=== PATIENT | male | born 1950 | race Caucasian/White ===

== ENCOUNTER 2021-01-19 23:00 | Inpatient (IN) | payer MEDICARE, SELFPAY ==
[2020-05-12 10:51] VITALS: BMI 31.5
--- NOTE | 2021-01-19 | RAD_ITS ---
STUDY: X-RAY CHEST REASON FOR EXAM: Male, 70 years old. intermittent chest pain starting this morning, started worsening around 10 pm. TECHNIQUE: Single AP portable view of the chest. COMPARISON: None. FINDINGS: The lungs are clear and underexpanded. There is no demonstrated pleural abnormality. Normal size heart. Normal mediastinum and iza. Normal visualized pulmonary arteries. Normal visualized aortic arch and descending thoracic aorta. There are diffuse degenerative changes of the visualized thoracic spine. There is degenerative osteoarthritis of the bilateral shoulders. There is no demonstrated abnormality of the visualized soft tissue structures of the upper abdomen. RAD/Chest 1 View (Portable) IMPRESSION: No acute cardiopulmonary disease. Electronically Signed: Sandee Aggarwal MD at 0:14 EDT , Service support ,
[2021-01-19 23:00] VITALS: BP 199/100; PULSE 66; RESP 18; TEMP 36.4; O2SAT 97; BMI 32.5
[2021-01-19 23:23] VITALS: BP 170/85; PULSE 65; RESP 18; O2SAT 98
--- NOTE | 2021-01-19 23:27 | EKG12_ITS ---
Test Reason : CP Blood Pressure : / mmHG Vent. Rate : 063 BPM Atrial Rate : 063 BPM P-R Int : 164 ms QRS Dur : 132 ms QT Int : 418 ms P-R-T Axes : 023 -66 023 degrees QTc Int : 427 ms Normal sinus rhythm Right bundle branch block Left anterior fascicular block Bifascicular block Abnormal ECG Confirmed by VALENTINO NEGRON, EVELYNE ([id number]), market editor NELSON SANDOVAL ([id number]) on 01/23/2021 12:46:21 PM Referred By: SHELLY Confirmed By:EVELYNE AVELAR MD
--- NOTE | 2021-01-19 23:28 | EX.ED.DYSGE1 ---
HPI History of Present Illness Chief Complaint: Chest Pain Informant: patient Onset/Context/Timing Onset: Today Context: Sudden Onset Current Severity: Moderate Narrative Narrative: This patient is a 70-year-old male who presents with chest pain. He does have a history of coronary artery disease. He had a stent in 2012. He reports that he has been doing well his last stress test was a couple of years ago. He last saw cardiology last April. He awoke with chest pain this morning. He describes it as a pressure discomfort. This lasted about 30 minutes and resolved. However his symptoms returned tonight a little over 1 hour ago. Again his symptoms began at rest. He rates his discomfort as 5 out of 10 and again describes it as pressure-like. He reports nausea and eructation. No fevers. No vomiting. No shortness of breath. No diaphoresis. No dizziness. He otherwise denies any recent medical illness such as fevers cough diarrhea abdominal pain rash headache. [facility] Medical History (Updated 01/20/21 @ 00:[address] Leonel Estrada MD) Atherosclerosis of [place] coronary artery of [place] heart without angina pectoris Diabetes Essential (primary) hypertension History of deep venous thrombosis Hypercoagulable state Hyperlipidemia Obesity Right bundle branch block (RBBB) Home Medications primidone 50 mg tablet 150 mg PO BID #90 tab 10/03/17 [Rx Last Taken Unknown] warfarin 4 mg tablet 4 mg PO QDAY #90 tab 10/03/17 [Rx Last Taken Unknown] nitroglycerin 0.4 mg sublingual tablet 0.4 mg SUBLINGUAL Q5-15M PRN #25 tab 04/22/18 [Rx Last Taken Unknown] lisinopril 20 mg tablet 20 mg PO QDAY #90 tab 05/12/20 [Rx Last Taken Unknown] metformin 500 mg tablet 500 mg PO DAILY tab 05/12/20 [History Last Taken Unknown] rosuvastatin 20 mg tablet 20 mg PO DAILY tab 05/12/20 [History Last Taken Unknown] metoprolol succinate 50 mg tablet,extended release 24 hr 50 mg PO QDAY #90 tab 07/04/20 [Rx Last Taken Unknown] Allergy/AdvReac Type Severity Reaction Status Date / Time atorvastatin [From Lipitor] AdvReac myalgia Verified 01/19/21 23:03 Family History Father Heart disease Sister Heart disease Sister Heart disease Diabetes Surgical History [place] filter in place (2005) H/O knee surgery History of carpal tunnel surgery History of coronary artery stent placement (07/08/13) History of lumbar surgery Social History (Updated 05/12/20 @ 11:[address] Isaias Ontiveros MD) Smoking Status: Never smoker alcohol intake: never caffeine: Yes Type: carbonated beverages and coffee ROS ROS ED Constitutional Constitutional ED: Denies fever(s) Eyes Eyes: Denies change in vision ENT ENT ED: Denies ear pain Cardiovascular Cardiovascular: Reports chest pain Respiratory/Chest Respiratory/Chest: Denies dyspnea Gastrointestinal Gastrointestinal: Reports nausea Musculoskeletal Musculoskeletal: Denies arthralgias or myalgias Integumentary Denies rash Neurologic Neurologic: Denies headache(s) EXAM Physical Exam Const Vital Signs: 01/19/21 23:00 01/19/21 23:23 01/19/21 23:40 Temperature 97.6 F L Temperature Source Temporal Pulse Rate 66 65 64 Respiratory Rate 18 18 Respiratory Effort Normal Respiratory Pattern Normal Blood Pressure 199/100 H 170/85 H 182/79 H Blood Pressure Mean 133 113 Pulse Ox 97 98 Oxygen Delivery Method Room Air Room Air Oxygen Flow Rate (L/min) 01/19/21 23:42 01/19/21 23:45 01/19/21 23:59 Temperature Temperature Source Pulse Rate 61 60 Respiratory Rate Respiratory Effort Respiratory Pattern Blood Pressure 138/85 H 138/73 H Blood Pressure Mean Pulse Ox 96 Oxygen Delivery Method Nasal Cannula Oxygen Flow Rate (L/min) 2 01/20/21 00:01 Temperature Temperature Source Pulse Rate 93 Respiratory Rate Respiratory Effort Respiratory Pattern Blood Pressure Blood Pressure Mean Pulse Ox 97 Oxygen Delivery Method Room Air Oxygen Flow Rate (L/min) Positive well nourished HEENT Reports moist mucous membranes Eyes EOMs intact bilaterally Neck supple Chest Wall inspection of chest normal Resp normal respiratory effort Auscultation: Negative for rales, rhonchi or wheezes Cardio regular rate, regular rhythm and no murmurs GI non-tender Palpation: soft Extremity General Extremety ED: Negative for edema or tenderness General Extremity: Negative for edema Neuro oriented x3 Sensorium / Orientation: alert Psych mental status grossly normal Skin no rashes or lesions noted MDM MDM MDM Narrative Medical decision making narrative: EKG shows normal sinus rhythm with a bifascicular block, right bundle and left anterior fascicular. Rate is 63. No acute ischemic changes. Serum laboratory studies are unremarkable, INR 2.1, troponin negative. Patient was given aspirin and sublingual nitroglycerin. He had 3 sublingual nitroglycerin with near resolution of his pain however his pain is returning. Therefore he was started on nitroglycerin infusion. He is already anticoagulated. Patient will be discussed with the hospitalist service and admitted for further evaluation. One-view portable chest x-ray was obtained. On my interpretation the shows no acute process. Lab Data Labs: Laboratory Results - last 24 hr 01/19/21 01/19/21 01/19/21 23:30 23:30 23:30 WBC 7.0 RBC 4.47 L Hgb 14.7 Hct 42.8 MCV 95.7 H MCH 32.9 H MCHC 34.3 RDW Std Deviation 44.9 H RDW Coeff of Trish 12.7 Plt Count 150 MPV 9.8 Immature Gran % (Auto) 0.400 Neut % (Auto) 54.3 Lymph % (Auto) 27.5 [place] % (Auto) 14.3 H Eos % (Auto) 2.6 Baso % (Auto) 0.9 Absolute Neuts (auto) 3.8 Absolute Lymphs (auto) 1.92 Nucleated RBC % 0 PT 23.0 H INR 2.1 Sodium 136 Potassium 4.2 Chloride 103 Carbon Dioxide 27.0 Anion Gap 6 BUN 19 H Creatinine 1.15 Estim Creat Clear Calc 59.77 Est GFR (MDRD) Af Amer 81 Est GFR (MDRD) Non-Af 67 BUN/Creatinine Ratio 16.5 Glucose 178 H Calcium 8.5 Troponin I < 0.015 Radiography Diagnostic Testing: Radiology Impression Chest X-Ray 01/19/21 00:00 IMPRESSION: No acute cardiopulmonary disease. Electronically Signed: Sandee Aggarwal MD at 0:14 EDT , Service support , Discharge Plan Dx/Rx/DC Orders Clinical Impression: Angina pectoris, unstable Disposition Disposition: Acute Care [facility]
[2021-01-19] MEDS: Aspirin 81 MG TAB.CHEW 324 MG PO (23:37)
[2021-01-19 23:40] VITALS: BP 182/79; PULSE 64
[2021-01-19 23:40] LABS: Absolute Lymphocyte Count 1.92 X10^3/uL (0.83-4.51); Absolute Neutrophil Count 3.8 X10^3/uL (2.0-7.7); Basophil# 0.06 X10^3/uL; Basophil% 0.9 % (0-1); Eosinophil# 0.18 X10^3/uL; Eosinophils% 2.6 % (0-5); Hematocrit 42.8 % (40-54); Hemoglobin 14.7 g/dL (13.0-16.5); Lymphocyte # 1.92 X10^3/ul (0.83-4.51); Lymphocyte % 27.5 % (19-41); Mean Corp Hgb Conc 34.3 g/dL (32-36); Mean Corpuscular Hgb 32.9 pg (27.0-32.0); Mean Corpuscular Volume 95.7 fL (80-94); Mean Platelet Vol. 9.8 fl (6.2-12.0); Monocyte% 14.3 % (0-10); NRBC Flagged by Analyzer 0 % (0-5); Neutrophil # 3.78 X10^3/uL (2.7-7.7); Neutrophil % 54.3 % (47-70); Platelet Count 150 K/mm3 (150-450); RBC Distribution Width CV 12.7 % (11.6-14.6); RBC Distribution Width SD 44.9 fl (35.1-43.9); Red Blood Count 4.47 M/mm3 (4.6-6.2)
[2021-01-19] MEDS: Nitroglycerin SL (ED/IMG/CATH) 0.4 MG TABLET SL ×3 (23:40→23:59)
[2021-01-19 23:42] VITALS: O2SAT 96
[2021-01-19 23:45] VITALS: BP 138/85; PULSE 61
[2021-01-19 23:57] LABS: Anion Gap 6 (5-15); BUN 19 mg/dL (7-18); BUN/Creat Ratio 16.5 RATIO (10-20); Calcium,Total 8.5 mg/dL (8.5-10.1); Chloride 103 mmol/L (98-107); Creatinine, Serum 1.15 mg/dL (0.70-1.30); EST Glomerular Filtration Rate 67 mL/min (>60); Est Glom Filt Rate - Afr Amer 81 mL/min (>60); Estimated Creatinine Clearance 59.77 ml/min; Glucose 178 mg/dL (74-106); International Normalized Ratio 2.1; Potassium 4.2 mmol/L (3.5-5.1); Sodium Level 136 mmol/L (136-145)
[2021-01-19 23:59] VITALS: BP 138/73; PULSE 60
[2021-01-20] VITALS (27 sets, daily range): BP systolic 126–160; BP diastolic 69–88; PULSE 47–93; RESP 11–20; TEMP 36.3–37.1; O2SAT 95–100; BMI 32.7
[2021-01-20] MEDS: Nitroglycerin Infusion 250 ML 3 MG CONT INF (00:33)
--- NOTE | 2021-01-20 00:34 | HP.PCM.HOS_ITS ---
HPI - General General Date of Admission: 01/20/21 HPI Narrative KAYLA MORENO, is a 70 M with a significant history of hypertension; CAD status post stent; hypercoagulable state with a [place] filter; and obesity who presents to the emergency department with chest pain. At about 6:30 AM on the day of presentation patient had a substernal chest pressure that woke him up from his sleep. The chest pain is nonradiating. The chest pain lasted for about 30 minutes. And then at about 10 PM on the day of presentation while patient was sitting in his recliner watching TV his chest pain was located and it was persistent. He rates his pain as 5 out of 10. At the emergency department after the third nitroglycerin pill his chest pain subsided. However after a while he chest pain began to increase. Patient was eventually started on nitroglycerin drip at the emergency department. Associated with symptoms is nausea. He denies any vomiting; diaphoresis or shortness of breath. He denies any aggravating factors to the chest pain. [facility] Medical History (Updated 01/20/21 @ 01:[address] Jhonatan Stewart MD) Atherosclerosis of [place] coronary artery of [place] heart without angina pectoris Diabetes Essential (primary) hypertension History of deep venous thrombosis Hypercoagulable state Hyperlipidemia Obesity Right bundle branch block (RBBB) Home Medications primidone 50 mg tablet 150 mg PO BID #90 tab 10/03/17 [Rx Last Taken Unknown] warfarin 4 mg tablet 4 mg PO QDAY #90 tab 10/03/17 [Rx Last Taken Unknown] nitroglycerin 0.4 mg sublingual tablet 0.4 mg SUBLINGUAL Q5-15M PRN #25 tab 04/22/18 [Rx Last Taken Unknown] lisinopril 20 mg tablet 20 mg PO QDAY #90 tab 05/12/20 [Rx Last Taken Unknown] metformin 500 mg tablet 500 mg PO DAILY tab 05/12/20 [History Last Taken Unknown] rosuvastatin 20 mg tablet 20 mg PO DAILY tab 05/12/20 [History Last Taken Unknown] metoprolol succinate 50 mg tablet,extended release 24 hr 50 mg PO QDAY #90 tab 07/04/20 [Rx Last Taken Unknown] Allergy/AdvReac Type Severity Reaction Status Date / Time atorvastatin [From Lipitor] AdvReac myalgia Verified 01/19/21 23:03 Family History Father Heart disease Sister Heart disease Sister Heart disease Diabetes Surgical History [place] filter in place (2005) H/O knee surgery History of carpal tunnel surgery History of coronary artery stent placement (07/08/13) History of lumbar surgery Social History Smoking Status: Never smoker alcohol intake: never caffeine: Yes Type: carbonated beverages and coffee ROS Constitutional Constitutional: Denies anorexia or change in weight Eyes Eyes: Denies blurry vision or change in eye color ENT HEENT: Denies abnormal hearing, dysphagia or ear pain Cardiovascular Cardiovascular: Reports chest pain and edema Respiratory/Chest Respiratory/Chest: Denies cough, dyspnea or excessive phlegm production Gastrointestinal Gastrointestinal: Reports nausea; Denies abdominal pain or coffee ground emesis Genitourinary Genitourinary: Denies burning urination or difficulty urinating Musculoskeletal Musculoskeletal: Denies arthralgias, back pain or joint pain Neurologic Neurologic: Denies abnormal gait, abnormal speech, confusion or disequilibrium Psychiatric Psychiatric: Denies anxiety or depression Vital Signs Vital Signs Vital Signs: 01/19/21 23:00 01/19/21 23:23 01/19/21 23:40 Temperature 97.6 F L Temperature Source Temporal Pulse Rate 66 65 64 Respiratory Rate 18 18 Respiratory Effort Normal Respiratory Pattern Normal Blood Pressure 199/100 H 170/85 H 182/79 H Blood Pressure Mean 133 113 Pulse Ox 97 98 Oxygen Delivery Method Room Air Room Air Oxygen Flow Rate (L/min) 01/19/21 23:42 01/19/21 23:45 01/19/21 23:59 Temperature Temperature Source Pulse Rate 61 60 Respiratory Rate Respiratory Effort Respiratory Pattern Blood Pressure 138/85 H 138/73 H Blood Pressure Mean Pulse Ox 96 Oxygen Delivery Method Nasal Cannula Oxygen Flow Rate (L/min) 2 01/20/21 00:01 Temperature Temperature Source Pulse Rate 93 Respiratory Rate Respiratory Effort Respiratory Pattern Blood Pressure Blood Pressure Mean Pulse Ox 97 Oxygen Delivery Method Room Air Oxygen Flow Rate (L/min) Physical Exam Narrative Alert and oriented x3 Nontraumatic; normocephalic Lung clear to auscultate Heart sounds S1-S2. No murmur, gallop or rubs. Abdomen bowel sounds present soft, nontender nondistended Extremity with bilateral feet edema; left worse than right. Lab / Micro Data Result Diagrams: 01/19/21 23:30 01/19/21 23:30 Labs: Laboratory Results - last 24 hr 01/19/21 01/19/21 01/19/21 23:30 23:30 23:30 WBC 7.0 RBC 4.47 L Hgb 14.7 Hct 42.8 MCV 95.7 H MCH 32.9 H MCHC 34.3 RDW Std Deviation 44.9 H RDW Coeff of Trish 12.7 Plt Count 150 MPV 9.8 Immature Gran % (Auto) 0.400 Neut % (Auto) 54.3 Lymph % (Auto) 27.5 [place] % (Auto) 14.3 H Eos % (Auto) 2.6 Baso % (Auto) 0.9 Absolute Neuts (auto) 3.8 Absolute Lymphs (auto) 1.92 Nucleated RBC % 0 PT 23.0 H INR 2.1 Sodium 136 Potassium 4.2 Chloride 103 Carbon Dioxide 27.0 Anion Gap 6 BUN 19 H Creatinine 1.15 Estim Creat Clear Calc 59.77 Est GFR (MDRD) Af Amer 81 Est GFR (MDRD) Non-Af 67 BUN/Creatinine Ratio 16.5 Glucose 178 H Calcium 8.5 Troponin I < 0.015 Radiology Impression Chest X-Ray 01/19/21 00:00 IMPRESSION: No acute cardiopulmonary disease. Electronically Signed: Sandee Aggarwal MD at 0:14 EDT , Service support , Assessment & Plan Assessment/Plan (1) Angina pectoris, unstable: PLAN: Place on a monitored bed at PCU Actual CXR image was independently visualized. No acute cardiopulmonary process was noted. Actual EKG tracing was independently visualized. EKG tracing showed left axis deviation with right bundle branch block. Of note patient has a history of right bundle branch block. Received full dose aspirin at the emergency department. ASA 81 mg p.o. daily ordered Received sublingual nitroglycerin x2 at emergency department and started on nitroglycerin drip. Nitroglycerin drip continued. Morphine as needed for pain ordered We will check lipid panel. Statin: High intensity statin continued Initial troponin was negative. Serial cardiac enzymes ordered Stat EKG as needed for chest pain Hold Coumadin. INR is therapeutic. Trend INR. Keep n.p.o. Cardiology consult . (2) Essential (primary) hypertension: PLAN: Blood pressure is stable. Lisinopril and metoprolol continued. Nitroglycerin drip as above. DVT prophylaxis ordered (3) Hypercoagulable state: PLAN: Coumadin held. Trend INR. (4) Diabetes: PLAN: Patient with hyperglycemia on presentation Metformin held Accu-Chek every 6 hours with correction scale insulin ordered. Visit Charges Inpatient E&M: 56583 Init Hosp L3
--- NOTE | 2021-01-20 01:28 | EKG12_ITS ---
Test Reason : PCI Blood Pressure : / mmHG Vent. Rate : 057 BPM Atrial Rate : 057 BPM P-R Int : 180 ms QRS Dur : 138 ms QT Int : 450 ms P-R-T Axes : 032 -71 015 degrees QTc Int : 438 ms Sinus bradycardia Right bundle branch block Left anterior fascicular block Bifascicular block Confirmed by VALENTINO NEGRON, EVELYNE ([id number]), design editor NELSON SANDOVAL ([id number]) on 01/24/2021 8:50:29 AM Referred By: PHAN Confirmed By:EVELYNE AVELAR MD
[2021-01-20] MEDS: Insulin Lispro 100 UNIT/ML INSULN.PEN SC ×4 (05:31→21:41)
[2021-01-20 05:35] LABS: Bedside Glucose 172 mg/dL (70-110)
[2021-01-20 05:36] LABS: Hematocrit 40.4 % (40-54); Hemoglobin 13.7 g/dL (13.0-16.5); Mean Corp Hgb Conc 33.9 g/dL (32-36); Mean Corpuscular Hgb 32.3 pg (27.0-32.0); Mean Corpuscular Volume 95.3 fL (80-94); Mean Platelet Vol. 9.7 fl (6.2-12.0); Platelet Count 145 K/mm3 (150-450); RBC Distribution Width SD 45.1 fl (35.1-43.9); Red Blood Count 4.24 M/mm3 (4.6-6.2); White Blood Count 6.3 K/mm3 (4.4-11.0)
[2021-01-20 05:43] LABS: International Normalized Ratio 2.2; Prothrombin Time (Protime)PT. 23.5 SECONDS (11.7-14.9)
[2021-01-20 06:00] LABS: Anion Gap 5 (5-15); BUN 17 mg/dL (7-18); Calcium,Total 8.1 mg/dL (8.5-10.1); Chloride 105 mmol/L (98-107); Cholesterol 203 mg/dL (200); EST Glomerular Filtration Rate 78 mL/min (>60); Est Glom Filt Rate - Afr Amer 95 mL/min (>60); Estimated Creatinine Clearance 68.74 ml/min; Glucose 157 mg/dL (74-106); High Density Lipoprotein 45 mg/dL; Potassium 4.6 mmol/L (3.5-5.1); Sodium Level 137 mmol/L (136-145); Triglycerides 129 mg/dL; Very Low Density Lipoprotein 26 mg/dL (5-40)
--- NOTE | 2021-01-20 07:27 | CON.PCM.CA_ITS ---
Assessment & Plan Assessment/Plan (1) Angina pectoris, unstable: PLAN: The patient presents with chest discomfort which is new in onset and appears to be suggestive of unstable angina. My recommendation at this time would be for him to continue with the current dose of intravenous nitroglycerin. I would recommend that he undergo a cardiac catheterization to assess the patency of his previously placed stents. The risk benefits and alternatives have been explained to him he understands and agrees to proceed. (2) History of coronary artery stent placement: PLAN: He does have a history of coronary artery disease with status post angioplasty and stenting to the LAD previously in 2013. This would be evaluated with a cardiac catheterization. Depending on the findings further recommendations will be made. (3) Essential (primary) hypertension: PLAN: His blood pressure is uncontrolled he presented. He is on a beta- yanira and ERIKA inhibitor. He may need to have a higher dose of the ERIKA inhibitor. This will be determined after his procedure. (4) Hyperlipidemia: QUALIFIERS: Hyperlipidemia type: pure hypercholesterolemia Qualified Code(s): E78.00 - Pure hypercholesterolemia, unspecified; E78.0 - Pure hypercholesterolemia PLAN: He does have a history of hyperlipidemia and is on high intensity statin. This will be continued at this time without us making any changes. Thank you for allowing me to participate in the care of your patient. Please don't hesitate to call if any issues arise. HPI Consult Data Date of Consult: 01/20/21 HPI Narrative HPI Narrative: Mr. Preston is a 70-year-old man who presents with chest discomfort described as a burning sensation and heaviness.he says that this started approximately a day ago. He is a gentleman with a history of hypertension, incomplete right bundle branch block, DVT and hypercoagulable state, coronary artery disease status post angioplasty and stenting of the left anterior descending artery in 2012 with a 3 x 38 mm Promus drug-eluting stent. He had apparently been doing well without any chest pain or shortness of breath or paroxysmal nocturnal dyspnea until yesterday. He denies any neck arm or jaw discomfort to suggest angina until then. He has not had any recent stress testing. He has been compliant with all his medications. He was seen in the emergency room and noted to have chest discomfort which appeared to resolve with sublingual nitroglycerin but then came back. He was therefore started on intravenous nitroglycerin. He has been admitted to the telemetry care unit and at this time continues to have mild chest discomfort on 5 mcg of nitroglycerin. [facility] Medical History Atherosclerosis of [place] coronary artery of [place] heart without angina pectoris Diabetes Essential (primary) hypertension History of deep venous thrombosis Hypercoagulable state Hyperlipidemia Non-smoker Obesity Right bundle branch block (RBBB) Home Medications primidone 50 mg tablet 150 mg PO BID #90 tab 10/03/17 [Rx Last Taken 01/19/21 22:00] nitroglycerin 0.4 mg sublingual tablet 0.4 mg SUBLINGUAL Q5-15M PRN #25 tab 04/22/18 [Rx Last Taken Unknown] lisinopril 20 mg tablet 20 mg PO QDAY #90 tab 05/12/20 [Rx Last Taken 01/19/21 22:00] metformin 500 mg tablet 500 mg PO DAILY tab 05/12/20 [History Last Taken 01/19/21 08:00] rosuvastatin 20 mg tablet 20 mg PO QHS tab 05/12/20 [History Last Taken 01/19/21 22:00] metoprolol succinate 50 mg tablet,extended release 24 hr 50 mg PO QDAY #90 tab 07/04/20 [Rx Last Taken 01/19/21 08:00] acetaminophen [Tylenol Arthritis] 650 mg PO QHS 01/20/21 [History Last Taken 01/19/21 22:00] hydrocodone-acetaminophen [[place]] 1 tab PO DAILY PRN 01/20/21 [History Last Taken Unknown] warfarin [Coumadin] 2 mg PO MOTH 01/20/21 [History Last Taken 01/19/21 21:30] warfarin [Coumadin] 4 mg PO [id number] 01/20/21 [History Last Taken 01/18/21 21:30] Allergy/AdvReac Type Severity Reaction Status Date / Time atorvastatin [From Lipitor] AdvReac myalgia Verified 01/19/21 23:03 Family History Father Heart disease Sister Heart disease Sister Heart disease Diabetes Surgical History [place] filter in place (2005) H/O knee surgery History of carpal tunnel surgery History of coronary artery stent placement (07/08/13) History of lumbar surgery Social History Smoking Status: Never smoker alcohol intake: never caffeine: Yes Type: carbonated beverages and coffee ROS Review of Systems ROS Unobtainable: Denies due to encephalopathy, due to endotracheal tube, due to mental condition, due to mental status or other Constitutional Constitutional: Reports systems reviewed and no addt'l complaints, except as documented Eyes Eyes: Reports systems reviewed and no addt'l complaints, except as documented ENT HEENT: Reports systems reviewed and no addt'l complaints, except as documented Cardiovascular Cardiovascular: Reports chest pain and chest pain at rest; Denies dyspnea on exertion or nausea Respiratory/Chest Respiratory/Chest: Denies systems reviewed and no addt'l complaints, except as documented Gastrointestinal Gastrointestinal: Denies systems reviewed and no addt'l complaints, except as documented Genitourinary Genitourinary: Denies systems reviewed and no addt'l complaints, except as documented Musculoskeletal Musculoskeletal: Reports as per HPI Integumentary Integumentary: Reports as per HPI Neurologic Neurologic: Denies dizziness Psychiatric Psychiatric: Reports as per HPI Endocrine Endocrinology: Denies as per HPI Hematologic/Lymphatic Hematologic/Lymphatic: Reports as per HPI Physical Exam Const oriented x3 and healthy appearing Orientation / Consciousness: awake HEENT normocephalic Eyes PERRL and conjunctivae normal Neck supple, no JVD and no carotid bruits Chest inspection of chest normal Resp normal respiratory effort and clear to auscultation bilaterally Cardio Palpation: normal PMI Rate: regular rate Rhythm: regular rhythm Heart Sounds: S1 normal and S2 normal Peripheral Pulses: pulses 2+ throughout GI normal to inspection, nondistended, normoactive bowel sounds Extremity normal to inspection and no clubbing, cyanosis or edema Psych mental status grossly normal
[2021-01-20] MEDS: Metoprolol(XL)Succ 50 MG Tablet PO (07:42)
[2021-01-20] MEDS: Aspirin E.C. 81 MG Tablet PO (07:42)
[2021-01-20] MEDS: Lisinopril 20 MG Tablet PO (07:42)
--- NOTE | 2021-01-20 08:00 | NURSING ---
gave report to tianna NAGEL in [employer]
--- NOTE | 2021-01-20 08:25 | CASEMGMT ---
ROBE MARROQUIN NOTE: Insurance review for hospitals In-network with?MMO MCR HMO Insurance if transfer is recommended is as follows: [facility], [place], [facility], [facility], [facility], and . Juan Antonio SILVERMAN RN CM
--- NOTE | 2021-01-20 08:41 | CL.D_ITS ---
Patient Name: KAYLA MORENO Study Date: 01/20/2021 Performing: Isaias Ontiveros MD Ht: 68.89 inches 175 cm : 1950 Wt: 222.67 lbs 101 kg Age: 70 Gender: male BSA: 2.16 PROCEDURE(S) PERFORMED [id number]-KGD/COR/LV CLINICAL PROFILE AND INDICATIONS Indications: ACS <= 24 hrs Heart Failure: None Stress/Imaging Stress/Image Study Performed: No CAD Presentations: Unstable angina. CONCLUSIONS Coronary artery disease with previously placed stent in the LAD which is patent and immediate post st ent with an 80% stenotic lesion and distal LAD with 80% stenosis. Moderate disease is noted in the r ight coronary artery and mild disease in the left circumflex artery. RECOMMENDATIONS Referred for immediate PCI DESCRIPTION OF PROCEDURE The patient arrived to the procedure lab. The risks and benefits of the procedure as well as a full d escription of our services here and current unavailability of surgical backup were fully explained to the patient and/or their significant other prior to the catheterization. The Timeout was completed, verifying the correct patient and procedure. The patient's procedural site was prepped and draped in the usual fashion. Local anesthetic was given subcutaneously to right radial region with Lidocaine 2% . Using a modified Seldinger technique, arterial access was obtained via the right radial artery, a 6 Fr sheath was inserted. Left Coronary Artery selective angiography was performed in multiple views u sing a 5 Fr. 4.0 [place] catheter. Right Coronary Artery selective angiography was then performed in mu ltiple views using a 5 Fr. 4.0 [place] catheter. Left Ventriculography was performed in HIGGINS projection using a 5 Fr. Pigtail catheter. LV to AO pullback pressures were then recorded. CORONARY ANGIOGRAPHY DOMINANCE: Right Dominant LEFT HEART ASSESSMENT Left Ventricular Ejection Fraction: by LV Gram 65 % Normal LV wall motion Normal Left Ventricular systolic function LEFT MAIN: Angiographically normal LEFT ANTERIOR DESCENDING ARTERY: MID LAD: Previously placed stent is patent, 80 % Stenosis DISTAL LAD: 80 % Stenosis SEPTAL: 80 % Stenosis CIRCUMFLEX ARTERY: Mild luminal irregularities RIGHT CORONARY ARTERY: Moderate luminal irregularities up to 50% COMPLICATIONS PROCEDURE MEDICATIONS Versed 1 mg IV Fentanyl 50 mcg IV Versed 1 mg IV Oxygen: 2 L/min via nasal cannula Brilinta 180 mg PO @ 01/20/2021 08:35:36 Heparin 2000 unit(s) IV 01/20/2021 08:24:22 Nitro glycerin 25mg / 250ml D5W @ 5 mcg/min IV started on PCU and continugin in the supervisor cytogenetic laboratory 01/20/2021 08:23:47 SUMMARY OF HEMODYNAMIC DATA Time AIR REST ECG 08:12:42 AO 149/72 (102) SA 08:24:45 LV 156/8, 17 08:32:09 LV 155/7, 13 08:32:16 LV 152/10, 18 08:32:47 LV 155/10, 16 08:32:53 LVp 162/12, 18 08:32:58 AOp 160/76 (110) 08:33:03 Signed By Isaias Ontiveros MD On 01/20/2021 8:41:07 AM Isaias Ontiveros MD
--- NOTE | 2021-01-20 09:45 | CL.I_ITS ---
Patient Name: KAYLA MORENO Study Date: 01/20/2021 Performing: Coreen Klein MD Ht: 69 inches 175 cm : 1950 Wt: 223 lbs 101 kg Age: 70 Gender: male BSA: 2.16 PROCEDURE(S) PERFORMED [id number] W OR WO PTCA, SINGLE CORONARY ARTERY CLINICAL PROFILE AND CO-MORBIDITIES Indications: ACS <= 24 hrs Heart Failure: None Stress/Imaging Stress/Image Study Performed: No CAD Presentations: Unstable angina. CONCLUSIONS Successful DARNELL to mLAD RECOMMENDATIONS DESCRIPTION OF PROCEDURE The patient arrived to the procedure lab. The risks and benefits of the procedure as well as a full d escription of our services here and current unavailability of surgical backup were fully explained to the patient and/or their significant other prior to the catheterization. The Timeout was completed, verifying the correct patient and procedure. The patient's procedural site was prepped and draped in the usual fashion. Local anesthetic was given subcutaneously to right radial region with Lidocaine 2% Using a modified Seldinger technique,arterial access was obtained via the right radial artery, a 6Fr sheath was inserted. Left Coronary Artery selective angiography was performed in multiple views usin g a 5 Fr. 4.0 [place] catheter. Right Coronary Artery selective angiography was then performed in multi ple views using a 5 Fr. 4.0 [place] catheter. Left Ventriculography was performed in HIGGINS projection usi ng a 5 Fr. Pigtail catheter. LV to AO pullback pressures were then recorded.The images were reviewed and options discussed. A decision was then made to proceed with an Intervention, IVUS o r other adjunct procedure. XB 3.0 Guide catheter was inserted and engaged into the LCA. BMW Rogers Guide wire was advance d to the LAD. Orsiro 2.5 x 9 Drug Eluting stent was inserted. Drug Eluting stent was advanced across the lesion in the LAD, mid. Angiogram performed pre stent deployment. Angiogram performed post stent deployment. Euphora 1.5 x 20 Balloon catheter was inserted. Balloon catheter was advanced across lesi on in the LAD, mid. Angiogram performed post balloon dilatation. The arterial sheath was pulled and a TR Band was applied for hemostasis INTERVENTION INFORMATION LESION SITE: LAD (Mid) Lesion Complexity: High/C, chronic total occlusion: No, lesion at bifurcation: Yes, thrombus present: No, lesion length: 7 mm, culprit lesion: Yes, Previously treated lesion: No Pre Stenosis: 80 % Pre intervention DALILA flow: 3 PROCEDURE: Drug Eluting Stent Post Stenosis: 0 % Post intervention DALILA flow: 3 Lesion Devices: Cardinal 6 Fr XB3.0 100cm Guide Catheter Benítez .014 BMW Rogers Straight 190cm Medtronic SC EUPHORA RX 1.5x20 BALLOON COMPLICATIONS No Complications PROCEDURE MEDICATIONS Versed 1 mg IV Fentanyl 50 mcg IV Versed 1 mg IV Oxygen: 2 L/min via nasal cannula Brilinta 180 mg PO @ 01/20/2021 08:35:36 Heparin 2000 unit(s) IV 01/20/2021 08:24:22 Heparin 7000 unit(s) IV 01/20/2021 08:54:11 Nitro glycerin 25mg / 250ml D5W @ 5 mcg/min IV started on PCU and continugin in the 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
--- NOTE | 2021-01-20 10:00 | EKG12_ITS ---
Test Reason : AM EKG Blood Pressure : / mmHG Vent. Rate : 057 BPM Atrial Rate : 057 BPM P-R Int : 182 ms QRS Dur : 132 ms QT Int : 456 ms P-R-T Axes : 009 -68 011 degrees QTc Int : 443 ms Sinus bradycardia Right bundle branch block Left anterior fascicular block Bifascicular block Abnormal ECG When compared with ECG of 20-JAN-2021 11:21, MANUAL COMPARISON REQUIRED, DATA IS UNCONFIRMED Confirmed by VALENTINO NEGRON, EVELYNE ([id number]), health editor NELSON SANDOVAL ([id number]) on 01/24/2021 8:53:40 AM Referred By: DR CHISHOLM Confirmed By:EVELYNE AVELAR MD
[2021-01-20] MEDS: Primidone 50 MG Tablet 150 MG PO ×2 (11:00→21:38)
[2021-01-20 12:51] LABS: Bedside Glucose 197 mg/dL (70-110)
--- NOTE | 2021-01-20 13:39 | CASEMGMT ---
RN CARA LUMBER BUYER CM to room to meet with patient for initial transition planning/care coordination assessment. ROBE MARROQUIN introduced self and role at [facility]. Pt voices understanding and consents to assessment at this time. Pt resting in bed in no distress at this time. Pt is A/O at this time and answers all questions appropriately. Care providers, pharmacy, and demographics verified/updated at this time. PCP: Dr Saleem Specialists: Dr Ontiveros-cardiology Preferred Pharmacy:[facility] Insurance: [facility] Prescription Benefit: Yes. Pt to d/c home on Brilinta. Given Brilinta savings card and instructed on use. Pt voices understanding. Living Will/HPOA: Pt does not currently have LW/HCPOA and declines info at this time. Pt made aware that he can contact as an out-pt and make appt in the future if he decides he would like to talk with someone about this or would like to utilize [facility] social work for advanced directive completion. Given Sanitary Aide Rac card with information and contact number. Pt expresses understanding. He states he has a nephew who is a trial lawyer that is going to help him and his with this paperwork LNOK: , Marcelina. Daughter, Lynne Living Arrangements: Lives w/his , Marcelina, in Ranch-style home w/2 steps to enter. 2 steps to enter. Denies difficulty w/stairs. Independent w/ADL's. Pt/ share home mgmt tasks. Transportation: Pt states drives self and states no transportation concerns at this time. also drives DME: Has a walker but does not use it. Pt states no need for further DME at this time. HHC/SNF: No history of either. Denies needs for HHC. States is considering doing Cardiac Rehab, but he is not sure yet d/t he was informed it would be $35/visit. He plans to contact his insurance co to inquire about this. Pt wishes to return home and states has no concerns with going home at time of discharge. CM to follow for any further discharge planning/needs. Pt voices no further concerns/needs at this time. Advised pt to ask for CM if any further questions/concerns/needs arise. Voices understanding. PLAN: Home Juan Antonio SILVERMAN RN, CM
--- NOTE | 2021-01-20 14:26 | CRPHASE1_ITS ---
Patient Communication Former Patient:: Phase II PHII Cardiac Rehab Discussed with Patient:: Yes Guide to Cardiac Rehab Given to Patient:: Yes Cardiac Rehab Facility Choice List Given to Patient:: Yes Choice Program [facility] CR PHII:: Communication Given to CR Radiology Transcriptionist:: Isaias Ontiveros Phase II Cardiac Rehab:: Yes Sessions:: 36 sessions - 3 days/wk, 12 weeks Cardiac Rehabilitation Info Cardiac Rehabilitation Program Information: Cardiac Rehabilitation is important for patients like you who are recovering from a heart problem. Cardiac rehabilitation programs are recognized as integral to the continued care of the patient with coronary heart disease. The cardiac rehabilitation program is designed to optimize a patient's physical, psychological, and social functioning. Health director medicare sales work in cardiac rehabilitation programs and assist you with getting the treatments you need to get stronger and healthier - like exercise, healthy eating habits, and medications. Cardiac rehabilitation has been show to help people with heart problems live longer and have better life enjoyment than people who do not go to cardiac rehabilitation. Please contact the Cardiac Rehabilitation Program at [facility] at in two weeks if you have not heard from them.
--- NOTE | 2021-01-20 14:27 | CRPH1.INST_ITS ---
General Education CAD and cardiac anatomy and function:: Patient communicates acknowledgment, Needs reinforcement Explanation of diagnoses and procedures:: Patient communicates acknowledgment, Needs reinforcement Sign/Symptoms of [place]:: Patient communicates acknowledgment, Needs reinforcement Antiplatelet therapy: Patient communicates acknowledgment, Needs reinforcement Proper use of NTG-SL: Patient communicates acknowledgment, Needs reinforcement Emergency procedures and activation of EMS: Patient communicates acknowledgment, Needs reinforcement Compliance of all prescribed medications: Patient communicates acknowledgment, Needs reinforcement Smoking Patient Nicotine/Smoking Risk Factors Are:: Never smoked Dyslipidemia Patient Dyslipidemia Risk Factors Are:: Total Cholesterol, Triglycerides, HDL, LDL Recommendations Include:: Lipid profile provided, Reviewed NCEP/ATP guidelines, Therapeutic Lifestyle Change dietary guidelines Dyslipidemia Response Code:: Patient communicates acknowledgment, Needs reinforcement Overweight/Obesity Patient Overweight/Obesity Risk Factors Are:: Obesity - > or = 30 Recommendations Include:: Weight loss of 5-10%, Reduced calorie diet, Exercise 5-7 times/week Overweight/Obesity:: Patient communicates acknowledgment, Needs reinforcement Hypertension Recommendations Include:: BP <130/80 if diabetic, DASH dietary guidelines, Decrease/maintain normal body weight, Moderation of ETOH Hypertension:: Patient communicates acknowledgment, Needs reinforcement Heart Disease Patient Heart Disease Risk Factors Are:: Family history of heart disease < 65 years old, Previous cardiac event Recommendations Include:: Educated family members of their risk Heart Disease Response Code:: Patient communicates acknowledgment, Needs reinforcement Diabetes Patient Diabetes Risk Factors Are:: Elevated blood sugars Recommendations Include:: Maintain fasting blood sugars 70-110 md/dL, Maintain HgbA1c of 6% or less, Monitor blood sugar as prescribed, Diabetic dietary guidelines, Decrease/maintain body weight Diabetes:: Patient communicates acknowledgment, Needs reinforcement Sedentary Patient Sedentary Risk Factors Are:: Lack of regular exercise Recommendations Include:: Aerobic exercise 5-7 times/week for 20-30 minutes continuously, Benefits of regular exercise, Discussed home walking program, Monitored Outpatient Cardiac Rehab Sedentary Response Code:: Patient communicates acknowledgment, Needs reinforc ement
--- NOTE | 2021-01-20 14:59 | PN.HOSP_ITS ---
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 EKG shows left axis deviation with right bundle branch block. Patient was managed on ACS protocol and agronomy research manager was consulted. Serial troponins were negative. Patient had cardiac cath in the morning which showed LAD 80% stenotic lesion in previous post stent in LAD. Distal LAD 80% stenosis. Moderate disease in the RCA and mild disease in left circumflex. EF 65%. Normal LV wall motion and systolic function. Patient had PCI to right radial artery approach. Currently patient is chest pain-free. Patient on baby aspirin, Brilinta, beta-yanira, high intensity statin and lisinopril. 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 2D echo is ordered.
--- NOTE | 2021-01-20 15:04 | ECHOCS_ITS ---
Reason For Study: ACS W/LAD STENOSIS Procedure This was a 2D Doppler, Color Flow transthoracic echocardiogram. The study was technically difficult. Due to body habitus. Contrast injection was performed. Exam performed portable in patient room. Left Ventricle Normal LV size. Mild concentric left ventricular hypertrophy. Left ventricular systolic function is normal. The estimated ejection fraction is 60 %. Stage 1 diastolic dysfunction. No regional wall motion abnormalities noted. Right Ventricle Normal RV size. Normal systolic function. Atria Normal left atrium. Mitral Valve Normal mitral valve. Tricuspid Valve Normal tricuspid valve. Aortic Valve The aortic valve is not well visualized. Pulmonic Valve The pulmonic valve is not well visualized. Great Vessels Normal aortic root. The pulmonary artery is normal size. Normal inferior vena cava. Pericardium/Pleural No pericardial effusion. Medication Diluted definity 3.0ml given slow IV push to enhance endocardial definition. MMode/2D Measurements & Calculations LVIDd: 5.2 cm IVSd: 1.2 cm Ao root diam: 3.3 cm LVIDs: 3.1 cm LVPWd: 1.2 cm FS: 40.5 % LAV(MOD-sp2): 37.1 ml LVAd ap4: 13.1 cm2 LA A4 area: 12.7 cm2 LVLd ap4: 4.7 cm EDV(MOD-sp4): 29.3 ml EDV(sp4-el): 30.8 ml LA dimension(2D): 3.9 cm RA A4 area: 10.1 cm2 Time Measurements MV dec time: 0.22 sec Doppler Measurements & Calculations MV E max italo: 91.7 cm/sec Lat Peak E' Italo: 9.5 cm/sec Med Peak E' Italo: 6.6 cm/sec MV A max italo: 95.4 cm/sec E/E' lat: 9.7 E/E' med: 13.8 MV E/A: 0.96 Ao V2 max: 157.7 cm/sec LV V1 max: 105.6 cm/sec PA V2 max: 127.4 cm/sec Ao max P.0 mmHg LV V1 max P.5 mmHg ECHO/Echo Complete W/ Contrast Interpretation Summary Normal LV size. Mild concentric left ventricular hypertrophy. Left ventricular systolic function is normal. The estimated ejection fraction is 60 %. Stage 1 diastolic dysfunction. Contrast injection was performed. Ordering Physician: Lee Urias Referring Physician: Tate Saleem Performed By: Christi Cleveland, JOSE JUAN, RVT
[2021-01-20] MEDS: Acetaminophen 325 MG Tablet 650 MG PO (17:07)
[2021-01-20 17:21] LABS: Bedside Glucose 191 mg/dL (70-110)
[2021-01-20] MEDS: Rosuvastatin 20 MG Tablet PO (21:38)
[2021-01-20] MEDS: TICAGRELOR 90 MG TABLET PO (21:38)
[2021-01-20 22:40] LABS: Bedside Glucose 168 mg/dL (70-110)
[2021-01-21 02:59] VITALS: PULSE 57
[2021-01-21 03:30] VITALS: BP 126/64; PULSE 60; RESP 16; TEMP 36.7; O2SAT 96
[2021-01-21 06:59] VITALS: PULSE 55
[2021-01-21 07:01] LABS: Bedside Glucose 131 mg/dL (70-110)
[2021-01-21 07:37] VITALS: O2SAT 94
[2021-01-21 08:11] LABS: Hemoglobin 14.4 g/dL (13.0-16.5); Mean Corp Hgb Conc 33.5 g/dL (32-36); Mean Corpuscular Hgb 31.9 pg (27.0-32.0); Mean Corpuscular Volume 95.1 fL (80-94); Mean Platelet Vol. 9.8 fl (6.2-12.0); Platelet Count 146 K/mm3 (150-450); RBC Distribution Width CV 13.2 % (11.6-14.6); RBC Distribution Width SD 46.2 fl (35.1-43.9); Red Blood Count 4.52 M/mm3 (4.6-6.2); White Blood Count 7.6 K/mm3 (4.4-11.0)
[2021-01-21 08:26] LABS: AST(SGOT) 23 U/L (15-37); Alanine Aminotransfer ALT/SGPT 30 U/L (16-61); Albumin, Serum 3.4 g/dL (3.2-5.0); Alkaline Phosphatase 52 U/L (45-117); Anion Gap 8 (5-15); BUN 16 mg/dL (7-18); Calcium,Total 8.5 mg/dL (8.5-10.1); Chloride 104 mmol/L (98-107); Creatinine, Serum 1.07 mg/dL (0.70-1.30); EST Glomerular Filtration Rate 73 mL/min (>60); Est Glom Filt Rate - Afr Amer 88 mL/min (>60); Estimated Creatinine Clearance 64.24 ml/min; Globulin 3.5 g/dL (2.2-4.2); Glucose 134 mg/dL (74-106); Potassium 4.4 mmol/L (3.5-5.1); Protein, Total 6.9 g/dL (6.4-8.2); Sodium Level 136 mmol/L (136-145)
[2021-01-21 08:50] LABS: International Normalized Ratio 1.9; Prothrombin Time (Protime)PT. 21.2 SECONDS (11.7-14.9)
[2021-01-21 09:30] VITALS: BP 125/71; PULSE 67; RESP 18; TEMP 36.9; O2SAT 97
[2021-01-21] MEDS: Lisinopril 20 MG Tablet PO (09:30)
[2021-01-21] MEDS: Aspirin E.C. 81 MG Tablet PO (09:30)
[2021-01-21] MEDS: TICAGRELOR 90 MG TABLET PO (09:30)
[2021-01-21] MEDS: Metoprolol(XL)Succ 50 MG Tablet PO (09:30)
[2021-01-21] MEDS: Primidone 50 MG Tablet 150 MG PO (09:30)
--- NOTE | 2021-01-21 09:55 | PCM.DC ---
Discharge Instructions Diet Discharge Diet: Low fat / Low cholesterol and 2000 mg Sodium Diet Activity Discharge Activity: Return to Normal Activity and May Not Drive (until sees PCP) Weight Bearing Status: Weight bearing as tolerated Dressing / Incision Call your doctor if your incision/area has: Continuous Slow Oozing and Sudden Increased Bleeding Call your doctor if you observe: Fever of 101 or Higher, Numbness or Tingling, Change in Color, Inability to urinate, Inability to have a bowel movement, Shortness of breath, Dizziness, Fainting spells, Swelling in the ankles, Chest pain, Prolonged hiccupping, Increased palpitations (irregular heartbeat), Calf discomfort and Uncontrolled pain Follow Up Care Test Results: Test results from this visit will be discussed in further detail at your follow-up appointment, if applicable. Discharge Plan Admission Admit Date/Time: 01/20/21 00:30 Primary Reason for Your Visit: UNSTABLE ANGINA Attending Provider: Lee Urias Primary Care Provider: Tate Saleem Consulting Providers: Isaias Ontiveros Instructions Patient Instructions: Angina Discharge Orders/Prescriptions Prescriptions: New Brilinta 90 mg Tablet 90 mg PO BID 30 Days Qty: 60 RF: 0 Continued nitroglycerin 0.4 mg tablet, sublingual 0.4 mg SUBLINGUAL Q5-15M PRN (Reason: chest pain) Qty: 25 RF: 3 rosuvastatin 20 mg tablet 20 mg PO QHS RF: 0 lisinopril 20 mg tablet 20 mg PO QDAY Qty: 90 RF: 3 warfarin 4 mg Tablet 4 mg PO SUTUWEFRSA RF: 0 warfarin 2 mg Tablet 2 mg PO MOTH RF: 0 acetaminophen 650 mg Tablet Extended Release 650 mg PO QHS RF: 0 hydrocodone-acetaminophen 10-325 mg Tablet 1 tab PO DAILY PRN (Reason: Pain) RF: 0 metformin 500 mg tablet 500 mg PO DAILY Qty: 0 RF: 0 metoprolol succinate [Toprol XL] 50 mg tablet extended release 24 hr 50 mg PO QDAY Qty: 90 RF: 3 primidone 50 mg tablet 150 mg PO BID Qty: 90 RF: 0 Referrals / Follow Up: Isaias Ontiveros MD [STAFF PHYSICIAN] - Within 2 Weeks Tate Saleem MD [Primary Care Provider] - Disposition Disposition (needs filled in before D/C Order can be placed): Home, self care
--- NOTE | 2021-01-21 10:00 | EKG12_ITS ---
Test Reason : CP ADMISSION Blood Pressure : / mmHG Vent. Rate : 056 BPM Atrial Rate : 056 BPM P-R Int : 176 ms QRS Dur : 134 ms QT Int : 450 ms P-R-T Axes : 011 -65 011 degrees QTc Int : 434 ms Sinus bradycardia Right bundle branch block Left anterior fascicular block Bifascicular block Abnormal ECG Confirmed by OTILIO NEGRON, RADHA ([id number]), field map editor NELSON SANDOVAL ([id number]) on 01/25/2021 9:13:27 AM Referred By: PHAN Confirmed By:RADHA YAÑEZ MD
--- NOTE | 2021-01-21 10:03 | DS.PCM_ITS ---
Providers Date of Admission: 01/20/21 Primary Care Physician: Dr. Tate Saleem MD Consultations 01/20/21 01:28 Consult: Cardiology Routine Consulting Provider: Isaias Ontiveros Reason for Consult: Unstable angina EMERGENT Consult: No MD Notified: Yes Date Notified:: 01/20/21 Time Notified: 06:45 Method of Notification: Text Reason For Visit: UNSTABLE ANGINA Diagnosis Discharge Diagnosis (1) Angina pectoris, unstable: Status: Acute Code(s): I20.0 - Unstable angina (2) History of coronary artery stent placement: Status: Chronic Code(s): Z95.5 - Presence of coronary angioplasty implant and graft (3) Essential (primary) hypertension: Status: Chronic Code(s): I10 - Essential (primary) hypertension (4) Hyperlipidemia: Status: Chronic Code(s): E78.5 - Hyperlipidemia, unspecified Qualifiers: Hyperlipidemia type: pure hypercholesterolemia Qualified Code(s): E78.00 - Pure hypercholesterolemia, unspecified; E78.0 - Pure hypercholesterolemia Medications at Discharge Home Medications primidone 50 mg tablet 150 mg PO BID #90 tab 10/03/17 nitroglycerin 0.4 mg sublingual tablet 0.4 mg SUBLINGUAL Q5-15M PRN #25 tab 04/22/18 lisinopril 20 mg tablet 20 mg PO QDAY #90 tab 05/12/20 rosuvastatin 20 mg tablet 20 mg PO QHS tab 05/12/20 acetaminophen 650 mg PO QHS 01/20/21 hydrocodone-acetaminophen 1 tab PO DAILY PRN 01/20/21 warfarin 2 mg PO MOTH 01/20/21 warfarin 4 mg PO SUTUWEFRSA 01/20/21 aspirin 81 mg PO DAILY@0800 #90 tab 01/21/21 metformin 500 mg PO DAILY #0 tab 01/21/21 metoprolol succinate [Toprol XL] 50 mg PO QDAY #90 tab 01/21/21 ticagrelor [Brilinta] 90 mg PO BID 30 Days #60 tab 01/21/21 Hospital Course Summary of Care Provided Hospital Course: This 70-year-old gentleman was admitted with retrosternal chest pain x2 episodes, anginal quality last 24 hours prior to admi ssion. To me this is score 4. EKG shows LAD with RBBB. Serial troponin enzymes negative diagnosis was made unstable angina/ACS. Patient was managed on ACS protocol and public health representative was consulted. Patient was taken to [facility] and found to have LAD 50% stenosis post previous stent, distal LAD 80% stenosis, moderate disease in the RCA and 100 and circumflex EF 65%. Normal LV systolic function. Patient already on beta-kisha, high intensity rosuvastatin and lisinopril. Aspirin and Brilinta started. Patient on Coumadin for recurrent DVT. Discussed with the public health representative and discharged on aspirin and Brilinta. Brilinta may be for short time for 4 months. As the patient on triple antic oagulant watch for bleeding. 2D echo shows EF 60% with mild concentric LVH. Stage I diastolic dysfunction suggestive of of chronic HFpEF. He is comorbidities include hypertension, diabetes mellitus, recurrent DVT: Home medications continued Discharge medication reconciliation done. Discharge follow-up instructions completed. Discharge process discussed with the patient and all questions were answered to patient's satisfaction. Total time spent, exact 35 minutes on discharge meds reconciliation, examination, coordination of care with nurses and ancillary staff, review of imaging and blood test and discussion with the patient on follow-up instructions Physical Exam Narrative Patient did not treat acute symptoms overnight. Comfortable. conveyor monitor shows sinus rhythm. Right radial artery cath access site no hematoma. General: Alert, Oriented x3, Cooperative HEENT: Atraumatic, PERRLA, EOMI, Normocephalic Oral: No Gingival or Mucosal Lesions/ Ulcerations Neck: Supple, No JVD, Negative Carotid Bruits Lungs: Air entry equal in bilateral lung bases. No crepitation/rhonchi Cardiovascular: Regular rate, Regular Rhythm, Normal S1, Normal S2, No murmurs Abdomen: Bowel Sounds Present, Soft, Non Tender, Non-Distended : No renal angle tenderness. No suprapubic tenderness. Extremities: No edema, Capillary Refill Less than 3 Seconds Skin: No rashes, No breakdown Musculoskeletal: No Tenderness to Palpation of Joints or Extremities Neurological: Cranial nerves II-XII grossly intact, Deep Tendon Reflexes 2+/4 and Symmetrical, Neuro grossly intact Psych/Mental Status: Normal Affect, Appropriate. ABG / Lab / Microbiology Data Result Diagrams: 01/21/21 07:56 01/21/21 07:56 Laboratory: Laboratory Results - last 24 hr 01/20/21 01/20/21 01/20/21 12:46 16:59 21:27 WBC RBC Hgb Hct MCV MCH MCHC RDW Std Deviation RDW Coeff of Trish Plt Count MPV PT INR Sodium Potassium Chloride Carbon Dioxide Anion Gap BUN Creatinine Estim Creat Clear Calc Est GFR (MDRD) Af Amer Est GFR (MDRD) Non-Af BUN/Creatinine Ratio Glucose Calcium Total Bilirubin AST ALT Alkaline Phosphatase Total Protein Albumin Globulin Albumin/Globulin Ratio POC Glucose 197 H 191 H 168 H 01/21/21 01/21/21 01/21/21 06:53 07:56 07:56 WBC 7.6 RBC 4.52 L Hgb 14.4 Hct 43.0 MCV 95.1 H MCH 31.9 MCHC 33.5 RDW Std Deviation 46.2 H RDW Coeff of Trish 13.2 Plt Count 146 L MPV 9.8 PT 21.2 H INR 1.9 Sodium Potassium Chloride Carbon Dioxide Anion Gap BUN Creatinine Estim Creat Clear Calc Est GFR (MDRD) Af Amer Est GFR (MDRD) Non-Af BUN/Creatinine Ratio Glucose Calcium Total Bilirubin AST ALT Alkaline Phosphatase Total Protein Albumin Globulin Albumin/Globulin Ratio POC Glucose 131 H 01/21/21 07:56 WBC RBC Hgb Hct MCV MCH MCHC RDW Std Deviation RDW Coeff of Trish Plt Count MPV PT INR Sodium 136 Potassium 4.4 Chloride 104 Carbon Dioxide 24.0 Anion Gap 8 BUN 16 Creatinine 1.07 Estim Creat Clear Calc 64.24 Est GFR (MDRD) Af Amer 88 Est GFR (MDRD) Non-Af 73 BUN/Creatinine Ratio 15.0 Glucose 134 H Calcium 8.5 Total Bilirubin 0.90 AST 23 ALT 30 Alkaline Phosphatase 52 Total Protein 6.9 Albumin 3.4 Globulin 3.5 Albumin/Globulin Ratio 1.0 POC Glucose Radiography Diagnostic Testing: Radiology Impression Echocardiogram 01/20/21 15:04 Interpretation Summary Normal LV size. Mild concentric left ventricular hypertrophy. Left ventricular systolic function is normal. The estimated ejection fraction is 60 %. Stage 1 diastolic dysfunction. Contrast injection was performed. Ordering Physician: Lee Urias Referring Physician: Tate Saleem Performed By: Christi Cleveland RDCS, RVT D/C Instructions Discharge Diet: Low fat / Low cholesterol and 2000 mg Sodium Diet Discharge Activity: Return to Normal Activity and May Not Drive (until sees PCP) Weight Bearing Status: Weight bearing as tolerated Call your doctor if your incision/area has: Continuous Slow Oozing and Sudden Increased Bleeding Call your doctor if you observe: Fever of 101 or Higher, Numbness or Tingling, Change in Color, Inability to urinate, Inability to have a bowel movement, Shortness of breath, Dizziness, Fainting spells, Swelling in the ankles, Chest pain, Prolonged hiccupping, Increased palpitations (irregular heartbeat), Calf discomfort and Uncontrolled pain Meaningful Use Info Meaningful Use Diagnoses (Choose all that apply): AMI AMI/Post PCI/Angioplasty Aspirin given w/in 24hrs of arrival?: Yes ASA at discharge?: Yes Antiplatelet Therapy at Discharge:: Yes Statins at discharge?: Yes Kai/ARB at discharge?: Yes Beta Kisha at discharge?: Yes Done w/ Acute GA measure.: Yes Documented LVEF (%): 55 Discharge Plan Admission Admit Date/Time: 01/20/21 00:30 Primary Reason for Your Visit: UNSTABLE ANGINA Attending Provider: Lee Urias Primary Care Provider: Tate Saleem Consulting Providers: Isaias Ontiveros Instructions Patient Instructions: Angina Discharge Orders/Prescriptions Prescriptions: New Brilinta 90 mg Tablet 90 mg PO BID 30 Days Qty: 60 RF: 0 aspirin 81 mg Tablet,Delayed Release (Dr/Ec) 81 mg PO DAILY@0800 Qty: 90 RF: 0 Continued nitroglycerin 0.4 mg tablet, sublingual 0.4 mg SUBLINGUAL Q5-15M PRN (Reason: chest pain) Qty: 25 RF: 3 rosuvastatin 20 mg tablet 20 mg PO QHS RF: 0 lisinopril 20 mg tablet 20 mg PO QDAY Qty: 90 RF: 3 warfarin 4 mg Tablet 4 mg PO SUTUWEFRSA RF: 0 warfarin 2 mg Tablet 2 mg PO MOTH RF: 0 acetaminophen 650 mg Tablet Extended Release 650 mg PO QHS RF: 0 hydrocodone-acetaminophen 10-325 mg Tablet 1 tab PO DAILY PRN (Reason: Pain) RF: 0 metformin 500 mg tablet 500 mg PO DAILY Qty: 0 RF: 0 metoprolol succinate [Toprol XL] 50 mg tablet extended release 24 hr 50 mg PO QDAY Qty: 90 RF: 3 primidone 50 mg tablet 150 mg PO BID Qty: 90 RF: 0 Referrals / Follow Up: Isaias Ontiveros MD [STAFF PHYSICIAN] - Within 2 Weeks Tate Saleem MD [Primary Care Provider] - Disposition Disposition (needs filled in before D/C Order can be placed): Home, self care Visit Charges Inpatient E&M: 61905 Disch Hosp
== END 2021-01-21 11:17 | disposition home or self-care (01) | DRG 247 ==
LOC: ED 01-20 00:32 → PCU 01-20 00:36
PROVIDERS: Specialist; Admitting Provider Hospitalist; Emergency Provider Emergency Medicine; PCP Internal Medicine; Visit Provider Internal Medicine
DX: I25.110 Atherosclerotic heart disease of native coronary artery with unstable angina pectoris (principal); D68.59 Other primary thrombophilia; E11.65 Type 2 diabetes mellitus with hyperglycemia; I10 Essential (primary) hypertension; E78.5 Hyperlipidemia, unspecified; E66.9 Obesity, unspecified; Z68.32 Body mass index [BMI] 32.0-32.9, adult; Z79.01 Long term (current) use of anticoagulants; Z79.02 Long term (current) use of antithrombotics/antiplatelets; Z79.82 Long term (current) use of aspirin; Z79.84 Long term (current) use of oral hypoglycemic drugs; Z79.899 Other long term (current) drug therapy; Z86.718 Personal history of other venous thrombosis and embolism; Z95.5 Presence of coronary angioplasty implant and graft
CPT/HCPCS: 36415; 71045; 80048; 80053; 80061; 82962; 84484; 85025; 85027; 85610; 92928; 93005; 93306; 93458; 99152; 99153; 99285; J7040; Q9957; Q9967; A4216; C1725; C1769; C1874; C1887; C1894; C8929; C9600

== ENCOUNTER 2022-04-28 00:03 | Emergency (ER) | payer MEDICARE, SELFPAY ==
[2022-04-28 00:04] VITALS: BP 216/88; PULSE 68; RESP 17; TEMP 36.6; O2SAT 97; BMI 31.5
--- NOTE | 2022-04-28 00:32 | CT_ITS ---
EXAM: CT ABDOMEN AND PELVIS WITH INTRAVENOUS CONTRAST CLINICAL INDICATION: epigastric pain, nausea, hx cholelithiasis TECHNIQUE: Helically acquired images were obtained of the abdomen and pelvis with intravenous contrast. CTDIvol = ( 18.36 ) mGy, DLP = ( 1320.32 ) mGycm This CT exam was performed using one or more of the following dose reduction techniques: automated exposure control, adjustment of the mA and/or kV according to patient size, and/or use of iterative reconstruction technique. This report was created using [employer] report generation technology. CONTRAST: IV 100mL Isovue-370 COMPARISON: None. FINDINGS: LOWER THORAX: Unremarkable. Lung bases are clear. No cardiomegaly. No significant pericardial effusion. ABDOMEN: LIVER: Unremarkable. Homogeneous. No focal mass. GALLBLADDER AND BILE DUCTS: Cholelithiasis. No acute cholecystitis. No intra- or extrahepatic biliary ductal dilation. PANCREAS: Stranding about the pancreas. Circumferential thickening of the wall of the distal esophagus raises concern for pancreatitis. No focal cystic or solid mass. SPLEEN: Unremarkable. Normal size without focal cystic or solid mass. ADRENALS: Unremarkable. No nodules. KIDNEYS AND URETERS: Unremarkable. Normal renal size and position. No hydronephrosis. STOMACH AND BOWEL: No inflammatory or obstructive changes of bowel. No focal inflammatory change. PELVIS: APPENDIX: No evidence of acute appendicitis. BLADDER: Unremarkable. REPRODUCTIVE: Unremarkable as visualized. No mass. ABDOMEN and PELVIS: INTRAPERITONEAL SPACE: Unremarkable. No ascites or other fluid collection. No free air. BONES/JOINTS: Degenerative changes of the pelvis and spine. No suspicious lytic or blastic abnormality. SOFT TISSUES: Unremarkable. No discrete abdominal or pelvic wall hernia. VASCULATURE: IVC filter in place. Calcific coronary arteriosclerosis. Abdominal aorta is non-dilated. LYMPH NODES: Unremarkable. No enlarged lymph nodes. CT/Abdomen/Pelvis W IV Cont ONLY IMPRESSION: 1. Cholelithiasis without acute cholecystitis. 2. No pancreatitis. 3. No other acute or inflammatory disease or bowel obstruction. Electronically Signed: Pollo Padilla MD at 3:00 EDT ,
--- NOTE | 2022-04-28 00:32 | EKG12_ITS ---
Test Reason : CP Blood Pressure : / mmHG Vent. Rate : 066 BPM Atrial Rate : 066 BPM P-R Int : 176 ms QRS Dur : 140 ms QT Int : 420 ms P-R-T Axes : 025 -73 035 degrees QTc Int : 440 ms Normal sinus rhythm Right bundle branch block Left anterior fascicular block Bifascicular block Abnormal ECG Confirmed by OTILIO NEGRON, RADHA ([id number]), newspaper or periodical editor NELSON SANDOVAL ([id number]) on 04/30/2022 10:21:56 AM Referred By: BETTIE Confirmed By:RADHA YAÑEZ MD
--- NOTE | 2022-04-28 00:35 | ED.VIS.CHEST ---
HPI History of Present Illness Chief Complaint: Chest Pain Informant: patient Onset/Context/Timing Onset: Hours (2-3) Activity at onset: gradual and onset Timing: Continuous (not colicky) Quality: Positive for Aching and Indigestion Location: Substernal (and epigastrium; can't tell if chest or abd pain) Current Severity: Severe Maximum Severity: Severe Worsened By: Nothing Relieved By: Nothing Associated Symptoms: Positive for Nausea; Negative for Vomiting, Diaphoresis, Dyspnea, Cough, Fever, Lightheadedness or Palpitations Narrative Narrative: Patient presents about 2 hours after eating half of a cupcake, with epigastric/lower chest discomfort, and nausea. No radiation. No back pain, shoulder pain, arm pain, jaw pain. No dyspnea. He has a history of 2 stents in his heart, and also has a history of gallstones. Last time he had pain with his gallbladder it was about 2 years ago. His doctor told him if he has relatively rare episodes of biliary colic, to continue watching and not necessarily risk surgery, since he has a history of blood clots and is on warfarin. He states this pain feels like the last time he had gallbladder pain 2 years ago. Denies any fevers, chills, jaundice, mental status changes. Prior Similar Symptoms: Yes (with gallbladder pain) [facility] Medical History Atherosclerosis of [place] coronary artery of [place] heart without angina pectoris Diabetes Essential (primary) hypertension History of deep venous thrombosis Hypercoagulable state Hyperlipidemia Non-smoker Obesity Right bundle branch block (RBBB) Home Medications primidone 50 mg tablet 150 mg PO BID #90 tabs 10/03/17 [Rx Last Taken 01/19/21 22:00] nitroglycerin 0.4 mg sublingual tablet 0.4 mg sublingual Q5-15M PRN chest pain #25 tabs 04/22/18 [Rx Last Taken Unknown] rosuvastatin 20 mg tablet 20 mg PO QHS cholesterol 05/12/20 [History Last Taken 01/19/21 22:00] hydrocodone 10 mg-acetaminophen 325 mg tablet 1 tab PO DAILY PRN Pain 01/20/21 [History Last Taken Unknown] warfarin 4 mg tablet 4 mg PO DAILY blood thinner 01/20/21 [History Last Taken 01/18/21 21:30] metoprolol succinate 50 mg tablet,extended release 24 hr (Toprol XL) 50 mg PO QDAY #90 tabs 06/29/21 [Rx Last Taken Unknown] lisinopril 40 mg tablet 40 mg PO QDAY #90 tabs 07/14/21 [Rx Last Taken Unknown] aspirin 81 mg tablet,delayed release (Adult Aspirin Regimen) 81 mg PO DAILY 01/10/22 [History Last Taken Unknown] pantoprazole 40 mg tablet,delayed release 40 mg PO DAILY #14 tabs 04/28/22 [Rx Last Taken Unknown] Allergy/AdvReac Type Severity Reaction Status Date / Time ticagrelor [From Brilinta] AdvReac Intermediate dyspnea Verified 04/28/22 00:06 atorvastatin [From Lipitor] AdvReac myalgia Verified 04/28/22 00:06 Family History Father Heart disease Sister Heart disease Sister Heart disease Diabetes Surgical History Sherrill filter in place (2005) H/O knee surgery History of carpal tunnel surgery History of coronary artery stent placement (01/20/21) History of lumbar surgery Social History Smoking Status: Never smoker alcohol intake: never caffeine: Yes Type: carbonated beverages and coffee ROS ROS ED Constitutional Constitutional ED: Denies chills or fever(s) Eyes Eyes: Denies change in vision or diplopia ENT ENT ED: Denies rhinorrhea or sore throat Cardiovascular Cardiovascular: Reports chest pain; Denies palpitations Respiratory/Chest Respiratory/Chest: Denies cough, dyspnea or dyspnea on exertion Gastrointestinal Gastrointestinal: Reports abdominal pain and nausea; Denies diarrhea or vomiting Genitourinary Genitourinary ED: Denies dysuria or hematuria Musculoskeletal Musculoskeletal: Denies back pain or neck pain Integumentary Denies abscess or rash Neurologic Neurologic: Denies headache(s), paresthesias or weakness Psychiatric Psychiatric: Denies anxiety or suicidal thoughts EXAM Physical Exam Const Vital Signs: 04/28/22 00:04 04/28/22 00:04 04/28/22 00:39 Temperature 97.9 F Temperature Source Temporal Pulse Rate 68 Respiratory Rate 17 Blood Pressure 216/88 H Blood Pressure Mean 130 Pulse Ox 97 Oxygen Delivery Method Room Air Room Air 04/28/22 01:56 04/28/22 02:26 Temperature Temperature Source Pulse Rate 63 Respiratory Rate 16 Blood Pressure 161/79 H 182/91 H Blood Pressure Mean 106 121 Pulse Ox Oxygen Delivery Method Positive well nourished, well developed and obese General Appearance ED: well developed and NAD Nutritional Appearance: obese HEENT Reports moist mucous membranes normocephalic and atraumatic Eyes PERRL and EOMs intact bilaterally Neck full ROM and supple Resp normal respiratory effort and clear to auscultation bilaterally Cardio regular rate, regular rhythm and no murmurs GI non-distended GI Narrative: Tender in epigastrium without guarding or rebound, otherwise nontender. Auscultation: normoactive bowel sounds Palpation: soft Back/Spine no CVA tenderness General Back: other FROM Extremity normal to inspection General Extremety ED: Negative for edema, pulses abnormal or tenderness General Extremity: Negative for edema or pulses abnormal Neuro oriented x3, CN's II-XII intact bilaterally and no sensory deficits noted Sensorium / Orientation: awake and alert Motor Exam: strength 5/5 throughout Psych mental status grossly normal Skin no rashes or lesions noted and no wounds Heart Score History: Moderately Suspicious ECG: Normal (At baseline for patient with bifascicular block) Age: >/= 65 years Risk Factors: >/= 3 Risk Factors or History of CAD Troponin: </= Normal Limit Score: 5 MDM MDM MDM Narrative Medical decision making narrative: Patient's blood pressure noted to be very high 216/88. Initially gave him pain and nausea medications while work-up was obtained, however his blood pressure was still elevated after this so hydralazine 10 mg was ordered after verifying he has no history of aortic stenosis. This ended up coming down to 156/75. Bedside ultrasound, he is still in pain and has no sonographic Winn sign, this was done by myself at the bedside because ultrasound is not available at the hour the patient presents, and he does not have a leukocytosis so far so at this point this is less consistent with acute cholecystitis. CT was obtained, it is in agreement with this, showing cholelithiasis without signs of cholecystitis and nothing else acute. Liver enzymes, lipase within normal limits. Initial troponin 16, 2-hour troponin 20 for a delta of 25%, which is considered within normal limits. He was initially given morphine and Zofran for his discomfort, it helped transiently and then he started having symptoms come back, he was given some more pain medication in addition to Mylanta, he felt like the Mylanta was helping. He was feeling better, a little bit of discomfort but he feels like his stomach is settling. His blood pressure is down, his work-up is negative except for gallstones which given my bedside ultrasound I think is incidental at this time. Differential includes upper GI etiologies in addition to cardiac, less likely gallbladder, and certainly his blood pressure could have been elevated causing this discomfort as well in someway. I do not think he needs to be admitted to the hospital. He is comfortable with going home. He states he saw his doctor 1 week ago, his blood pressure was 131 systolic and he did not change any of his blood pressure medications which she has been compliant with. I will just add pantoprazole to his regimen, 2-week course, and he is given a dose here he is comfortable with that plan. Furthermore I do not think he has pulmonary embolus, his INR is therapeutic and his symptoms really are less compatible with pulmonary embolus. Lab Data Attestation: I reviewed the patient's lab results. Labs: Laboratory Results - last 24 hr 04/28/22 04/28/22 04/28/22 00:30 00:30 00:30 WBC 6.2 RBC 4.45 L Hgb 14.4 Hct 42.3 MCV 95.1 H MCH 32.4 H MCHC 34.0 RDW Std Deviation 45.1 H RDW Coeff of Trish 12.9 Plt Count 134 L MPV 9.8 Immature Gran % (Auto) 0.200 Neut % (Auto) 53.4 Lymph % (Auto) 29.2 Crowley % (Auto) 12.5 H Eos % (Auto) 3.7 Baso % (Auto) 1.0 Absolute Neuts (auto) 3.3 Absolute Lymphs (auto) 1.80 Nucleated RBC % 0 PT 24.9 H INR 2.3 Sodium 138 Potassium 4.3 Chloride 107 Carbon Dioxide 25.0 Anion Gap 6 BUN 12 Creatinine 1.05 Estim Creat Clear Calc 65.66 Est GFR (MDRD) Af Amer 89 Est GFR (MDRD) Non-Af 74 BUN/Creatinine Ratio 11.4 Glucose 207 H Calcium 8.4 L Total Bilirubin 0.60 AST 23 ALT 32 Alkaline Phosphatase 101 Troponin I High Sens 16 Total Protein 6.7 Albumin 3.4 Globulin 3.3 Albumin/Globulin Ratio 1.0 Lipase 164 04/28/22 02:50 WBC RBC Hgb Hct MCV MCH MCHC RDW Std Deviation RDW Coeff of Trish Plt Count MPV Immature Gran % (Auto) Neut % (Auto) Lymph % (Auto) Crowley % (Auto) Eos % (Auto) Baso % (Auto) Absolute Neuts (auto) Absolute Lymphs (auto) Nucleated RBC % PT INR Sodium Potassium Chloride Carbon Dioxide Anion Gap BUN Creatinine Estim Creat Clear Calc Est GFR (MDRD) Af Amer Est GFR (MDRD) Non-Af BUN/Creatinine Ratio Glucose Calcium Total Bilirubin AST ALT Alkaline Phosphatase Troponin I High Sens 20 Total Protein Albumin Globulin Albumin/Globulin Ratio Lipase Radiography Chest X-Ray - ED: 2 View, Read by ED Physician, Normal and No Acute Disease Diagnostic Testing: Clinical Impression(s) from Imaging Studies Abdomen/Pelvis CT 04/28/22 00:32 IMPRESSION: 1. Cholelithiasis without acute cholecystitis. 2. No pancreatitis. 3. No other acute or inflammatory disease or bowel obstruction. Electronically Signed: Pollo Padilla MD at 3:00 EDT , Chest X-Ray 04/28/22 01:51 IMPRESSION: No acute findings in the chest. Electronically Signed: Pollo Padilla MD at 2:27 EDT , Rhythm Strip Rhythm Strip: Sinus Rhythm Rate: 67 Ectopy: None EKG Initial EKG: Attestation: I personally reviewed and interpreted this EKG as follows: Interpretation: Sinus Rhythm, No Acute Injury Pattern, RBBB and LAFB Prior EKG tracings: available for review Prior: Unchanged Procedures Other Procedures Procedure(s): Bedside gallbladder ultrasound: Negative sonographic Winn. Normal gallbladder wall. + Cholelithiasis. No pericholecystic fluid noted. Discharge Plan Triage Chief Complaint: Chest Pain ED Provider: Luis Plunkett Dx/Rx/DC Orders Clinical Impression: Acute epigastric pain, Chest pain, unspecified, Cholelithiasis, Accelerated hypertension, Warfarin-induced coagulopathy Instructions: Hypertension Dc, ED Epigastric Pain Uncertain Cause Prescriptions: New pantoprazole 40 mg tablet,delayed release (DR/EC) 40 mg PO DAILY Qty: 14 0RF No Action nitroglycerin 0.4 mg tablet, sublingual 0.4 mg SUBLINGUAL Q5-15M PRN (Reason: chest pain) Qty: 25 3RF Rx Instructions: until response; do not exceed 3 doses per event rosuvastatin 20 mg tablet 20 mg PO QHS lisinopril 40 mg tablet 40 mg PO QDAY Qty: 90 3RF aspirin [Adult Aspirin Regimen] 81 mg tablet,delayed release (DR/EC) 81 mg PO DAILY warfarin 4 mg Tablet 4 mg PO DAILY hydrocodone-acetaminophen 10-325 mg Tablet 1 tab PO DAILY PRN (Reason: Pain) primidone 50 mg tablet 150 mg PO BID Qty: 90 0RF Rx Instructions: tremors metoprolol succinate [Toprol XL] 50 mg tablet extended release 24 hr 50 mg PO QDAY Qty: 90 3RF Rx Instructions: Hold for heart less than 60 or systolic blood pressure less than 100 mmHg. Primary Care Provider: Tate Saleem Referrals: Tate Saleem MD [Primary Care Provider] - 3-5 Days if not improving Disposition Disposition: Home, Self Care
[2022-04-28] MEDS: Ondansetron 4 MG/2 ML Vial IV (00:39)
[2022-04-28] MEDS: Morphine 4 MG/ML Syringe IV (00:40)
[2022-04-28 00:43] LABS: Absolute Neutrophil Count 3.3 X10^3/uL (2.0-7.7); Basophil# 0.06 X10^3/uL; Eosinophil# 0.23 X10^3/uL; Eosinophils% 3.7 % (0-5); Hematocrit 42.3 % (40-54); Hemoglobin 14.4 g/dL (13.0-16.5); Lymphocyte % 29.2 % (19-41); Mean Corpuscular Hgb 32.4 pg (27.0-32.0); Mean Corpuscular Volume 95.1 fL (80-94); Mean Platelet Vol. 9.8 fl (6.2-12.0); Monocyte# 0.77 X10^3/uL; Monocyte% 12.5 % (0-10); NRBC Flagged by Analyzer 0 % (0-5); Neutrophil # 3.29 X10^3/uL (2.7-7.7); Neutrophil % 53.4 % (47-70); Platelet Count 134 K/mm3 (150-450); RBC Distribution Width CV 12.9 % (11.6-14.6); RBC Distribution Width SD 45.1 fl (35.1-43.9); Red Blood Count 4.45 M/mm3 (4.6-6.2); White Blood Count 6.2 K/mm3 (4.4-11.0)
[2022-04-28] MEDS: 0.9% Normal Saline 1,000 ML 150 ML IV (00:45)
[2022-04-28 01:06] LABS: International Normalized Ratio 2.3; Prothrombin Time (Protime)PT. 24.9 SECONDS (11.7-14.9)
[2022-04-28 01:14] LABS: AST(SGOT) 23 U/L (15-37); Alanine Aminotransfer ALT/SGPT 32 U/L (16-61); Albumin, Serum 3.4 g/dL (3.2-5.0); Alkaline Phosphatase 101 U/L (45-117); Anion Gap 6 (5-15); BUN 12 mg/dL (7-18); BUN/Creat Ratio 11.4 RATIO (10-20); Calcium,Total 8.4 mg/dL (8.5-10.1); Chloride 107 mmol/L (98-107); Creatinine, Serum 1.05 mg/dL (0.70-1.30); EST Glomerular Filtration Rate 74 mL/min (>60); Est Glom Filt Rate - Afr Amer 89 mL/min (>60); Estimated Creatinine Clearance 65.66 ml/min; Globulin 3.3 g/dL (2.2-4.2); Glucose 207 mg/dL (74-106); Lipase 164 U/L (73-393); Potassium 4.3 mmol/L (3.5-5.1); Protein, Total 6.7 g/dL (6.4-8.2); Sodium Level 138 mmol/L (136-145); Troponin-I HS (w/2H Reflex) 16 pg/mL (3.0-78.0)
--- NOTE | 2022-04-28 01:51 | RAD_ITS ---
EXAM: XR CHEST, 2 VIEWS CLINICAL INDICATION: chest pain TECHNIQUE: Frontal and lateral views of the chest. This report was created using [employer] report generation technology. COMPARISON: 01/19/2021 FINDINGS: LUNGS AND PLEURAL SPACES: Unremarkable. No consolidation or edema. No pneumothorax. No effusion. HEART: Unremarkable. Cardiac silhouette not enlarged. MEDIASTINUM: Central airways and mediastinal contour are unremarkable. BONES/JOINTS: Degenerative changes of the spine. SOFT TISSUES: Unremarkable. RAD/Chest PA and Lateral IMPRESSION: No acute findings in the chest. Electronically Signed: Pollo Padilla MD at 2:27 EDT ,
[2022-04-28 01:56] VITALS: BP 161/79
[2022-04-28] MEDS: hydrALAZINE 20 MG/ML Vial 10 MG IV (02:23)
[2022-04-28 02:26] VITALS: BP 182/91; PULSE 63; RESP 16
[2022-04-28 02:39] LABS: Reflex Troponin-HS? (from REC) Y
[2022-04-28] MEDS: Metoclopramide 10 MG/2 ML Vial 5 MG IV (02:40)
[2022-04-28] MEDS: Mag Hydrox/Al Hydrox/Simeth 30 ML UDC PO (02:41)
[2022-04-28] MEDS: Morphine 2 MG/ML Syringe IV (02:41)
[2022-04-28 03:13] LABS: Troponin-I HS 20 pg/mL (3.0-78.0)
[2022-04-28] MEDS: Pantoprazole Sodium 40 MG Tablet PO (03:21)
[2022-04-28 03:30] VITALS: BP 156/75; PULSE 64; RESP 16; O2SAT 95
== END 2022-04-28 03:30 | disposition home or self-care (01) ==
PROVIDERS: Emergency Provider Emergency Medicine; PCP Internal Medicine; Visit Provider Emergency Medicine
DX: R10.13 Epigastric pain (principal); E11.9 Type 2 diabetes mellitus without complications; R07.9 Chest pain, unspecified; I10 Essential (primary) hypertension; R79.1 Abnormal coagulation profile; K80.20 Calculus of gallbladder without cholecystitis without obstruction; E78.5 Hyperlipidemia, unspecified; I25.10 Atherosclerotic heart disease of native coronary artery without angina pectoris; Z79.01 Long term (current) use of anticoagulants; Z79.82 Long term (current) use of aspirin; Z79.899 Other long term (current) drug therapy; Z86.718 Personal history of other venous thrombosis and embolism; Z95.5 Presence of coronary angioplasty implant and graft
CPT/HCPCS: 36415; 71046; 74177; 80053; 83690; 84484; 85025; 85610; 93005; 96361; 96374; 96375; 96376; 99284; J7030; Q9967; A4216; J2405

== ENCOUNTER 2023-02-04 10:29 | Emergency (ER) | payer MEDICARE, SELFPAY ==
[2023-02-04 10:36] VITALS: BP 195/91; PULSE 57; RESP 18; TEMP 37.1; O2SAT 98; BMI 30.4
--- NOTE | 2023-02-04 11:03 | EKG12_ITS ---
Test Reason : CP Blood Pressure : / mmHG Vent. Rate : 057 BPM Atrial Rate : 057 BPM P-R Int : 180 ms QRS Dur : 132 ms QT Int : 436 ms P-R-T Axes : 011 -72 025 degrees QTc Int : 424 ms Sinus bradycardia Right bundle branch block Left anterior fascicular block Bifascicular block Abnormal ECG Confirmed by VALENTINO NEGRON, EVELYNE ([id number]), online content editor NELSON SANDOVAL ([id number]) on 02/06/2023 2:10:47 PM Referred By: KRYSTAL Confirmed By:EVELYNE AVELAR MD
--- NOTE | 2023-02-04 11:33 | ED.RN ---
PT IS RUDE CUSSING AT STAFF. PT DEMANDING U/S FOR IV, WHY CANT YOU USE THE DAMN U/S! THIS RN PLACED IV WITHOUT U/S.
[2023-02-04 11:37] VITALS: BP 197/83; PULSE 54; RESP 14; O2SAT 96
[2023-02-04 11:38] VITALS: O2SAT 96
[2023-02-04 11:40] LABS: Absolute Lymphocyte Count 1.33 X10^3/uL (0.83-4.51); Absolute Neutrophil Count 3.1 X10^3/uL (2.0-7.7); Basophil# 0.03 X10^3/uL; Basophil% 0.6 % (0-1); Eosinophil# 0.14 X10^3/uL; Eosinophils% 2.7 % (0-5); Hematocrit 41.9 % (40-54); Hemoglobin 14.6 g/dL (13.0-16.5); Lymphocyte # 1.33 X10^3/ul (0.83-4.51); Lymphocyte % 25.5 % (19-41); Mean Corp Hgb Conc 34.8 g/dL (32-36); Mean Corpuscular Hgb 32.4 pg (27.0-32.0); Mean Corpuscular Volume 93.1 fL (80-94); Mean Platelet Vol. 9.4 fl (6.2-12.0); Monocyte% 11.5 % (0-10); NRBC Flagged by Analyzer 0 % (0-5); Neutrophil # 3.11 X10^3/uL (2.7-7.7); Neutrophil % 59.5 % (47-70); Platelet Count 142 K/mm3 (150-450); RBC Distribution Width SD 44.8 fl (35.1-43.9); White Blood Count 5.2 K/mm3 (4.4-11.0)
--- NOTE | 2023-02-04 11:41 | RAD_ITS ---
HISTORY: chest pain. TECHNIQUE: XR Chest 1 View. COMPARISON: 04/28/2022. FINDINGS: CARDIOMEDIASTINAL BORDERS: Cardiac silhouette within normal limits in size. Mediastinal contour unremarkable. LUNGS: Radiographically clear. PLEURA: No pleural effusion or pneumothorax seen. OSSEOUS STRUCTURES: Mild degenerative change. RAD/Chest 1 View (Portable) IMPRESSION: No acute cardiopulmonary process identified. Electronically Signed: Diana Ambriz MD at 11:56 EDT ,
[2023-02-04 11:56] LABS: Anion Gap 8 (5-15); BUN 13 mg/dL (7-18); BUN/Creat Ratio 12.7 RATIO (10-20); Calcium,Total 9.1 mg/dL (8.5-10.1); Chloride 105 mmol/L (98-107); Creatinine, Serum 1.02 mg/dL (0.70-1.30); EST Glomerular Filtration Rate 76 mL/min (>60); Est Glom Filt Rate - Afr Amer 92 mL/min (>60); Estimated Creatinine Clearance 67.59 ml/min; Glucose 152 mg/dL (74-106); Potassium 4.6 mmol/L (3.5-5.1); Sodium Level 139 mmol/L (136-145); Troponin-I HS (w/2H Reflex) 16 pg/mL (3.0-78.0)
[2023-02-04 12:02] VITALS: BP 182/79; PULSE 57; RESP 13; O2SAT 97
[2023-02-04 12:40] LABS: International Normalized Ratio 2.5; Prothrombin Time (Protime)PT. 26.9 SECONDS (11.7-14.9)
[2023-02-04 13:22] VITALS: BP 163/77; PULSE 60; RESP 16
--- NOTE | 2023-02-04 13:52 | ED.VIS.CHEST ---
HPI History of Present Illness Chief Complaint: Chest Pain Informant: patient Onset/Context/Timing Onset: Days (3 days) Timing: Intermittent Quality: Positive for Burning and Pressure Location: Substernal Current Severity: Mild Maximum Severity: Mild Narrative Narrative: Patient presents secondary to intermittent chest pain. He states has been having intermittent pain for the past 3 days. He describes a burning sensation across his upper sternum sometimes radiates to the left or to the right. He initially thought it was present after eating but this morning noted pain when he had not yet eaten. He has not had significant shortness of breath. He does have cardiac history with cardiac stents. He is on Coumadin secondary to a history of blood clots and has an IVC filter. [facility] Medical History Atherosclerosis of [place] coronary artery of [place] heart without angina pectoris Diabetes Essential (primary) hypertension History of deep venous thrombosis Hypercoagulable state Hyperlipidemia Non-smoker Obesity Right bundle branch block (RBBB) Home Medications primidone 50 mg tablet 150 mg PO BID #90 tabs 10/03/17 [Rx Last Taken 01/19/21 22:00] nitroglycerin 0.4 mg sublingual tablet 0.4 mg sublingual Q5-15M PRN chest pain #25 tabs 04/22/18 [Rx Last Taken Unknown] rosuvastatin 20 mg tablet 20 mg PO QHS cholesterol 05/12/20 [History Last Taken 01/19/21 22:00] hydrocodone 10 mg-acetaminophen 325 mg tablet 1 tab PO DAILY PRN Pain 01/20/21 [History Last Taken Unknown] warfarin 4 mg tablet 4 mg PO DAILY blood thinner 01/20/21 [History Last Taken 01/18/21 21:30] aspirin 81 mg tablet,delayed release (Adult Aspirin Regimen) 81 mg PO DAILY 01/10/22 [History Last Taken Unknown] pantoprazole 40 mg tablet,delayed release 40 mg PO DAILY #14 tabs 04/28/22 [Rx Last Taken Unknown] lisinopril 40 mg tablet 40 mg PO QDAY #90 tabs 06/25/22 [Rx Last Taken Unknown] metoprolol succinate 50 mg tablet,extended release 24 hr (Toprol XL) 50 mg PO QDAY #90 tabs 06/25/22 [Rx Last Taken Unknown] pantoprazole 40 mg tablet,delayed release 40 mg PO DAILY #30 tabs 02/04/23 [Rx Last Taken Unknown] Allergy/AdvReac Type Severity Reaction Status Date / Time ticagrelor [From Brilinta] AdvReac Intermediate dyspnea Verified 11/09/22 15:03 atorvastatin [From Lipitor] AdvReac myalgia Verified 11/09/22 15:03 Family History Father Heart disease Sister Heart disease Sister Heart disease Diabetes Surgical History [place] filter in place (2005) H/O knee surgery History of carpal tunnel surgery History of coronary artery stent placement (01/20/21) History of lumbar surgery Social History Smoking Status: Never smoker alcohol intake: never caffeine: Yes Type: carbonated beverages and coffee ROS ROS ED Constitutional Constitutional ED: Denies chills or fever(s) Eyes Eyes: Denies change in vision or discharge from eye(s) ENT ENT ED: Denies discharge from eye(s), rhinorrhea or sore throat Cardiovascular Cardiovascular: Reports chest pain; Denies palpitations Respiratory/Chest Respiratory/Chest: Denies cough or dyspnea Gastrointestinal Gastrointestinal: Denies abdominal pain, nausea or vomiting Genitourinary Genitourinary ED: Denies dysuria Musculoskeletal Musculoskeletal: Denies back pain or extremity pain Integumentary Denies Abrasions or rash Neurologic Neurologic: Denies headache(s) or weakness Psychiatric Psychiatric: Denies anxiety or depression Allergic/Immunologic Allergic/Immunologic ED: Denies lip swelling or urticaria EXAM Physical Exam Const Vital Signs: 02/04/23 10:36 02/04/23 11:37 02/04/23 11:38 Temperature 98.7 F Temperature Source Temporal Pulse Rate 57 L 54 L Respiratory Rate 18 14 Blood Pressure 195/91 H 197/83 H Blood Pressure Mean 125 121 Pulse Ox 98 96 96 Oxygen Delivery Method Room Air Room Air Room Air 02/04/23 12:02 02/04/23 13:22 02/04/23 14:16 Temperature Temperature Source Pulse Rate 57 L 60 Respiratory Rate 13 16 16 Blood Pressure 182/79 H 163/77 H Blood Pressure Mean 113 105 Pulse Ox 97 Oxygen Delivery Method Room Air Positive well nourished and well developed General Appearance ED: well developed HEENT Reports moist mucous membranes Eyes PERRL and EOMs intact bilaterally Neck no lymphadenopathy Chest Wall inspection of chest normal and palpation of chest normal Resp normal respiratory effort and clear to auscultation bilaterally Cardio regular rate and regular rhythm GI GI Narrative: Abdomen soft and nontender. Extremity normal to inspection Neuro oriented x3 and no sensory deficits noted Motor Exam: strength 5/5 throughout Skin no rashes or lesions noted Heart Score History: Slightly/Non-Suspicious ECG: Normal Age: >/= 65 years Risk Factors: >/= 3 Risk Factors or History of CAD Troponin: </= Normal Limit Score: 4 MDM MDM MDM Narrative Medical decision making narrative: Patient placed on rubber block layer. Labwork obtained to evaluate for leukocytosis, anemia, and electrolyte derangement. Chest x-ray obtained to evaluate for acute lung pathology, cardiac size, or mediastinal abnormality. EKG obtained to evaluate for cardiac arrhythmia/ischemia. History & Record Review Discussion w/independent historian: Patient Additional record(s) reviewed:: Prior outpatient record Lab Data Attestation: I reviewed the patient's lab results. Labs: Laboratory Results - last 24 hr 02/04/23 02/04/23 02/04/23 11:30 11:30 11:30 WBC 5.2 RBC 4.50 L Hgb 14.6 Hct 41.9 MCV 93.1 MCH 32.4 H MCHC 34.8 RDW Std Deviation 44.8 H RDW Coeff of Trish 13.0 Plt Count 142 L MPV 9.4 Immature Gran % (Auto) 0.200 Neut % (Auto) 59.5 Lymph % (Auto) 25.5 Bertie % (Auto) 11.5 H Eos % (Auto) 2.7 Baso % (Auto) 0.6 Absolute Neuts (auto) 3.1 Absolute Lymphs (auto) 1.33 Nucleated RBC % 0 PT 26.9 H INR 2.5 Sodium 139 Potassium 4.6 Chloride 105 Carbon Dioxide 26.0 Anion Gap 8 BUN 13 Creatinine 1.02 Estim Creat Clear Calc 67.59 Est GFR (MDRD) Af Amer 92 Est GFR (MDRD) Non-Af 76 BUN/Creatinine Ratio 12.7 Glucose 152 H Calcium 9.1 Troponin I High Sens 16 Radiography Chest X-Ray - ED: 1 View, Read by ED Physician and Chronic Changes Diagnostic Testing: Clinical Impression(s) from Imaging Studies Chest X-Ray 02/04/23 11:41 IMPRESSION: No acute cardiopulmonary process identified. Electronically Signed: Diana Ambriz MD at 11:56 EDT Reading Location ID and State: [facility] / [place] Tel , Service support , EKG Initial EKG: Attestation: I personally reviewed and interpreted this EKG as follows: Interpretation: Sinus Bradycardia (Sinus bradycardia 57 bpm. Bifascicular block noted. No acute ischemia.) Treatment and Re-Evaluation :: CBC unremarkable. Chemistry studies normal. Troponin is normal at 16. INR is therapeutic at 2.5. Chest x-ray per my interpretation was chronic changes with no acute findings. EKG is sinus bradycardia with a bifascicular block. I did review the patient's most recent cardiology note from October. At that time they did document that the patient's last cath and stent was 2020. They did note moderate right-sided disease at that time. I did recommend the patient follow-up, however I am more suspicious that this is reflux in nature given the location and burning nature as well as occurring around meals. He is not currently on an antacid and I will start him on pantoprazole. Patient is given return instructions. Discharge Plan Triage Chief Complaint: Chest Pain ED Provider: Fariba Gonsales Dx/Rx/DC Orders Clinical Impression: Chest pain, Gastroesophageal reflux disease Instructions: ED Chest Pain, Uncertain Cause, ED GERD (Adult) Prescriptions: New pantoprazole 40 mg tablet,delayed release (DR/EC) 40 mg PO DAILY Qty: 30 0RF No Action nitroglycerin 0.4 mg tablet, sublingual 0.4 mg SUBLINGUAL Q5-15M PRN (Reason: chest pain) Qty: 25 3RF Rx Instructions: until response; do not exceed 3 doses per event rosuvastatin 20 mg tablet 20 mg PO QHS aspirin [Adult Aspirin Regimen] 81 mg tablet,delayed release (DR/EC) 81 mg PO DAILY warfarin 4 mg Tablet 4 mg PO DAILY hydrocodone-acetaminophen 10-325 mg Tablet 1 tab PO DAILY PRN (Reason: Pain) pantoprazole 40 mg tablet,delayed release (DR/EC) 40 mg PO DAILY Qty: 14 0RF primidone 50 mg tablet 150 mg PO BID Qty: 90 0RF Rx Instructions: tremors metoprolol succinate [Toprol XL] 50 mg tablet extended release 24 hr 50 mg PO QDAY Qty: 90 3RF Rx Instructions: Hold for heart less than 60 or systolic blood pressure less than 100 mmHg. lisinopril 40 mg tablet 40 mg PO QDAY Qty: 90 3RF Primary Care Provider: Tate Saleem Referrals: Isaias Ontiveros MD [Med Staff - Active Staff] - 1-2 Weeks Tate Saleem MD [Primary Care Provider] - Disposition Disposition: Home, Self Care Discharge Date/Time: 02/04/23 14:30
[2023-02-04 14:16] VITALS: RESP 16
== END 2023-02-04 14:30 | disposition home or self-care (01) ==
PROVIDERS: Emergency Provider Emergency Medicine; PCP Internal Medicine; Visit Provider Emergency Medicine
DX: K21.9 Gastro-esophageal reflux disease without esophagitis (principal); E11.9 Type 2 diabetes mellitus without complications; Z95.5 Presence of coronary angioplasty implant and graft; I25.10 Atherosclerotic heart disease of native coronary artery without angina pectoris; E78.5 Hyperlipidemia, unspecified; I10 Essential (primary) hypertension; Z79.899 Other long term (current) drug therapy
CPT/HCPCS: 71045; 80048; 84484; 85025; 85610; 93005; 99284; A4216

== ENCOUNTER 2025-02-23 09:13 | Observation (INO) | payer MEDICARE, SELFPAY ==
[2025-02-23 09:15] VITALS: BP 179/83; PULSE 55; RESP 13; TEMP 36.8; O2SAT 99; BMI 28.5
--- NOTE | 2025-02-23 09:22 | EKG12_ITS ---
Test Reason : Blood Pressure : */* mmHG Vent. Rate : 55 BPM Atrial Rate : 55 BPM P-R Int : 158 ms QRS Dur : 136 ms QT Int : 476 ms P-R-T Axes : 59 -71 43 degrees QTcB Int : 455 ms Sinus bradycardia Right bundle branch block Left anterior fascicular block Bifascicular block Minimal voltage criteria for LVH, may be normal variant ( R in aVL ) Abnormal ECG Confirmed by Davey Nelson ([id number]), social media editor NELSON SANDOVAL ([id number]) on 02/25/2025 6:13:26 AM Referred By: Confirmed By: Davey Nelson
--- NOTE | 2025-02-23 09:23 | RAD_ITS ---
PROCEDURE: CHEST PA AND LATERAL 02/23/2025 REASON FOR EXAM: DYSPNEA TECHNIQUE: Frontal and lateral views of the chest. COMPARISON: February 04, 2023. FINDINGS: Hardware: EKG electrodes are seen. Heart: The heart size is normal. Mediastinum: The mediastinal contour is unremarkable. Lungs: The lungs are clear. Bones: Degenerative changes are identified within the thoracic spine. RAD/Chest PA and Lateral IMPRESSION: NO ACUTE FINDINGS. Reading Location: [facility]
--- NOTE | 2025-02-23 09:30 | ED.VIS.DYS ---
HPI History of Present Illness Chief Complaint: Shortness of Breath Informant: patient and spouse/S.O. Onset/Context/Timing Onset: Weeks Context: gradual Timing: Intermittent Quality: Positive for Dyspnea on exertion Current Severity: Gone Maximum Severity: Mild Worsened by: Exertion Relieved by: Rest Associated Symptoms cough Chest Pain: Positive for Intermittent Narrative Narrative: 74-year-old male history of diabetes, prior DVT with hypercoagulability on Coumadin, hypertension CAD with stents and 3 prior back surgeries. He also has a [place] filter. Patient states the last week he has had exertional dyspnea and exertional upper sternal chest discomfort. Better at rest. Denies any hemoptysis. Chronic leg swelling from her prior DVT. Had a URI several weeks ago. He said that is resolved. PE Risk Factors: Positive for Prior DVT or PE; Negative for Cancer, OCP + Smoking + > 35, Recent immobilization, Recent surgery or Recent travel Prior similar symptoms: Yes Recent Illness/Hospitalization: No PFSH PFSH Medical History Essential tremor COVID-19 (~06/2023) Non-smoker Diabetes Obesity History of deep venous thrombosis Right bundle branch block (RBBB) Essential (primary) hypertension Hyperlipidemia Hypercoagulable state Atherosclerosis of [place] coronary artery of [place] heart without angina pectoris Home Medications ?Medication ?Instructions ?Recorded ?Last Taken ?Type primidone 50 mg tablet 150 mg (3 x 50 mg) PO BID #90 tabs 10/03/17 02/22/25 Rx nitroglycerin 0.4 mg sublingual 0.4 mg sublingual Q5-15M PRN chest 04/22/18 Unknown Rx tablet pain #25 tabs acetaminophen 650 mg 650 mg PO QHS 09/25/23 02/22/25 History tablet,extended release (Tylenol Arthritis Pain) diclofenac sodium 1 % topical gel 2 g topical 4X/DAY PRN pain 09/25/23 Unknown History (Aleve (diclofenac)) warfarin 4 mg tablet 4 mg PO DAILY blood thinner 09/25/23 02/22/25 History propranolol 40 mg tablet 40 mg PO BID #180 tabs 12/18/23 02/22/25 Rx hydrocodone 10 mg-acetaminophen 1 tab PO BID PRN Pain 11/17/24 Unknown History 325 mg tablet hydrochlorothiazide 12.5 mg tablet 12.5 mg PO DAILY 02/23/25 02/22/25 History lisinopril 20 mg tablet 20 mg PO DAILY 02/23/25 02/22/25 History Allergy/AdvReac Type Severity Reaction Status Date / Time ticagrelor (From Brilinta) AdvReac Intermediate dyspnea Verified 11/17/24 13:12 atorvastatin (From Lipitor) AdvReac myalgia Verified 11/17/24 13:12 Family History Father Heart disease Sister Heart disease Sister Heart disease Diabetes Surgical History History of coronary artery stent placement (01/20/21) H/O knee surgery [place] filter in place (2005) History of carpal tunnel surgery History of lumbar surgery Social History Smoking Status: Never smoker alcohol intake: never substance use type: does not use caffeine: Yes Type: carbonated beverages and coffee ROS ROS ED ROS Narrative Exertional chest pain. Exertional dyspnea. URI 2 weeks ago. Constitutional Constitutional ED: Denies chills or fever(s) Eyes Eyes: Denies blurry vision ENT ENT ED: Denies ear pain Cardiovascular Cardiovascular: Reports chest pain Respiratory/Chest Respiratory/Chest: Reports dyspnea and dyspnea on exertion; Denies cough or sputum Gastrointestinal Gastrointestinal: Denies abdominal pain, constipation, diarrhea, melena, nausea or vomiting Genitourinary Genitourinary ED: Denies dysuria or hematuria Musculoskeletal Musculoskeletal: Denies arthralgias Integumentary Denies abscess Neurologic Neurologic: Denies headache(s) Psychiatric Psychiatric: Denies anxiety or depression Endocrine Endocrinology: Denies cold intolerance Hematologic/Lymphatic Hematologic/Lymphatic: Denies easy bleeding, easy bruising or lymphadenopathy Allergic/Immunologic Allergic/Immunologic ED: Denies mouth swelling, tongue swelling or urticaria EXAM Physical Exam Narrative Exam Narrative: 74-year-old male sitting upright in bed. Vital signs are stable. Pulse ox 9 9% on room air no hypoxia. He is in no distress. sitting at bedside with him. H EENT exam pupils round react light. Moist mucous membranes. No facial droop. Normal speech. Neck nontender no JVD. Back nontender. Lungs clear to auscultation bilaterally. Heart bradycardic rate about 55. No murmur. Chest wall ribs nontender. Abdomen soft nontender. Moving all 4 extremities. He does have edema in his left lower leg he states that is chronic from a prior DVT that is not new or changed. 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 Equal symmetrical radial pulses. Dorsi plantarflexion intact. Neurologically is awake and alert. Answering questions following commands. No focal motor deficits. Const Vital Signs: 02/23/25 09:15 02/23/25 10:39 Temperature 98.3 F Temperature Source Oral Pulse Rate 55 L Respiratory Rate 13 Respiratory Effort Normal Respiratory Depth Normal Respiratory Pattern Normal Blood Pressure 179/83 H Blood Pressure Mean 115 Pulse Ox 99 Oxygen Delivery Method Room Air Room Air Positive well nourished and well developed; Negative for cachectic, contractures or unkempt General Appearance ED: well developed and NAD; Negative for unkempt, cachectic, contractures or pallor Nutritional Appearance: Negative for cachectic HEENT Reports moist mucous membranes atraumatic; Negative for trauma or tenderness Eyes PERRL and EOMs intact bilaterally General Eye ED: Negative for pale conjunctiva or scleral icterus Neck no lymphadenopathy, supple, no meningeal signs and no JVD Resp normal respiratory effort and clear to auscultation bilaterally Effort and Inspection: Negative for pain with movement Auscultation: Negative for rales, rhonchi or wheezes Cardio regular rhythm, S1 normal heart sound, S2 normal heart sound and no murmurs; Negative for regular rate Rate: Negative for bradycardia or tachycardic Rhythm: Negative for abnormal rhythm GI non-tender, non-distended and no masses Auscultation: normoactive bowel sounds Palpation: soft; Negative for tender or guarding Back/Spine no CVA tenderness and normal to inspection Extremity Negative for normal to inspection Extremity Narrative: Chronic left leg edema. Chronic calf tenderness. Prior DVT in that leg. General Extremety ED: Yes edema and tenderness General Extremity: edema Neuro oriented x3 and CN's II-XII intact bilaterally Sensorium / Orientation: alert, oriented to person, oriented to place and oriented to time; Negative for orientation impaired, confused, lethargic or stuporous Speech: speech normal Motor Exam: strength 5/5 throughout Psych mental status grossly normal Appearance: Negative for unkempt Attitude: No agitated Mood & Affect: Negative for depressed, anxious or tearful Thought Process: normal thought process Skin no wounds and skin turgor normal General Skin Exam: Negative for jaundice or pallor Lesions: no lesions Rashes: no rashes MDM MDM MDM Narrative Medical decision making narrative: 74-year-old male exertional chest pain exertional dyspnea. History of 2 prior cardiac stents. He is on Coumadin due to hypercoagulability and prior DVT. His exam is benign. His lungs are clear. Undergo cardiac workup with a PT/INR. This could be secondary to cardiac disease. Could be anemia versus other etiologies. Repeat exam patient doing well. Ordered admitting for his exertional chest pain and dyspnea with his known cardiac history. He is anticoagulant Coumadin. I do not think he needs a D-dimer or CTA. Patient talked with the plan. Have already spoke with the hospitalist. History & Record Review Discussion w/independent historian: Patient Additional record(s) reviewed:: Prior inpatient record, Prior outpatient record, Prior ED visit and Prior labs Lab Data Attestation: I reviewed the patient's lab results. Lab results narrative: CBC shows a white count of 10. H&H 15 and 44. Platelets 161. Chemistry shows sodium 136. Gap 14. BUN/creatinine is 17 and 1. Glucose 144. Initial troponin 29. PT/INR 33 and 3.2. He is on Coumadin. Labs: Laboratory Results - last 24 hr 02/23/25 02/23/25 10:11 10:49 WBC 10.0 RBC 4.71 Hgb 15.1 Hct 44.1 MCV 93.6 MCH 32.1 H MCHC 34.2 RDW Std Deviation 43.3 RDW Coeff of Trish 12.6 Plt Count 161 MPV 9.7 Immature Gran % (Auto) 0.500 Neut % (Auto) 73.1 H Lymph % (Auto) 13.3 L [place] % (Auto) 11.8 H Eos % (Auto) 0.8 Baso % (Auto) 0.5 Absolute Neuts (auto) 7.3 Absolute Lymphs (auto) 1.33 Nucleated RBC % 0 PT Cancelled 33.2 H INR Cancelled 3.2 Sodium 136 Potassium 4.8 Chloride 103 Carbon Dioxide 19.3 L Anion Gap 14 BUN 17 Creatinine 1.05 Estim Creat Clear Calc 69.77 Est GFR (MDRD) Non-Af 74 BUN/Creatinine Ratio 15.8 Glucose 144 H Calcium 8.9 Troponin T High Sens 29 H Radiography Chest X-Ray - ED: 2 View, Read by ED Physician, Heart, Lungs, Mediastinum, Bony Structures, No Acute Disease and Chronic Changes Diagnostic Testing: Clinical Impression(s) from Imaging Studies Chest X-Ray 02/23/25 09:23 IMPRESSION: NO ACUTE FINDINGS. Reading Location: [facility] Chest x-ray, 2 views, AP and lateral, interpreted by myself shows normal cardiac silhouette. Normal lung [place]. No pneumonia. No effusions. Old lower thoracic compression fracture. No acute processes. Rhythm Strip Rhythm Strip: Sinus bradycardia Rate: 55 Ectopy: None EKG Initial EKG: Interpretation: No Acute Injury Pattern and Sinus Bradycardia Comments: Sinus pericardia. Rate of 55. Bifascicular block. Left anterior fascicular block. Right bundle branch block. No acute signs of ID or ischemia. Discharge Plan Dx/Rx/DC Orders Clinical Impression: Exertional dyspnea, Hx of heart artery stent, Exertional chest pain, Chronic anticoagulation, History of deep vein thrombosis Disposition Disposition: Acute Care Hospital [facility]
[2025-02-23 10:26] LABS: Absolute Lymphocyte Count 1.33 X10^3/uL (0.83-4.51); Absolute Neutrophil Count 7.3 X10^3/uL (2.0-7.7); Basophil# 0.05 X10^3/uL; Basophil% 0.5 % (0-1); Eosinophil# 0.08 X10^3/uL; Eosinophils% 0.8 % (0-5); Hematocrit 44.1 % (40-54); Hemoglobin 15.1 g/dL (13.0-16.5); Lymphocyte # 1.33 X10^3/ul (0.83-4.51); Lymphocyte % 13.3 % (19-41); Mean Corp Hgb Conc 34.2 g/dL (32-36); Mean Corpuscular Hgb 32.1 pg (27.0-32.0); Mean Corpuscular Volume 93.6 fL (80-94); Mean Platelet Vol. 9.7 fl (6.2-12.0); Monocyte# 1.18 X10^3/uL; Monocyte% 11.8 % (0-10); NRBC Flagged by Analyzer 0 % (0-5); Neutrophil # 7.31 X10^3/uL (2.7-7.7); Neutrophil % 73.1 % (47-70); Platelet Count 161 K/mm3 (150-450); RBC Distribution Width CV 12.6 % (11.6-14.6); RBC Distribution Width SD 43.3 fl (35.1-43.9); Red Blood Count 4.71 M/mm3 (4.6-6.2)
[2025-02-23 10:39] VITALS: O2SAT 98
[2025-02-23 10:46] LABS: Troponin T High Sensitivity 29 ng/L (<=22)
[2025-02-23 10:54] LABS: Anion Gap 14 (5-15); BUN 17 mg/dL (4-19); BUN/Creat Ratio 15.8 RATIO (10-20); Calcium,Total 8.9 mg/dL (7.6-11.0); Carbon Dioxide 19.3 mmol/L (21.0-32.0); Chloride 103 mmol/L (98-108); Creatinine, Serum 1.05 mg/dL (0.70-1.20); EST Glomerular Filtration Rate 74 (>60); Estimated Creatinine Clearance 69.77 ml/min (50-250); Glucose 144 mg/dL (70-99); Potassium 4.8 mmol/L (3.3-5.1); Sodium Level 136 mmol/L (133-145)
[2025-02-23 11:09] LABS: International Normalized Ratio 3.2; Prothrombin Time (Protime)PT. 33.2 SECONDS (11.7-14.9)
--- NOTE | 2025-02-23 11:14 | PCM.HP.STD ---
HPI - General General Date of Admission: 02/23/25 Date of Service: 02/23/25 Chief Complaint: shortness of breath HPI Narrative KAYLA MORENO, is a 74 M with a PMH as outlined who presents via the ED on 02/23/2025 with a complaint of chest pain. Pain occured with exertion, with associated shortness of breath.He has a history of DVT and hypercoagulability, and is s/p derek Filter. He is on coumadin. His symptoms started one week ago, and said any exertion resulted in servere chest pain. He denied any lightheadedness, dizziness, palpitations, nausea, vomiting or any other symptoms. Review of systems is otherwise negative. Vitals in the ED were temperature of 98.3 Fahrenheit, pulse rate of 55, blood pressure 179/83 and respirate rate of 13. Saturating at 99% on room air. CBC showed hemoglobin of 15.1 with WBC of 10 and platelets of 161. INR was 3.2. Chemistry showed sodium of 136 with potassium of 4.8 and bicarb of 19.3. Anion gap is 14. Creatinine is 1.05. Initial troponin is 29. EKG showed no acute ST changes. Chest x-ray showed no acute cardiopulmonary pathology. He has been admitted to be managed for chest pain rule out ACS. [facility] Medical History Essential tremor COVID-19 (~06/2023) Non-smoker Diabetes Obesity History of deep venous thrombosis Right bundle branch block (RBBB) Essential (primary) hypertension Hyperlipidemia Hypercoagulable state Atherosclerosis of [place] coronary artery of [place] heart without angina pectoris Home Medications ?Medication ?Instructions ?Recorded ?Last Taken ?Type primidone 50 mg tablet 150 mg (3 x 50 mg) PO BID #90 tabs 10/03/17 02/22/25 Rx nitroglycerin 0.4 mg sublingual 0.4 mg sublingual Q5-15M PRN chest 04/22/18 Unknown Rx tablet pain #25 tabs acetaminophen 650 mg 650 mg PO QHS 09/25/23 02/22/25 History tablet,extended release (Tylenol Arthritis Pain) diclofenac sodium 1 % topical gel 2 g topical 4X/DAY PRN pain 09/25/23 Unknown History (Aleve (diclofenac)) warfarin 4 mg tablet 4 mg PO DAILY blood thinner 09/25/23 02/22/25 History propranolol 40 mg tablet 40 mg PO BID #180 tabs 12/18/23 02/22/25 Rx hydrocodone 10 mg-acetaminophen 1 tab PO BID PRN Pain 11/17/24 Unknown History 325 mg tablet hydrochlorothiazide 12.5 mg tablet 12.5 mg PO DAILY 02/23/25 02/22/25 History lisinopril 20 mg tablet 20 mg PO DAILY 02/23/25 02/22/25 History Allergy/AdvReac Type Severity Reaction Status Date / Time ticagrelor (From Brilinta) AdvReac Intermediate dyspnea Verified 11/17/24 13:12 atorvastatin (From Lipitor) AdvReac myalgia Verified 11/17/24 13:12 Family History Father Heart disease Sister Heart disease Sister Heart disease Diabetes Surgical History History of coronary artery stent placement (01/20/21) H/O knee surgery Derek filter in place (2005) History of carpal tunnel surgery History of lumbar surgery Social History Smoking Status: Never smoker alcohol intake: never substance use type: does not use caffeine: Yes Type: carbonated beverages and coffee ROS Constitutional Constitutional: Denies anorexia, chills, fatigue, fever(s), malaise or weakness Eyes Eyes: Denies change in vision ENT HEENT: Denies dysphagia, headache(s) or sore throat Cardiovascular Cardiovascular: Reports chest pain and dyspnea on exertion; Denies edema, lightheadedness, orthopnea, palpitations, paroxysmal nocturnal dyspnea, rapid heart rate or syncope Respiratory/Chest Respiratory/Chest: Reports dyspnea, shortness of breath at rest and shortness of breath with exertion; Denies cough, productive cough or wheezing Gastrointestinal Gastrointestinal: Denies abdominal pain, constipation, diarrhea, nausea or vomiting Genitourinary Genitourinary: Denies dysuria Neurologic Neurologic: Denies confusion, dizziness, focal weakness, headache(s), numbness, seizures or syncope Psychiatric Psychiatric: Denies anxiety or depression Endocrine Endocrinology: Denies change in body appearance Vital Signs Vital Signs Vital Signs: 02/23/25 09:15 02/23/25 10:39 Temperature 98.3 F Temperature Source Oral Pulse Rate 55 L Respiratory Rate 13 Respiratory Effort Normal Respiratory Depth Normal Respiratory Pattern Normal Blood Pressure 179/83 H Blood Pressure Mean 115 Pulse Ox 99 Oxygen Delivery Method Room Air Room Air Weight Weight: 199 lb 1.239 oz Body Mass Index (BMI) 28.5 Physical Exam Const alert, oriented x3 and no apparent distress General Appearance: cooperative HEENT normocephalic, head/scalp atraumatic, hearing grossly normal bilaterally and moist oral mucous membranes Mouth: oral and palatal mucosa normal Eyes EOMs intact bilaterally and conjunctivae normal Neck no lymphadenopathy Resp normal respiratory effort, no retractions, no use of accessory muscles and clear to auscultation bilaterally Cardio regular rate, regular rhythm, S1 normal heart sound, S2 normal heart sound and no murmurs GI normal to inspection, nondistended, normoactive bowel sounds, soft to palpation and non-tender Extremity normal to inspection, full ROM and no clubbing, cyanosis or edema Neuro oriented x3, CN's II-XII intact bilaterally and moves all extremities Motor Exam: strength 5/5 throughout Psych affect normal Results Lab / Micro Data 02/23/25 10:11 02/23/25 10:11 Labs: Laboratory Results - last 24 hr 02/23/25 10:11: WBC 10.0, RBC 4.71, Hgb 15.1, Hct 44.1, MCV 93.6, MCH 32.1 H, MCHC 34.2, RDW Std Deviation 43.3, RDW Coeff of Trish 12.6, Plt Count 161, MPV 9.7, Immature Gran % (Auto) 0.500, Neut % (Auto) 73.1 H, Lymph % (Auto) 13.3 L, [place] % (Auto) 11.8 H, Eos % (Auto) 0.8, Baso % (Auto) 0.5, Absolute Neuts (auto) 7.3, Absolute Lymphs (auto) 1.33, Nucleated RBC % 0, PT Cancelled, INR Cancelled, Sodium 136, Potassium 4.8, Chloride 103, Carbon Dioxide 19.3 L, Anion Gap 14, BUN 17, Creatinine 1.05, Estim Creat Clear Calc 69.77, Est GFR (MDRD) Non-Af 74, BUN/Creatinine Ratio 15.8, Glucose 144 H, Calcium 8.9, Troponin T High Sens 29 H 02/23/25 10:49: PT 33.2 H, INR 3.2 Rhythm Strip Rhythm Strip: Sinus bradycardia Rate: 55 Ectopy: None Imaging Radiology Impression Chest X-Ray 02/23/25 09:23 IMPRESSION: NO ACUTE FINDINGS. Reading Location: [facility] Assessment & Plan Assessment/Plan (1) Exertional chest pain: PLAN: Plan #Chest pain to rule out ACS Admit to PCU under observation initial troponin is 29. Will cycle troponins EKG showed no acute ST changes PO aspirin 81mg daily. SL nitroglycerin prn IF troponins trend upwards, consult cardiology. IF they dont trend upwards, get stress test tomorrow. #History of CAD s/p stents: Stable. #History of DVT with hypercoagulability: on coumadin. INR is 2.3. #Hyperlipidemia: on statin #Hypertension: On hydrochlorothiazide and lisinopril as well as propranolol DVT prophylaxis: Already on Coumadin. INR is therapeutic at 3.2 CODE STATUS: DNR CCA with intubation Patient counseled extensively about different types of CODE STATUS including full code, DNR CCA and DNR CCA. Patient elects to have intubation if needed but does not want CPR under any circumstances. He therefore wishes to be DNR CCA with intubation. Total [id number] time 16 minutes. Charges/Coding Visit Charges Inpatient E&M: 40948 Init Hosp L2 Procedures Hospitalists Procedures: 81261 Advncd Care Plan 30 Min
[2025-02-23] MEDS: Ondansetron 4 MG/2 ML Vial IV (11:19)
[2025-02-23] MEDS: Morphine 4 MG/ML Syringe IV (11:19)
[2025-02-23 11:25] VITALS: BP 174/81; PULSE 53; RESP 15; TEMP 36.8; O2SAT 94
[2025-02-23 13:58] VITALS: BMI 28.2
[2025-02-23 14:15] VITALS: BP 151/74; PULSE 51; RESP 18; TEMP 36.6; O2SAT 96
[2025-02-23 16:20] LABS: Troponin T High Sensitivity 30 ng/L (<=22)
[2025-02-23 17:50] LABS: Troponin T High Sens 2 HR 27 ng/L (<=22)
[2025-02-23 19:57] LABS: Troponin T High Sens 4 HR 28 ng/L (<=22)
[2025-02-23 21:54] VITALS: BP 152/74; PULSE 59; RESP 16; TEMP 36.4; O2SAT 96
[2025-02-23] MEDS: Primidone 50 MG Tablet 150 MG PO (22:22)
[2025-02-23] MEDS: Acetaminophen 325 MG Tablet 650 MG PO (22:22)
[2025-02-23] MEDS: HYDROcodone Bitartrate/Apap 5/325 Tablet PO (22:22)
[2025-02-23] MEDS: Propranolol 40 MG Tablet PO (22:25)
--- OUTSIDE RECORDS SUMMARY | 2025-02-23 23:20 | XMS RPT_ITS | CCD ---
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, Kraig Unavailable NATY, TATE A Referring Unavailable NATY, TATE A Primary Care Unavailable [place], Tate Primary Care Unavailable Rama, Isaias Referring Unavailable Rama, Paulding Attending Unavailable [place], Tate Referring Unavailable [place], Tate Primary Care Unavailable Theo Fink NP Attending Unavailable Naty, Tate Primary Care Unavailable Rama, Isaias Attending Unavailable Naty, Tate Referring Unavailable NATY, TATE A Referring Unavailable NATY, TATE A Primary Care Unavailable NATY, TATE A Referring Unavailable NATY, TATE A Primary Care Unavailable RYTELVIKASFARIBA R Referring Unavailable NATY, TATE A Primary Care Unavailable RYTEL, FARIBA R Referring Unavailable NATY, TATE A Primary Care Unavailable RYTEL FARIBA R Referring Unavailable NATY, TATE A Primary Care Unavailable NATY, TATE A Referring Unavailable NATY, TATE A Primary Care Unavailable NATY, TATE A Referring Unavailable NATY, TATE A Primary Care Unavailable NATY, TATE A Referring Unavailable NATY, TATE A Primary Care Unavailable NATY, TATE A Referring Unavailable NATY, TATE A Primary Care Unavailable NATY, TATE A Referring Unavailable NATY, TATE A Primary Care Unavailable NATY, TATE A Referring Unavailable NATY, TATE A Primary Care Unavailable NATY, TATE A Referring Unavailable NATY, TATE A Primary Care Unavailable NATY, TATE A Referring Unavailable NATY, TATE A Primary Care Unavailable NATY, TATE A Referring Unavailable NATY, TATE A Primary Care Unavailable VETOVITZ, LUZ Attending Unavailable NATY, TATE A Primary Care Unavailable NATY, TATE A Attending Unavailable NATY, TATE A Primary Care Unavailable NATY, TATE A Attending Unavailable NATY, TATE A Primary Care Unavailable VETOVITZ, LUZ Attending Unavailable NATY, TATE A Primary Care Unavailable VETOVITZ, LUZ Attending Unavailable NATY, TATE A Primary Care Unavailable VETOVITZ, LUZ Attending Unavailable NATY, TATE A Primary Care Unavailable NATY, TATE A Attending Unavailable NATY, TATE A Primary Care Unavailable STATHOPMARCO VIRAMONTESTLIN Attending Unavailabl e NATY, TATE A Primary Care Unavailable [place] , Dr. Ybarra Primary Care Provider Dr. Tate Alfonso MD Referring Provider [facility] UTILIZATION REVIEW RNTheo Castro Attending Provider Dr. Garry Paz MD Emergency Provider Kayy NEGRON, Dr. Elizabeth Nowak Admit Provider Kayy NEGRON, Dr. Elizabeth Nowak Attending Provider Allergies Allergy Classification Reported Allergen(s) Allergy Type Date of Onset Reaction(s) Facility HMG-CoA Reductase Inhibitors (statins) (1 source) atorvastatin Drug Allergy 05-30-2016 Myalgia [facility] (4 sources) atorvastatin drug allergy 04-11-2016 Myalgias [facility] Work Phone: (20 sources) atorvastatin; Translations: [ATORVASTATIN] Drug Allergy 05-30-2016 Myalgia [facility] Work Phone: (1 source) atorvastatin Drug Allergy 11-17-2024 [facility] (1 source) Ticagrelor Drug Allergy 11-17-2024 [facility] (1 source) Ticagrelor Drug Allergy 11-17-2024 dyspnea [facility] Medications Current Medications Medication Drug Class(es) Dates Sig (Normalized) Sig (Original) 8 hr acetaminophen 650 mg extended release oral tablet (20 sources) Start: 09-25-2023 take 1 tablet by mouth at bedtime Acetaminophen (Tylenol Arthritis Pain) 650 mg tablet extended release Active 650 mg PO AT BEDTIME September 25, 2023 1:00am take 650 mg by mouth once daily at bedtime acetaminophen (TYLENOL ARTHRITIS PAIN OR AL) Take 650 mg by mouth daily at bedtime. Active Comment on above: Take 650 mg by mouth daily at bedtime. amoxicillin 875 mg / clavulanate 125 mg oral tablet (2 sources) Penicillin-class Antibacterial Start: 10-24-19 End: 11-03-19 take 1 tablet by mouth every twelve hours amoxicillin-clavul anic acid (AUGMENTIN) 875-125 mg per tablet Take 1 tablet by mouth every 12 hours for 10 days. 20 tablet 0 10/24/2022 11/03/2022 Active Comment on above: Take 1 tablet by [facility] every 12 hours for 10 days. diclofenac sodium 0.01 mg/mg topical gel (20 sources) Nonsteroidal Anti-inflammatory Drug Start: 01-01-20 apply 4 g topically four times daily diclofenac (VOLTAREN) 1 % topical gel Apply 4 g to affected area four times daily. 400 g 2 01/01/2024 Active Start: 09-25-2023 apply 2 g topically four times daily as needed for pain Diclofenac Sodium (Aleve (Diclofenac)) 1 % gel Active 2 g TOPICAL 4 TIMES DAILY as needed for pain September 25, 2023 1:00am apply to single elbow, wrist or hand; for hand includes palm/fingers/back of hand Start: 07-30-2019 End: 01-01-2024 apply 400 g topically four times daily diclofenac sodium (VOLTAREN) 1 % topical gel Apply to affected area four times daily. 400 g 2 07/30/2019 01/01/2024 Discontinued Comment on above: Apply to affected ar ea four times daily. hydroCHLOROthiazide 12.5 mg oral tablet (1 source) Thiazide Diuretic Start: 2024 take 1 tablet by mouth once daily Hydrochlorothiazide 12.5 mg tablet Active 12.5 mg PO DAILY February 23, 2025 12:00am lisinopril 20 mg oral tablet (20 sources) Angiotensin Converting Enzyme Inhibitor Start: 2024 take 1 tablet by mouth once daily Lisinopril 20 mg tablet Active 20 mg PO DAILY February 23, 2025 12:00am Start: 09-21-2024 End: 02-23-2025 take 1 tablet by mouth once daily Lisinopril 40 mg tablet Discontinued 40 mg PO daily September 21, 2024 1:00am February 23, 2025 9:49am Start: 07-14-2024 End: 09-21-2024 take 1 tablet by mouth once daily Lisinopril 20 mg tablet Discontinued 20 mg PO DAILY July 14, 2024 8:29am September 21, 2024 5:02pm 20 mg orally daily; Start: 04-21-2024 End: 07-14-2024 Lisinopril 40 mg tablet Disc ontinued 20 mg .ROUTE DAILY April 21, 2024 1:17pm July 14, 2024 8:29am 20 mg daily; Start: 06-19-2023 End: 04-21-2024 Lisinopril 40 mg tablet Disc ontinued 0 .ROUTE .COMPLEX June 19, 2023 8:10am April 21, 2024 1:18pm TAKE 1 TABLET DAILY Start: 07-14-2021 End: 06-19-2023 take 1 tablet by mouth once daily Lisinopril 40 mg tablet Discontinued 40 mg PO daily June 25, 2022 3:40pm June 19, 2023 8:10am Start: 05-12-2020 End: 07-14-2021 take 1 tablet by mouth once daily Lisinopril 20 mg tablet Discontinued 20 mg PO daily 2021 1:06pm July 14, 2021 11:29am Start: 10-03-2017 End: 05-12-2020 take 1 tablet by mouth once daily Lisinopril 10 mg tablet Discontinued 10 mg PO daily October 03, 2017 1:00am May 12, 2020 11:14am Start: 04-11-2016 take 1 tablet by [facility] once daily LISINOPRIL 10 MG TABS One tablet by mouth daily LISINOPRIL [id number] Paola Branham RN Comment on above: Take 1 tablet by [facility] once daily. predniSONE 10 mg oral tablet (20 sources) Start: 10-26-2024 predniSONE (DELTASONE) 10 mg tablet Indications: Chronic pain of both shoulders Take PO 4 tablets x 5 days, then 3 tablets x 3 days, then 2 tablets x 3 days, 1 tablets x 3 days 38 tablet 10/26/2024 Active Start: 01-01-2024 End: 03-25-2024 predniSONE (DELTASONE) 10 mg tablet Take PO 4 tablets x 5 days, then 3 tablets x 3 days, then 2 tablets x 3 days, 1 tablets x 3 days 38 tablet 0 01/01/2024 03/25/2024 Discontinued Start: 10-24-2022 End: 01-01-2024 take 1 tablet by mouth once daily predniSONE (DELTASONE) 20 mg tablet Take 1 tablet by mouth once daily. 5 tablet 0 10/24/2022 01/01/2024 Discontinued Start: 09-25-2021 End: 12-27-2021 predniSONE (DELTASONE) 10 mg tablet Indications: Hand arthritis Take PO 4 tablets x 5 days, then 3 tablets x 3 days, then 2 tablets x 3 days, 1 tablets x 3 days 38 tablet 0 09/25/2021 12/27/2021 Discontinued Comment on above: Take PO 4 tablets x 5 days, then 3 tablets x 3 days, then 2 tablets x 3 days, 1 tablets x 3 days Take 1 tablet by [facility] once daily. primidone 50 mg oral tablet (20 sources) Anti-epileptic Agent Start: 01-11-2025 primidone (MYSOLINE) 50 mg tablet TAKE 3 TABLETS TWICE A DAY 540 tablet 3 01/11/2025 Active Start: 11-15-2021 End: 01-16-2024 primidone (MYSOLINE) 50 mg t ablet TAKE 3 TABLETS TWICE A DAY 540 tablet 3 01/16/2024 Active Start: 10-03-2017 take 1 tablet by [facility] twice daily Primidone 50 mg tablet Active 150 mg PO TWICE A DAY October 03, 2017 1:00am tremors Start: 04-11-2016 take 3 tablets by mo [facility] twice daily PRIMIDONE 50 MG TABS Three tablets by mouth twice a day, benign essential tremor. PRIMIDONE [id number] Isaias Ontiveros MD Comment on above: Take 3 tablets by mo [facility] twice daily. TAKE 3 TABLETS TWICE A DAY propranolol hydrochloride 40 mg oral tablet (20 sources) beta-Adrenergic Kisha Start: 10-25-2023 End: 05-28-2024 take 1 tablet by mouth every twelve hours propranolol (INDERAL) 40 mg tablet Take 1 tablet by mouth every 12 hours. 180 tablet 3 05/28/2024 Active Start: 09-25-2023 End: 12-18-2023 take 1 tablet by mouth twice daily Propranolol 40 mg tablet Active 40 mg PO TWICE A DAY 180 December 18, 2023 3:11pm Comment on above: Take 1 tablet by [facility] every 12 hours. warfarin sodium 4 mg oral tablet (20 sources) Vitamin K Antagonist Start: 01-20-2021 End: 04-10-2024 take 1 tablet by mouth once daily Warfarin 4 mg tablet Active 4 mg PO DAILY September 25, 2023 2:16pm Start: 04-11-2016 COUMADIN 3 MG TABS Take as directed WARFARIN SODIUM [id number] Paola Branham RN Start: 04-11-2016 take 1 tablet by [facility] once daily, then take 0.5 tablet by mouth COUMADIN 4 MG TABS One tablet by mouth daily except every 3rd day takes 1/2 tablet (2 mg) WARFARIN SODIUM [id number] Isaias Ontiveros MD Comment on above: Take 1 tablet by [facility] once daily. TAKE 1 TABLET DAILY Completed/Discontinued Medications Medication Drug Class(es) Dates Sig (Normalized) Sig (Original) acetaminophen 325 mg / HYDROcodone bitartrate 10 mg oral tablet (20 sources) Opioid Agonist Start: 10-26-2024 End: 02-24-2025 take 1 tablet by mouth twice daily as needed for pain HYDROcodone-Acetami nophen (NORCO) 10-325 mg per tablet Indications: Spinal stenosis of lumbar region without neurogenic claudication , Arthritis of left knee , Arthritis of right knee , Degenerative disc disease, lumbar Take 1 tablet by mouth two times a day as needed for pain for up to 30 days. Patient should start on December 29, 2024. 60 tablet 12/29/2024 01/25/2025 Discontinued Start: 07-31-2024 End: 10-31-2024 take 1 tablet by mouth once daily as needed for pain HYDROcodone-Acetaminophen (NORCO) 10-325 mg per tablet Indications: Spinal stenosis of lumbar region without neurogenic claudication , Arthritis of left knee , Arthritis of right knee , Degenerative disc disease, lumbar Take 1 tablet by mouth once daily as needed for pain for up to 30 days. 30 tablet 10/01/2024 10/26/2024 Discontinued Start: 10-02-2023 End: 07-29-2024 take 1 tablet by mouth once daily as needed for pain HYDROcodone-Acetaminophen (NORCO) 10-325 mg per tablet Indications: Spinal stenosis of lumbar region without neurogenic claudication , Arthritis of left knee , Arthritis of right knee , Degenerative disc disease, lumbar Take 1 tablet by mouth once daily as needed for pain for up to 30 days. 30 tablet 06/29/2024 07/28/2024 Discontinued Start: 07-24-2022 End: 09-27-2023 take 1 tablet by mouth once daily as needed for pain HYDROcodone-Acetaminophen (NORCO) 10-325 mg per tablet Indications: Arthritis of left knee , Arthritis of right knee , Spinal stenosis of lumbar region without neurogenic claudication , Degenerative disc disease, lumbar Take 1 tablet by mouth once daily as needed for pain for up to 30 days. 30 tablet 0 07/29/2023 08/26/2023 Discontinued Start: 02-19-2022 End: 07-21-2022 take 1 tablet by mouth once daily as needed for pain HYDROcodone-Acetaminophen (NORCO) 10-325 mg per tablet Indications: Arthritis of left knee , Arthritis of right knee , Spinal stenosis of lumbar region without neurogenic claudication , Degenerative disc disease, lumbar Take 1 tablet by mouth once daily as needed for pain for up to 30 days. 30 tablet 0 06/21/2022 07/21/2022 Active Start: 01-20-2021 End: 11-17-2024 take 1 tablet by mouth once daily as needed for pain HYDROcodone-Acetaminophen (NORCO) 10-325 mg per tablet Indications: Arthritis of left knee , Arthritis of right knee , Spinal stenosis of lumbar region without neurogenic claudication , Degenerative disc disease, lumbar Take 1 tablet by mouth once daily as needed for pain for up to 30 days. 30 tablet 0 01/17/2022 02/16/2022 Active Start: 04-11-2016 End: 04-18-2016 HYDROCODONE-ACETAMINOPHEN 5- 325 MG TABS as needed HYDROCODONE-ACETAMINOPHEN [id number] Isaias Ontiveros MD Comment on above: Take 1 tablet by [facility] th once daily as needed for pain for up to 30 days. Take 1 tablet by [facility] th once daily as needed for pain for up to 30 days. Do not start before August 23, 2022. Take 1 tablet by [facility] th once daily as needed for pain for up to 30 days. Do not start before April 25, 2023. Take 1 tablet by [facility] th once daily as needed for pain for up to 30 days. Do not start before June 26, 2023. Take 1 tablet by [facility] th once daily as needed for pain for up to 30 days. Do not start before August 28, 2023. aspirin 81 mg delayed release oral tablet (20 sources) Platelet Aggregation Inhibitor, Nonsteroidal Anti-inflammatory Drug Start: 01-21-2021 End: 02-23-2025 take 1 tablet by mouth once daily Aspirin (Adult Aspirin Regimen) 81 mg tablet,delayed release (DR/EC) Discontinued 81 mg PO DAILY January 10, 2022 12:00am February 23, 2025 9:44am Start: 04-11-2016 take 1 tablet by [facility] th once daily ASPIRIN 81 MG TABS One tablet by mouth daily ASPIRIN Paola Branham RN Start: 04-11-2016 take 1 tablet by [facility] th once daily ASPIRIN 81 MG TABS One tablet by mouth daily ASPIRIN Paola Branham RN Start: 04-11-2016 take 1 tablet by [facility] th once daily ASPIRIN EC 81 MG TBEC One tablet by mouth daily ASPIRIN [id number] Cassi Flores RN take 1 tablet by [facility] th once daily aspirin 81 mg chewable tablet Take 81 mg by mouth once daily. Active Comment on above: Take 81 mg by mouth once daily. betamethasone 3 mg/ml / betamethasone acetate 3 mg/ml injectable suspension (20 sources) Corticosteroid Start: 11-05-2024 End: 11-05-2024 betamethasone acetate-betamethasone sodium phosphate 6 mg injection (CELESTONE) Start: 11-05-2024 End: 11-05-2024 6 mg, Injection - FOR ORTHO USE ONLY, ONCE, 1 dose, Starting on Dyana 11/05/24 at 1514, Until Dyana 11/05/24 at 1514 Start: 08-04-2024 End: 08-04-2024 betamethasone acetate-betame thasone sodium phosphate 6 mg injection (CELESTONE) Start: 08-04-2024 End: 08-04-2024 6 mg, Injection - FOR ORTHO USE ONLY, ONCE, 1 dose, Starting on Sat08/04/24 at 1138, Until Sat08/04/24 at 1138 Start: 04-30-2024 End: 04-30-2024 betamethasone acetate-betame thasone sodium phosphate 6 mg injection (CELESTONE) Start: 01-30-2024 End: 01-30-2024 betamethasone acetate-betame thasone sodium phosphate 6 mg injection (CELESTONE) Start: 10-31-2023 End: 10-31-2023 betamethasone acetate-betame thasone sodium phosphate 6 mg injection (CELESTONE) Start: 04-11-2023 End: 04-11-2023 betamethasone acetate-betame thasone sodium phosphate 6 mg injection (CELESTONE) Start: 01-08-2023 End: 01-08-2023 betamethasone acetate-betame thasone sodium phosphate 6 mg injection (CELESTONE) Start: 01-08-2023 End: 01-08-2023 betamethasone acetate-betame thasone sodium phosphate 6 mg injection (CELESTONE) Start: 10-09-2022 End: 10-09-2022 betamethasone acetate-betame thasone sodium phosphate 6 mg injection (CELESTONE) Start: 10-09-2022 End: 10-09-2022 betamethasone acetate-betame thasone sodium phosphate 6 mg injection (CELESTONE) Start: 03-27-2022 End: 03-27-2022 betamethasone acetate-betame thasone sodium phosphate 6 mg injection (CELESTONE) Start: 03-27-2022 End: 03-27-2022 betamethasone acetate-betame thasone sodium phosphate 6 mg injection (CELESTONE) Start: 02-16-2020 betamethasone acetate-betamethasone sodium phosphate 6 mg injection (CELESTONE) clopidogrel 75 mg oral tablet (18 sources) [id number] Platelet Inhibitor Start: 02-03-2021 End: 04-23-2022 take 1 tablet by mouth once daily Clopidogrel 75 mg tablet Discontinued 75 mg PO DAILY 90 January 08, 2022 8:39am January 10, 2022 11:45am Comment on above: Take 75 mg by mouth once daily. ezetimibe 10 mg oral tablet (11 sources) Dietary Cholesterol Absorption Inhibitor Start: 10-26-2024 End: 02-23-2025 take 1 tablet by mouth once daily Ezetimibe 10 mg tablet Discontinued 10 mg PO DAILY November 17, 2024 1:00am February 23, 2025 9:46am famotidine 20 mg oral tablet (20 sources) Histamine-2 Receptor Antagonist Start: 06-26-2021 End: 02-23-2025 take 1 tablet by mouth twice daily Famotidine 20 mg tablet Discontinued 20 mg PO TWICE A DAY September 25, 2023 1:00am February 23, 2025 9:45am Start: 03-03-2021 End: 01-10-2022 take 1 tablet by mouth once daily Famotidine 20 mg tablet Discontinued 20 mg PO DAILY March 03, 2021 12:00am January 10, 2022 11:42am Comment on above: Take 1 tablet by [facility] th twice daily. fenofibrate 54 mg oral tablet (8 sources) Peroxisome Proliferator Receptor alpha Agonist Start: 04-11-20 16 End: 10-15-19 17 take 1 tablet by mouth once daily FENOFIBRATE 54 MG TABS One tablet by mouth daily FENOFIBRATE [id number] Paola Branham RN gabapentin 100 mg oral capsule (20 sources) Anti-epileptic Agent Start: 04-23-20 End: 02-09-20 23 take 2 capsules by mouth three times daily gabapentin (NEURONTIN) 100 mg capsule take 2 capsules by mouth three times a day for 30 DAYS 180 capsule 2 05/23/2022 02/08/2023 Discontinued Start: 12-27-2021 End: 04-23-2022 take 1 capsule by mouth three times daily gabapentin (NEURONTIN) 100 mg capsule Take 1 capsule by mouth three times daily for 30 days. 90 capsule 0 12/27/2021 04/23/2022 Discontinued Comment on above: Take 1 capsule by mo [facility] three times daily for 30 days. Take 2 capsules by m out three times daily for 30 days. take 2 capsules by m out three times a day for 30 DAYS 10 ml lidocaine hydrochloride 10 mg/ml injection (20 sources) Antiarrhythmic, Amide Local Anesthetic Start: 11-05-2024 End: 11-05-2024 lidocaine (PF) 10 mg/mL (1 %) 5 mL injection (XYLOCAINE) Start: 11-05-2024 End: 11-05-2024 5 mL, Injection - FOR ORTHO USE ONLY, ONCE, 1 dose, Starting on Dyana 11/05/24 at 1514, Until Dyana 11/05/24 at 1514 Start: 08-04-2024 End: 08-04-2024 lidocaine (PF) 10 mg/mL (1 % ) 5 mL injection (XYLOCAINE) Start: 08-04-2024 End: 08-04-2024 5 mL, Injection - FOR ORTHO USE ONLY, ONCE, 1 dose, Starting on Sat08/04/24 at 1138, Until Sat08/04/24 at 1138 Start: 04-30-2024 End: 04-30-2024 lidocaine (PF) 10 mg/mL (1 % ) 5 mL injection (XYLOCAINE) Start: 01-30-2024 End: 01-30-2024 lidocaine (PF) 10 mg/mL (1 % ) 5 mL injection (XYLOCAINE) Start: 10-31-2023 End: 10-31-2023 lidocaine (PF) 10 mg/mL (1 % ) 5 mL injection (XYLOCAINE) Start: 04-11-2023 End: 04-11-2023 lidocaine (PF) 10 mg/mL (1 % ) 5 mL injection (XYLOCAINE) Start: 01-08-2023 End: 01-08-2023 lidocaine (PF) 10 mg/mL (1 % ) 5 mL injection (XYLOCAINE) Start: 01-08-2023 End: 01-08-2023 lidocaine (PF) 10 mg/mL (1 % ) 5 mL injection (XYLOCAINE) Start: 10-09-2022 End: 10-09-2022 lidocaine (PF) 10 mg/mL (1 % ) 5 mL injection (XYLOCAINE) Start: 10-09-2022 End: 10-09-2022 lidocaine (PF) 10 mg/mL (1 % ) 5 mL injection (XYLOCAINE) Start: 03-27-2022 End: 03-27-2022 lidocaine (PF) 10 mg/mL (1 % ) 5 mL injection (XYLOCAINE) Start: 03-27-2022 End: 03-27-2022 lidocaine (PF) 10 mg/mL (1 % ) 5 mL injection (XYLOCAINE) Start: 02-16-2020 lidocaine (PF) 10 mg/mL (1 %) 5 mL injection (XYLOCAINE) meclizine hydrochloride 25 mg oral tablet (20 sources) Antiemetic Start: 09-19-2023 End: 02-23-2025 take 1 tablet by mouth every six hours as needed Meclizine 25 mg tablet Discontinued 25 mg PO EVERY 6 HOURS as needed September 25, 2023 1:00am February 23, 2025 9:47am Start: 11-12-2019 take 1 tablet by [facility] th every six hours as needed for dizziness and dizziness meclizine (ANTIVERT) 25 mg tab Indications: Dizziness Take 1 tablet by mouth every 6 hours as needed (for dizziness.). 30 tablet 2 11/12/2019 Active Comment on above: Take 1 tablet by [facility] every 6 hours as needed (for dizziness.). 24 hr metFORMIN hydrochloride 500 mg extended release oral tablet (16 sources) Biguanide Start: 06-26-20 End: 04-23-20 take 1 tablet by mouth once daily metFORMIN ER (GLUCOPHAGE XR) 500 mg 24 hr tablet Take 1 tablet by mouth once daily. 90 tablet 3 06/26/2021 04/23/2022 Discontinued Start: 05-12-2020 End: 07-14-2021 take 1 tablet by mouth once daily Metformin 500 mg tablet Discontinued 500 mg PO DAILY 0 January 21, 2021 10:01am July 14, 2021 11:17am Started from tomorrow 01/22/21 Comment on above: Take 1 tablet by [facility] th once daily. 24 hr metoprolol succinate 50 mg extended release oral tablet (20 sources) beta-Adrenergic Kisha Start: 04-18-2016 End: 01-01-2024 Metoprolol Succinate 50 mg tablet extended release 24 hr Discontinued 0 .ROUTE .COMPLEX 90 June 19, 2023 8:10am September 25, 2023 2:32pm TAKE 1 TABLET DAILY (HOLD FOR HEART LESS THAN 60 OR SYSTOLIC BLOOD PRESSURE LESS THAN 100 MMHG) Start: 04-18-2016 take 1 tablet by [facility] th once daily TOPROL XL 50 MG [id number] One tablet by mouth daily METOPROLOL SUCCINATE [id number] Isaias Ontiveros MD Comment on above: Take 1 tablet by [facility] th once daily. nebivolol 5 mg oral tablet (8 sources) Start: 04-11-20 End: 04-18-20 16 take 1 tablet by mouth once daily BYSTOLIC 5 MG TABS One tablet by mouth daily NEBIVOLOL HCL [id number] Paola Branham RN nitroglycerin 0.4 mg sublingual tablet (20 sources) Nitrate Vasodilator Start: 04-11-20 End: 05-28-20 24 Nitroglycerin 0.4 mg tablet, sublingual Discontinued 0.4 mg SL every 5 to 15 minutes as needed for chest pain October 03, 2017 1:00am April 22, 2018 9:40am until response; do not exceed 3 doses per event pantoprazole 40 mg delayed release oral tablet (20 sources) Proton Pump Inhibitor Start: 04-28-20 End: 02-24-20 take 1 tablet by mouth once daily Pantoprazole 40 mg tablet,delayed release (DR/EC) Discontinued 40 mg PO DAILY February 04, 2023 12:00am February 23, 2025 9:47am Comment on above: Take by mouth. pravastatin sodium 40 mg oral tablet (5 sources) HMG-CoA Reductase Inhibitor Start: 10-03-19 18 End: 05-12-20 take 1 tablet by mouth at bedtime Pravastatin (Pravachol) 40 mg tablet Discontinued 40 mg PO AT BEDTIME October 03, 2017 1:00am May 12, 2020 10:54am Start: 04-11-2016 take 1 tablet by [facility] th at bedtime PRAVACHOL 40 MG TABS One tablet by mouth at bedtime. PRAVASTATIN SODIUM [id number] Paola Branham RN rosuvastatin calcium 20 mg oral tablet (20 sources) HMG-CoA Reductase Inhibitor Start: 09-24-2022 End: 10-26-2024 rosuvastatin (CRESTOR) 20 mg tablet TAKE 1 TABLET DAILY AT BEDTIME 90 tablet 4 09/24/2022 10/26/2024 Discontinued Start: 08-06-2022 End: 02-08-2023 take 1 tablet by mouth every other day rosuvastatin (CRESTOR) 10 mg tablet Take 1 tablet by mouth every other day. 30 tablet 4 08/06/2022 02/08/2023 Discontinued Start: 05-12-2020 End: 11-17-2024 take 1 tablet by mouth once daily at bedtime rosuvastatin (CRESTOR) 20 mg tablet Take 1 tablet by mouth daily at bedtime. 90 tablet 3 06/26/2021 08/06/2022 Discontinued Comment on above: Take 1 tablet by [facility] th daily at bedtime. Take 1 tablet by [facility] th every other day. TAKE 1 TABLET DAILY AT BEDTIME ticagrelor 90 mg oral tablet (1 source) Start: End: 1 take 1 tablet by mouth twice daily Ticagrelor (Brilinta) 90 mg Tablet Discontinued 90 mg PO TWICE A DAY 60 30 January 21, 2021 12:00am March 03, 2021 11:01am tiZANidine 2 mg oral tablet (11 sources) Central alpha-2 Adrenergic Agonist Start: 5 End: 5 take 1 tablet by mouth every eight hours as needed Tizanidine 2 mg tablet Discontinued 2 mg PO EVERY 8 HOURS as needed November 17, 2024 1:00am February 23, 2025 9:47am Problems Active Problems Problem Classification Problem Date Documented Date Episodic/Chronic Abdominal pain (1 source) Epigastric pain; Translations: [Epigastric pain] 05-06-2022 Episodic Biliary tract disease (1 source) Biliary calculus; Translations: [Calculus of gallbladder without cholecystitis without obstruction] 05-06-2022 Episodic Coagulation and hemorrhagic disorders (6 sources) Hypercoagulability state; Translations: [Other primary thrombophilia] Onset: 6 04-11-2016 Chronic Comment on above: S/P Derek zamorate r; Coagulation and hemorrhagic disorders (20 sources) Thrombocytopenic disorder; Translations: [Thrombocytopenia, unspecified] Onset: 4 Chronic Conduction disorders (9 sources) Bifascicular block; Translations: [Other right bundle-branch block] Onset: 6 04-18-2016 Chronic Coronary atherosclerosis and other heart disease (20 sources) Atherosclerotic heart disease of [place] coronary artery without angina pectoris; Translations: [Coronary arteriosclerosis] Onset: 6 04-11-2016 Chronic Diabetes mellitus with complications (20 sources) Type 2 diabetes mellitus; Translations: [Type 2 diabetes mellitus with other circulatory complications] Onset: 6 07-24-2018 Chronic Diabetes mellitus without complication (1 source) Diabetes mellitus; Translations: [Type 2 diabetes mellitus without complications] 06-14-2021 Chronic Disorders of lipid metabolism (20 sources) Hyperlipidemia; Translations: [Pure hypercholesterolemia] Onset: 6 04-11-2016 Chronic Esophageal disorders (1 source) Gastroesophageal reflux disease; Translations: [Gastro-esophageal reflux disease without esophagitis] 02-12-2023 Chronic Essential hypertension (20 sources) Hypertensive disorder; Translations: [Essential hypertension] Onset: 6 04-11-2016 Chronic Immunizations and screening for infectious disease (1 source) Encounter for immunization; Translations: [Encounter for immunization] Onset: 5 Episodic Nonspecific chest pain (5 sources) Chest pain; Translations: [Other chest pain] Episodic Occlusion or stenosis of precerebral arteries (20 sources) Stenosis of right vertebral artery; Translations: [Occlusion and stenosis of right vertebral artery] Onset: 8 07-24-2018 Chronic Osteoarthritis (20 sources) Arthritis of left knee; Translations: [Unilateral primary osteoarthritis, left knee] Onset: 6 05-30-2016 Chronic Other aftercare (1 source) Taking high risk medication; Translations: [Other fci (current) drug therapy] 10-26-2024 Episodic Other aftercare (2 sources) Long-term current use of anticoagulant; Translations: [FCI (current) use of anticoagulants] 02-23-2025 Episodic Other lower respiratory disease (2 sources) Dyspnea on exertion; Translations: [Other forms of dyspnea] 02-23-2025 Episodic Other nervous system disorders (2 sources) Other chronic pain; Translations: [Chronic pain of both shoulders] Onset: 5 Chronic Other non-traumatic joint disorders (2 sources) Bilateral chronic pain of upper limbs; Translations: [Pain in right shoulder] 10-27-2024 Episodic Other non-traumatic joint disorders (2 sources) Pain in right shoulder; Translations: [Chronic pain of both shoulders] Onset: 5 Episodic Other non-traumatic joint disorders (2 sources) Pain in left shoulder; Translations: [Chronic pain of both shoulders] Onset: 5 Episodic Other nutritional; endocrine; and metabolic disorders (6 sources) Body mass index (BMI) 33.0-33.9, adult; Translations: [Body mass index (BMI) 32.0-32.9, adult] Onset: 6 10-15-2016 Chronic Other nutritional; endocrine; and metabolic disorders (2 sources) Body mass index (BMI) 32.0-32.9, adult; Translations: [Body mass index (BMI) 32.0-32.9, adult] Onset: 6 04-18-2016 Chronic Other upper respiratory infections (1 source) Acute sinusitis; Translations: [Acute sinusitis, unspecified] Episodic Phlebitis; thrombophlebitis and thromboembolism (20 sources) Acute embolism and thrombosis of unspecified deep veins of unspecified lower extremity; Translations: [H/O: Deep vein thrombosis] Onset: 6 04-11-2016 Episodic Residual codes; unclassified (2 sources) Pain; Translations: [Pain, unspecified] Episodic Spondylosis; intervertebral disc disorders; other back problems (20 sources) Degeneration of lumbar intervertebral disc; Translations: [Other intervertebral disc degeneration, lumbar region] Onset: 6 05-30-2016 Chronic Thyroid disorders (20 sources) Subclinical hypothyroidism; Translations: [Other specified hypothyroidism] Onset: 8 08-01-2018 Chronic Unclassified (2 sources) Placement of stent in coronary artery ; Translations: [Presence of cardiac and vascular implant and graft, unspecified] Onset: 6 04-11-2016 Unclassified (2 sources) Long-term drug therapy; Translations: [Other fci (current) drug therapy] Onset: 7 10-11-2016 Unclassified (2 sources) Bilateral chronic pain of upper limbs 11-03-2024 Past or Other Problems Problem Classification Problem Date Documented Da te Episodic/Chronic Conditions associated with dizziness or vertigo (20 sources) Vertigo; Translations: [Dizziness and giddiness] Onset: 07-23-2018 Resolved: 10-29-2018 11-30-2019 Episodic Coronary atherosclerosis and other heart disease (1 source) Presence of coronary angioplasty implant and graft; Translations: [Presence of coronary angioplasty implant and graft] Onset: 05-13-2024 Episodic Other aftercare (4 sources) Other fci (current) drug therapy; Translations: [FCI (current) use of anticoagulants] Onset: 04-11-2016 10-11-2016 Episodic Other aftercare (3 sources) 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; Translations: [FCI (current) use of anticoagulants] Onset: 04-11-2016 04-11-2016 Episodic Other aftercare (20 sources) Anticoagulant effect; Translations: [Encounter for therapeutic drug level monitoring] Onset: 07-23-2018 07-24-2018 Episodic Other aftercare (1 source) Encounter for therapeutic drug level monitoring; Translations: [Anticoagulation goal of INR 2 to 3] Onset: 07-24-2018 Episodic Other nervous system disorders (20 sources) Finding of hand region; Translations: [Tremor, unspecified] Onset: 05-30-2016 05-30-2016 Episodic Other nervous system disorders (20 sources) Impairment of balance; Translations: [Other abnormalities of gait and mobility] Onset: 12-02-2019 12-02-2019 Episodic Other nervous system disorders (1 source) Tremor, unspecified; Translations: [Tremor of both hands] Onset: 05-30-2016 Episodic Spondylosis; intervertebral disc disorders; other back problems (20 sources) Spinal stenosis of lumbar region; Translations: [Spinal stenosis, lumbar region without neurogenic claudication] Onset: 05-30-2016 05-30-2016 Episodic Results Test Name Value Interpretation Reference Range Facility Absolute lymphocyte countOrd ered By: Garry Paz on 02-23-2025 Lymphocytes Auto (Unsp spec) [#/Vol] 1.33 10*3/uL 0.83-4.51 [facility] Absolute neutrophil countOrd ered By: Garry Paz on 02-23-2025 Neutrophils (Bld) [#/Vol] 7.3 10*3/uL 2.0-7.7 [facility] Anion gap in Serum or Plasma Ordered By: Garry Paz on 02-23-2025 Anion gap [Moles/Vol] 14 mmol/L 5-15 [facility] Automated lymphocyte count a s percentage of total leukocytesOrdered By: Garry Paz on 02-23-2025 Lymphocytes/100 WBC Auto (Unsp spec) 13.3 % Low 19-41 [facility] BUN/creatinine ratioOrdered By: Garry Paz on 02-23-2025 Urea nitrogen/Creatinine [Mass ratio] 15.8 mg/mg 10-20 [facility] Basophil percentageOrdered B y: Garry Paz on 02-23-2025 Basophils/100 WBC (Bld) 0.5 % 0-1 [facility] Carbon dioxide, total [Moles /volume] in Central venous bloodOrdered By: Garry Paz on 02-23-2025 CO2 [Moles/Vol] 19.3 mmol/L Low 21.0-32.0 [facility] Chloride assayOrdered By: Bhupendra Paz on 02-23-2025 Chloride [Moles/Vol] 103 mmol/L 98-108 [facility] Eosinophil percentageOrdered By: Garry Paz on 02-23-2025 Eosinophils/100 WBC (Bld) 0.8 % 0-5 [facility] Erythrocyte distribution wid th ratioOrdered By: Garry Paz on 02-23-2025 Erythrocyte distribution width (RBC) [Ratio] 12.6 % 11.6-14.6 [facility] Erythrocyte distribution wid th standard deviationOrdered By: Garry Paz on 02-23-2025 Erythrocyte distribution width (RBC) [Ratio] 43.3 fl 35.1-43.9 [facility] Glomerular filtration rate ( GFR) estimation/1.73 sq m using serum, plasma, or whole bOrdered By: Garry Paz on 02-23-2025 GFR/1.73 sq M.predicted among non-blacks MDRD (S/P/Bld) [Vol rate/Area] 74 mL/min/{1.73_m2} >60 [facility] Comment on above: mL/min/1.73m2 CKD-EP I Creatinine Equation (2020) Hematocrit Auto (Bld) [Volum e fraction]Ordered By: Garry Paz on 02-23-2025 Hematocrit (Bld) [Volume fraction] 44.1 % 40-54 [facility] Hemoglobin measurementOrdere d By: Garry Paz on 02-23-2025 Hemoglobin (Bld) [Mass/Vol] 15.1 g/dL 13.0-16.5 [facility] Immature granulocytes/100 WB C Auto (Bld)Ordered By: Garry Paz on 02-23-2025 Immature granulocytes/100 WBC (Bld) 0.500 % 0.0-0.9 [facility] Comment on above: IG% - Immature Granu locytes (promyelocytes, myelocytes and metamyelocytes) > 1% indicates that a LEFT SHIFT is Present. International normalized rat io (INR) calculationOrdered By: Garry Paz on 02-23-2025 INR Coag (Bld) [Relative time] 3.2 {INR} [facility] MCV (mean corpuscular volume ) determinationOrdered By: Garry Paz on 02-23-2025 MCV (RBC) [Entitic vol] 93.6 fL 80-94 [facility] Mean corpuscular hemoglobin (MCH) determinationOrdered By: Garry Paz on 02-23-2025 MCH (RBC) [Entitic mass] 32.1 pg High 27.0-32.0 [facility] Mean corpuscular hemoglobin concentration (MCHC) determinationOrdered By: Garry Paz on 02-23-2025 MCHC (RBC) [Mass/Vol] 34.2 g/dL 32-36 [facility] Mean platelet volume determi nationOrdered By: Garry Paz on 02-23-2025 Platelet mean volume (Bld) [Entitic vol] 9.7 fL 6.2-12.0 [facility] Monocyte percentageOrdered B y: Garry Paz on 02-23-2025 Monocytes/100 WBC (Bld) 11.8 % High 0-10 [facility] Neutrophil percentageOrdered By: Garry Paz on 02-23-2025 Neutrophils/100 WBC (Bld) 73.1 % High 47-70 [facility] Nucleated red blood cell per centageOrdered By: Garry Paz on 02-23-2025 Nucleated RBC/100 WBC (Bld) [Ratio] 0 % 0-5 [facility] Platelet countOrdered By: Bhupendra Paz on 02-23-2025 Platelets (Bld) [#/Vol] 161 10*3/uL 150-450 [facility] Potassium measurement (mass/ volume)Ordered By: Garry Paz on 02-23-2025 Potassium (Unsp spec) [Mass/Vol] 4.8 mmol/L 3.3-5.1 [facility] Prothrombin timeOrdered By: Garry Paz on 02-23-2025 PT Coag (PPP) [Time] 33.2 s High 11.7-14.9 [facility] RBC Auto (Bld) [#/Vol]Ordere d By: Garry Paz on 02-23-2025 RBC (Bld) [#/Vol] 4.71 10*6/uL 4.6-6.2 [facility] Serum creatinine measurement (mass/volume)Ordered By: Garry Paz on 02-23-2025 Creatinine [Mass/Vol] 1.05 mg/dL 0.70-1.20 [facility] Serum glucose measurement (m ass/volume)Ordered By: Garry Paz on 02-23-2025 Glucose [Mass/Vol] 144 mg/dL High 70-99 [facility] Serum or plasma calcium shahid urement (mass/volume)Ordered By: Garry Paz on 02-23-2025 Calcium [Mass/Vol] 8.9 mg/dL 7.6-11.0 [facility] Serum or plasma urea nitroge n measurement (mass/volume)Ordered By: Garry Paz on 02-23-2025 Urea nitrogen [Mass/Vol] 17 mg/dL 4-19 [facility] Sodium levelOrdered By: Garry Paz on 02-23-2025 Sodium [Moles/Vol] 136 mmol/L 133-145 [facility] Troponin T.cardiac [Mass/vol ume] in Serum or Plasma by High sensitivity methodOrdered By: Garry Paz on 02-23-2025 Troponin T.cardiac High sensitivity method [Mass/Vol] 29 ng/L High <22 [facility] White blood cell (WBC) count Ordered By: Garry Paz on 02-23-2025 WBC (Bld) [#/Vol] 10.0 10*3/uL 4.4-11.0 [facility] CNOVon 02-16-2025 CNOV Office Visit (ORMDNA ) TIFFANIEKAYLA Radha ([id number]) 1950 M Date Time Provider Department 02/16/25 10:30 AM LUZ BECKER During your visit today, we recorded the following information about you: Luz Becker PA-C 02/16/2025 11:05 AM Signed Large Joint Arthro/Inj: bilateral knee joints 02/16/2025 11:05 AM The procedure site was prepped in the usual sterile fashion. Site: bilateral knee joints Medications (Right): 6 mg betamethasone acetate-betamethasone sodium phosphate 6 mg/mL Medications (Left): 6 mg betamethasone acetate-betamethasone sodium phosphate 6 mg/mL Anesthetics (Right): 5 mL lidocaine (PF) 10 mg/mL (1 %) Anesthetics (Left): 5 mL lidocaine (PF) 10 mg/mL (1 %) Outcome: Tolerated well, no immediate complications Post-injection instructions were reviewed with the patient and the patient voiced understanding of these instructions. Informed Consent Consent Obtained: Verbal [place] Protocol A moment to CARE was completed. SIGN IN Sign in communication not applicable due to emergent procedure. Personnel directly involved with the procedure wore the appropriate PPE. Special Equipment: N/A Patient/Surrogate Stated/Verified: Patient name, Date of , Relevant allergies and Intended procedure TIME OUT Relevant labs, photos, and/or imaging studies have been reviewed. Consent documented and matches the intended procedure. Correct side/site marked and visible. Medications required for procedure verified. No fire risk assessment and interventions applicable. No implant(s) inserted. SIGN OUT No specimen collected. No post-procedure POC communication to the patient's multidisciplinary team (including the bedside nurse for hospitalized patients) applicable. Allergies As of Date: 02/16/2025 Noted Allergy Reaction ATORVASTATIN 05/30/2016 17 - Myalgia Date Reviewed: 02/16/2025 Reviewed by: Natalia Ponce MA - Fully Assessed Reason for Visit: Established Patient [175] Knee Pain [132] Injections [199] Established Patient [175] Knee Pain [132] Injections [199] Primary Visit Diagnosis:Primary osteoarthritis of both knees [M17.0] Order(s):Large Joint Arthro/Inj: bilateral knee joints [WTZ079] Order #: [id number] [] betamethasone acetate-betamethasone sodium phosphate 6 mg injection (CELESTONE)Disp: Rfl: [] betamethasone acetate-betamethasone sodium phosphate 6 mg injection (CELESTONE)Disp: Rfl: [] lidocaine (PF) 10 mg/mL (1 %) 5 mL injection (XYLOCAINE)Disp: Rfl: [] lidocaine (PF) 10 mg/mL (1 %) 5 mL injection (XYLOCAINE)Disp: Rfl: Prescriptions as of 02/16/2025 - hydroCHLOROthiazide 12.5 mg tablet Take 1 tablet by mouth once daily. - predniSONE (DELTASONE) 10 mg tablet Take PO 4 tablets x 5 days, then 3 tablets x 3 days, then 2 tablets x 3 days, 1 tablets x 3 days - HYDROcodone-Acetaminoph en (NORCO) 10-325 mg per tablet Take 1 tablet by mouth two times a day as needed for pain for up to 30 days. - primidone (MYSOLINE) 50 mg tablet TAKE 3 TABLETS TWICE A DAY - ezetimibe (ZETIA) 10 mg tablet Take 1 tablet by mouth once daily. - tiZANidine (ZANAFLEX) 2 mg tablet Take 1 tablet by mouth every 8 hours as needed. - propranolol (INDERAL) 40 mg tablet Take 1 tablet by mouth every 12 hours. - nitroglycerin sublingual (NITROQUICK) 0.4 mg SL tablet Dissolve 1 tablet under the tongue every 5 minutes as needed for chest pain. - warfarin (COUMADIN) 4 mg tablet Take 1 tablet by mouth once daily. - diclofenac (VOLTAREN) 1 % topical gel Apply 4 g to affected area four times daily. - meclizine (ANTIVERT) 25 mg tab Take 1 tablet by mouth every 6 hours as needed (for dizziness.). - pantoprazole DR (PROTONIX) 40 mg tablet Take by mouth. - famotidine (PEPCID) 20 mg tablet Take 1 tablet by mouth twice daily. - aspirin 81 mg chewable tablet Take 81 mg by mouth once daily. - lisinopril (ZESTRIL, PRINIVIL) 20 mg tablet Take 1 tablet by mouth once daily. - blood sugar diagnostic (BLOOD GLUCOSE TEST) test strip 1 Strip twice daily. E11.9 - Lancets lancets 1 Each twice daily. E11.9 - acetaminophen (TYLENOL ARTHRITIS PAIN ORAL) Take 650 mg by mouth daily at bedtime. Problem List As Of Date 02/16/2025 Noted Resolved History of DVT of lower extremity [Z86.718] 05/30/2016 Essential hypertension [I10] 05/30/2016 Tremor of both hands [R25.1] 05/30/2016 Pure hypercholesterolemia [E78.00] 05/30/2016 Arthritis of left knee [M17.12] 05/30/2016 Arthritis of right knee [M17.11] 05/30/2016 Lumbar stenosis [M48.061] 05/30/2016 Degenerative disc disease, lumbar [M51.369] 05/30/2016 CAD (coronary artery disease) [I25.10] 05/30/2016 Type 2 diabetes mellitus with circulatory disor*07/17/2016 Anticoagulation goal of INR 2 to 3 [Z51.81, Z79*07/23/2018 Vertigo [R42] 07/23/2018 10/29/2018 Vertebral artery stenosis, right (more content not included)... Normal [facility] CNOVon 02-01-2025 CNOV Office Visit (IMMDNA ) KAYLA MORENO ([id number]) 1950 M Date Time Provider Department 02/01/25 6:00 PM TATE ALFONSO IMMDNA During your visit today, we recorded the following information about you: Temperature Pulse Respiration Blood pressure 99.1 degrees 58/minute 16/minute 132/70 Weight Height 97.2 kg 1.778 m Belia Heller MA 02/01/2025 6:07 PM Signed [facility] OFFICE BUILDING LAB TEST INFORMATION [facility] BUILDING LAB HOURS: Lab is open: 7:30am to 5:00pm M - , 7:30am to 4:00pm on Sat and 8am -12pm on Sat. The lab is located in [facility] on the first floor. There is a registration window at the lab, available 7 am to 3 pm Saturday - Saturday. If registration is unavailable at the lab, you may register at the patient registration office near the front lobby of the hospital. SCHEDULING A LAB APPOINTMENT: Laboratory appointments are recommended.Walk ins are still accepted. Call [phone] or schedule via Simple-Fill scheduling ticket. ROUTINE LAB ORDERS 60 days after they are entered. If your lab orders , you may be required to wait in the lab while they are reinstated FUTURE ORDERS are lab tests to be completed on the ?EXPECTED? date. These orders 60 days after the expected date. STANDING ORDERS are recurring orders with an expiration date. The interval will indicate how often the test should be completed. CT / MRI / IVP If you have lab tests ordered for one of these radiology exams, please complete the blood work at least one day prior to the scheduled exam. PRESCRIPTION REFILL REQUESTS Request prescription refills through your Simple-Fill account or contact your Pharmacy. My Chart Schedule My Appointment enables you to view your established primary care provider's open schedule and book an appointment online in real-time. This feature is available in internal medicine, family medicine, or pediatrics at any of our [facility] locations and main campus. Belia Heller MA 02/02/2025 9:16 PM Signed Dilated Retinal Exam Never done DTaP,Tdap,Td Vaccine(1 - Tdap) Never done Shingrix Vaccine(1 of 2) Never done Diabetic Foot Exam due on 09/25/2022 Covid-19 Vaccine( season) due on 05/17/2024 Advance Directive Discussion due on 09/16/2024 Tate Alfonso MD 02/02/2025 9:16 PM Signed ESTABLISHED PATIENT Kayla is a 74-year-old male with a history of HTN, tremors, and arthritis, presenting for medication management. HISTORY OF PRESENT ILLNESS Hypertension: - Home BP readings: ~130/65-68 mmHg on 40 mg Lisinopril. - BP readings at operator receptionist's office: 140-150/70 mmHg. - Recently received a 90-day supply of 20 mg Lisinopril but has been taking 40 mg for a long time. - Reports that propranolol has worsened BP control. - Denies use of HCTZ. Tremors: - Taking propranolol BID, which has improved tremors and nervousness in feet. - Also taking primidone. Arthritis: - Reports pain in shoulders. - Previously used prednisone with significant relief. - Uses Voltaren gel on knees at night; avoids using it on shoulders due to slow drying time. - Denies recent corticosteroid injections in shoulders. Diabetes: - Recent A1c: 5.7%. - Avoids snacks; inquires about dietary changes. Labs: - Potassium: Elevated - INR: 2.5 - Hemoglobin A1c: 5.7 Chronic Narcotic Pain Medication. Notes waking up around 230 to 3 with pain. Medication: [place] 10mg Used for: Knee pain and chronic back pain. Has arthritis in knees. Has had 3 back surgeries at [facility] Improves quality of life/pain: Yes Amount used per day: Uses 1 per day Non-pharmacologic therapies: gets steroid injections. Pain Scale before medication:6 After medication: 2 If patient is on benzo/muscle relaxer aware of potential sedation: On no benzo or muscle relaxer Concern for addiction: No Non-opioid treatment options: Yes Tylenol Counseled on safe storage and disposal: Yes Counseled on opioid and alcohol: Yes ASSESSMENT AND PLAN 1. Essential hypertension (I10) - Blood pressure readings at home average 130/65-68 mmHg on losartan 40 mg daily; readings at operator receptionist's office range from 140-150/70 mmHg. - Current potassium levels are elevated. - Reduced losartan dosage to 20 mg daily. - Initiated hydrochlorothiazide to manage blood pressure and reduce potassium levels. - Continue monitoring blood pressure at home. 2. Chronic pain of both shoulders (M25.511) - Prescribed a course of prednisone. - Advised use of Voltaren gel topically, avoiding chest area. 3. Encounter for immunization (Z23) - Discussed tetanus booster; patient declined at this time. 4. Type 2 diabetes mellitus with other circulatory complication, without long-term current use of insulin (HCC) (E11.59) - Recent A1c is 5.7%, improved from previous 5.8%. - Continue cu (more content not included)... Normal [facility] ALBUMIN/CREATININE RATIO, UR INEon 01-21-2025 Albumin Unsp time DL <= 20 mg/L (U) [Mass/Time] 13.0 mg/L Normal [facility] Comment on above: Order Comment: Speci men Type: BLOOD SPECIMEN Ordering Facility: [facility] Address: [address] [place] [address] Performed By: #### 2 4323-8, LIPNF #### [facility] CLIA [id number] [address] [place] [address] [place] Albumin/Creatinine (U) [Mass ratio] 10 mg/g Normal <30 [facility] Comment on above: Order Comment: Speci men Type: BLOOD SPECIMEN Ordering Facility: [facility] Address: [address] [place] [address] Result Comment: Adul t Male and Female Nephrotic Criteria: <30 mg/g is considered normal to mildly increased 30-300 mg/g is considered moderately increased >300 mg/g is considered severely increased KDIGO. (2013). KDIGO 2012 Clinical Practice Guideline for the Evaluation and Management of Chronic Kidney Disease. Official Journal of the International Society of Nephrology, 3(1), 1-150. Performed By: #### 2 4323-8, LIPNF #### [employer] [facility] CLIA [id number] [address] [place] [address] [place] [facility] Creatinine (U) [Mass/Vol] 125.4 mg/dL Normal 46.8-314.5 [facility] Comment on above: Order Comment: Kwani men Type: BLOOD SPECIMEN Ordering Facility: [facility] Address: [address] [place] [address] Performed By: #### 2 4323-8, LIPNF #### [facility] CLIA [id number] [address] [place] [address] [facility] CBC panel Auto (Bld)on 01-21 Erythrocyte distribution width (RBC) [Ratio] 13.0 % Normal 11.5-15.0 [facility] Comment on above: Order Comment: Kwani men Type: BLOOD SPECIMEN Ordering Facility: [facility] Address: [address] [place] [address] Performed By: #### 3 4528-0 #### [facility] CLIA [id number] [address] [place] [address] [facility] Hematocrit (Bld) [Volume fraction] 44.5 % Normal 39.0-51.0 [facility] Comment on above: Order Comment: Speci men Type: BLOOD SPECIMEN Ordering Facility: [facility] Address: [address] [place] [address] Performed By: #### 3 4528-0 #### [facility] CLIA [id number] [address] [place] [address] [facility] Hemoglobin (Bld) [Mass/Vol] 14.7 g/dL Normal 13.0-17.0 [facility] [facility] Comment on above: Order Comment: Speci men Type: BLOOD SPECIMEN Ordering Facility: [facility] Address: [address] [place] [address] Performed By: #### 3 4528-0 #### [facility] [place] [facility] CLIA [id number] [address] [place] [address] [place] MCH (RBC) [Entitic mass] 32.5 pg Normal 26.0-34.0 [facility] Comment on above: Order Comment: Speci men Type: BLOOD SPECIMEN Ordering Facility: [facility] Address: [address] [place] [address] Performed By: #### 3 4528-0 #### [facility] [place] CLIA [id number] [address] [place] [address] [place] MCHC (RBC) [Mass/Vol] 33.0 g/dL Normal 30.5-36.0 [facility] Comment on above: Order Comment: Speci men Type: BLOOD SPECIMEN Ordering Facility: [facility] Address: [address] [place] [address] Performed By: #### 3 4528-0 #### [facility] [place] CLIA [id number] [address] [place] [address] [place] MCV (RBC) [Entitic vol] 98.2 fL Normal 80.0-100.0 [facility] Comment on above: Order Comment: Speci men Type: BLOOD SPECIMEN Ordering Facility: [facility] Address: [address] [place] [address] Performed By: #### 3 4528-0 #### [facility] [place] [facility] CLIA [id number] [address] [place] [address] [place] Platelet mean volume (Bld) [Entitic vol] 9.9 fL Normal 9.0-12.7 [facility] Comment on above: Order Comment: Speci men Type: BLOOD SPECIMEN Ordering Facility: [facility] Address: [address] [place] [address] Performed By: #### 3 4528-0 #### [facility] [place] CLIA [id number] [address] [place] [address] [place] Platelets (Bld) [#/Vol] 134 10*3/uL Low 150-400 [facility] Comment on above: Order Comment: Speci men Type: BLOOD SPECIMEN Ordering Facility: [facility] Address: [address] [place] [address] Performed By: #### 3 4528-0 #### [facility] [place] CLIA [id number] [address] [place] [address] [place] RBC (Bld) [#/Vol] 4.53 10*6/uL Normal 4.20-6.00 [facility] Comment on above: Order Comment: Speci men Type: BLOOD SPECIMEN Ordering Facility: [facility] Address: [address] [place] [address] Performed By: #### 3 4528-0 #### [facility] [facility] CLIA [id number] [address] [place] [address] [place] WBC (Bld) [#/Vol] 5.64 10*3/uL Normal 3.70-11.00 [facility] Comment on above: Order Comment: Speci men Type: BLOOD SPECIMEN Ordering Facility: [facility] Address: [address] [place] [address] Performed By: #### 3 4528-0 #### [facility] IA [id number] [address] [place], [place] [address] [facility] Radha 01-21-2025 CNPN Telephone (IMMDNA) KAYLA MORENO ([id number]) 1950 M Date Time Provider Department 01/21/25 TATE ALFONSO IMMDNA During your visit today, we recorded the following information about you: Tate Alfonso MD 01/21/2025 10:58 AM Signed Please let patient know his INR is 2.5. Patient should continue on current dose. Retest in 4 weeks. ThanksTate MD Data from Coumadin Tracker: PT INR 2.5 01/21/2025 PT INR 2.5 12/10/2024 PT INR 2.2 10/21/2024 Goal Range: 2.0-3.0 Last Instructions: Description 4mg six days and 2mg one day, retest in 4 weeks (JR 12/10/24) Lacy Rosales RN 01/21/2025 12:32 PM Signed Spoke with pt, reviewed INR result, current Coumadin dose and instructions. Tracker updated Allergies As of Date: 01/21/2025 Noted Allergy Reaction ATORVASTATIN 05/30/2016 17 - Myalgia Date Reviewed: 11/05/2024 Reviewed by: Toshia Gomes OCCA - Fully Assessed Reason for Visit: Results [95] Prescriptions as of 01/21/2025 - primidone (MYSOLINE) 50 mg tablet TAKE 3 TABLETS TWICE A DAY - HYDROcodone-Acetaminoph en (NORCO) 10-325 mg per tablet Take 1 tablet by mouth two times a day as needed for pain for up to 30 days. Patient should start on December 29, 2024. - predniSONE (DELTASONE) 10 mg tablet Take PO 4 tablets x 5 days, then 3 tablets x 3 days, then 2 tablets x 3 days, 1 tablets x 3 days - ezetimibe (ZETIA) 10 mg tablet Take 1 tablet by mouth once daily. - tiZANidine (ZANAFLEX) 2 mg tablet Take 1 tablet by mouth every 8 hours as needed. - propranolol (INDERAL) 40 mg tablet Take 1 tablet by mouth every 12 hours. - nitroglycerin sublingual (NITROQUICK) 0.4 mg SL tablet Dissolve 1 tablet under the tongue every 5 minutes as needed for chest pain. - warfarin (COUMADIN) 4 mg tablet Take 1 tablet by mouth once daily. - diclofenac (VOLTAREN) 1 % topical gel Apply 4 g to affected area four times daily. - meclizine (ANTIVERT) 25 mg tab Take 1 tablet by mouth every 6 hours as needed (for dizziness.). - pantoprazole DR (PROTONIX) 40 mg tablet Take by mouth. - famotidine (PEPCID) 20 mg tablet Take 1 tablet by mouth twice daily. - aspirin 81 mg chewable tablet Take 81 mg by mouth once daily. - lisinopril (ZESTRIL, PRINIVIL) 20 mg tablet Take 1 tablet by mouth once daily. - blood sugar diagnostic (BLOOD GLUCOSE TEST) test strip 1 Strip twice daily. E11.9 - Lancets lancets 1 Each twice daily. E11.9 - acetaminophen (TYLENOL ARTHRITIS PAIN ORAL) Take 650 mg by mouth daily at bedtime. 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/17/2016 Anticoagulation goal of INR 2 to 3 [Z51.81, Z79*07/23/2018 Vertigo [R42] 07/23/2018 10/29/2018 Vertebral artery stenosis, right [I65.01] 07/23/2018 Subclinical hypothyroidism [E03.8] 08/01/2018 Vertigo [R42] 11/30/2019 Imbalance [R26.89] 12/02/2019 BPPV (benign paroxysmal positional vertigo), le*12/02/2019 Thrombocytopenia (HCC) [D69.6] 09/24/2023 Encounter Status:Closed by LACY ROSALES on 01/21/25 Normal [facility] metabolic 2000 panelon 01-21-2025 Albumin [Mass/Vol] 4.0 g/dL Normal 3.9-4.9 [facility] Comment on above: Order Comment: Speci men Type: BLOOD SPECIMEN Ordering Facility: [facility] Address: [address] [place] [address] Performed By: #### 2 4323-8, LIPNF #### [facility] [place] [facility] CLIA [id number] [address] [place] [address] [place] ALP [Catalytic activity/Vol] 67 U/L Normal 38-113 [facility] Comment on above: Order Comment: Speci men Type: BLOOD SPECIMEN Ordering Facility: [facility] Address: [address] [place] [address] Performed By: #### 2 4323-8, LIPNF #### [facility] [place] [facility] CLIA [id number] [address] [place] [address] [place] ALT With P-5'-P [Catalytic activity/Vol] 14 U/L Normal 10-54 [facility] Comment on above: Order Comment: Speci men Type: BLOOD SPECIMEN Ordering Facility: [facility] Address: [address] [place] [address] Performed By: #### 2 4323-8, LIPNF #### [facility] [place] [facility] CLIA [id number] [address] [place] [address] [place] Anion gap [Moles/Vol] 10 mmol/L Normal 8-15 [facility] Comment on above: Order Comment: Speci men Type: BLOOD SPECIMEN Ordering Facility: [facility] Address: [address] [place], [place] [address] Performed By: #### 2 4323-8, LIPNF #### [facility] [place] [facility] CLIA [id number] [address] [place] [address] [place] AST With P-5'-P [Catalytic activity/Vol] 17 U/L Normal 14-40 [facility] Comment on above: Order Comment: Speci men Type: BLOOD SPECIMEN Ordering Facility: [facility] Address: [address] [place] [address] Performed By: #### 2 4323-8, LIPNF #### [facility] [place] [facility] CLIA [id number] [address] [place] [address] [place] Bilirubin [Mass/Vol] 0.8 mg/dL Normal 0.2-1.3 [facility] Comment on above: Order Comment: Speci men Type: BLOOD SPECIMEN Ordering Facility: [facility] Address: [address] [place] [address] Performed By: #### 2 4323-8, LIPNF #### [facility] [place] [facility] CLIA [id number] [address] [place] [address] [place] Calcium [Mass/Vol] 9.0 mg/dL Normal 8.5-10.2 [facility] Comment on above: Order Comment: Speci men Type: BLOOD SPECIMEN Ordering Facility: [facility] Address: [address] [place] [address] Performed By: #### 2 4323-8, LIPNF #### [facility] [place] [facility] CLIA [id number] [address] [place] [address] [place] Chloride [Moles/Vol] 101 mmol/L Normal 98-107 [facility] Comment on above: Order Comment: Speci men Type: BLOOD SPECIMEN Ordering Facility: [facility] Address: [address] [place] [address] Performed By: #### 2 4323-8, LIPNF #### [facility] [place] [facility] CLIA [id number] [address] [place] [address] [place] CO2 [Moles/Vol] 27 mmol/L Normal 22-30 [facility] Comment on above: Order Comment: Speci men Type: BLOOD SPECIMEN Ordering Facility: [facility] Address: [address] [place] [address] Performed By: #### 2 4323-8, LIPNF #### [facility] [place] [facility] CLIA [id number] [address] [place] [address] [place] Creatinine [Mass/Vol] 1.18 mg/dL Normal 0.73-1.22 [facility] Comment on above: Order Comment: Speci men Type: BLOOD SPECIMEN Ordering Facility: [facility] Address: [address] [place] [address] Performed By: #### 2 4323-8, LIPNF #### [facility] CLIA [id number] [address] [place] [address] [place] [facility] Creatinine and Glomerular filtration rate.predicted panel (S/P/Bld) 65 mL/min/1.73m??? Normal >=60 [facility] Comment on above: Order Comment: Speci men Type: BLOOD SPECIMEN Ordering Facility: [facility] Address: [address] [place] [address] Result Comment: Jackeline mated Glomerular Filtration Rate (eGFR) is calculated using the 2020 CKD-EPI creatinine equation. This equation utilizes serum creatinine, sex, and age as parameters. The creatinine assay has traceable calibration to isotope dilution-mass spectrometry. Refer to KDIGO guidelines for clinical interpretation. In patients with unstable renal function, e.g. those with acute kidney injury, the eGFR may not accurately reflect actual GFR. Performed By: #### 2 4323-8, LIPNF #### [facility] [place] [facility] CLIA [id number] [address] [place] [address] [place] Glucose [Mass/Vol] 201 mg/dL High 74-99 [facility] Comment on above: Order Comment: Speci men Type: BLOOD SPECIMEN Ordering Facility: [facility] Address: [address] [place] [address] Result Comment: The [place] Diabetes Association (ADA) provides guidance for cutoff values for fasting glucose and random glucose. The ADA defines fasting as no caloric intake for at least 8 hours. Fasting plasma glucose results between 100 to 125 mg/dL indicate increased risk for diabetes (prediabetes). Fasting plasma glucose results greater than or equal to 126 mg/dL meet the criteria for diagnosis of diabetes. In the absence of unequivocal hyperglycemia, results should be confirmed by repeat testing. In a patient with classic symptoms of hyperglycemia or hyperglycemic crisis, random plasma glucose results greater than or equal to 200 mg/dL meet the criteria for diagnosis of diabetes. Reference: Standards of Medical Care in Diabetes 2016, [place] Diabetes Association. Diabetes Care. 2016.39(Suppl 1). Performed By: #### 2 4323-8, LIPNF #### [facility] [place] [facility] CLIA [id number] [address] [place] [address] [place] Potassium [Moles/Vol] 5.3 mmol/L High 3.7-5.1 [facility] Comment on above: Order Comment: Kristen damon Type: BLOOD SPECIMEN Ordering Facility: [facility] Address: [address] [place] [address] Performed By: #### 2 4323-8, LIPNF #### [facility] CLIA [id number] [address] [place] [address] [place] Protein [Mass/Vol] 6.7 g/dL Normal 6.3-8.0 [facility] Comment on above: Order Comment: Kristen damon Type: BLOOD SPECIMEN Ordering Facility: [facility] Address: [address] [place] [address] Performed By: #### 2 4323-8, LIPNF #### [facility] [place] [facility] CLIA [id number] [address] [place] [address] [place] Sodium [Moles/Vol] 138 mmol/L Normal 136-144 [facility] Comment on above: Order Comment: Kwani men Type: BLOOD SPECIMEN Ordering Facility: [facility] Address: [address] [place] [address] Performed By: #### 2 4323-8, LIPNF #### [facility] [place] [facility] CLIA [id number] [address] [place] [address] [place] Urea nitrogen [Mass/Vol] 17 mg/dL Normal 9-24 [facility] Comment on above: Order Comment: Kristen damon Type: BLOOD SPECIMEN Ordering Facility: [facility] Address: [address] [place] [address] Performed By: #### 2 4323-8, LIPNF #### [facility] CLIA [id number] [address] [place] [address] [facility] OF TAB HbA1c (Bld)on 01-21-2025 Average glucose Estimated from glycated hemoglobin (Bld) [Mass/Vol] 117 mg/dL Normal [facility] Comment on above: Order Comment: Kristen damon Type: BLOOD SPECIMEN Ordering Facility: [facility] Address: [address] [place] [address] Result Comment: eAG: (Estimated average glucose) is a calculated value from HgbA1c and is parts representative of the average blood glucose level in the last 2-3 month period. Performed By: #### 2 4323-8, LIPNF #### [facility] CLIA [id number] [address] [place] [address] [place] [facility] HbA1c (Bld) [Mass fraction] 5.7 % High 4.3-5.6 [facility] Comment on above: Order Comment: Kristen damon Type: BLOOD SPECIMEN Ordering Facility: [facility] Address: [address] [place] [address] Result Comment: [place] Diabetes Association guidelines indicate that patients with HgbA1c in the range 5.7-6.4% are at increased risk for development of diabetes, and intervention by lifestyle modification may be beneficial. HgbA1c greater or equal to 6.5% is considered diagnostic of diabetes. Performed By: #### 2 4323-8, LIPNF #### [facility] CLIA [id number] [address] [place] [address] [facility] OF TAB LIPID PANEL, NONFASTINGon Cholesterol [Mass/Vol] 223 mg/dL High <200 [facility] Comment on above: Order Comment: Kristen damon Type: BLOOD SPECIMEN Ordering Facility: [facility] Address: [address] [place] [address] Result Comment: <200 mg/dL, Desirable 200-239 mg/dL, Borderline high >239 mg/dL, High Performed By: #### 2 4323-8, LIPNF #### [facility] [place] [facility] CLIA [id number] [address] [place] [address] [facility] HDL CHOLESTEROL, NF 47 mg/dL Normal >39 [facility] Comment on above: Order Comment: Kristen nelson Type: BLOOD SPECIMEN Ordering Facility: [facility] Address: [address] [place] [address] Result Comment: 40-5 9 mg/dL, Acceptable >59 mg/dL, High: Negative risk factor for coronary heart disease <40 mg/dL, Low: Positive risk factor for coronary heart disease Performed By: #### 2 4323-8, LIPNF #### [facility] [place] [facility] CLIA [id number] [address] [place] [address] [facility] LDL CHOLESTEROL CALCULATED, NF 150 mg/dL High <100 [facility] Comment on above: Order Comment: [facility] Type: BLOOD SPECIMEN Ordering Facility: [facility] Address: [address] [place] [address] Result Comment: <100 mg/dL, Optimal 100-129 mg/dL, Near optimal/above optimal 130-159 mg/dL, Borderline high 160-189 mg/dL, High >189 mg/dL, Very high Secondary prevention optimal LDL Cholesterol levels are recommended to be <70 mg/dL LDL cholesterol is calculated using the Jackson-NIH equation. Performed By: #### 2 4323-8, LIPNF #### [facility] [place] [facility] CLIA [id number] [address] [place] [address] [facility] LDL/HDL RATIO, NF 3.19 mg/dL High <2.54 [facility] Comment on above: Order Comment: [facility] Type: BLOOD SPECIMEN Ordering Facility: [facility] Address: [address] [place] [address] Result Comment: Refe rence: 1. National Cholesterol Education Program ATP III Guideline At-A-Glance Quick Desk Reference: National Heart, Lung, and Blood [place]. National Institutes of Health. 2001: NIH Publication No. 01-3305. 2. An International Atherosclerosis Society position paper: global recommendations for the management of dyslipidemia: executive summary, Atherosclerosis. 2014: 232(2):410-413. Performed By: #### 2 4323-8, LIPNF #### [facility] [place] [facility] CLIA [id number] [address] NON HDL CHOL, NF 176 mg/dL High <130 [facility] Comment on above: Order Comment: [facility] Type: BLOOD SPECIMEN Ordering Facility: [facility] Address: [address] [place] [address] Result Comment: <130 mg/dL, Optimal 130-159 mg/dL, Near optimal/above optimal 160-189 mg/dL, Borderline high 190-219 mg/dL, High >219 mg/dL, Very high Secondary prevention optimal non HDL Cholesterol levels are recommended to be <100 mg/dL Performed By: #### 2 4323-8, LIPNF #### [facility] [place] [facility] CLIA [id number] [address] T CHOL/HDL RATIO NF 4.74 mg/dL Normal <5.10 [facility] Comment on above: Order Comment: [facility] Type: BLOOD SPECIMEN Ordering Facility: [facility] Address: [address] [place] [address] Performed By: #### 2 4323-8, LIPNF #### [facility] [place] [facility] CLIA [id number] [address] TRIGLYCERIDES, NF 145 mg/dL Normal <150 [facility] Comment on above: Order Comment: [facility] Type: BLOOD SPECIMEN Ordering Facility: [facility] Address: [address] [place] [address] Result Comment: <150 mg/dL, Normal 150-199 mg/dL, Borderline high 200-499 mg/dL, High >499 mg/dL, Very high Performed By: #### 2 4323-8, LIPNF #### [facility] [place] [facility] CLIA [id number] [address] [place] [address] [place] VLDL CHOLESTEROL, NF 27 mg/dL Normal <30 [facility] Comment on above: Order Comment: Kristen damon Type: BLOOD SPECIMEN Ordering Facility: [facility] Address: [address] [place] [address] Performed By: #### 2 4323-8, LIPNF #### [facility] CLIA [id number] [address] [place] [address] [place] PT panel Coag (PPP)on 2024 INR Coag (PPP) [Relative time] 2.5 {INR} High 0.9-1.3 [facility] Comment on above: Order Comment: Kristen damon Type: BLOOD SPECIMEN Ordering Facility: [facility] Address: [address] [place] [address] Result Comment: Juju min K Antagonist (VKA) Therapeutic Range: INR 2 to 3 (Target INR of 2.5) Note: For patients treated with VKA drugs, such as warfarin, the [place] [employer] 2012 Guideline recommends a therapeutic INR range of 2 to 3 (target INR of 2.5). This recommendation includes high-risk patients with antiphospholipid syndrome with previous arterial or venous thromboembolism, current-generation mechanical or bioprosthetic aortic heart valve replacement. Note: Patients with mechanical aortic valve replacement and additional risk factors for thromboembolic events (atrial fibrillation, previous thromboembolism, LV dysfunction, hypercoagulable conditions) or an older generation mechanical AVR (i.e., ball in-Cage) or any mechanical MVR should have a INR therapeutic range of 2.5 to 3.5 (target INR of 3). Dougie GH, et al. Chest 2012, 141:7S-47S Jabier RA et al. [facility] 2017, 70: 252-289 Performed By: #### 3 4528-0 #### [facility] CLIA [id number] [address] [place] [address] [place] PT Coag (PPP) [Time] 24.8 s High <13.1 [facility] Comment on above: Order Comment: Kristen damon Type: BLOOD SPECIMEN Ordering Facility: [facility] Address: [address] [place] [address] Performed By: #### 3 4528-0 #### [facility] IA [id number] [address] [place], [place] [id number] [facility] Radha 12-10-2024 CNPN Telephone (IMMDNA) KAYLA MORENO ([id number]) 1950 M Date Time Provider Department 12/10/24 TATE ALFONSO [facility] During your visit today, we recorded the following information about you: Tate Alfonso MD 12/10/2024 11:23 AM Signed Please let patient know his INR is 2.5. Patient should continue on current dose. Retest in 4 weeks. Thanks, Tate Alfonso MD Data from Coumadin Tracker: PT INR 2.5 12/10/2024 PT INR 2.2 10/21/2024 PT INR 2.2 09/18/2024 Goal Range: 2.0-3.0 Last Instructions: Description 4mg six days and 2mg one day, retest in 4 weeks ( 10/21/24) Lacy Rosales RN 12/10/2024 11:39 AM Signed Spoke with pt, reviewed INR result, current Coumadin dose and instructions. Tracker updated Allergies As of Date: 12/10/2024 Noted Allergy Reaction ATORVASTATIN 05/30/2016 17 - Myalgia Date Reviewed: 11/05/2024 Reviewed by: Toshia Gomes OCCA - Fully Assessed Reason for Visit: Results [95] Prescriptions as of 12/10/2024 - HYDROcodone-Acetaminoph en (NORCO) 10-325 mg per tablet Take 1 tablet by mouth two times a day as needed for pain for up to 30 days. - predniSONE (DELTASONE) 10 mg tablet Take PO 4 tablets x 5 days, then 3 tablets x 3 days, then 2 tablets x 3 days, 1 tablets x 3 days - ezetimibe (ZETIA) 10 mg tablet Take 1 tablet by mouth once daily. - tiZANidine (ZANAFLEX) 2 mg tablet Take 1 tablet by mouth every 8 hours as needed. - propranolol (INDERAL) 40 mg tablet Take 1 tablet by mouth every 12 hours. - nitroglycerin sublingual (NITROQUICK) 0.4 mg SL tablet Dissolve 1 tablet under the tongue every 5 minutes as needed for chest pain. - warfarin (COUMADIN) 4 mg tablet Take 1 tablet by mouth once daily. - primidone (MYSOLINE) 50 mg tablet TAKE 3 TABLETS TWICE A DAY - diclofenac (VOLTAREN) 1 % topical gel Apply 4 g to affected area four times daily. - meclizine (ANTIVERT) 25 mg tab Take 1 tablet by mouth every 6 hours as needed (for dizziness.). - pantoprazole DR (PROTONIX) 40 mg tablet Take by mouth. - famotidine (PEPCID) 20 mg tablet Take 1 tablet by mouth twice daily. - aspirin 81 mg chewable tablet Take 81 mg by mouth once daily. - lisinopril (ZESTRIL, PRINIVIL) 20 mg tablet Take 1 tablet by mouth once daily. - blood sugar diagnostic (BLOOD GLUCOSE TEST) test strip 1 Strip twice daily. E11.9 - Lancets lancets 1 Each twice daily. E11.9 - acetaminophen (TYLENOL ARTHRITIS PAIN ORAL) Take 650 mg by mouth daily at bedtime. 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/17/2016 Anticoagulation goal of INR 2 to 3 [Z51.81, Z79*07/23/2018 Vertigo [R42] 07/23/2018 10/29/2018 Vertebral artery stenosis, right [I65.01] 07/23/2018 Subclinical hypothyroidism [E03.8] 08/01/2018 Vertigo [R42] 11/30/2019 Imbalance [R26.89] 12/02/2019 BPPV (benign paroxysmal positional vertigo), le*12/02/2019 Thrombocytopenia (HCC) [D69.6] 09/24/2023 Encounter Status:Closed by LACY ROSALES on 12/10/24 Normal [facility] PT panel Coag (PPP)on 2024 INR Coag (PPP) [Relative time] 2.5 {INR} High 0.9-1.3 [facility] Comment on above: Order Comment: Kristen damon Type: BLOOD SPECIMEN Ordering Facility: [facility] Address: [address] [place] [address] Result Comment: Juju min K Antagonist (VKA) Therapeutic Range: INR 2 to 3 (Target INR of 2.5) Note: For patients treated with VKA drugs, such as warfarin, the [employer] 2012 Guideline recommends a therapeutic INR range of 2 to 3 (target INR of 2.5). This recommendation includes high-risk patients with antiphospholipid syndrome with previous arterial or venous thromboembolism, current-generation mechanical or bioprosthetic aortic heart valve replacement. Note: Patients with mechanical aortic valve replacement and additional risk factors for thromboembolic events (atrial fibrillation, previous thromboembolism, LV dysfunction, hypercoagulable conditions) or an older generation mechanical AVR (i.e., ball in-Cage) or any mechanical MVR should have a INR therapeutic range of 2.5 to 3.5 (target INR of 3). Dougie GH, et al. Chest 2012, 141:7S-47S Jabier RA, et al. JAC 2017, 70: 252-289 Performed By: #### 3 4528-0 #### [facility] CLIA [id number] [address] [place] [id number] [facility] [place] PT Coag (PPP) [Time] 24.8 s High <13.1 [facility] Comment on above: Order Comment: Kristen damon Type: BLOOD SPECIMEN Ordering Facility: [facility] Address: [address] [place] [address] Performed By: #### 3 4528-0 #### [facility] CLIA [id number] [address] [place] [address] [place] Cardiology Visit Reporton Cardiology Visit Report [facility] [address] [place] [address] OFFICE VISIT Date of Service: 11/17/24 MR#: [id number] Acct: [id number] Name: KAYLA MORENO Rep #: [id number] : 1950 Provider: ASHU mayer Age/Sex: 74/M Location: [facility] Status: Signed HPI HPI History of Present Illness Details: Kayla Moreno is a 74-year-old gentleman with a history of coronary artery disease status post angioplasty and drug-eluting stent to his LAD in 2012 and 2020, right bundle branch block, hypertension, hyperlipidemia, and hypercoagulable state with multiple DVTs status post [place] filter. He was seen in the hospital on January 20, 2021 for unstable angina. His troponins were negative. But because of his unstable angina he did undergo a diagnostic heart catheterization. Heart catheterization demonstrated previously placed stent in the LAD which is patent and immediate post stent with an 80% stenotic lesion and distal LAD with 80% stenosis. Moderate disease is noted in the right coronary artery and mild disease in the left circumflex artery. Ejection fraction was 65%. He underwent stenting to his mLAD. He denies chest, arm, jaw, or neck discomfort. He denies palpitations. He states bilateral lower extremity edema that is unchanged from previous. He denies claudication. He denies shortness of breath with activity, shortness of breath at rest, orthopnea, or PND. He denies chronic cough. He denies significant, sudden weight gain. He denies lightheadedness, dizziness, near-syncope, or syncope. He denies blood in urine, blood in stool, or epistaxis. He denies fever with chills. He denies myalgia. He states fatigue that he attributes to low back pain. His exercise level has remained stable though limited on account of knee pain. 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 Is patient in pain?: No Allergies ticagrelor (From Brilinta) Adverse Reaction (Intermediate, Verified 11/17/24 13:12) dyspnea atorvastatin (From Lipitor) Adverse Reaction (Verified 11/17/24 13:12) myalgia Medications ???Medication ???Instructions ???Recorded ???Confirmed ???Type primidone 50 mg tablet 150 mg (3 x 50 mg) PO BID #90 tabs 10/03/17 11/17/24 Rx nitroglycerin 0.4 mg sublingual 0.4 mg sublingual Q5-15M PRN chest 04/22/18 11/17/24 Rx tablet pain #25 tabs aspirin 81 mg tablet,delayed 81 mg PO DAILY 01/10/22 11/17/24 H istory release (Adult Aspirin Regimen) pantoprazole 40 mg tablet,delayed 40 mg PO DAILY #30 tabs 02/04/23 11/17/24 Rx release acetaminophen 650 mg 650 mg PO QHS 09/25/23 11/17/24 Hi story tablet,extended release (Tylenol Arthritis Pain) diclofenac sodium 1 % topical gel 2 g topical 4X/DAY PRN 09/25/23 0 11/17/24 History (Aleve (diclofenac)) famotidine 20 mg tablet 20 mg PO BID 09/25/23 11/17/24 His tory meclizine 25 mg tablet 25 mg PO Q6H PRN 09/25/23 11/17/24 History warfarin 4 mg tablet 4 mg PO DAILY blood thinner 11/17/24 History propranolol 40 mg tablet 40 mg PO BID #180 tabs 12/18/23 Rx lisinopril 40 mg tablet 40 mg PO QDAY #90 tabs 09/21/24 Rx ezetimibe 10 mg tablet 10 mg PO DAILY 11/17/24 11/17/24 H istory hydrocodone 10 mg-acetaminophen 1 tab PO BID PRN Pain 11/17/2401/08 History 325 mg tablet tizanidine 2 mg tablet 2 mg PO Q8 PRN 11/17/24 11/17/24 H istory Ejection fraction %: 60 Have you fallen in the past year?: No PFSH Medical History Essential tremor COVID-19 ( 06/2023) Non-smoker Diabetes Obesity History of deep venous thrombosis Right bundle branch block (RBBB) Essential (primary) hypertension Hyperlipidemia Hypercoagulable state Atherosclerosis of [place] coronary artery of [place] heart without angina pectoris Surgical History History of coronary artery stent placement (01/20/21) H/O knee surgery Derek filter in place (2005) History of carpal tunnel surgery History of lumbar surgery Family History Father Heart disease Sister Heart disease Sister Heart disease Diabetes Social History (Updated 11/17/24 @ 13:17 by Lisbeth Torres) Smoking Status: Never smoker alcohol intake: never substance use type: does not use caffeine: Yes Type: carbonated beverages and coffee ROS Const Const: Positive for fatigue (Relates to walking with lo (more content not included)... Normal [facility] 11-05-2024 [facility] Office Visit (RUMA ) KAYLA MORENO ([id number]) 1950 M Date Time Provider Department 11/05/24 3:00 PM LUZ BECKER During your visit today, we recorded the following information about you: Luz Becker PA-C 11/05/2024 3:14 PM Signed Large Joint Arthro/Inj: bilateral knee joints 11/05/2024 3:14 PM The procedure site was prepped in the usual sterile fashion. Site: bilateral knee joints Medications (Right): 6 mg betamethasone acetate-betamethasone sodium phosphate 6 mg/mL Medications (Left): 6 mg betamethasone acetate-betamethasone sodium phosphate 6 mg/mL Anesthetics (Right): 5 mL lidocaine (PF) 10 mg/mL (1 %) Anesthetics (Left): 5 mL lidocaine (PF) 10 mg/mL (1 %) Outcome: Tolerated well, no immediate complications Post-injection instructions were reviewed with the patient and the patient voiced understanding of these instructions. Informed Consent Consent Obtained: Verbal Esbon Protocol A moment to CARE was completed. SIGN IN Sign in communication not applicable due to emergent procedure. Personnel directly involved with the procedure wore the appropriate PPE. Special Equipment: N/A Patient/Surrogate Stated/Verified: Patient name, Date of , Relevant allergies and Intended procedure TIME OUT Relevant labs, photos, and/or imaging studies have been reviewed. Intended patient and procedure match the source document(s). Consent documented and matches the intended procedure. Correct side/site marked and visible. Medications required for procedure verified. No fire risk assessment and interventions applicable. No implant(s) inserted. SIGN OUT No specimen collected. No instruments, equipment or retained foreign bodies applicable. Post-procedure follow-up management communicated and Plan of Care Visit completed when applicable Allergies As of Date: 11/05/2024 Noted Allergy Reaction ATORVASTATIN 05/30/2016 17 - Myalgia Date Reviewed: 11/05/2024 Reviewed by: Toshia Gomes OCCA - Fully Assessed Reason for Visit: Follow Up [171] Injections [199] Follow Up [171] Injections [199] Primary Visit Diagnosis:Primary osteoarthritis of both knees [M17.0] Order(s):Large Joint Arthro/Inj: bilateral knee joints [WQE823] Order #: [id number] [] betamethasone acetate-betamethasone sodium phosphate 6 mg injection (CELESTONE)Disp: Rfl: [] betamethasone acetate-betamethasone sodium phosphate 6 mg injection (CELESTONE)Disp: Rfl: [] lidocaine (PF) 10 mg/mL (1 %) 5 mL injection (XYLOCAINE)Disp: Rfl: [] lidocaine (PF) 10 mg/mL (1 %) 5 mL injection (XYLOCAINE)Disp: Rfl: Prescriptions as of 11/05/2024 - predniSONE (DELTASONE) 10 mg tablet Take PO 4 tablets x 5 days, then 3 tablets x 3 days, then 2 tablets x 3 days, 1 tablets x 3 days - ezetimibe (ZETIA) 10 mg tablet Take 1 tablet by mouth once daily. - HYDROcodone-Acetaminoph en (NORCO) 10-325 mg per tablet Take 1 tablet by mouth two times a day as needed for pain for up to 30 days. - tiZANidine (ZANAFLEX) 2 mg tablet Take 1 tablet by mouth every 8 hours as needed. - propranolol (INDERAL) 40 mg tablet Take 1 tablet by mouth every 12 hours. - nitroglycerin sublingual (NITROQUICK) 0.4 mg SL tablet Dissolve 1 tablet under the tongue every 5 minutes as needed for chest pain. - warfarin (COUMADIN) 4 mg tablet Take 1 tablet by mouth once daily. - primidone (MYSOLINE) 50 mg tablet TAKE 3 TABLETS TWICE A DAY - diclofenac (VOLTAREN) 1 % topical gel Apply 4 g to affected area four times daily. - meclizine (ANTIVERT) 25 mg tab Take 1 tablet by mouth every 6 hours as needed (for dizziness.). - pantoprazole DR (PROTONIX) 40 mg tablet Take by mouth. - famotidine (PEPCID) 20 mg tablet Take 1 tablet by mouth twice daily. - aspirin 81 mg chewable tablet Take 81 mg by mouth once daily. - lisinopril (ZESTRIL, PRINIVIL) 20 mg tablet Take 1 tablet by mouth once daily. - blood sugar diagnostic (BLOOD GLUCOSE TEST) test strip 1 Strip twice daily. E11.9 - Lancets lancets 1 Each twice daily. E11.9 - acetaminophen (TYLENOL ARTHRITIS PAIN ORAL) Take 650 mg by mouth daily at bedtime. 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 Normal [facility] Large Joint Arthro/Inj: bila teral knee jointson 11-05-2024 Luz Becker PA -C 11/05/2024 3:14 PM Large Joint Arthro/Inj: bilateral knee joints 11/05/2024 3:14 PM The procedure site was prepped in the usual sterile fashion. Site: bilateral knee joints Medications (Right): 6 mg betamethasone acetate-betamethasone sodium phosphate 6 mg/mL Medications (Left): 6 mg betamethasone acetate-betamethasone sodium phosphate 6 mg/mL Anesthetics (Right): 5 mL lidocaine (PF) 10 mg/mL (1 %) Anesthetics (Left): 5 mL lidocaine (PF) 10 mg/mL (1 %) Outcome: Tolerated well, no immediate complications Post-injection instructions were reviewed with the patient and the patient voiced understanding of these instructions. Informed Consent Consent Obtained: Verbal Esbon Protocol A moment to CARE was completed. SIGN IN Sign in communication not applicable due to emergent procedure. Personnel directly involved with the procedure wore the appropriate PPE. Special Equipment: N/A Patient/Surrogate Stated/Verified: Patient name, Date of , Relevant allergies and Intended procedure TIME OUT Relevant labs, photos, and/or imaging studies have been reviewed. Intended patient and procedure match the source document(s). Consent documented and matches the intended procedure. Correct side/site marked and visible. Medications required for procedure verified. No fire risk assessment and interventions applicable. No implant(s) inserted. SIGN OUT No specimen collected. No instruments, equipment or retained foreign bodies applicable. Post-procedure follow-up management communicated and Plan of Care Visit completed when applicable [facility] Radha 11-02-2024 CNPN Nurse Triage (IMMDNA ) KAYLA MORENO ([id number]) 1950 M Date Time Provider Department 11/02/24 TATE ALFONSO During your visit today, we recorded the following information about you: Tate Alfonso MD 11/02/2024 7:07 AM Addendum Please let patient know his shoulder xrays show degenerative changes with an old rotator cuff tear on the left. He should follow up with orthopaedics. Thanks, MD Connie Lozano Jacqueline, ROBE 11/02/2024 8:57 AM Signed Called pt, no answer. LVM to call office back Floresita Ramirez RN 11/03/2024 9:49 AM Signed Called patient to discuss. He said the old rotator cuff tear is from 1995, an injury with his toolbox. He will discuss with ortho. Has noted some improvement with the prednisone. Reason for Disposition [1] Other NON-URGENT information for PCP AND [2] does not require PCP response Protocols used: PCP Call - No Syplms-[id number] Allergies As of Date: 11/02/2024 Noted Allergy Reaction ATORVASTATIN 05/30/2016 17 - Myalgia Date Reviewed: 10/26/2024 Reviewed by: Belia Heller MA - Fully Assessed Reason for Visit: Results [95] Prescriptions as of 11/03/2024 - predniSONE (DELTASONE) 10 mg tablet Take PO 4 tablets x 5 days, then 3 tablets x 3 days, then 2 tablets x 3 days, 1 tablets x 3 days - ezetimibe (ZETIA) 10 mg tablet Take 1 tablet by mouth once daily. - HYDROcodone-Acetaminoph en (NORCO) 10-325 mg per tablet Take 1 tablet by mouth two times a day as needed for pain for up to 30 days. - tiZANidine (ZANAFLEX) 2 mg tablet Take 1 tablet by mouth every 8 hours as needed. - propranolol (INDERAL) 40 mg tablet Take 1 tablet by mouth every 12 hours. - nitroglycerin sublingual (NITROQUICK) 0.4 mg SL tablet Dissolve 1 tablet under the tongue every 5 minutes as needed for chest pain. - warfarin (COUMADIN) 4 mg tablet Take 1 tablet by mouth once daily. - primidone (MYSOLINE) 50 mg tablet TAKE 3 TABLETS TWICE A DAY - diclofenac (VOLTAREN) 1 % topical gel Apply 4 g to affected area four times daily. - meclizine (ANTIVERT) 25 mg tab Take 1 tablet by mouth every 6 hours as needed (for dizziness.). - pantoprazole DR (PROTONIX) 40 mg tablet Take by mouth. - famotidine (PEPCID) 20 mg tablet Take 1 tablet by mouth twice daily. - aspirin 81 mg chewable tablet Take 81 mg by mouth once daily. - lisinopril (ZESTRIL, PRINIVIL) 20 mg tablet Take 1 tablet by mouth once daily. - blood sugar diagnostic (BLOOD GLUCOSE TEST) test strip 1 Strip twice daily. E11.9 - Lancets lancets 1 Each twice daily. E11.9 - acetaminophen (TYLENOL ARTHRITIS PAIN ORAL) Take 650 mg by mouth daily at bedtime. 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*07/17/2016 Anticoagulation goal of INR 2 to 3 [Z51.81, Z79*07/23/2018 Vertigo [R42] 07/23/2018 10/29/2018 Vertebral artery stenosis, right [I65.01] 07/23/2018 Subclinical hypothyroidism [E03.8] 08/01/2018 Vertigo [R42] 11/30/2019 Imbalance [R26.89] 12/02/2019 BPPV (benign paroxysmal positional vertigo), le*12/02/2019 Thrombocytopenia (HCC) [D69.6] 09/24/2023 Disposition Location/POS Recorded Information or Advi* 09:49 AM 11/03/24 Encounter Status:Closed by FLORESITA RAMIREZ on 11/03/24 Normal [facility] No Panel Informationon 10-29 IMPRESSION: Bilaliea l degenerative changes and indirect findings suggesting left 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: [employer] Transcribe Date/Time: Oct 29 2024 10:27A Dictated by : KVNG BROCK MD This examination was interpreted and the report reviewed and electronically signed by: KVNG BROCK MD on Oct 29 2024 10:29AM EST [facility] No Panel InformationOrdered By: Ccf Provider on 10-29-2024 [facility] XR Shoulder - left 3 Viewson 10-29-2024 * * *Final Report* * * DATE OF EXAM: Oct 27 2024 2:20PM YAMILEX 5252 - XR SHLDR >/=3V AP/MARLEEN AP/OTHR LT / PROCEDURE REASON: multiple diagnoses * * * * Physician Interpretation * * * * PROCEDURE: Bilateral shoulders INDICATION: Chronic pain of both shoulders TECHNIQUE: XR SHLDR >/=3V AP/MARLEEN AP/OTHR RT, XR SHLDR >/=3V AP/MARLEEN AP/OTHR LT COMPARISON: None FINDINGS: Diffuse bone demineralization. Mild glenohumeral and acromioclavicular joint osteoarthrosis bilaterally. Moderate narrowing of the acromiohumeral interval on the left suggesting rotator cuff pathology. Upper ribs are intact. No fractures or dislocation. [facility] Provider, [facility] - 10/29/2024 * * *Final Report* * * DATE OF EXAM: Oct 27 2024 2:20PM MDO 5252 - XR SHLDR >/=3V AP/MARLEEN AP/OTHR LT / PROCEDURE REASON: multiple diagnoses * * * * Physician Interpretation * * * * PROCEDURE: Bilateral shoulders INDICATION: Chronic pain of both shoulders TECHNIQUE: XR SHLDR >/=3V AP/MARLEEN AP/OTHR RT, XR SHLDR >/=3V AP/MARLEEN AP/OTHR LT COMPARISON: None FINDINGS: Diffuse bone demineralization. Mild glenohumeral and acromioclavicular joint osteoarthrosis bilaterally. Moderate narrowing of the acromiohumeral interval on the left suggesting rotator cuff pathology. Upper ribs are intact. No fractures or dislocation. 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: [facility] Transcribe Date/Time: Oct 29 2024 10:27A Dictated by : KVNG BROCK MD This examination was interpreted and the report reviewed and electronically signed by: KVNG BROCK MD on Oct 29 2024 10:29AM EST [facility] XR Shoulder - right 3 Viewso n 10-29-2024 * * *Final Report* * * DATE OF EXAM: Oct 27 2024 2:20PM MDO 5253 - XR SHLDR >/=3V AP/MARLEEN AP/OTHR RT / PROCEDURE REASON: multiple diagnoses * * * * Physician Interpretation * * * * PROCEDURE: Bilateral shoulders INDICATION: Chronic pain of both shoulders TECHNIQUE: XR SHLDR >/=3V AP/MARLEEN AP/OTHR RT, XR SHLDR >/=3V AP/MARLEEN AP/OTHR LT COMPARISON: None FINDINGS: Diffuse bone demineralization. Mild glenohumeral and acromioclavicular joint osteoarthrosis bilaterally. Moderate narrowing of the acromiohumeral interval on the left suggesting rotator cuff pathology. Upper ribs are intact. No fractures or dislocation. [facility] Provider, [facility] 10/29/[facility]24 * * *Final Report* * * DATE OF EXAM: Oct 27 2024 2:20PM MDO 5253 - XR SHLDR >/=3V AP/MARLEEN AP/OTHR RT / PROCEDURE REASON: multiple diagnoses * * * * Physician Interpretation * * * * PROCEDURE: Bilateral shoulders INDICATION: Chronic pain of both shoulders TECHNIQUE: XR SHLDR >/=3V AP/MARLEEN AP/OTHR RT, XR SHLDR >/=3V AP/MARLEEN AP/OTHR LT COMPARISON: None FINDINGS: Diffuse bone demineralization. Mild glenohumeral and acromioclavicular joint osteoarthrosis bilaterally. Moderate narrowing of the acromiohumeral interval on the left suggesting rotator cuff pathology. Upper ribs are intact. No fractures or dislocation. 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: [facility] Transcribe Date/Time: Oct 29 2024 10:27A Dictated by : KVNG BROCK MD This examination was interpreted and the report reviewed and electronically signed by: KVNG BROCK MD on Oct 29 2024 10:29AM EST [facility] No Panel Informationon 10-27 Radiology Study observation (narrative) [facility] XR SHLDR >/=3V AP/MARLEEN AP/OTH R LTon 10-27-2024 XR SHLDR >/=3V AP/MARLEEN AP/OTHR LT * * *Final Report* * * DATE OF EXAM: Oct 27 2024 2:20PM AYMILEX 5252 - XR SHLDR >/=3V AP/MARLEEN AP/OTHR LT / PROCEDURE REASON: multiple diagnoses * * * * Physician Interpretation * * * * PROCEDURE: Bilateral shoulders INDICATION: Chronic pain of both shoulders TECHNIQUE: XR SHLDR >/=3V AP/MARLEEN AP/OTHR RT, XR SHLDR >/=3V AP/MARLEEN AP/OTHR LT COMPARISON: None FINDINGS: Diffuse bone demineralization. Mild glenohumeral and acromioclavicular joint osteoarthrosis bilaterally. Moderate narrowing of the acromiohumeral interval on the left suggesting rotator cuff pathology. Upper ribs are intact. No fractures or dislocation. 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: [facility] Transcribe Date/Time: Oct 29 2024 10:27A Dictated by : KVNG BROCK MD This examination was interpreted and the report reviewed and electronically signed by: KVNG BROCK MD on Oct 29 2024 10:29AM EST [id number] [facility] XR SHLDR >/=3V AP/MARLEEN AP/OTH R RTon 10-27-2024 XR SHLDR >/=3V AP/MARLEEN AP/OTHR RT * * *Final Report* * * DATE OF EXAM: Oct 27 2024 2:20PM MDTana 5253 - XR SHLDR >/=3V AP/MARLEEN AP/OTHR RT / PROCEDURE REASON: multiple diagnoses * * * * Physician Interpretation * * * * PROCEDURE: Bilateral shoulders INDICATION: Chronic pain of both shoulders TECHNIQUE: XR SHLDR >/=3V AP/MARLEEN AP/OTHR RT, XR SHLDR >/=3V AP/MARLEEN AP/OTHR LT COMPARISON: None FINDINGS: Diffuse bone demineralization. Mild glenohumeral and acromioclavicular joint osteoarthrosis bilaterally. Moderate narrowing of the acromiohumeral interval on the left suggesting rotator cuff pathology. Upper ribs are intact. No fractures or dislocation. 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: [employer] Transcribe Date/Time: Oct 29 2024 10:27A Dictated by : KVNG BROCK MD This examination was interpreted and the report reviewed and electronically signed by: KVNG BROCK MD on Oct 29 2024 10:29AM EST [id number] [facility] 10-26-2024 [facility] Office Visit (IMMDNA ) KAYLA MORENO ([id number]) 1950 M Date Time Provider Department 10/26/24 5:40 PM TATE ALFONSO IMMDNA During your visit today, we recorded the following information about you: Temperature Pulse Respiration Blood pressure 97 degrees 60/minute 16/minute 120/50 Weight Height 97.5 kg 1.778 m Belia Heller MA 10/26/2024 5:47 PM Signed [facility] TEST INFORMATION [facility] HOURS: Lab is open: 7:30am to 5:00pm , 7:30am to 4:00pm on Sat and 8am -12pm on Sat. The lab is located in [facility] on the first floor. There is a registration window at the lab, available 7 am to 3 pm Saturday - Saturday. If registration is unavailable at the lab, you may register at the patient registration office near the front lobby of the hospital. SCHEDULING A LAB APPOINTMENT: Laboratory appointments are recommended.Walk ins are still accepted. Call [phone] or schedule via Simple-Fill scheduling ticket. ROUTINE LAB ORDERS 60 days after they are entered. If your lab orders , you may be required to wait in the lab while they are reinstated FUTURE ORDERS are lab tests to be completed on the ?EXPECTED? date. These orders 60 days after the expected date. STANDING ORDERS are recurring orders with an expiration date. The interval will indicate how often the test should be completed. CT / MRI / IVP If you have lab tests ordered for one of these radiology exams, please complete the blood work at least one day prior to the scheduled exam. PRESCRIPTION REFILL REQUESTS Request prescription refills through your Simple-Fill account or contact your Pharmacy. My Chart Schedule My Appointment enables you to view your established primary care provider's open schedule and book an appointment online in real-time. This feature is available in internal medicine, family medicine, or pediatrics at any of our [facility] locations and main campus. Belia Heller MA 11/03/2024 10:53 AM Signed Dilated Retinal Exam Never done DTaP,Tdap,Td Vaccine(1 - Tdap) Never done Shingrix Vaccine(1 of 2) Never done BP Controlled (<130/80) due on 02/02/2022 Diabetic Foot Exam due on 09/25/2022 Influenza Vaccine(1) due on 05/17/2024 Covid-19 Vaccine( season) due on 05/17/2024 Advance Directive Discussion due on 09/16/2024 Tate Alfonso MD 11/03/2024 10:53 AM Signed ESTABLISHED PATIENT aKyla Moreno is a 74 year old male presenting for F/U 3 months. HISTORY OF PRESENT ILLNESS Bilateral shoulder pain. Started out of no where. Hx of injuring left shoulder a long time ago. THinks it came on gradually. Type 2 Diabetes Follow up: Low blood sugars: no Medication compliance: yes Diet: no change Exercise: no change Increased urination, hunger, thirst, weight changes: no Hemoglobin A1C 6.0 06/22/2024 Hemoglobin A1C 5.8 03/23/2024 Hemoglobin A1C 6.4 09/19/2023 Chronic Narcotic Pain Medication. Notes waking up around 230 to 3 with pain. Medication: [place] 10mg Used for: Knee pain and chronic back pain. Has arthritis in knees. Has had 3 back surgeries at [facility] Improves quality of life/pain: Yes Amount used per day: Uses 1 per day Non-pharmacologic therapies: gets steroid injections. Pain Scale before medication:6 After medication: 2 If patient is on benzo/muscle relaxer aware of potential sedation: On no benzo or muscle relaxer Concern for addiction: No Non-opioid treatment options: Yes Tylenol Counseled on safe storage and disposal: Yes Counseled on opioid and alcohol: Yes Hyperlipidemia Follow up Taking daily: No. Bothers his joints too much. Trying to eat a diet low in saturated fat and cholesterol: Yes LDL 143 10/21/2024 LDL 78 12/23/2023 LDL 53 01/25/2023 HDL 44 10/21/2024 HDL 46 12/23/2023 HDL 51 01/25/2023 Triglycerides, Nonfasting 135 10/21/2024 Triglycerides, Nonfasting 145 12/23/2023 Triglycerides, Nonfasting 116 01/25/2023 CHOL 214 10/21/2024 CHOL 153 12/23/2023 CHOL 127 01/25/2023 AST 16 03/23/2024 ALT 17 03/23/2024 ASSESSMENT: (M25.511, G89.29, M25.512) Chronic pain of both shoulders (primary encounter diagnosis) (E11.59) Type 2 diabetes mellitus with other circulatory complication, without long-term current use of insulin (HCC) (M48.061) Spinal stenosis of lumbar region without neurogenic claudication (M17.12) Arthritis of left knee (M17.11) Arthritis of right knee (M51.369) Degenerative disc disease, lumbar (Z79.899) High risk medication use PLAN: Perhaps strain rotator cuff in right shoulder. Left shoudler hx of rotator cuff tear Consutl orth Continue norco Drug screen REVIEW OF SYSTEMS GENERAL: No weight loss, malaise or fevers. RESPIRATORY: Negative for cough, hemoptysis, wheezing or shortness of breath. CARDIOVASCULAR: Negative for chest pain, leg swelling or palp (more content not included)... [facility] KAYLA [facility]ENO ([id number]) 1950 M Date Time Provider Department 10/21/24 TATE ALFONSO [facility] During your visit today, we recorded the following information about you: Tate Alfonso MD 10/21/2024 1:03 PM Signed Please let patient know his INR is 2.2. Patient should continue on current dose. Retest in 4 weeks. Thanks, Tate Alfonso MD Data from Coumadin Tracker: PT INR 2.2 10/21/2024 PT INR 2.2 09/18/2024 PT INR 2.1 08/05/2024 Goal Range: 2.0-3.0 Last Instructions: Description 4mg six days and 2mg one day, retest in 4 weeks ( 09/18/23) Lacy Rosales RN 10/21/2024 1:45 PM Signed Spoke with pt, reviewed INR result, current Coumadin dose and instructions. Tracker updated Allergies As of Date: 10/21/2024 Noted Allergy Reaction ATORVASTATIN 05/30/2016 17 - Myalgia Date Reviewed: 08/04/2024 Reviewed by: Michelle Bingham LPN - Fully Assessed Reason for Visit: Coumadin/INR [1207] Prescriptions as of 10/21/2024 - HYDROcodone-Acetaminoph en (NORCO) 10-325 mg per tablet Take 1 tablet by mouth once daily as needed for pain for up to 30 days. - propranolol (INDERAL) 40 mg tablet Take 1 tablet by mouth every 12 hours. - nitroglycerin sublingual (NITROQUICK) 0.4 mg SL tablet Dissolve 1 tablet under the tongue every 5 minutes as needed for chest pain. - warfarin (COUMADIN) 4 mg tablet Take 1 tablet by mouth once daily. - primidone (MYSOLINE) 50 mg tablet TAKE 3 TABLETS TWICE A DAY - diclofenac (VOLTAREN) 1 % topical gel Apply 4 g to affected area four times daily. - meclizine (ANTIVERT) 25 mg tab Take 1 tablet by mouth every 6 hours as needed (for dizziness.). - pantoprazole DR (PROTONIX) 40 mg tablet Take by mouth. - rosuvastatin (CRESTOR) 20 mg tablet TAKE 1 TABLET DAILY AT BEDTIME - famotidine (PEPCID) 20 mg tablet Take 1 tablet by mouth twice daily. - aspirin 81 mg chewable tablet Take 81 mg by mouth once daily. - lisinopril (ZESTRIL, PRINIVIL) 20 mg tablet Take 1 tablet by mouth once daily. - blood sugar diagnostic (BLOOD GLUCOSE TEST) test strip 1 Strip twice daily. E11.9 - Lancets lancets 1 Each twice daily. E11.9 - acetaminophen (TYLENOL ARTHRITIS PAIN ORAL) Take 650 mg by mouth daily at bedtime. 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 Anticoagulation goal of INR 2 to 3 [Z51.81, Z79*07/23/2018 Vertigo [R42] 07/23/2018 10/29/2018 Vertebral artery stenosis, right [I65.01] 07/23/2018 Subclinical hypothyroidism [E03.8] 08/01/2018 Vertigo [R42] 11/30/2019 Imbalance [R26.89] 12/02/2019 BPPV (benign paroxysmal positional vertigo), le*12/02/2019 Thrombocytopenia (HCC) [D69.6] 09/24/2023 Encounter Status:Closed by LACY ROSALES on 10/21/24 Normal [facility] Lipid 1996 panelon 5 Cholesterol [Mass/Vol] 214 mg/dL High <200 [facility] Comment on above: Order Comment: Kristen damon Type: BLOOD SPECIMEN Ordering Facility: [facility] Address: [address] [place] [address] Result Comment: <200 mg/dL, Desirable 200-239 mg/dL, Borderline high >239 mg/dL, High Performed By: #### 3 4528-0 #### [employer] CLIA [id number] [address] [place] [address] [place] [facility] Cholesterol in HDL [Mass/Vol] 44 mg/dL Normal >39 [facility] Comment on above: Order Comment: Kristen damon Type: BLOOD SPECIMEN Ordering Facility: [facility] Address: [address] [place] [address] Result Comment: 40-5 9 mg/dL, Acceptable >59 mg/dL, High: Negative risk factor for coronary heart disease <40 mg/dL, Low: Positive risk factor for coronary heart disease Performed By: #### 3 4528-0 #### [facility] CLIA [id number] [address] [place] [address] [place] [facility] Cholesterol in LDL [Mass/Vol] 143 mg/dL High <100 [facility] Comment on above: Order Comment: Kristen damon Type: BLOOD SPECIMEN Ordering Facility: [facility] Address: [address] [place] [address] Result Comment: <100 mg/dL, Optimal 100-129 mg/dL, Near optimal/above optimal 130-159 mg/dL, Borderline high 160-189 mg/dL, High >189 mg/dL, Very high Secondary prevention optimal LDL Cholesterol levels are recommended to be < 70 mg/dL Performed By: #### 3 4528-0 #### [employer] [facility] CLIA [id number] [address] [place] [address] [facility] OF [place] Cholesterol in LDL/Cholesterol in HDL [Mass ratio] 3.25 {ratio} High <2.54 [facility] Comment on above: Order Comment: Kristen damon Type: BLOOD SPECIMEN Ordering Facility: [facility] Address: [address] [place] [address] Result Comment: Dequan pierson: 1. National Cholesterol Education Program ATP III Guideline At-A-Glance Quick Desk Reference: National Heart, Lung, and Blood [place]. National Institutes of Health. 2001: NIH Publication No. 01-3305. 2. An International Atherosclerosis Society position paper: global recommendations for the management of dyslipidemia: executive summary, Atherosclerosis. 2014: 232(2):410-413. Performed By: #### 3 4528-0 #### [employer] [facility] CLIA [id number] [address] [place] [address] [place] Cholesterol in VLDL [Mass/Vol] 27 mg/dL Normal <30 [facility] Comment on above: Order Comment: Kristen damon Type: BLOOD SPECIMEN Ordering Facility: [facility] Address: [address] [place] [address] Performed By: #### 3 4528-0 #### [facility] CLIA [id number] [address] [place] [address] [place] Cholesterol non HDL [Mass/Vol] 170 mg/dL High <130 [facility] Comment on above: Order Comment: Kristen damon Type: BLOOD SPECIMEN Ordering Facility: [facility] Address: [address] [place] [address] Result Comment: <130 mg/dL, Optimal 130-159 mg/dL, Near optimal/above optimal 160-189 mg/dL, Borderline high 190-219 mg/dL, High >219 mg/dL, Very high Secondary prevention optimal non HDL Cholesterol levels are recommended to be <100 mg/dL Performed By: #### 3 4528-0 #### [facility]ON [facility] CLIA [id number] [address] [place] [address] [place] Cholesterol.total/Judy sterol in HDL [Mass ratio] 4.86 {ratio} Normal <5.10 [facility] Comment on above: Order Comment: Kristen damon Type: BLOOD SPECIMEN Ordering Facility: [facility] Address: [address] [place] [address] Performed By: #### 3 4528-0 #### [place] [facility] CLIA [id number] [address] [place] [address] [facility] FASTING TIME 12 hrs Normal [facility] Comment on above: Order Comment: Kristen damon Type: BLOOD SPECIMEN Ordering Facility: [facility] Address: [address] [place] [address] Performed By: #### 3 4528-0 #### [facility] CLIA [id number] [address] [place] [address] [facility] Triglyceride [Mass/Vol] 135 mg/dL Normal <150 [facility] Comment on above: Order Comment: Kristen damon Type: BLOOD SPECIMEN Ordering Facility: [facility] Address: [address] [place] [address] Result Comment: <150 mg/dL, Normal 150-199 mg/dL, Borderline high 200-499 mg/dL, High >499 mg/dL, Very high Performed By: #### 3 4528-0 #### [facility] CLIA [id number] [address] [place] [id number] [facility] PT panel Coag (PPP)on 2024 INR Coag (PPP) [Relative time] 2.2 {INR} High 0.9-1.3 [facility] Comment on above: Order Comment: Kristen damon Type: BLOOD SPECIMEN Ordering Facility: [facility] Address: [address] [place] [address] Result Comment: Juju min K Antagonist (VKA) Therapeutic Range: INR 2 to 3 (Target INR of 2.5) Note: For patients treated with VKA drugs, such as warfarin, the [place] [employer] 2012 Guideline recommends a therapeutic INR range of 2 to 3 (target INR of 2.5). This recommendation includes high-risk patients with antiphospholipid syndrome with previous arterial or venous thromboembolism, current-generation mechanical or bioprosthetic aortic heart valve replacement. Note: Patients with mechanical aortic valve replacement and additional risk factors for thromboembolic events (atrial fibrillation, previous thromboembolism, LV dysfunction, hypercoagulable conditions) or an older generation mechanical AVR (i.e., ball in-Cage) or any mechanical MVR should have a INR therapeutic range of 2.5 to 3.5 (target INR of 3). Dougie GH, et al. Chest 2012, 141:7S-47S Jabier RA, et al. [facility] 2017, 70: 252-289 Performed By: #### 3 4528-0 #### [facility] CLIA [id number] [address] [place] [address] [place] PT Coag (PPP) [Time] 22.3 s High <13.1 [facility] Comment on above: Order Comment: Kristen damon Type: BLOOD SPECIMEN Ordering Facility: [facility] Address: [address] [place] [address] Performed By: #### 3 4528-0 #### [facility] CLIA [id number] [address] [place] OF [place] TSH SerPl-aCncon 10-21-2024 TSH Qn 3.280 m[IU]/L Normal 0.270-4.200 [facility] Comment on above: Order Comment: Kristen damon Type: BLOOD SPECIMEN Ordering Facility: [facility] Address: [address] [place] [address] Performed By: #### 3 4528-0 #### [facility] CLIA [id number] [address] [place] [address] OF [facility] CNCOon 10-15-2024 CNCO Letter Text Normal [facility] CNPNon 09-18-2024 CNPN Telephone (IMMDNA) KAYLA MORENO ([id number]) 1950 M Date Time Provider Department 09/18/24 TATE ALFONSO IMMDNA During your visit today, we recorded the following information about you: Tate Alfonso MD 09/18/2024 12:40 PM Signed Please let patient know his INR is 2.2. Patient should continue on current dose. Retest in 4 weeks. Thanks, Tate Alfonso MD Data from Coumadin Tracker: PT INR 2.2 09/18/2024 PT INR 2.1 08/05/2024 PT INR 2.9 06/22/2024 Goal Range: 2.0-3.0 Last Instructions: Description 4mg six days and 2mg one day, retest in 4 weeks (MM 08/06/24) Lacy Rosales RN 09/18/2024 1:39 PM Addendum Called pt, no answer. Left detailed message on identified VM Tracker updated Lacy Rosales RN 09/18/2024 1:39 PM Signed Spoke with pt, reviewed INR result, current Coumadin dose and instructions. Tracker updated Allergies As of Date: 09/18/2024 Noted Allergy Reaction ATORVASTATIN 05/30/2016 17 - Myalgia Date Reviewed: 08/04/2024 Reviewed by: Michelle Bingham LPN - Fully Assessed Reason for Visit: Results [95] Prescriptions as of 09/18/2024 - HYDROcodone-Acetaminoph en (NORCO) 10-325 mg per tablet Take 1 tablet by mouth once daily as needed for pain for up to 30 days. - propranolol (INDERAL) 40 mg tablet Take 1 tablet by mouth every 12 hours. - nitroglycerin sublingual (NITROQUICK) 0.4 mg SL tablet Dissolve 1 tablet under the tongue every 5 minutes as needed for chest pain. - warfarin (COUMADIN) 4 mg tablet Take 1 tablet by mouth once daily. - primidone (MYSOLINE) 50 mg tablet TAKE 3 TABLETS TWICE A DAY - diclofenac (VOLTAREN) 1 % topical gel Apply 4 g to affected area four times daily. - meclizine (ANTIVERT) 25 mg tab Take 1 tablet by mouth every 6 hours as needed (for dizziness.). - pantoprazole DR (PROTONIX) 40 mg tablet Take by mouth. - rosuvastatin (CRESTOR) 20 mg tablet TAKE 1 TABLET DAILY AT BEDTIME - famotidine (PEPCID) 20 mg tablet Take 1 tablet by mouth twice daily. - aspirin 81 mg chewable tablet Take 81 mg by mouth once daily. - lisinopril (ZESTRIL, PRINIVIL) 20 mg tablet Take 1 tablet by mouth once daily. - blood sugar diagnostic (BLOOD GLUCOSE TEST) test strip 1 Strip twice daily. E11.9 - Lancets lancets 1 Each twice daily. E11.9 - acetaminophen (TYLENOL ARTHRITIS PAIN ORAL) Take 650 mg by mouth daily at bedtime. 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 Anticoagulation goal of INR 2 to 3 [Z51.81, Z79*07/23/2018 Vertigo [R42] 07/23/2018 10/29/2018 Vertebral artery stenosis, right [I65.01] 07/23/2018 Subclinical hypothyroidism [E03.8] 08/01/2018 Vertigo [R42] 11/30/2019 Imbalance [R26.89] 12/02/2019 BPPV (benign paroxysmal positional vertigo), le*12/02/2019 Thrombocytopenia (HCC) [D69.6] 09/24/2023 Encounter Status:Closed by LACY ROSALES on 09/18/24 Normal [facility] PT panel Coag (PPP)on 2024 INR Coag (PPP) [Relative time] 2.2 {INR} High 0.9-1.3 [facility] Comment on above: Order Comment: Speci men Type: BLOOD SPECIMEN Ordering Facility: [facility] Address: [address] [place] [address] Result Comment: Juju min K Antagonist (VKA) Therapeutic Range: INR 2 to 3 (Target INR of 2.5) Note: For patients treated with VKA drugs, such as warfarin, the [place] [employer] 2012 Guideline recommends a therapeutic INR range of 2 to 3 (target INR of 2.5). This recommendation includes high-risk patients with antiphospholipid syndrome with previous arterial or venous thromboembolism, current-generation mechanical or bioprosthetic aortic heart valve replacement. Note: Patients with mechanical aortic valve replacement and additional risk factors for thromboembolic events (atrial fibrillation, previous thromboembolism, LV dysfunction, hypercoagulable conditions) or an older generation mechanical AVR (i.e., ball in-Cage) or any mechanical MVR should have a INR therapeutic range of 2.5 to 3.5 (target INR of 3). Dougie GH, et al. Chest 2012, 141:7S-47S Jabier RA, et al. [facility] 2017, 70: 252-289 Performed By: #### 3 4528-0 #### [facility] CLIA [id number] [address] [place] [address] [place] PT Coag (PPP) [Time] 21.8 s High <13.1 [facility] Comment on above: Order Comment: Speci men Type: BLOOD SPECIMEN Ordering Facility: [facility] Address: [address] [place] [address] Performed By: #### 3 4528-0 #### [facility] CLIA [id number] [address] [place] [address] [facility] Radha 08-06-2024 CNPN Telephone (IMMDNA) KAYLA MORENO ([id number]) 1950 M Date Time Provider Department 08/06/24 KRAIG SIFUENTES During your visit today, we recorded the following information about you: Kraig Sifuentes APRN.CNP 08/06/2024 12:30 PM Signed Please let patient know his INR is 2.1. Patient should continue on current dose. Retest in 2-3 weeks. Thanks, Kraig Sifuentes APRN.CNP Data from Coumadin Tracker: PT INR 2.1 08/05/2024 PT INR 2.9 06/22/2024 PT INR 2.9 05/28/2024 Goal Range: 2.0-3.0 Last Instructions: Description 4mg six days and 2mg one day, retest in 4 weeks (KS 06/23/24) Sofie Matthews RN 08/06/2024 1:03 PM Signed Notified patient. Updated tracker. Patient verbalizes understanding and has no other questions or concerns at this time. Sofie Matthews RN Allergies As of Date: 08/06/2024 Noted Allergy Reaction ATORVASTATIN 05/30/2016 17 - Myalgia Date Reviewed: 08/04/2024 Reviewed by: Michelle Bingham LPN - Fully Assessed Reason for Visit: Results [95] Prescriptions as of 08/06/2024 - HYDROcodone-Acetaminoph en (NORCO) 10-325 mg per tablet Take 1 tablet by mouth once daily as needed for pain for up to 30 days. - propranolol (INDERAL) 40 mg tablet Take 1 tablet by mouth every 12 hours. - nitroglycerin sublingual (NITROQUICK) 0.4 mg SL tablet Dissolve 1 tablet under the tongue every 5 minutes as needed for chest pain. - warfarin (COUMADIN) 4 mg tablet Take 1 tablet by mouth once daily. - primidone (MYSOLINE) 50 mg tablet TAKE 3 TABLETS TWICE A DAY - diclofenac (VOLTAREN) 1 % topical gel Apply 4 g to affected area four times daily. - meclizine (ANTIVERT) 25 mg tab Take 1 tablet by mouth every 6 hours as needed (for dizziness.). - pantoprazole DR (PROTONIX) 40 mg tablet Take by mouth. - rosuvastatin (CRESTOR) 20 mg tablet TAKE 1 TABLET DAILY AT BEDTIME - famotidine (PEPCID) 20 mg tablet Take 1 tablet by mouth twice daily. - aspirin 81 mg chewable tablet Take 81 mg by mouth once daily. - lisinopril (ZESTRIL, PRINIVIL) 20 mg tablet Take 1 tablet by mouth once daily. - blood sugar diagnostic (BLOOD GLUCOSE TEST) test strip 1 Strip twice daily. E11.9 - Lancets lancets 1 Each twice daily. E11.9 - acetaminophen (TYLENOL ARTHRITIS PAIN ORAL) Take 650 mg by mouth daily at bedtime. 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 Anticoagulation goal of INR 2 to 3 [Z51.81, Z79*07/23/2018 Vertigo [R42] 07/23/2018 10/29/2018 Vertebral artery stenosis, right [I65.01] 07/23/2018 Subclinical hypothyroidism [E03.8] 08/01/2018 Vertigo [R42] 11/30/2019 Imbalance [R26.89] 12/02/2019 BPPV (benign paroxysmal positional vertigo), le*12/02/2019 Thrombocytopenia (HCC) [D69.6] 09/24/2023 Encounter Status:Closed by KRAIG SIFUENTES on 08/06/24 Normal [facility] PT panel Coag (PPP)on 2023 INR Coag (PPP) [Relative time] 2.1 {INR} High 0.9-1.3 [facility] Comment on above: Order Comment: Speci men Type: BLOOD SPECIMEN Ordering Facility: [facility] Address: [address] [place] [address] Result Comment: Juju min K Antagonist (VKA) Therapeutic Range: INR 2 to 3 (Target INR of 2.5) Note: For patients treated with VKA drugs, such as warfarin, the [place] [employer] 2012 Guideline recommends a therapeutic INR range of 2 to 3 (target INR of 2.5). This recommendation includes high-risk patients with antiphospholipid syndrome with previous arterial or venous thromboembolism, current-generation mechanical or bioprosthetic aortic heart valve replacement. Note: Patients with mechanical aortic valve replacement and additional risk factors for thromboembolic events (atrial fibrillation, previous thromboembolism, LV dysfunction, hypercoagulable conditions) or an older generation mechanical AVR (i.e., ball in-Cage) or any mechanical MVR should have a INR therapeutic range of 2.5 to 3.5 (target INR of 3). Dougie HINOJOSA, et al. Chest 2012, 141:7S-47S Jabier RA, et al. [facility] 2017, 70: 252-289 Performed By: #### 2 4323-8, LIPMARKELL #### [facility] CLIA [id number] [address] [place] [address] [place] PT Coag (PPP) [Time] 20.9 s High <13.1 [facility] Comment on above: Order Comment: Speci men Type: BLOOD SPECIMEN Ordering Facility: [facility] Address: [address] [place] [address] Performed By: #### 2 4323-8, LIPMARKELL #### [facility] CLIA [id number] [address] [id number] [facility] CNOVon 08-04-2024 CNOV Office Visit (ORMDNA ) KAYLA MORENO ([id number]) 1950 M Date Time Provider Department 08/04/24 11:30 AM LUZ BECKER During your visit today, we recorded the following information about you: Luz Becker PA-C 08/04/2024 11:38 AM Signed Large Joint Arthro/Inj: bilateral knee joints Informed Consent Consent Obtained: Verbal [place] Protocol A moment to CARE was completed. SIGN IN Sign in communication not applicable due to emergent procedure. Personnel directly involved with the procedure wore the appropriate PPE. Special Equipment: N/A Patient/Surrogate Stated/Verified: Patient name, Date of , Relevant allergies and Intended procedure TIME OUT Intended patient and procedure match the source document(s). Consent documented and matches the intended procedure. Relevant labs, photos, and/or imaging studies have been reviewed. Correct side/site marked and visible. Medications required for procedure verified. No fire risk assessment and interventions applicable. No implant(s) inserted. 08/04/2024 11:38 AM The procedure site was prepped in the usual sterile fashion. Site: bilateral knee joints Medications (Right): 6 mg betamethasone acetate-betamethasone sodium phosphate 6 mg/mL Medications (Left): 6 mg betamethasone acetate-betamethasone sodium phosphate 6 mg/mL Anesthetics (Right): 5 mL lidocaine (PF) 10 mg/mL (1 %) Anesthetics (Left): 5 mL lidocaine (PF) 10 mg/mL (1 %) Outcome: Tolerated well, no immediate complications Post-injection instructions were reviewed with the patient and the patient voiced understanding of these instructions. SIGN OUT No specimen collected. No instruments, equipment or retained foreign bodies applicable. Post-procedure follow-up management communicated and Plan of Care Visit completed when applicable Allergies As of Date: 08/04/2024 Noted Allergy Reaction ATORVASTATIN 05/30/2016 17 - Myalgia Date Reviewed: 08/04/2024 Reviewed by: Michelle Bingham LPN - Fully Assessed Reason for Visit: Follow Up [171] Injections [199] Knee Pain [132] Follow Up [171] Injections [199] Knee Pain [132] Primary Visit Diagnosis:Primary osteoarthritis of both knees [M17.0] Order(s):Large Joint Arthro/Inj: bilateral knee joints [APJ953] Order #: [id number] [] betamethasone acetate-betamethasone sodium phosphate 6 mg injection (CELESTONE)Disp: Rfl: [] betamethasone acetate-betamethasone sodium phosphate 6 mg injection (CELESTONE)Disp: Rfl: [] lidocaine (PF) 10 mg/mL (1 %) 5 mL injection (XYLOCAINE)Disp: Rfl: [] lidocaine (PF) 10 mg/mL (1 %) 5 mL injection (XYLOCAINE)Disp: Rfl: Prescriptions as of 08/04/2024 - HYDROcodone-Acetaminoph en (NORCO) 10-325 mg per tablet Take 1 tablet by mouth once daily as needed for pain for up to 30 days. - propranolol (INDERAL) 40 mg tablet Take 1 tablet by mouth every 12 hours. - nitroglycerin sublingual (NITROQUICK) 0.4 mg SL tablet Dissolve 1 tablet under the tongue every 5 minutes as needed for chest pain. - warfarin (COUMADIN) 4 mg tablet Take 1 tablet by mouth once daily. - primidone (MYSOLINE) 50 mg tablet TAKE 3 TABLETS TWICE A DAY - diclofenac (VOLTAREN) 1 % topical gel Apply 4 g to affected area four times daily. - meclizine (ANTIVERT) 25 mg tab Take 1 tablet by mouth every 6 hours as needed (for dizziness.). - pantoprazole DR (PROTONIX) 40 mg tablet Take by mouth. - rosuvastatin (CRESTOR) 20 mg tablet TAKE 1 TABLET DAILY AT BEDTIME - famotidine (PEPCID) 20 mg tablet Take 1 tablet by mouth twice daily. - aspirin 81 mg chewable tablet Take 81 mg by mouth once daily. - lisinopril (ZESTRIL, PRINIVIL) 20 mg tablet Take 1 tablet by mouth once daily. - blood sugar diagnostic (BLOOD GLUCOSE TEST) test strip 1 Strip twice daily. E11.9 - Lancets lancets 1 Each twice daily. E11.9 - acetaminophen (TYLENOL ARTHRITIS PAIN ORAL) Take 650 mg by mouth daily at bedtime. 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 Normal [facility] Large Joint Arthro/Inj: bila teral knee jointson 08-04-2024 Luz Becker PA -C 08/04/2024 11:38 AM Large Joint Arthro/Inj: bilateral knee joints Informed Consent Consent Obtained: Verbal [place]bon Protocol A moment to CARE was completed. SIGN IN Sign in communication not applicable due to emergent procedure. Personnel directly involved with the procedure wore the appropriate PPE. Special Equipment: N/A Patient/Surrogate Stated/Verified: Patient name, Date of , Relevant allergies and Intended procedure TIME OUT Intended patient and procedure match the source document(s). Consent documented and matches the intended procedure. Relevant labs, photos, and/or imaging studies have been reviewed. Correct side/site marked and visible. Medications required for procedure verified. No fire risk assessment and interventions applicable. No implant(s) inserted. 08/04/2024 11:38 AM The procedure site was prepped in the usual sterile fashion. Site: bilateral knee joints Medications (Right): 6 mg betamethasone acetate-betamethasone sodium phosphate 6 mg/mL Medications (Left): 6 mg betamethasone acetate-betamethasone sodium phosphate 6 mg/mL Anesthetics (Right): 5 mL lidocaine (PF) 10 mg/mL (1 %) Anesthetics (Left): 5 mL lidocaine (PF) 10 mg/mL (1 %) Outcome: Tolerated well, no immediate complications Post-injection instructions were reviewed with the patient and the patient voiced understanding of these instructions. SIGN OUT No specimen collected. No instruments, equipment or retained foreign bodies applicable. Post-procedure follow-up management communicated and Plan of Care Visit completed when applicable [facility] CNOVon 06-29-2024 CNOV Office Visit (IMMDNA ) KAYLA MORENO ([id number]) 1950 M Date Time Provider Department 06/29/24 2:00 PM KRAIG SIFUENTES IMMDNA During your visit today, we recorded the following information about you: Temperature Pulse Blood pressure Weight 98.4 degrees 58/minute 138/88 99.7 kg Height 1.778 m Kraig Sifuentes APRN.CNP 07/13/2024 2:01 PM Addendum Medicare Health Risk Assessment General Health Good Exercise: Minutes/Day 15 Exercise: Days/Week 5 days Alcohol: Daily Use Never Alcohol: Drinks/Day 0 Alcohol: 6 or more drinks 0 Feel off balance No Concerns: Teeth/Dentures No Concerns: Sexual function No Troubled by feelings None of the above Frequency: Eating healthy diet Several days ADLs requiring help no Safety precautions in home/vehicle No (throw rugs) Smoke, vape, chews tobacco No Difficulty hearing No Difficulty seeing No (needs new glasses) Current Providers Specialists: I have reviewed specialist-related care of the patient in the medical record. Orthopedic injection q 90 days Medical/Family history review Reviewed and updated problem list, medical/surgical/family /social history, medications, and allergies. Opioid use review Opioid Medications (last 90 days) 04/29/2024 00:00 05/28/2024 06/29/2024 Opioid Medications hydrocodone/acetaminoph en 1 tablet DAILY PRN ORAL 1 tablet DAILY PRN ORAL-Discontinued hydrocodone/acetaminoph en 1 tablet DAILY PRN ORAL -Discontinued hydrocodone/acetaminoph en 1 tablet DAILY PRN ORAL 1 tablet DAILY PRN ORAL Details Outpatient prescription Medication marked as long-term Anxiety/Depression screening Recommendation: no further intervention at this time Cognitive screening Patient declined cognitive exam Functional Observation Was the patient's Timed Up AND Go test unsteady or >= 12 seconds? No Advance Care Planning Patient did not wish or was not able to name a surrogate decision maker or provide an advance care plan Measurements BP 138/88 Pulse (!) 58 Temp 36.9 ?C (98.4 ?F) (Temporal) Ht 177.8 cm (5' 10) Wt 99.7 kg (219 lb 12.8 oz) SpO2 99% BMI 31.54 kg/m? Vision Screening: Follows with optometry/ophthalmology Additional Concerns The following concerns were also discussed with the patient: Hypertension Follow up Medication Adherence: no missed doses and took medications this morning Home monitoring: no needs batteries Heart palpitations: no Chest pain: no Last 3 Encounter BP Readings: Date: BP: 06/29/2024 138/88 03/25/2024 130/72 01/01/2024 120/60 Feels like metoprolol better at BP, switched propanolol for tremors Dr. Ontiveros Type 2 Diabetes Follow up: Fasting blood sugars: EVERY ONCE in a whilke 130-140 Medication compliance: not medicated Diet: could improve Exercise: unable, walks Increased urination, hunger, thirst, weight changes: no Hemoglobin A1C 6.0 06/22/2024 Hemoglobin A1C 5.8 03/23/2024 Hemoglobin A1C 6.4 09/19/2023 Chronic Narcotic Pain Medication Medication: [place] 10mg Used for: Knee pain and chronic back pain. Has arthritis in knees. Has had 3 back surgeries at [facility] Improves quality of life/pain: Yes Amount used per day: Uses 1 per day Non-pharmacologic therapies: gets steroid injections. Pain Scale before medication:6 After medication: 2 If patient is on benzo/muscle relaxer aware of potential sedation: On no benzo or muscle relaxer Concern for addiction: No Non-opioid treatment options: Yes Tylenol Counseled on safe storage and disposal: Yes Counseled on opioid and alcohol: Yes PHYSICAL EXAM BP 138/88 Pulse (!) 58 Temp 36.9 ?C (98.4 ?F) (Temporal) Ht 177.8 cm (5' 10) Wt 99.7 kg (219 lb 12.8 oz) SpO2 99% BMI 31.54 kg/m? GENERAL: well appearing, alert, in no acute distress CARDIOVASCULAR: regular rate and rhythm. No murmur, rubs or gallops. PULMONARY: clear to auscultation, no wheezing, rhonchi, or crackles ABDOMEN: soft, non-tender, non-distended, no masses or organomegaly EXTREMITY: no lower extremity edema. No skin discoloration. ASSESSMENT (Z00.00) Medicare welcome exam (primary encounter diagnosis) (M48.061) Spinal stenosis of lumbar region without neurogenic claudication (M17.12) Arthritis of left knee (M17.11) Arthritis of right knee (M51.369) Degenerative disc disease, lumbar (E11.59) Type 2 diabetes mellitus with other circulatory complication, without long-term current use of insulin (HCC) (I10) Essential hypertension PLAN -Medicare annual wellness visit complete. Counseled on healthy diet and regular exercise. Fall avoidance information provided. Labs reviewed screenings up to date. -[place] sent for chronic pain, benefits quality of life. PDMP website checked and validated. All prescriptions have been APPROPRIATELY filled. No suspicious activity was identified. -A1c Elevated. Advised limiting s (more content not included)... [facility]IMMD[facility] KAYLA MORENO ([id number]) 1950 M Date Time Provider Department 06/23/24 KRAIG SIFUENTES IMMDNA During your visit today, we recorded the following information about you: Kraig Sifuentes APRN.CNP 06/23/2024 1:04 PM Signed Please let patient know his INR is 2.9. Patient should continue on current dose. Retest in 4 weeks. ThanksKraig APRN.CNP Data from Coumadin Tracker: PT INR 2.9 06/22/2024 PT INR 2.9 05/28/2024 PT INR 2.6 04/24/2024 Goal Range: 2.0-3.0 Last Instructions: Description Patient should continue on current dose. Retest in 4 weeks.(05/28/24 KB) Georgia Tavarez RN 06/23/2024 1:21 PM Signed Spoke to patient who is aware of INR results. Will continue with current dose of coumadin - verified dose. Retest INR in 4 weeks. Tracker updated Allergies As of Date: 06/23/2024 Noted Allergy Reaction ATORVASTATIN 05/30/2016 17 - Myalgia Date Reviewed: 04/30/2024 Reviewed by: Sophie Jackson MA - Fully Assessed Reason for Visit: Results [95] Prescriptions as of 06/23/2024 - HYDROcodone-Acetaminoph en (NORCO) 10-325 mg per tablet Take 1 tablet by mouth once daily as needed for pain for up to 30 days. - propranolol (INDERAL) 40 mg tablet Take 1 tablet by mouth every 12 hours. - nitroglycerin sublingual (NITROQUICK) 0.4 mg SL tablet Dissolve 1 tablet under the tongue every 5 minutes as needed for chest pain. - warfarin (COUMADIN) 4 mg tablet Take 1 tablet by mouth once daily. - primidone (MYSOLINE) 50 mg tablet TAKE 3 TABLETS TWICE A DAY - diclofenac (VOLTAREN) 1 % topical gel Apply 4 g to affected area four times daily. - meclizine (ANTIVERT) 25 mg tab Take 1 tablet by mouth every 6 hours as needed (for dizziness.). - pantoprazole DR (PROTONIX) 40 mg tablet Take by mouth. - rosuvastatin (CRESTOR) 20 mg tablet TAKE 1 TABLET DAILY AT BEDTIME - famotidine (PEPCID) 20 mg tablet Take 1 tablet by mouth twice daily. - aspirin 81 mg chewable tablet Take 81 mg by mouth once daily. - lisinopril (ZESTRIL, PRINIVIL) 20 mg tablet Take 1 tablet by mouth once daily. - blood sugar diagnostic (BLOOD GLUCOSE TEST) test strip 1 Strip twice daily. E11.9 - Lancets lancets 1 Each twice daily. E11.9 - acetaminophen (TYLENOL ARTHRITIS PAIN ORAL) Take 650 mg by mouth daily at bedtime. Problem List As Of Date 06/23/2024 Noted Resolved History of DVT of lower extremity [Z86.718] 05/30/2016 Essential hypertension [I10] 05/30/2016 Tremor of both hands [R25.1] 05/30/2016 Pure hypercholesterolemia [E78.00] 05/30/2016 Arthritis of left knee [M17.12] 05/30/2016 Arthritis of right knee [M17.11] 05/30/2016 Lumbar stenosis [M48.061] 05/30/2016 Degenerative disc disease, lumbar [M51.369] 05/30/2016 CAD (coronary artery disease) [I25.10] 05/30/2016 Type 2 diabetes mellitus with circulatory disor*07/17/2016 Anticoagulation goal of INR 2 to 3 [Z51.81, Z79*07/23/2018 Vertigo [R42] 07/23/2018 10/29/2018 Vertebral artery stenosis, right [I65.01] 07/23/2018 Subclinical hypothyroidism [E03.8] 08/01/2018 Vertigo [R42] 11/30/2019 Imbalance [R26.89] 12/02/2019 BPPV (benign paroxysmal positional vertigo), le*12/02/2019 Thrombocytopenia (HCC) [D69.6] 09/24/2023 Encounter Status:Closed by KRAIG SIFUENTES on 06/23/24 Normal [facility] ALBUMIN/CREATININE RATIO, UR INEon 06-22-2024 Albumin Unsp time DL <= 20 mg/L (U) [Mass/Time] 29.0 mg/L Normal [facility] Comment on above: Order Comment: Kristen damon Type: BLOOD SPECIMEN Ordering Facility: [facility] Address: [address] [place] [address] Performed By: #### 2 4323-8, LIPNF #### [facility] CLIA [id number] [address] [place] [address] STATES OF [facility] Albumin/Creatinine (U) [Mass ratio] 13 mg/g Normal <30 [facility] Comment on above: Order Comment: Kristen damon Type: BLOOD SPECIMEN Ordering Facility: [facility] Address: [address] [place] [address] Result Comment: Adul t Male and Female Nephrotic Criteria: <30 mg/g is considered normal to mildly increased 30-300 mg/g is considered moderately increased >300 mg/g is considered severely increased KDIGO. (2013). KDIGO 2012 Clinical Practice Guideline for the Evaluation and Management of Chronic Kidney Disease. Official Journal of the International Society of Nephrology, 3(1), 1-150. Performed By: #### 2 4323-8, LIPNF #### [facility] CLIA [id number] [address] [place] [address] [place] Creatinine (U) [Mass/Vol] 230.8 mg/dL Normal 46.8-314.5 [facility] Comment on above: Order Comment: Speci men Type: BLOOD SPECIMEN Ordering Facility: [facility] Address: [address] [place] [address] Performed By: #### 2 4323-8, LIPNF #### [facility] CLIA [id number] [address] [place] [address] [place] Basic metabolic 2000 panelon 06-22-2024 Anion gap [Moles/Vol] 9 mmol/L Normal 8-15 [facility] Comment on above: Order Comment: Speci men Type: BLOOD SPECIMEN Ordering Facility: [facility] Address: [address] [place] [address] Performed By: #### 3 4528-0 #### [facility] CLIA [id number] [address] [place] [address] [place] Calcium [Mass/Vol] 8.9 mg/dL Normal 8.5-10.2 [facility] Comment on above: Order Comment: Speci men Type: BLOOD SPECIMEN Ordering Facility: [facility] Address: [address] [place] [address] Performed By: #### 3 4528-0 #### [facility] CLIA [id number] [address] [place] [address] [place] Chloride [Moles/Vol] 103 mmol/L Normal 98-107 [facility] Comment on above: Order Comment: Speci men Type: BLOOD SPECIMEN Ordering Facility: [facility] Address: [address] [place] [address] Performed By: #### 3 4528-0 #### [facility] CLIA [id number] [address] [place] [address] [place] CO2 [Moles/Vol] 26 mmol/L Normal 22-30 [facility] Comment on above: Order Comment: Kristen damon Type: BLOOD SPECIMEN Ordering Facility: [facility] Address: [address] [place] [address] Performed By: #### 3 4528-0 #### [facility] CLIA [id number] [address] [place] [address] [place] Creatinine [Mass/Vol] 1.10 mg/dL Normal 0.73-1.22 [facility] Comment on above: Order Comment: Kristen men Type: BLOOD SPECIMEN Ordering Facility: [facility] Address: [address] [place] [address] Performed By: #### 3 4528-0 #### [facility] CLIA [id number] [address] [place] [address] [place] STATES OF [facility] Creatinine and Glomerular filtration rate.predicted panel (S/P/Bld) 70 mL/min/1.73m??? Normal >=60 [facility] Comment on above: Order Comment: Kristen damon Type: BLOOD SPECIMEN Ordering Facility: [facility] Address: [address] [place] [address] Result Comment: Jackeline mated Glomerular Filtration Rate (eGFR) is calculated using the 2020 CKD-EPI creatinine equation. This equation utilizes serum creatinine, sex, and age as parameters. The creatinine assay has traceable calibration to isotope dilution-mass spectrometry. Refer to KDIGO guidelines for clinical interpretation. In patients with unstable renal function, e.g. those with acute kidney injury, the eGFR may not accurately reflect actual GFR. Performed By: #### 3 4528-0 #### [facility] CLIA [id number] [address] [place] [address] [place] OF TAB Glucose [Mass/Vol] 167 mg/dL High 74-99 [facility] Comment on above: Order Comment: Kristen nelson Type: BLOOD SPECIMEN Ordering Facility: [facility] Address: [address] [place] [address] Result Comment: The [place] Diabetes Association (ADA) provides guidance for cutoff values for fasting glucose and random glucose. The ADA defines fasting as no caloric intake for at least 8 hours. Fasting plasma glucose results between 100 to 125 mg/dL indicate increased risk for diabetes (prediabetes). Fasting plasma glucose results greater than or equal to 126 mg/dL meet the criteria for diagnosis of diabetes. In the absence of unequivocal hyperglycemia, results should be confirmed by repeat testing. In a patient with classic symptoms of hyperglycemia or hyperglycemic crisis, random plasma glucose results greater than or equal to 200 mg/dL meet the criteria for diagnosis of diabetes. Reference: Standards of Medical Care in Diabetes 2016, [place] [employer] Association. Diabetes Care. 2016.39(Suppl 1). Performed By: #### 3 4528-0 #### [facility] CLIA [id number] [address] [place] [address] [place] Potassium [Moles/Vol] 4.8 mmol/L Normal 3.7-5.1 [facility] Comment on above: Order Comment: Kristen damon Type: BLOOD SPECIMEN Ordering Facility: [facility] Address: [address] [place] [address] Performed By: #### 3 4528-0 #### [facility] CLIA [id number] [address] [place] [address] [place] Sodium [Moles/Vol] 138 mmol/L Normal 136-144 [facility] Comment on above: Order Comment: Kristen damon Type: BLOOD SPECIMEN Ordering Facility: [facility] Address: [address] [place] [address] Performed By: #### 3 4528-0 #### [facility] CLIA [id number] [address] [place] [address] [place] Urea nitrogen [Mass/Vol] 13 mg/dL Normal 9-24 [facility] Comment on above: Order Comment: Kristen damon Type: BLOOD SPECIMEN Ordering Facility: [facility] Address: [address] [place] [address] Performed By: #### 3 4528-0 #### [facility] CLIA [id number] [address] [place] [address] [place] HbA1c (Bld)on 06-22-2024 Average glucose Estimated from glycated hemoglobin (Bld) [Mass/Vol] 126 mg/dL Normal [facility] Comment on above: Order Comment: Kristen damon Type: BLOOD SPECIMEN Ordering Facility: [facility] Address: [address] [place] [address] Result Comment: eAG: (Estimated average glucose) is a calculated value from HgbA1c and is parts representative of the average blood glucose level in the last 2-3 month period. Performed By: #### 5 5454-3 #### [facility] CLIA [id number] [address] [place] [address] [place] HbA1c (Bld) [Mass fraction] 6.0 % High 4.3-5.6 [facility] Comment on above: Order Comment: Kristen damon Type: BLOOD SPECIMEN Ordering Facility: [facility] Address: [address] [place] [address] Result Comment: [facility] Diabetes Association guidelines indicate that patients with HgbA1c in the range 5.7-6.4% are at increased risk for development of diabetes, and intervention by lifestyle modification may be beneficial. HgbA1c greater or equal to 6.5% is considered diagnostic of diabetes. Performed By: #### 5 5454-3 #### [facility] CLIA [id number] [address] [place] [address] [place] PT panel Coag (PPP)on 2023 INR Coag (PPP) [Relative time] 2.9 {INR} High 0.9-1.3 [facility] Comment on above: Order Comment: Kristen damon Type: BLOOD SPECIMEN Ordering Facility: [facility] Address: [address] [place] [address] Result Comment: Juju min K Antagonist (VKA) Therapeutic Range: INR 2 to 3 (Target INR of 2.5) Note: For patients treated with VKA drugs, such as warfarin, the [place] [employer] 2012 Guideline recommends a therapeutic INR range of 2 to 3 (target INR of 2.5). This recommendation includes high-risk patients with antiphospholipid syndrome with previous arterial or venous thromboembolism, current-generation mechanical or bioprosthetic aortic heart valve replacement. Note: Patients with mechanical aortic valve replacement and additional risk factors for thromboembolic events (atrial fibrillation, previous thromboembolism, LV dysfunction, hypercoagulable conditions) or an older generation mechanical AVR (i.e., ball in-Cage) or any mechanical MVR should have a INR therapeutic range of 2.5 to 3.5 (target INR of 3). Dougie HINOJOSA, et al. Chest 2012, 141:7S-47S Jabier OLIVAS et al. [facility] 2017, 70: 252-289 Performed By: #### 3 4528-0 #### [employer] [facility] CLIA [id number] [address] [place] [address] [place] [facility] PT Coag (PPP) [Time] 28.2 s High <13.1 [facility] Comment on above: Order Comment: Kristen damon Type: BLOOD SPECIMEN Ordering Facility: [facility] Address: [address] [place], [place] [id number] Performed By: #### 3 4528-0 #### [facility] CLIA [id number] [address] [place] [address] [facility] CNPNon 05-28-2024 CNPN Telephone (IMMDNA) KAYLA MORENO ([id number]) 1950 M Date Time Provider Department 05/28/24 KRAIG SIFUENTES IMMDNA During your visit today, we recorded the following information about you: Kraig Sifuentes APRN.CNP 05/28/2024 4:18 PM Signed Please let patient know his INR is 2.9. Patient should continue on current dose. Retest in 4 weeks. ThanksKraig APRN.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 Data from Coumadin Tracker: PT INR 2.9 05/28/2024 PT INR 2.6 04/24/2024 PT INR 2.0 03/18/2024 Goal Range: 2.0-3.0 Last Instructions: Description Pt reports taking 2mg on Mondays and 4 mg all other days. Retest in 4 weeks. ( 04/24/24) Yoselin Tony RN 05/28/2024 5:17 PM Signed Patient was notified and voiced understanding of provider message below. He needs some refills also [facility] Yoselin Tony RN 05/28/2024 5:19 PM Signed Addended by: YOSELIN TONY on: 05/28/2024 05:19 PM Modules accepted: Orders Kraig Sifuentes APRN.CNP 05/28/2024 5:47 PM Signed PDMP website checked and validated. All prescriptions have been APPROPRIATELY filled. No suspicious activity was identified. Scripts sent JADEN Evans Caitlin, APRN.CNP 05/28/2024 5:47 PM Signed Addended by: KRAIG SIFUENTES on: 05/28/2024 05:47 PM Modules accepted: Orders Allergies As of Date: 05/28/2024 Noted Allergy Reaction ATORVASTATIN 05/30/2016 17 - Myalgia Date Reviewed: 04/30/2024 Reviewed by: Sophie Jackson MA - Fully Assessed Reason for Visit: Results [95] Visit Diagnoses:Spinal stenosis of lumbar region without neurogenic claudication [M48.061] Arthritis of left knee [M17.12] Arthritis of right knee [M17.11] Degenerative disc disease, lumbar [M51.36] Order(s):HYDROcodone-Ac etaminophen (NORCO) 10-325 mg per tabletTake 1 tablet by mouth once daily as needed for pain for up to 30 days.Disp: 30 tabletRfl: 0 propranolol (INDERAL) 40 mg tabletTake 1 tablet by mouth every 12 hours.Disp: 180 tabletRfl: 3 nitroglycerin sublingual (NITROQUICK) 0.4 mg SL tabletDissolve 1 tablet under the tongue every 5 minutes as needed for chest pain.Disp: 30 tabletRfl: 3 Prescriptions as of 05/28/2024 - HYDROcodone-Acetaminoph en (NORCO) 10-325 mg per tablet Take 1 tablet by mouth once daily as needed for pain for up to 30 days. - propranolol (INDERAL) 40 mg tablet Take 1 tablet by mouth every 12 hours. - nitroglycerin sublingual (NITROQUICK) 0.4 mg SL tablet Dissolve 1 tablet under the tongue every 5 minutes as needed for chest pain. - warfarin (COUMADIN) 4 mg tablet Take 1 tablet by mouth once daily. - primidone (MYSOLINE) 50 mg tablet TAKE 3 TABLETS TWICE A DAY - diclofenac (VOLTAREN) 1 % topical gel Apply 4 g to affected area four times daily. - meclizine (ANTIVERT) 25 mg tab Take 1 tablet by mouth every 6 hours as needed (for dizziness.). - pantoprazole DR (PROTONIX) 40 mg tablet Take by mouth. - rosuvastatin (CRESTOR) 20 mg tablet TAKE 1 TABLET DAILY AT BEDTIME - famotidine (PEPCID) 20 mg tablet Take 1 tablet by mouth twice daily. - aspirin 81 mg chewable tablet Take 81 mg by mouth once daily. - lisinopril (ZESTRIL, PRINIVIL) 20 mg tablet Take 1 tablet by mouth once daily. - blood sugar diagnostic (BLOOD GLUCOSE TEST) test strip 1 Strip twice daily. E11.9 - Lancets lancets 1 Each twice daily. E11.9 - acetaminophen (TYLENOL ARTHRITIS PAIN ORAL) Take 650 mg by mouth daily at bedtime. Problem List As Of Date 05/28/2024 Noted Resolved History of DVT of lower extremity [Z86.718] 05/30/2016 Essential hypertension [I10] 05/30/2016 Tremor of both hands [R25.1] 05/30/2016 Pure hypercholesterolemia [E78.00] 05/30/2016 Arthritis of left knee [M17.12] 05/30/2016 Arthritis of right knee [M17.11] 05/30/2016 Lumbar stenosis [M48.061] 05/30/2016 Degenerative disc disease, lumbar [M51.36] 05/30/2016 CAD (coronary artery disease) [I25.10] 05/30/2016 Type 2 diabetes mellitus with circulatory disor*07/17/2016 Anticoagulation goal of INR 2 to 3 [Z51.81, Z79*07/23/2018 Vertigo [R42] 07/23/2018 10/29/2018 Vertebral artery stenosis, right [I65.01] 07/23/2018 Subclinical hypothyroidism [E03.8] 08/01/2018 Vertigo [R42] 11/30/2019 Imbalance [R26.89] 12/02/2019 BPPV (benign paroxysmal positional vertigo), le*12/02/2019 Thrombocytopenia (HCC) [D69.6] 09/24/2023 Prescriptions ordered this encounter Disp Refills Start End HYDROCODONE 10 MG-ACETAMINOPHEN 325 * 30 t* 0 05/28/2024 06/27/2024 Route: ORAL Sig: Take 1 tablet by mouth once daily as needed for pain for up to 30 days. PROPRANOLOL 40 MG TABLET 180 * 3 05/28/2024 Route: ORAL Sig: Take 1 tablet by mouth every 12 hours. NITROGLYCERIN 0.4 MG SUBLINGUAL TABL* 30 t* 3 05/28/2024 Route: SUBLINGUAL Sig: Dissolve 1 tablet under the tongue every 5 minutes as needed for chest pio (more content not included)... Normal [facility] PT panel Coag (PPP)on 2023 INR Coag (PPP) [Relative time] 2.9 {INR} High 0.9-1.3 [facility] Comment on above: Order Comment: Speci men Type: BLOOD SPECIMEN Ordering Facility: [facility] Address: [address] [place] [address] Result Comment: Juju min K Antagonist (VKA) Therapeutic Range: INR 2 to 3 (Target INR of 2.5) Note: For patients treated with VKA drugs, such as warfarin, the [employer] 2012 Guideline recommends a therapeutic INR range of 2 to 3 (target INR of 2.5). This recommendation includes high-risk patients with antiphospholipid syndrome with previous arterial or venous thromboembolism, current-generation mechanical or bioprosthetic aortic heart valve replacement. Note: Patients with mechanical aortic valve replacement and additional risk factors for thromboembolic events (atrial fibrillation, previous thromboembolism, LV dysfunction, hypercoagulable conditions) or an older generation mechanical AVR (i.e., ball in-Cage) or any mechanical MVR should have a INR therapeutic range of 2.5 to 3.5 (target INR of 3). Dougie HINOJOSA, et al. Chest 2012, 141:7S-47S Jabier OLIVAS et al. [facility] 2017, 70: 252-289 Performed By: #### 3 4528-0 #### [facility] CLIA [id number] [address] [place] [address] [place] OF [place] PT Coag (PPP) [Time] 28.1 s High <13.1 [facility] Comment on above: Order Comment: Kristen damon Type: BLOOD SPECIMEN Ordering Facility: [facility] Address: [facility] [place] [id number] Performed By: #### 3 4528-0 #### [facility] CLIA [id number] [address] [place] [address] [facility] OF TAB CNOVon 04-30-2024 CNOV Office Visit (ORMDNA ) KAYLA MORENO ([id number]) 1950 M Date Time Provider Department 04/30/24 10:30 AM LUZ BECKER During your visit today, we recorded the following information about you: Luz Becker PA-C 04/30/2024 10:59 AM Signed Luz Becker PA-C Department of Orthopaedics Orthopaedics [address] [place] [id number] Dept: [phone] April 30, 2024 CHIEF COMPLAINT: Follow Up, Knee Pain, and Injections of the Left Knee and Follow Up, Knee Pain, and Injections of the Right Knee. ASSESSMENT: M17.0 Primary osteoarthritis of both knees (primary encounter diagnosis) SUMMARY/PLAN: Patient presents who presents requesting repeat bilateral knee corticosteroid injections, he has had multiple previous injections and finds them to be very beneficial. Pain only started to return within the last 10 days, pain is a 5 out of 10 aching in both knees. Will proceed with repeat injections today. Large Joint Arthro/Inj: bilateral knee joints Informed Consent Consent Obtained: Verbal Esbon Protocol A moment to CARE was completed. SIGN IN Sign in communication not applicable due to emergent procedure. Personnel directly involved with the procedure wore the appropriate PPE. Special Equipment: N/A Patient/Surrogate Stated/Verified: Patient name, Date of , Relevant allergies and Intended procedure TIME OUT Intended patient and procedure match the source document(s). Consent documented and matches the intended procedure. Relevant labs, photos, and/or imaging studies have been reviewed. Correct side/site marked and visible. Medications required for procedure verified. No fire risk assessment and interventions applicable. No implant(s) inserted. 04/30/2024 10:59 AM The procedure site was prepped in the usual sterile fashion. Site: bilateral knee joints Medications (Right): 6 mg betamethasone acetate-betamethasone sodium phosphate 6 mg/mL Medications (Left): 6 mg betamethasone acetate-betamethasone sodium phosphate 6 mg/mL Anesthetics (Right): 5 mL lidocaine (PF) 10 mg/mL (1 %) Anesthetics (Left): 5 mL lidocaine (PF) 10 mg/mL (1 %) Outcome: Tolerated well, no immediate complications Post-injection instructions were reviewed with the patient and the patient voiced understanding of these instructions. SIGN OUT No instruments, equipment or retained foreign bodies applicable. Mr. Kayla Moreno was advised as to contrast therapies and/or to take analgesics/anti-inflamm atories as needed and all contraindications were reviewed. Supporting Information Below: Medications: Current Outpatient Medications Medication Sig HYDROcodone-Acetaminoph en (NORCO) 10-325 mg per tablet Take 1 tablet by mouth once daily as needed for pain for up to 30 days. Patient should start on April 29, 2024. warfarin (COUMADIN) 4 mg tablet Take 1 tablet by mouth once daily. primidone (MYSOLINE) 50 mg tablet TAKE 3 TABLETS TWICE A DAY diclofenac (VOLTAREN) 1 % topical gel Apply 4 g to affected area four times daily. propranolol (INDERAL) 40 mg tablet Take 1 tablet by mouth every 12 hours. meclizine (ANTIVERT) 25 mg tab Take 1 tablet by mouth every 6 hours as needed (for dizziness.). pantoprazole DR (PROTONIX) 40 mg tablet Take by mouth. rosuvastatin (CRESTOR) 20 mg tablet TAKE 1 TABLET DAILY AT BEDTIME famotidine (PEPCID) 20 mg tablet Take 1 tablet by mouth twice daily. aspirin 81 mg chewable tablet Take 81 mg by mouth once daily. lisinopril (ZESTRIL, PRINIVIL) 20 mg tablet Take 1 tablet by mouth once daily. blood sugar diagnostic (BLOOD GLUCOSE TEST) test strip 1 Strip twice daily. E11.9 Lancets lancets 1 Each twice daily. E11.9 acetaminophen (TYLENOL ARTHRITIS PAIN ORAL) Take 650 mg by mouth daily at bedtime. No current facility-administered medications for this visit. Allergies: Atorvastatin This note was partially generated using The [employer] voice recognition system, and there may be some incorrect words, spellings, and punctuation that were not noted in checking the note before saving. Luz Becker PA-C Allergies As of Date: 04/30/2024 Noted Allergy Reaction ATORVASTATIN 05/30/2016 17 - Myalgia Date Reviewed: 04/30/2024 Reviewed by: Sophie Jackson MA - Fully Assessed Reason for Visit: Follow Up [171] Knee Pain [132] Injections [199] Follow Up [171] Knee Pain [132] Injections [199] Primary Visit Diagnosis:Primary osteoarthritis of both knees [M17.0] Order(s):Large Joint Arthro/Inj: bilateral knee joints [MKO352] Order #: [id number] [] betamethasone acetate-betamethasone sodium phosphate 6 mg injection (CELESTONE)Disp: Rfl: [] betamethasone acetate-betamethasone sodium phosphate 6 mg injection (CELESTONE)Disp: Rfl: [] lidocaine (PF) 10 mg/mL (1 %) 5 mL injection (XYLOCAINE)Disp: Rfl: [] lidocai (more content not included)... Normal [facility] Large Joint Arthro/Inj: bila teral knee jointson 04-30-2024 Luz Becker PA -C 04/30/2024 10:59 AM Large Joint Arthro/Inj: bilateral knee joints Informed Consent Consent Obtained: Verbal Esbon Protocol A moment to CARE was completed. SIGN IN Sign in communication not applicable due to emergent procedure. Personnel directly involved with the procedure wore the appropriate PPE. Special Equipment: N/A Patient/Surrogate Stated/Verified: Patient name, Date of , Relevant allergies and Intended procedure TIME OUT Intended patient and procedure match the source document(s). Consent documented and matches the intended procedure. Relevant labs, photos, and/or imaging studies have been reviewed. Correct side/site marked and visible. Medications required for procedure verified. No fire risk assessment and interventions applicable. No implant(s) inserted. 04/30/2024 10:59 AM The procedure site was prepped in the usual sterile fashion. Site: bilateral knee joints Medications (Right): 6 mg betamethasone acetate-betamethasone sodium phosphate 6 mg/mL Medications (Left): 6 mg betamethasone acetate-betamethasone sodium phosphate 6 mg/mL Anesthetics (Right): 5 mL lidocaine (PF) 10 mg/mL (1 %) Anesthetics (Left): 5 mL lidocaine (PF) 10 mg/mL (1 %) Outcome: Tolerated well, no immediate complications Post-injection instructions were reviewed with the patient and the patient voiced understanding of these instructions. SIGN OUT No instruments, equipment or retained foreign bodies applicable. [facility] Radha 04-24-2024 CNPN Telephone (IMMDNA) KAYLA MORENO ([id number]) 1950 M Date Time Provider Department 04/24/24 TATE ALFONSO IMMMINI During your visit today, we recorded the following information about you: Tate Alfonso MD 04/24/2024 11:31 AM Signed Please let patient know his INR is 2.6. Patient should continue on current dose. Retest in 4 weeks. ThanksTate MD Data from Coumadin Tracker: PT INR 2.6 04/24/2024 PT INR 2.0 03/18/2024 PT INR 2.0 03/02/2024 Goal Range: 2.0-3.0 Last Instructions: Description Pt reports taking 2mg on Mondays and 4 mg all other days. Retest in 4 weeks. ( 03/18/24) Margarita Whyte RN 04/24/2024 3:06 PM Signed Spoke with patient, he is aware of provider message. Allergies As of Date: 04/24/2024 Noted Allergy Reaction ATORVASTATIN 05/30/2016 17 - Myalgia Date Reviewed: 03/25/2024 Reviewed by: Grisel Charles LPN - Fully Assessed Reason for Visit: Results [95] Coumadin/INR [1207] Prescriptions as of 04/24/2024 - warfarin (COUMADIN) 4 mg tablet Take 1 tablet by mouth once daily. - HYDROcodone-Acetaminoph en (NORCO) 10-325 mg per tablet Take 1 tablet by mouth once daily as needed for pain for up to 30 days. Do not start before March 31, 2024. - primidone (MYSOLINE) 50 mg tablet TAKE 3 TABLETS TWICE A DAY - diclofenac (VOLTAREN) 1 % topical gel Apply 4 g to affected area four times daily. - propranolol (INDERAL) 40 mg tablet Take 1 tablet by mouth every 12 hours. - meclizine (ANTIVERT) 25 mg tab Take 1 tablet by mouth every 6 hours as needed (for dizziness.). - pantoprazole DR (PROTONIX) 40 mg tablet Take by mouth. - rosuvastatin (CRESTOR) 20 mg tablet TAKE 1 TABLET DAILY AT BEDTIME - famotidine (PEPCID) 20 mg tablet Take 1 tablet by mouth twice daily. - aspirin 81 mg chewable tablet Take 81 mg by mouth once daily. - lisinopril (ZESTRIL, PRINIVIL) 20 mg tablet Take 1 tablet by mouth once daily. - blood sugar diagnostic (BLOOD GLUCOSE TEST) test strip 1 Strip twice daily. E11.9 - Lancets lancets 1 Each twice daily. E11.9 - acetaminophen (TYLENOL ARTHRITIS PAIN ORAL) Take 650 mg by mouth daily at bedtime. Problem List As Of Date 04/24/2024 Noted Resolved History of DVT of lower extremity [Z86.718] 05/30/2016 Essential hypertension [I10] 05/30/2016 Tremor of both hands [R25.1] 05/30/2016 Pure hypercholesterolemia [E78.00] 05/30/2016 Arthritis of left knee [M17.12] 05/30/2016 Arthritis of right knee [M17.11] 05/30/2016 Lumbar stenosis [M48.061] 05/30/2016 Degenerative disc disease, lumbar [M51.36] 05/30/2016 CAD (coronary artery disease) [I25.10] 05/30/2016 Type 2 diabetes mellitus with circulatory disor*07/17/2016 Anticoagulation goal of INR 2 to 3 [Z51.81, Z79*07/23/2018 Vertigo [R42] 07/23/2018 10/29/2018 Vertebral artery stenosis, right [I65.01] 07/23/2018 Subclinical hypothyroidism [E03.8] 08/01/2018 Vertigo [R42] 11/30/2019 Imbalance [R26.89] 12/02/2019 BPPV (benign paroxysmal positional vertigo), le*12/02/2019 Thrombocytopenia (HCC) [D69.6] 09/24/2023 Encounter Status:Closed by MARGARITA WHYTE on 04/24/24 Normal [facility] PT panel Coag (PPP)on 2023 INR Coag (PPP) [Relative time] 2.6 {INR} High 0.9-1.3 [facility] Comment on above: Order Comment: Speci men Type: BLOOD SPECIMEN Ordering Facility: [facility] Address: [address] [place] [address] Result Comment: Juju min K Antagonist (VKA) Therapeutic Range: INR 2 to 3 (Target INR of 2.5) Note: For patients treated with VKA drugs, such as warfarin, the [employer] [employer] 2012 Guideline recommends a therapeutic INR range of 2 to 3 (target INR of 2.5). This recommendation includes high-risk patients with antiphospholipid syndrome with previous arterial or venous thromboembolism, current-generation mechanical or bioprosthetic aortic heart valve replacement. Note: Patients with mechanical aortic valve replacement and additional risk factors for thromboembolic events (atrial fibrillation, previous thromboembolism, LV dysfunction, hypercoagulable conditions) or an older generation mechanical AVR (i.e., ball in-Cage) or any mechanical MVR should have a INR therapeutic range of 2.5 to 3.5 (target INR of 3). Dougie GH, et al. Chest 2012, 141:7S-47S Jabier RA, et al. [facility] 2017, 70: 252-289 Performed By: #### 3 4528-0 #### [facility] CLIA [id number] [address] [place] [address] OF TAB PT Coag (PPP) [Time] 25.6 s High <13.1 [facility] Comment on above: Order Comment: Speci men Type: BLOOD SPECIMEN Ordering Facility: [facility] Address: [address] [place] [address] Performed By: #### 3 4528-0 #### [facility] CLIA [id number] [address] [place] [address] [place] Cardiology Visit Reporton Cardiology Visit Report [facility] [address] [place] [address] OFFICE VISIT Date of Service: 04/21/24 MR#: [id number] Acct: [id number] Name: KAYLA MORENO Rep #: [id number] : 1950 Provider: Dr. Isaias Ontiveros MD Age/Sex: 74/M Location: [facility] Status: Signed HPI HPI History of Present Illness Details: Kayla Moreno is a 74-year-old gentleman with a history of coronary artery disease status post angioplasty and drug-eluting stent to his LAD in 2012 and 2020, right bundle branch block, hypertension, hyperlipidemia, and hypercoagulable state with multiple DVTs status post [place] filter. He was seen in the hospital on January 20, 2021 for unstable angina. His troponins were negative. But because of his unstable angina he did undergo a diagnostic heart catheterization. Heart catheterization demonstrated previously placed stent in the LAD which is patent and immediate post stent with an 80% stenotic lesion and distal LAD with 80% stenosis. Moderate disease is noted in the right coronary artery and mild disease in the left circumflex artery. Ejection fraction was 65%. He underwent stenting to his mLAD. He denies chest, arm, jaw, or neck discomfort. He denies palpitations. He states bilateral lower extremity edema that is unchanged from previous. He denies claudication. He denies shortness of breath with activity, shortness of breath at rest, orthopnea, or PND. He denies chronic cough. He denies significant, sudden weight gain. He denies lightheadedness, dizziness, near-syncope, or syncope. He denies blood in urine, blood in stool, or epistaxis. He denies fever with chills. He denies myalgia. He denies fatigue. His exercise level has remained stable though limited on account of knee pain. 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 Required: No Accompanied by: Self Is patient in pain?: No Allergies ticagrelor (From Brilinta) Adverse Reaction (Intermediate, Verified 04/21/24 13:17) dyspnea atorvastatin (From Lipitor) Adverse Reaction (Verified 04/21/24 13:17) myalgia Medications ???Medication ???Instructions ???Recorded ???Confirmed ???Type primidone 50 mg tablet 150 mg (3 x 50 mg) PO BID #90 tabs 10/03/17 04/21/24 Rx nitroglycerin 0.4 mg sublingual 0.4 mg sublingual Q5-15M PRN chest 04/22/18 04/21/24 Rx tablet pain #25 tabs rosuvastatin 20 mg tablet 20 mg PO QHS cholesterol 05/12/20 04/21/24 History hydrocodone 10 mg-acetaminophen 1 tab PO DAILY PRN Pain 01/20/21 04/21/24 History 325 mg tablet aspirin 81 mg tablet,delayed 81 mg PO DAILY 01/10/22 04/21/24 History release (Adult Aspirin Regimen) pantoprazole 40 mg tablet,delayed 40 mg PO DAILY #30 tabs 02/04/23 04/21/24 Rx release acetaminophen 650 mg 650 mg PO QHS 09/25/23 04/21/24 History tablet,extended release (Tylenol Arthritis Pain) diclofenac sodium 1 % topical gel 2 g topical 4X/DAY PRN 09/25/23 04/21/24 History (Aleve (diclofenac)) famotidine 20 mg tablet 20 mg PO BID 09/25/23 04/21/24 History meclizine 25 mg tablet 25 mg PO Q6H PRN 09/25/23 04/21/24 History warfarin 4 mg tablet 4 mg PO DAILY blood thinner 09/25/23 04/21/24 History propranolol 40 mg tablet 40 mg PO BID #180 tabs 12/18/23 04/21/24 Rx lisinopril 40 mg tablet 20 mg .Route DAILY 04/21/24 History Have you fallen in the past year?: No [facility] Medical History Essential tremor COVID-19 ( 06/2023) Non-smoker Diabetes Obesity History of deep venous thrombosis Right bundle branch block (RBBB) Essential (primary) hypertension Hyperlipidemia Hypercoagulable state Atherosclerosis of [place] coronary artery of [place] heart without angina pectoris Surgical History History of coronary artery stent placement (01/20/21) H/O knee surgery Derek filter in place (2005) History of carpal tunnel surgery History of lumbar surgery Family History Father Heart disease Sister Heart disease Sister Heart disease Diabetes Social History Smoking Status: Never smoker alcohol intake: never caffeine: Yes Type: carbonated beverages and coffee ROS Const Const: Negative for fatigue, weakness, headache(s), daytime sleepiness or difficulty sleeping ENT ENT: Negative for headache(s), dizziness or Nosebleed/e (more content not included)... [facility] 03-25-2024 [facility] Office Visit (IMMDNA ) KAYLA MORENO ([id number]) 1950 M Date Time Provider Department 03/25/24 9:20 AM TATE ALFONSO IMMDNA During your visit today, we recorded the following information about you: Temperature Pulse Respiration Blood pressure 97.8 degrees 58/minute 18/minute 130/72 Weight Height 97.5 kg 1.778 m PallaviadolfomarlencoleGrisel LPN 03/25/2024 10:10 AM Signed Dilated Retinal Exam Never done DTaP,Tdap,Td Vaccine(1 - Tdap) Never done Shingrix Vaccine(1 of 2) Never done RSV Vaccine(1 - 1-dose 60+ series) Never done Colorectal Cancer Screening due on 01/16/2019 Diabetic Foot Exam due on 09/25/2022 Covid-19 Vaccine( season) due on 05/17/2023 Advance Directive Discussion due on 09/16/2023 Behavioral Health Screening Never done Urine Albumin:Creatinine Ratio due on 01/26/2024 Tate Alfonso MD 03/25/2024 10:10 AM Signed ESTABLISHED PATIENT Kayla Moreno is a 73 year old male presenting for Follow Up. HISTORY OF PRESENT ILLNESS Type 2 Diabetes Follow up: Fasting blood sugars: 124 Low blood sugars: no Medication compliance: yes Diet: No longer snacks Exercise: none Increased urination, hunger, thirst, weight changes: no Hemoglobin A1C 5.8 03/23/2024 Hemoglobin A1C 6.4 09/19/2023 Hemoglobin A1C 6.3 01/25/2023 Chronic Narcotic Pain Medication Medication: [place] 10mg Used for: Knee pain and chronic back pain. Has arthritis in knees. Has had 3 back surgeries at [facility] Improves quality of life/pain: Yes Amount used per day: Uses 1 per day Non-pharmacologic therapies: gets steroid injections. Pain Scale before medication:6 After medication: 2 If patient is on benzo/muscle relaxer aware of potential sedation: On no benzo or muscle relaxer Concern for addiction: No Non-opioid treatment options: Yes Tylenol Counseled on safe storage and disposal: Yes Counseled on opioid and alcohol: Yes Knee injections are helping. Propranolol is helping tremors. Seeing operator receptionist April 21. ASSESSMENT: (R25.1) Tremor of both hands (primary encounter diagnosis) (E11.59) Type 2 diabetes mellitus with other circulatory complication, without long-term current use of insulin (HCC) (M48.061) Spinal stenosis of lumbar region without neurogenic claudication (M17.12) Arthritis of left knee (M17.11) Arthritis of right knee (M51.36) Degenerative disc disease, lumbar PLAN: Continue propranolol. Will follow up with Cardiology and if they are ok with how he is doing with the medicaiton may consider increasing A1C at goal. Continue current meds [place] working well. Continue current meds Handicap blake. Reviewed preventative health care. Declines noted REVIEW OF SYSTEMS GENERAL: No weight loss, malaise or fevers PHYSICAL EXAM BP 130/72 Pulse (!) 58 Temp 36.6 ?C (97.8 ?F) Resp 18 Ht 177.8 cm (5' 10) Wt 97.5 kg (214 lb 15.2 oz) SpO2 99% BMI 30.84 kg/m? General: Well developed, well nourished, in no acute distress. Head: Normocephalic, atraumatic. Neck: Supple. Eyes: Normal conjunctiva, no scleral icterus. Lungs: Clear to auscultation bilaterally, no rubs, no wheezing. Cardiac: Regular rate and rhythm. No murmurs, gallops, or rubs. Extremities: Improved essential tremor but still present. Allergies: ALLERGIES Allergen Reactions Atorvastatin Myalgia Medications: HYDROcodone-Acetaminoph en (NORCO) 10-325 mg per tablet Take 1 tablet by mouth once daily as needed for pain for up to 30 days. primidone (MYSOLINE) 50 mg tablet TAKE 3 TABLETS TWICE A DAY diclofenac (VOLTAREN) 1 % topical gel Apply 4 g to affected area four times daily. warfarin (COUMADIN) 4 mg tablet Take 1 tablet by mouth once daily. propranolol (INDERAL) 40 mg tablet Take 1 tablet by mouth every 12 hours. meclizine (ANTIVERT) 25 mg tab Take 1 tablet by mouth every 6 hours as needed (for dizziness.). pantoprazole DR (PROTONIX) 40 mg tablet Take by mouth. rosuvastatin (CRESTOR) 20 mg tablet TAKE 1 TABLET DAILY AT BEDTIME famotidine (PEPCID) 20 mg tablet Take 1 tablet by mouth twice daily. aspirin 81 mg chewable tablet Take 81 mg by mouth once daily. lisinopril (ZESTRIL, PRINIVIL) 20 mg tablet Take 1 tablet by mouth once daily. blood sugar diagnostic (BLOOD GLUCOSE TEST) test strip 1 Strip twice daily. E11.9 Lancets lancets 1 Each twice daily. E11.9 acetaminophen (TYLENOL ARTHRITIS PAIN ORAL) Take 650 mg by mouth daily at bedtime. predniSONE (DELTASONE) 10 mg tablet Take PO 4 tablets x 5 days, then 3 tablets x 3 days, then 2 tablets x 3 days, 1 tablets x 3 days (Patient not taking: Reported on 03/25/2024) HISTORIES FAMILY HISTORY Problem Relation Age of Onset Coronary Artery Disease Father Diabetes Father Cancer Mother Uterine Diabetes Mother Diabetes Sister Coronary Artery Disease Brother PAST MEDICAL HISTORY Diagnosis Date DVT (deep venous thro (more content not included)... Normal [facility] CBC panel Auto (Bld)on 03-23 Erythrocyte distribution width (RBC) [Ratio] 13.2 % Normal 11.5-15.0 [facility] Comment on above: Order Comment: Kristen damon Type: BLOOD SPECIMEN Ordering Facility: [facility] Address: [address] [place] [address] Performed By: #### 5 8410-2 #### [facility] CLIA [id number] [address] [place] [address] [place] Hematocrit (Bld) [Volume fraction] 43.2 % Normal 39.0-51.0 [facility] Comment on above: Order Comment: Kristen damon Type: BLOOD SPECIMEN Ordering Facility: [facility] Address: [address] [place] [address] Performed By: #### 5 8410-2 #### [facility] CLIA [id number] [address] [place] [address] [place] Hemoglobin (Bld) [Mass/Vol] 14.8 g/dL Normal 13.0-17.0 [facility] Comment on above: Order Comment: Kristen damon Type: BLOOD SPECIMEN Ordering Facility: [facility] Address: [address] [place] [address] Performed By: #### 5 8410-2 #### [facility] [place] [facility] CLIA [id number] [address] [place] [address] [place] MCH (RBC) [Entitic mass] 33.1 pg Normal 26.0-34.0 [facility] Comment on above: Order Comment: Kristen damon Type: BLOOD SPECIMEN Ordering Facility: [facility] Address: [address] [place] [address] Performed By: #### 5 8410-2 #### [facility] [place] [facility] CLIA [id number] [address] [place] [address] [place] MCHC (RBC) [Mass/Vol] 34.3 g/dL Normal 30.5-36.0 [facility] Comment on above: Order Comment: Speci men Type: BLOOD SPECIMEN Ordering Facility: [facility] Address: [address] [place] [address] Performed By: #### 5 8410-2 #### [facility] [place] [facility] CLIA [id number] [address] [place] [address] [facility] OF TAB MCV (RBC) [Entitic vol] 96.6 fL Normal 80.0-100.0 [facility] Comment on above: Order Comment: Speci men Type: BLOOD SPECIMEN Ordering Facility: [facility] Address: [address] [place] [address] Performed By: #### 5 8410-2 #### [facility] CLIA [id number] [address] [place], [place] [id number] [place] [address] STATES OF TAB Platelet mean volume (Bld) [Entitic vol] 9.9 fL Normal 9.0-12.7 [facility] Comment on above: Order Comment: Speci men Type: BLOOD SPECIMEN Ordering Facility: [facility] Address: [address] [place] [address] Performed By: #### 5 8410-2 #### [facility] [place] [facility] CLIA [id number] [address] [place] [address] [facility] OF TAB Platelets (Bld) [#/Vol] 139 10*3/uL Low 150-400 [facility] Comment on above: Order Comment: Speci men Type: BLOOD SPECIMEN Ordering Facility: [facility] Address: [address] [place] [address] Performed By: #### 5 8410-2 #### [facility] [place] [facility] CLIA [id number] [address] [place] [address] [place] RBC (Bld) [#/Vol] 4.47 10*6/uL Normal 4.20-6.00 [facility] Comment on above: Order Comment: Speci men Type: BLOOD SPECIMEN Ordering Facility: [facility] Address: [address] [place] [address] Performed By: #### 5 8410-2 #### [facility] [place] [facility] CLIA [id number] [address] [place] [address] [facility] WBC (Bld) [#/Vol] 5.21 10*3/uL Normal 3.70-11.00 [facility] Comment on above: Order Comment: Speci men Type: BLOOD SPECIMEN Ordering Facility: [facility] Address: [address] [place] [address] Performed By: #### 5 8410-2 #### [facility] [place] [facility] CLIA [id number] [address] [place] [address] [facility] Comprehensive metabolic 2000 panelon 03-23-2024 Albumin [Mass/Vol] 4.0 g/dL Normal 3.9-4.9 [facility] Comment on above: Order Comment: Speci men Type: BLOOD SPECIMEN Ordering Facility: [facility] Address: [address] [place] [address] Performed By: #### 2 4323-8, LIPNF #### [facility] [place] [facility] CLIA [id number] [address] [place] [address] [facility] OF TAB ALP [Catalytic activity/Vol] 74 U/L Normal 38-113 [facility] Comment on above: Order Comment: Speci men Type: BLOOD SPECIMEN Ordering Facility: [facility] Address: [address] [place] [address] Performed By: #### 2 4323-8, LIPNF #### [facility] [place] [facility] CLIA [id number] [address] [place] [address] [facility] ALT With P-5'-P [Catalytic activity/Vol] 17 U/L Normal 10-54 [facility] Comment on above: Order Comment: Speci men Type: BLOOD SPECIMEN Ordering Facility: [facility] Address: [address] [place] [address] Performed By: #### 2 4323-8, LIPNF #### [facility] [place] [facility] CLIA [id number] [address] [place] [address] [place] Anion gap [Moles/Vol] 9 mmol/L Normal 8-15 [facility] Comment on above: Order Comment: Speci men Type: BLOOD SPECIMEN Ordering Facility: [facility] Address: [address] [place] [address] Performed By: #### 2 4323-8, LIPNF #### [facility] [place] [facility] CLIA [id number] [address] [place] [address] [place] AST With P-5'-P [Catalytic activity/Vol] 16 U/L Normal 14-40 [facility] Comment on above: Order Comment: Speci men Type: BLOOD SPECIMEN Ordering Facility: [facility] Address: [address] [place] [address] Performed By: #### 2 4323-8, LIPNF #### [facility] [place] [facility] CLIA [id number] [address] [place] [address] [place] Bilirubin [Mass/Vol] 0.6 mg/dL Normal 0.2-1.3 [facility] Comment on above: Order Comment: Speci men Type: BLOOD SPECIMEN Ordering Facility: [facility] Address: [address] [place] [address] Performed By: #### 2 4323-8, LIPNF #### [facility] [place] [facility] CLIA [id number] [address] [place] [address] [place] Calcium [Mass/Vol] 8.8 mg/dL Normal 8.5-10.2 [facility] Comment on above: Order Comment: Speci men Type: BLOOD SPECIMEN Ordering Facility: [facility] Address: [address] [place] [address] Performed By: #### 2 4323-8, LIPNF #### [facility] [place] [facility] CLIA [id number] [address] [place] [address] [place] Chloride [Moles/Vol] 102 mmol/L Normal 98-107 [facility] Comment on above: Order Comment: Speci men Type: BLOOD SPECIMEN Ordering Facility: [facility] Address: [address] [place] [address] Performed By: #### 2 4323-8, LIPNF #### [facility] [place] [facility] CLIA [id number] [address] [place] [address] [place] CO2 [Moles/Vol] 27 mmol/L Normal 22-30 [facility] Comment on above: Order Comment: Speci men Type: BLOOD SPECIMEN Ordering Facility: [facility] Address: [address] [place] [address] Performed By: #### 2 4323-8, LIPNF #### [facility] [place] [facility] CLIA [id number] [address] [place] [address] [place] [facility] Creatinine [Mass/Vol] 1.16 mg/dL Normal 0.73-1.22 [facility] Comment on above: Order Comment: Speci men Type: BLOOD SPECIMEN Ordering Facility: [facility] Address: [address] [place] [address] Performed By: #### 2 4323-8, LIPNF #### [facility] [place] [facility] CLIA [id number] [address] Creatinine and Glomerular filtration rate.predicted panel (S/P/Bld) 67 mL/min/1.73m??? Normal >=60 [facility] Comment on above: Order Comment: Speci men Type: BLOOD SPECIMEN Ordering Facility: [facility] Address: [address] [place] [address] Result Comment: Jackeline mated Glomerular Filtration Rate (eGFR) is calculated using the 2020 CKD-EPI creatinine equation. This equation utilizes serum creatinine, sex, and age as parameters. The creatinine assay has traceable calibration to isotope dilution-mass spectrometry. Refer to KDIGO guidelines for clinical interpretation. In patients with unstable renal function, e.g. those with acute kidney injury, the eGFR may not accurately reflect actual GFR. Performed By: #### 2 4323-8, LIPNF #### [facility] [place] [facility] CLIA [id number] [address] [place] [address] [place] Glucose [Mass/Vol] 232 mg/dL High 74-99 [facility] Comment on above: Order Comment: Kristen damon Type: BLOOD SPECIMEN Ordering Facility: [facility] Address: [address] [place] [address] Result Comment: The [place] Diabetes Association (ADA) provides guidance for cutoff values for fasting glucose and random glucose. The ADA defines fasting as no caloric intake for at least 8 hours. Fasting plasma glucose results between 100 to 125 mg/dL indicate increased risk for diabetes (prediabetes). Fasting plasma glucose results greater than or equal to 126 mg/dL meet the criteria for diagnosis of diabetes. In the absence of unequivocal hyperglycemia, results should be confirmed by repeat testing. In a patient with classic symptoms of hyperglycemia or hyperglycemic crisis, random plasma glucose results greater than or equal to 200 mg/dL meet the criteria for diagnosis of diabetes. Reference: Standards of Medical Care in Diabetes 2016, [place] [employer] Association. Diabetes Care. 2016.39(Suppl 1). Performed By: #### 2 4323-8, LIPNF #### [facility] [place] [facility] CLIA [id number] [address] [place] [address] [place] Potassium [Moles/Vol] 4.8 mmol/L Normal 3.7-5.1 [facility] Comment on above: Order Comment: Kristen damon Type: BLOOD SPECIMEN Ordering Facility: [facility] Address: [address] [place] [address] Performed By: #### 2 4323-8, LIPNF #### [facility] [place] [facility] CLIA [id number] [address] [place] [address] [place] Protein [Mass/Vol] 6.6 g/dL Normal 6.3-8.0 [facility] Comment on above: Order Comment: Kristen damon Type: BLOOD SPECIMEN Ordering Facility: [facility] Address: [address] [place] [address] Performed By: #### 2 4323-8, LIPNF #### [facility] [place] [facility] CLIA [id number] [address] [place] [address] [place] Sodium [Moles/Vol] 138 mmol/L Normal 136-144 [facility] Comment on above: Order Comment: Kristen damon Type: BLOOD SPECIMEN Ordering Facility: [facility] Address: [address] [place] [address] Performed By: #### 2 4323-8, LIPNF #### [facility] CLIA [id number] [address] [place] [address] [place] Urea nitrogen [Mass/Vol] 15 mg/dL Normal 9-24 [facility] Comment on above: Order Comment: Kristen damon Type: BLOOD SPECIMEN Ordering Facility: [facility] Address: [address] [place] [address] Performed By: #### 2 4323-8, LIPNF #### [facility] CLIA [id number] [address] [place] [address] [place] HbA1c (Bld)on 03-23-2024 Average glucose Estimated from glycated hemoglobin (Bld) [Mass/Vol] 120 mg/dL Normal [facility] Comment on above: Order Comment: Kristen damon Type: BLOOD SPECIMEN Ordering Facility: [facility] Address: [address] [place] [address] Result Comment: eAG: (Estimated average glucose) is a calculated value from HgbA1c and is parts representative of the average blood glucose level in the last 2-3 month period. Performed By: #### 5 5454-3 #### [facility] CLIA [id number] [address] [place] [address] [place] HbA1c (Bld) [Mass fraction] 5.8 % High 4.3-5.6 [facility] Comment on above: Order Comment: Kristen damon Type: BLOOD SPECIMEN Ordering Facility: [facility] Address: [address] [place] [address] Result Comment: [place] Diabetes Association guidelines indicate that patients with HgbA1c in the range 5.7-6.4% are at increased risk for development of diabetes, and intervention by lifestyle modification may be beneficial. HgbA1c greater or equal to 6.5% is considered diagnostic of diabetes. Performed By: #### 5 5454-3 #### [facility] CLIA [id number] [address] [place] [address] [place] Radha 03-18-2024 CNPN Telephone (IMMDNA) KAYLA MORENO ([id number]) 1950 M Date Time Provider Department 03/18/24 TATE ALFONSO [facility] During your visit today, we recorded the following information about you: Tate Alfonso MD 03/18/2024 3:18 PM Signed Please let patient know his INR is 2.0. Patient should continue on current dose. Retest in 4 weeks. ThanksTate MD Data from Coumadin Tracker: PT INR 2.0 03/18/2024 PT INR 2.0 03/02/2024 PT INR 3.1 02/12/2024 Goal Range: 2.0-3.0 Last Instructions: Description 6 mg 1 day/week and 4 mg 6 day/week. Retest in 1-2 weeks. (DT 03/03/24) Lacy Rosales, ROBE 03/18/2024 3:59 PM Signed Spoke to pt Pt states he has been taking half pill, 2 mg, on Mondays and 4 mg all other days. Confirmed he is certain this is what he has been taking. Unclear when as last several encounters has been reporting taking 6 mg 1 or 2 days a week Pt asked to move up f/u appt d/t needing handicap placard renewed- r/s to next week No further questions Allergies As of Date: 03/18/2024 Noted Allergy Reaction ATORVASTATIN 05/30/2016 17 - Myalgia Date Reviewed: 01/30/2024 Reviewed by: Luz Becker PA-C - Fully Assessed Reason for Visit: Results [95] Prescriptions as of 03/18/2024 - HYDROcodone-Acetaminoph en (NORCO) 10-325 mg per tablet Take 1 tablet by mouth once daily as needed for pain for up to 30 days. - primidone (MYSOLINE) 50 mg tablet TAKE 3 TABLETS TWICE A DAY - diclofenac (VOLTAREN) 1 % topical gel Apply 4 g to affected area four times daily. - predniSONE (DELTASONE) 10 mg tablet Take PO 4 tablets x 5 days, then 3 tablets x 3 days, then 2 tablets x 3 days, 1 tablets x 3 days - warfarin (COUMADIN) 4 mg tablet Take 1 tablet by mouth once daily. - propranolol (INDERAL) 40 mg tablet Take 1 tablet by mouth every 12 hours. - meclizine (ANTIVERT) 25 mg tab Take 1 tablet by mouth every 6 hours as needed (for dizziness.). - pantoprazole DR (PROTONIX) 40 mg tablet Take by mouth. - rosuvastatin (CRESTOR) 20 mg tablet TAKE 1 TABLET DAILY AT BEDTIME - famotidine (PEPCID) 20 mg tablet Take 1 tablet by mouth twice daily. - aspirin 81 mg chewable tablet Take 81 mg by mouth once daily. - lisinopril (ZESTRIL, PRINIVIL) 20 mg tablet Take 1 tablet by mouth once daily. - blood sugar diagnostic (BLOOD GLUCOSE TEST) test strip 1 Strip twice daily. E11.9 - Lancets lancets 1 Each twice daily. E11.9 - acetaminophen (TYLENOL ARTHRITIS PAIN ORAL) Take 650 mg by mouth daily at bedtime. 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/17/2016 Anticoagulation goal of INR 2 to 3 [Z51.81, Z79*07/23/2018 Vertigo [R42] 07/23/2018 10/29/2018 Vertebral artery stenosis, right [I65.01] 07/23/2018 Subclinical hypothyroidism [E03.8] 08/01/2018 Vertigo [R42] 11/30/2019 Imbalance [R26.89] 12/02/2019 BPPV (benign paroxysmal positional vertigo), le*12/02/2019 Thrombocytopenia (HCC) [D69.6] 09/24/2023 Encounter Status:Closed by LACY ROSALES on 03/18/24 Normal [facility] PT panel Coag (PPP)on 2023 INR Coag (PPP) [Relative time] 2.0 {INR} High 0.9-1.3 [facility] Comment on above: Order Comment: Kristen damon Type: BLOOD SPECIMEN Ordering Facility: [facility] Address: [address] [place] [address] Result Comment: Juju min K Antagonist (VKA) Therapeutic Range: INR 2 to 3 (Target INR of 2.5) Note: For patients treated with VKA drugs, such as warfarin, the [place] [employer] 2012 Guideline recommends a therapeutic INR range of 2 to 3 (target INR of 2.5). This recommendation includes high-risk patients with antiphospholipid syndrome with previous arterial or venous thromboembolism, current-generation mechanical or bioprosthetic aortic heart valve replacement. Note: Patients with mechanical aortic valve replacement and additional risk factors for thromboembolic events (atrial fibrillation, previous thromboembolism, LV dysfunction, hypercoagulable conditions) or an older generation mechanical AVR (i.e., ball in-Cage) or any mechanical MVR should have a INR therapeutic range of 2.5 to 3.5 (target INR of 3). Dougie GH, et al. Chest 2012, 141:7S-47S Jabier RA, et al. JACC 2017, 70: 252-289 Performed By: #### 3 4528-0 #### [facility] CLIA [id number] [address] [place] [id number] [place] [address] [place] PT Coag (PPP) [Time] 20.1 s High <13.1 [facility] Comment on above: Order Comment: Kristen damon Type: BLOOD SPECIMEN Ordering Facility: [facility] Address: [address], [place] [address] Performed By: #### 3 4528-0 #### [facility] CLIA [id number] [address] [place] [address] [facility] Radha 03-03-2024 CNPN Telephone (FAMDNA) KAYLA MORENO ([id number]) 1950 M Date Time Provider Department 03/03/24 KRAIG SIFUENTES FAMDNA During your visit today, we recorded the following information about you: Kraig Sifuentes APRN.CNP 03/03/2024 11:33 AM Signed Please let patient know his INR is 2.0. Patient should continue on current dose. Retest in 1 weeks. ThanksKraig APRN.CNP Data from Coumadin Tracker: PT INR 2.0 03/02/2024 PT INR 3.1 02/12/2024 PT INR 1.7 02/05/2024 Goal Range: 2.0-3.0 Last Instructions: Description 6 mg 1 day/week and 4 mg 6 day/week. Retest in 1-2 weeks. ( 02/12/24) Autumn Gonzalez RN 03/03/2024 12:21 PM Signed Message to patient. Tracker done. Allergies As of Date: 03/03/2024 Noted Allergy Reaction ATORVASTATIN 05/30/2016 17 - Myalgia Date Reviewed: 01/30/2024 Reviewed by: Luz Becker PA-C - Fully Assessed Reason for Visit: Results [95] Prescriptions as of 03/03/2024 - HYDROcodone-Acetaminoph en (NORCO) 10-325 mg per tablet Take 1 tablet by mouth once daily as needed for pain for up to 30 days. - primidone (MYSOLINE) 50 mg tablet TAKE 3 TABLETS TWICE A DAY - diclofenac (VOLTAREN) 1 % topical gel Apply 4 g to affected area four times daily. - predniSONE (DELTASONE) 10 mg tablet Take PO 4 tablets x 5 days, then 3 tablets x 3 days, then 2 tablets x 3 days, 1 tablets x 3 days - warfarin (COUMADIN) 4 mg tablet Take 1 tablet by mouth once daily. - propranolol (INDERAL) 40 mg tablet Take 1 tablet by mouth every 12 hours. - meclizine (ANTIVERT) 25 mg tab Take 1 tablet by mouth every 6 hours as needed (for dizziness.). - pantoprazole DR (PROTONIX) 40 mg tablet Take by mouth. - rosuvastatin (CRESTOR) 20 mg tablet TAKE 1 TABLET DAILY AT BEDTIME - famotidine (PEPCID) 20 mg tablet Take 1 tablet by mouth twice daily. - aspirin 81 mg chewable tablet Take 81 mg by mouth once daily. - lisinopril (ZESTRIL, PRINIVIL) 20 mg tablet Take 1 tablet by mouth once daily. - blood sugar diagnostic (BLOOD GLUCOSE TEST) test strip 1 Strip twice daily. E11.9 - Lancets lancets 1 Each twice daily. E11.9 - acetaminophen (TYLENOL ARTHRITIS PAIN ORAL) Take 650 mg by mouth daily at bedtime. 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/17/2016 Anticoagulation goal of INR 2 to 3 [Z51.81, Z79*07/23/2018 Vertigo [R42] 07/23/2018 10/29/2018 Vertebral artery stenosis, right [I65.01] 07/23/2018 Subclinical hypothyroidism [E03.8] 08/01/2018 Vertigo [R42] 11/30/2019 Imbalance [R26.89] 12/02/2019 BPPV (benign paroxysmal positional vertigo), le*12/02/2019 Thrombocytopenia (HCC) [D69.6] 09/24/2023 Encounter Status:Closed by AUTUMN GONZALEZ on 03/03/24 Normal [facility] PT panel Coag (PPP)on 2023 INR Coag (PPP) [Relative time] 2.0 {INR} High 0.9-1.3 [facility] Comment on above: Order Comment: Kristen damon Type: BLOOD SPECIMEN Ordering Facility: [facility] Address: [address] [place] [address] Result Comment: Juju min K Antagonist (VKA) Therapeutic Range: INR 2 to 3 (Target INR of 2.5) Note: For patients treated with VKA drugs, such as warfarin, the [employer] 2012 Guideline recommends a therapeutic INR range of 2 to 3 (target INR of 2.5). This recommendation includes high-risk patients with antiphospholipid syndrome with previous arterial or venous thromboembolism, current-generation mechanical or bioprosthetic aortic heart valve replacement. Note: Patients with mechanical aortic valve replacement and additional risk factors for thromboembolic events (atrial fibrillation, previous thromboembolism, LV dysfunction, hypercoagulable conditions) or an older generation mechanical AVR (i.e., ball in-Cage) or any mechanical MVR should have a INR therapeutic range of 2.5 to 3.5 (target INR of 3). Dougie GH, et al. Chest 2012, 141:7S-47S Jabier RA et al. [facility] 2017, 70: 252-289 Performed By: #### 2 4323-8, LIPNF #### [facility] CLIA [id number] [address] [place] [address] OF [facility] PT Coag (PPP) [Time] 19.5 s High <13.1 [facility] Comment on above: Order Comment: Kristen damon Type: BLOOD SPECIMEN Ordering Facility: [facility] Address: [address] [place] [address] Performed By: #### 2 4323-8, LIPNF #### [facility] CLIA [id number] [address] [place] [address] [facility] PT panel Coag (PPP)on 2023 INR Coag (PPP) [Relative time] 3.1 {INR} High 0.9-1.3 [facility] Comment on above: Order Comment: Kristen damon Type: BLOOD SPECIMEN Ordering Facility: [facility] Address: [address] [place] [address] Result Comment: Juju min K Antagonist (VKA) Therapeutic Range: INR 2 to 3 (Target INR of 2.5) Note: For patients treated with VKA drugs, such as warfarin, the [employer] 2012 Guideline recommends a therapeutic INR range of 2 to 3 (target INR of 2.5). This recommendation includes high-risk patients with antiphospholipid syndrome with previous arterial or venous thromboembolism, current-generation mechanical or bioprosthetic aortic heart valve replacement. Note: Patients with mechanical aortic valve replacement and additional risk factors for thromboembolic events (atrial fibrillation, previous thromboembolism, LV dysfunction, hypercoagulable conditions) or an older generation mechanical AVR (i.e., ball in-Cage) or any mechanical MVR should have a INR therapeutic range of 2.5 to 3.5 (target INR of 3). Dougie GH, et al. Chest 2012, 141:7S-47S Jabier RA, et al. [facility] 2017, 70: 252-289 Performed By: #### 3 4528-0 #### [employer] [facility] CLIA [id number] [address] [place] [address] [facility] PT Coag (PPP) [Time] 29.4 s High <13.1 [facility] Comment on above: Order Comment: Kristen damon Type: BLOOD SPECIMEN Ordering Facility: [facility] Address: [address] [place] [address] Performed By: #### 3 4528-0 #### [employer] [facility] CLIA [id number] [address] [place] [address] [facility] PT panel Coag (PPP)on 2023 INR Coag (PPP) [Relative time] 1.7 {INR} High 0.9-1.3 [facility] Comment on above: Order Comment: Kristen damon Type: BLOOD SPECIMEN Ordering Facility: [facility] Address: [address] [place], [place] [id number] Result Comment: Juju min K Antagonist (VKA) Therapeutic Range: INR 2 to 3 (Target INR of 2.5) Note: For patients treated with VKA drugs, such as warfarin, the [employer] [employer] 2012 Guideline recommends a therapeutic INR range of 2 to 3 (target INR of 2.5). This recommendation includes high-risk patients with antiphospholipid syndrome with previous arterial or venous thromboembolism, current-generation mechanical or bioprosthetic aortic heart valve replacement. Note: Patients with mechanical aortic valve replacement and additional risk factors for thromboembolic events (atrial fibrillation, previous thromboembolism, LV dysfunction, hypercoagulable conditions) or an older generation mechanical AVR (i.e., ball in-Cage) or any mechanical MVR should have a INR therapeutic range of 2.5 to 3.5 (target INR of 3). Dougie GH, et al. Chest 2012, 141:7S-47S Jabier RA, et al. [facility] 2017, 70: 252-289 Performed By: #### 3 4528-0 #### [employer] [facility] CLIA [id number] [address] [place] [address] [place] PT Coag (PPP) [Time] 17.2 s High <13.1 [facility] Comment on above: Order Comment: Kristen damon Type: BLOOD SPECIMEN Ordering Facility: [facility] Address: [address] [place], [place] [address] Performed By: #### 3 4528-0 #### [employer] [facility] CLIA [id number] [address] [place] [address] [place] Large Joint Arthro/Inj: bila teral knee jointson 01-30-2024 Luz Becker PA -C 01/30/2024 10:36 AM Large Joint Arthro/Inj: bilateral knee joints Informed Consent Consent Obtained: Verbal [place] Protocol A moment to CARE was completed. SIGN IN Sign in communication not applicable due to emergent procedure. Personnel directly involved with the procedure wore the appropriate PPE. Special Equipment: N/A Patient/Surrogate Stated/Verified: Patient name, Date of , Relevant allergies and Intended procedure TIME OUT Intended patient and procedure match the source document(s). Consent documented and matches the intended procedure. Relevant labs, photos, and/or imaging studies have been reviewed. Correct side/site marked and visible. Medications required for procedure verified. No fire risk assessment and interventions applicable. No implant(s) inserted. 01/30/2024 10:35 AM The procedure site was prepped in the usual sterile fashion. Site: bilateral knee joints Medications (Right): 6 mg betamethasone acetate-betamethasone sodium phosphate 6 mg/mL Medications (Left): 6 mg betamethasone acetate-betamethasone sodium phosphate 6 mg/mL Anesthetics (Right): 5 mL lidocaine (PF) 10 mg/mL (1 %) Anesthetics (Left): 5 mL lidocaine (PF) 10 mg/mL (1 %) Outcome: Tolerated well, no immediate complications Post-injection instructions were reviewed with the patient and the patient voiced understanding of these instructions. SIGN OUT No instruments, equipment or retained foreign bodies applicable. [facility] PT panel Coag (PPP)on 2023 INR Coag (PPP) [Relative time] 1.7 {INR} High 0.9-1.3 [facility] Comment on above: Order Comment: Speci men Type: BLOOD SPECIMEN Ordering Facility: [facility] Address: [address] [place], [place] [id number] Result Comment: Juju min K Antagonist (VKA) Therapeutic Range: INR 2 to 3 (Target INR of 2.5) Note: For patients treated with VKA drugs, such as warfarin, the [employer] [employer] 2012 Guideline recommends a therapeutic INR range of 2 to 3 (target INR of 2.5). This recommendation includes high-risk patients with antiphospholipid syndrome with previous arterial or venous thromboembolism, current-generation mechanical or bioprosthetic aortic heart valve replacement. Note: Patients with mechanical aortic valve replacement and additional risk factors for thromboembolic events (atrial fibrillation, previous thromboembolism, LV dysfunction, hypercoagulable conditions) or an older generation mechanical AVR (i.e., ball in-Cage) or any mechanical MVR should have a INR therapeutic range of 2.5 to 3.5 (target INR of 3). Dougie HINOJOSA et al. Chest 2012, 141:7S-47S Jabier OLIVAS et al. [facility] 2017, 70: 252-289 Performed By: #### 3 4528-0 #### [employer] CLIA [id number] [address] [place] [address] [place] PT Coag (PPP) [Time] 17.3 s High <13.1 [facility] Comment on above: Order Comment: Speci men Type: BLOOD SPECIMEN Ordering Facility: [facility] Address: [address] [place] [address] Performed By: #### 3 4528-0 #### [facility] CLIA [id number] [address] [place] [address] [facility] [place] TSH BLDon 07-12-2022 TSH Qn 1.550 m[IU]/L 0.270 - 4.200 mIU/L [facility] XR KNEE GENERAL 4V AP BOTH/P A BOTH/LAT/MERC BILATERALon 12-21-2021 [facility] Office Visiton 04-23-2017 Documentation of current medications (procedure) Done Invalid Interpretation Code [employer] Work Phone: Fall risk assessment No Invalid Interpretation Code [employer] Work Phone: Clinical Lists Update: Prelo egg crater 04-17-2017 Left ventricular Ejection fraction 50 % Invalid Interpretation Code [employer] Work Phone: Office Visit: [facility] 10-15-19 Dietary management education, guidance, and counseling (procedure) yes Invalid Interpretation Code [employer] Work Phone: Protein mass conc Done [employer] Work Phone: Lab Report: Lipid Profileon 10-08-2016 Cholesterol in HDL mass conc 40 mg/dL Invalid Interpretation Code [employer] Work Phone: Cholesterol in LDL mass conc 100 mg/dL Invalid Interpretation Code 0-130 [employer] Work Phone: Cholesterol mass conc 170 mg/dL Invalid Interpretation Code 200 [employer] Work Phone: Lipoprotein.pre-beta mass conc 30 mg/dL Invalid Interpretation Code 5-40 [facility] Work Phone: [phone] Triglyceride mass conc 148 mg/dL Invalid Interpretation Code [facility] Work Phone: [phone] Lab Report: Liver Profileon 10-08-2016 Albumin mass conc 3.5 g/dL Invalid Interpretation Code 3.4-5.0 [facility] Work Phone: [phone] Alkaline phosphatase (ALP) 45 U/L Invalid Interpretation Code 45-117 [facility] Work Phone: [phone] ALP enzyme act/vol (Bld) 45 U/L 45-117 [facility] Work Phone: [phone] ALT enzyme act/vol 29 U/L Invalid Interpretation Code 12-78 [facility] Work Phone: [phone] AST enzyme act/vol 19 U/L Invalid Interpretation Code 15-37 [facility] Work Phone: [phone] Bilirubin mass conc 0.80 mg/dL Invalid Interpretation Code 0.20-1.00 [facility] Work Phone: [phone] Bilirubin.direct mass conc 0.16 mg/dL Invalid Interpretation Code 0.00-0.30 [facility] Work Phone: [phone] Globulin 3.8 g/dL High 2.3-3.5 [facility] Work Phone: [phone] Globulin mass conc (S) 3.8 g/dL High 2.3-3.5 [facility] Work Phone: [phone] Protein mass conc 7.3 g/dL Invalid Interpretation Code 6.4-8.2 [facility] Work Phone: [phone] Clinical Lists Update: Prelo egg crater 04-11-2016 Tobacco smoking status NHIS Never smoker [facility] Work Phone: [phone] Tobacco use CPHS Never smoker Invalid Interpretation Code [facility] Work Phone: [phone] Clinical Lists Update: Prelo egg crater 10-08-2014 Bilirubin.indirect mass conc 0.4 mg/dL Invalid Interpretation Code [facility] Work Phone: [phone] No Panel Information [facility] Vital Signs Date Time Vital Sign Value Performing Clinician Faci lity 06-10-2025 11:25-0400 Body temperature 98.2 [degF] Dr. Tate Alfonso MD Work Phone: [facility] 02-23-2025 11:25-0400 Diastolic blood pressure 81 mm[Hg] Dr. Tate Alfonso MD Work Phone: [facility] 02-23-2025 11:25-0400 Heart rate 53 /min Dr. Tate Alfonso MD Work Phone: [facility] 02-23-2025 11:25-0400 Respiratory rate 15 /min Dr. Tate Alfonso MD Work Phone: [facility] 02-23-2025 11:25-0400 SaO2% (BldA) [Mass fraction] 94 % Dr. Tate Alfonso MD Work Phone: [facility] 02-23-2025 11:25-0400 Systolic blood pressure 174 mm[Hg] Dr. Tate Alfonso MD Work Phone: [facility] 02-23-2025 09:15-0400 Body height 177.[address] Tate Alfonso MD Work Phone: [facility] 02-23-2025 09:15-0400 Body mass index (BMI) [Ratio] 28.5 kg/m2 Dr. Tate Alfonso MD Work Phone: [facility] 02-23-2025 09:15-0400 Body weight 90.[address] Tate Alfonso MD Work Phone: [facility] 11-17-2024 12:54-0500 Body mass index (BMI) [Ratio] 30.5 kg/m2 Dr. Tate Alfonso MD Work Phone: [facility] 11-17-2024 12:54-0500 Body weight 96.[address] Tate Alfonso MD Work Phone: [facility] 11-17-2024 12:54-0500 Diastolic blood pressure 81 mm[Hg] Dr. Tate Alfonso MD Work Phone: [facility] 11-17-2024 12:54-0500 Heart rate 57 /min Dr. Tate Alfonso MD Work Phone: [facility] 11-17-2024 12:54-0500 Respiratory rate 16 /min Dr. Tate Alfonso MD Work Phone: [facility] 11-17-2024 12:54-0500 Systolic blood pressure 165 mm[Hg] Dr. Tate Alfonso MD Work Phone: [facility] 10-26-2024 18:05-0500 Diastolic blood pressure 50 mm[Hg] Tate Alfonso MD Work Phone: [facility] 10-26-2024 18:05-0500 Systolic blood pressure 120 mm[Hg] Tate Alfonso MD Work Phone: [facility] 10-26-2024 17:51-0500 Body height 177.8 cm Tate Alfonso MD Work Phone: [facility] 10-26-2024 17:51-0500 Body mass index (BMI) [Ratio] 30.84 kg/m2 Tate Alfonso MD Work Phone: [facility] 10-26-2024 17:51-0500 Body temperature 97 [degF] Tate Alfonso MD Work Phone: [facility] 10-26-2024 17:51-0500 Body weight 97.5 kg Tate Alfonso MD Work Phone: [facility] 10-26-2024 17:51-0500 Heart rate 60 /min Tate Alfonso MD Work Phone: [facility] 10-26-2024 17:51-0500 Respiratory rate 16 /min Tate Alfonso MD Work Phone: [facility] 02-10-2025 17:51-0500 SaO2% (BldA) [Mass fraction] 98 % Tate Alfonso MD Work Phone: [facility] 06-29-2024 14:23-0400 Diastolic blood pressure 88 mm[Hg] Kraig Stathopoulos [employer] WORK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 Work Phone: [facility] 06-29-2024 14:23-0400 Systolic blood pressure 138 mm[Hg] Kraig Stathopoulos JET WORKER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 Work Phone: [facility] 06-29-2024 13:56-0400 Body height 177.8 cm Kraig Stathopoulos JET WORKER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 Work Phone: [facility] 06-29-2024 13:56-0400 Body mass index (BMI) [Ratio] 31.54 kg/m2 Kraig Stathopoulos J[employer] WORKER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 Work Phone: [facility] 06-29-2024 13:56-0400 Body temperature 98.4 [degF] Kraig Stathopoulos JET WORKER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 Work Phone: [facility] 06-29-2024 13:56-0400 Body weight 99.7 kg Kraig Stathopoulos JET WORKER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 Work Phone: [facility] 06-29-2024 13:56-0400 Heart rate 58 /min Kraig Stathopoulos JET WORKER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 Work Phone: [facility] 06-29-2024 13:56-0400 SaO2% (BldA) [Mass fraction] 99 % Kraig Stathopoulos J[employer] WORKER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 Work Phone: [facility] 03-25-2024 09:54-0400 Diastolic blood pressure 72 mm[Hg] Tate Alfonso MD Work Phone: [facility] 03-25-2024 09:54-0400 Systolic blood pressure 130 mm[Hg] Tate Alfonso MD Work Phone: [facility] 03-25-2024 09:25-0400 Body height 177.8 cm Tate Alfonso MD Work Phone: [facility] 03-25-2024 09:25-0400 Body mass index (BMI) [Ratio] 30.84 kg/m2 Tate Alfonso MD Work Phone: [facility] 03-25-2024 09:25-0400 Body temperature 97.81 [degF] Tate Alfonso MD Work Phone: [facility] 03-25-2024 09:25-0400 Body weight 97.5 kg Tate Alfonso MD Work Phone: [facility] 03-25-2024 09:25-0400 Heart rate 58 /min Tate Alfonso MD Work Phone: [facility] 03-25-2024 09:25-0400 Respiratory rate 18 /min Tate Alfonso MD Work Phone: [facility] 03-25-2024 09:25-0400 SaO2% (BldA) [Mass fraction] 99 % Tate Alfonso MD Work Phone: [facility] 01-01-2024 15:08-0400 Diastolic blood pressure 60 mm[Hg] Tate Alfonso MD Work Phone: [facility] 01-01-2024 15:08-0400 Systolic blood pressure 120 mm[Hg] Tate Alfonso MD Work Phone: [facility] 01-01-2024 14:31-0400 Body height 177.8 cm Tate Alfonso MD Work Phone: [facility] 01-01-2024 14:31-0400 Body mass index (BMI) [Ratio] 31.47 kg/m2 Tate Alfonso MD Work Phone: [facility] 01-01-2024 14:31-0400 Body temperature 98.29 [degF] Tate Alfonso MD Work Phone: [facility] 01-01-2024 14:31-0400 Body weight 99.5 kg Tate Alfonso MD Work Phone: [facility] 01-01-2024 14:31-0400 Heart rate 61 /min Tate Alfonso MD Work Phone: [facility] 01-01-2024 14:31-0400 Respiratory rate 16 /min aTte Alfonso MD Work Phone: [facility] 01-01-2024 14:31-0400 SaO2% (BldA) [Mass fraction] 98 % Tate Alfonso MD Work Phone: [facility] 02-08-2023 16:23-0400 Diastolic blood pressure 76 mm[Hg] Tate Alfonso MD Work Phone: [facility] 02-08-2023 16:23-0400 Systolic blood pressure 130 mm[Hg] Tate Alfonso MD Work Phone: [facility] 02-08-2023 15:55-0400 Body height 177.8 cm Tate Alfonso MD Work Phone: [facility] 02-08-2023 15:55-0400 Body temperature 97.9 [degF] Tate Alfonso MD Work Phone: [facility] 02-08-2023 15:55-0400 Body weight 96.16 kg Tate Alfonso MD Work Phone: [facility] 02-08-2023 15:55-0400 Heart rate 53 /min Tate Alfonso MD Work Phone: [facility] 02-08-2023 15:55-0400 Respiratory rate 16 /min Tate Alfonso MD Work Phone: [facility] 02-08-2023 15:55-0400 SaO2% (BldA) [Mass fraction] 99 % Tate Alfonso MD Work Phone: [facility] 10-24-2022 11:50-0500 Body height 177.8 cm Tate Alfonso MD Work Phone: [facility] 10-24-2022 11:50-0500 Body temperature 98.49 [degF] Tate Alfonso MD Work Phone: [facility] 10-24-2022 11:50-0500 Body weight 95.71 kg Tate Alfonso MD Work Phone: [facility] 10-24-2022 11:50-0500 Diastolic blood pressure 74 mm[Hg] Tate Alfonso MD Work Phone: [facility] 10-24-2022 11:50-0500 Heart rate 68 /min Tate Alfonso MD Work Phone: [facility] 10-24-2022 11:50-0500 Respiratory rate 16 /min Tate Alfonso MD Work Phone: [facility] 10-24-2022 11:50-0500 SaO2% (BldA) [Mass fraction] 98 % Tate Alfonso MD Work Phone: [facility] 10-24-2022 11:50-0500 Systolic blood pressure 159 mm[Hg] Tate Alfonso MD Work Phone: [facility] 04-23-2022 18:31-0400 Body temperature 98.1 [degF] Tate Alfonso MD Work Phone: [facility] 04-23-2022 18:31-0400 Body weight 99.88 kg Tate Alfonso MD Work Phone: [facility] 04-23-2022 18:31-0400 Diastolic blood pressure 79 mm[Hg] Tate Alfonso MD Work Phone: [facility] 04-23-2022 18:31-0400 Heart rate 56 /min Tate Alfonso MD Work Phone: [facility] 04-23-2022 18:31-0400 Respiratory rate 16 /min Tate Alfonso MD Work Phone: [facility] 04-23-2022 18:31-0400 SaO2% (BldA) [Mass fraction] 97 % Tate Alfonso MD Work Phone: [facility] 04-23-2022 18:31-0400 Systolic blood pressure 130 mm[Hg] Tate Alfonso MD Work Phone: [facility] 12-27-2021 09:02-0400 Diastolic blood pressure 78 mm[Hg] Tate Alfonso MD Work Phone: [facility] 12-27-2021 09:02-0400 Systolic blood pressure 138 mm[Hg] Tate Alfonso MD Work Phone: [facility] 12-27-2021 08:37-0400 Body height 177.8 cm Tate Alfonso MD Work Phone: [facility] 12-27-2021 08:37-0400 Body temperature 98.91 [degF] Tate Alfonso MD Work Phone: [facility] 12-27-2021 08:37-0400 Body weight 97.52 kg Tate Alfonso MD Work Phone: [facility] 12-27-2021 08:37-0400 Heart rate 66 /min Tate Alfonso MD Work Phone: [facility] 12-27-2021 08:37-0400 Respiratory rate 16 /min Tate Alfonso MD Work Phone: [facility] 12-27-2021 08:37-0400 SaO2% (BldA) [Mass fraction] 99 % Tate Alfonso MD Work Phone: [facility] 04-23-2017 09:17-0400 BMI (Body Mass Index) 33.18 kg/m2 [facility] Work Phone: 04-23-2017 09:17-0400 BP Diastolic 68 mm[Hg] [facility] Work Phone: 04-23-2017 09:17-0400 BP Systolic 136 mm[Hg] [facility] Work Phone: 04-23-2017 09:17-0400 Height 176.53 cm [facility] Work Phone: 04-23-2017 09:17-0400 Pulse (Heart Rate) 64 /min [facility] Work Phone: 04-23-2017 09:17-0400 Respiratory Rate 18 /min [facility] Work Phone: 04-23-2017 09:17-0400 Weight 103.42 kg [facility] Work Phone: 10-29-2016 13:41-0500 BP Diastolic 78 mm[Hg] Paola Branham RN [facility] Work Phone: 10-29-2016 13:41-0500 BP Systolic 132 mm[Hg] Paola Branham RN [facility] Work Phone: 10-29-2016 13:41-0500 Pulse (Heart Rate) 56 /min Paola Branham RN [facility] Work Phone: 10-29-2016 13:41-0500 Respiratory Rate 20 /min Paola Branham RN [facility] Work Phone: 10-15-2016 13:24-0500 BMI (Body Mass Index) 33.98 kg/m2 Paola Branham RN [facility] Work Phone: 10-15-2016 13:24-0500 BSA (Body Surface Area) 2.22 m2 Paola Branham RN [facility] Work Phone: 10-15-2016 13:24-0500 Weight 105.92 kg Paola Branham RN [facility] Work Phone: 04-18-2016 10:35-0400 Height 176.53 cm Paola Branham RN [facility] Work Phone: Encounters Encounter Date Encounter Type Care Provider Facility Start: 02-23-2025 Evaluation and manag ement of inpatient Dr. Elizabeth Sultana MD -Progressive Care Unit Work Phone: Start: 02-23-[address] Demi Alfonso MD Work Phone: [facility] Work Phone: Start: 02-16-2025 End: 02-16-2025 ambulatory LUZ VEGERARDO Facility:[facility] Start: 02-01-2025 End: 02-01-2025 ambulatory TATE ALFONSO Facility:[facility] Start: 01-25-2025 End: 01-25-2025 Refill Tate Alfonso MD Work Phone: Internal [facility] Comment on above: Refill Request Start: 01-21-2025 End: 01-21-2025 Telephone encounter Tate Alfonso MD Work Phone: [facility] Comment on above: Results Start: 01-21-2025 End: 01-21-2025 ambulatory TATE ALFONSO Facility:[facility] Start: 12-28-2024 End: 12-28-2024 Refill Tate Alfonso MD Work Phone: [facility] Comment on above: Refill Request Start: 12-10-2024 End: 12-10-2024 ambulatory TATE ALFONSO Facility:[facility] Start: 11-27-2024 End: 11-30-2024 Refill Tate Alfonso MD Work Phone: [facility] Comment on above: Refill Request Start: 11-17-2024 End: 11-17-2024 Patient encounter procedure Theo GAMINOC -[facility] Work Phone: Start: 11-17-2024 End: 11-17-2024 ambulatory Tate Alfonso Facility:[facility] Start: 11-05-2024 End: 11-05-2024 ambulatory LUZ ROSITA Facility:[facility] Start: 11-05-2024 End: 11-05-2024 Patient encounter procedure Luz Becker PA-C Work Phone: Orthopaedics Comment on above: Primary osteoarthrit is of both knees (Primary Dx) Start: 11-02-2024 End: 11-03-2024 ambulatory Tate Alfonso MD Work Phone: Internal [facility] Comment on above: Results Start: 11-02-2024 End: 11-02-2024 E-mail encounter from caregiver Tate Alfonso MD Work Phone: Internal [facility] Start: 10-27-2024 ambulatory TATE ALFONSO [facility] lity:[facility] Start: 10-27-2024 End: 10-27-2024 Subsequent hospital visit by physician [facility] [place] Khurram Work Phone: Radiology Comment on above: Chronic pain of both shoulders [M25.511, G89.29, M25.512] Start: 10-26-2024 End: 10-26-2024 ambulatory TATE ALFONSO Facility:[facility] Start: 10-26-2024 End: 10-26-2024 Office outpatient visit 25 minutes Tate Alfonso MD Work Phone: Internal Medicine [place] Comment on above: Chronic pain of both shoulders (Primary Dx); Type 2 diabetes mellitus with other circulatory complication, without long-term current use of insulin (HCC); Spinal stenosis of lumbar region without neurogenic claudication; Arthritis of left knee; Arthritis of right knee; Degenerative disc disease, lumbar; High risk medication use Start: 10-26-2024 End: 12-26-2024 Follow-up encounter Tate Alfonso MD Work Phone: Internal [facility] Start: 10-21-2024 End: 10-21-2024 Telephone encounter Tate Alfonso MD Work Phone: Internal [facility] Comment on above: Coumadin/INR Start: 10-21-2024 End: 10-21-2024 ambulatory TATE ALFONSO Facility:[facility] Start: 10-13-2024 End: 10-16-2024 ambulatory Tate Alfonso MD Work Phone: Internal Medicine [facility] Start: 09-30-2024 End: 10-01-2024 Refill Tate Alfonso MD Work Phone: [facility] Comment on above: Refill Request Start: 09-18-2024 End: 09-18-2024 Telephone encounter Tate Alfonso MD Work Phone: Internal [facility] Comment on above: Results Start: 09-18-2024 End: 09-18-2024 ambulatory TATE ALFONSO Facility:[facility] Start: 08-27-2024 End: 08-31-2024 Refill Tate Alfonso MD Work Phone: Internal [facility] Comment on above: Refill Request Start: 08-06-2024 End: 08-06-2024 Telephone encounter Kraig Sifuentes JET WORKER.GAS 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 Work Phone: Internal [facility] Comment on above: Results Start: 08-05-2024 End: 08-05-2024 ambulatory TATE ALFONSO Facility:[facility] Start: 08-04-2024 End: 08-04-2024 ambulatory LUZ BECKER Facility:[facility] Start: 08-04-2024 End: 08-04-2024 Patient encounter procedure Luz Becker PA-C Work Phone: Orthopaedics Comment on above: Primary osteoarthrit is of both knees (Primary Dx) Start: 07-28-2024 End: 07-31-2024 Refill Tate Alfonso MD Work Phone: Internal [facility] Comment on above: Refill Request; Medi cation Problem (Patient is out of medication) Start: 06-29-2024 End: 06-29-2024 ambulatory KRAIG STATHOPOULOS Facility:[facility] Start: 06-29-2024 End: 06-29-2024 Patient encounter procedure Kraig Statediloulos JET WORKER.GAS 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 Work Phone: Internal Medicine [place] Comment on above: Medicare welcome exa m (Primary Dx); Spinal stenosis of lumbar region without neurogenic claudication; Arthritis of left knee; Arthritis of right knee; Degenerative disc disease, lumbar; Type 2 diabetes mellitus with other circulatory complication, without long-term current use of insulin (HCC); Essential hypertension Start: 06-29-2024 End: 06-29-2024 Patient encounter status Kraig Sifuentes APRN.GAS 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 Work Phone: [facility] Work Phone: Start: 06-23-2024 End: 06-23-2024 Telephone encounter Kraig Sifuentes JET WORKER.GAS 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 Work Phone: Internal Medicine [place] Comment on above: Results Start: 06-22-2024 End: 06-22-2024 ambulatory TATE Salazar [place] Facility:[facility] Start: 05-28-2024 End: 05-28-2024 Telephone encounter Kraig Sifuentes JET WORKER.GAS 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 Work Phone: Internal [facility] Comment on above: Results Start: 05-28-2024 End: 05-28-2024 ambulatory TATE ALFONSO Facility:[facility] Start: 05-20-2024 ambulatory Tate [facility] ty:[facility] Start: 04-30-2024 End: 04-30-2024 ambulatory LUZ BECKER Facility:[facility] Start: 04-30-2024 End: 04-30-2024 Patient encounter procedure Luz Becker PA-C Work Phone: Orthopaedics Comment on above: Primary osteoarthrit is of both knees (Primary Dx) Start: 04-26-2024 Refill Tate riddle MD Work Phone: Internal [facility] Comment on above: Refill Request Start: 04-24-2024 Telephone encounter Tate Alfonso MD Work Phone: Internal [facility] Comment on above: Results; Coumadin/IN R Start: 04-24-2024 End: 04-24-2024 ambulatory TATE ALFONSO Facility:[facility] Start: 04-21-2024 End: 04-21-2024 ambulatory Tate Alfonso Facility:[facility] Start: 04-10-2024 Refill Tate riddle MD Work Phone: Internal Medicine [place] Comment on above: Refill Request (Must use mail order - previously sent to wrong pharmacy) Start: 03-25-2024 End: 03-25-2024 ambulatory TATE ALFONSO Facility:[facility] Start: 03-25-2024 End: 03-25-2024 Office outpatient visit 25 minutes Tate Alfonso MD Work Phone: Internal Medicine [place] Comment on above: Tremor of both hands (Primary Dx); Type 2 diabetes mellitus with other circulatory complication, without long-term current use of insulin (HCC); Spinal stenosis of lumbar region without neurogenic claudication; Arthritis of left knee; Arthritis of right knee; Degenerative disc disease, lumbar Start: 03-23-2024 End: 03-23-2024 ambulatory TATE ALFONSO Facility:[facility] Start: 03-18-2024 Telephone encounter Tate Alfonso MD Work Phone: Internal [facility] Comment on above: Results Start: 03-18-2024 End: 03-18-2024 ambulatory TATE CRAINERS Facility:[facility] Start: 03-03-2024 Telephone encounter Kraig Ambrosio APRN.CNP Work Phone: [facility] Comment on above: Results Start: 03-02-2024 End: 03-02-2024 Refill Tate Alfonso MD Work Phone: Internal Medicine [place] Comment on above: Refill Request Start: 02-12-2024 Telephone encounter Tate Alfonso MD Work Phone: Internal Medicine [place] Comment on above: Coumadin/INR Start: 02-12-2024 End: 02-12-2024 ambulatory FARIBA VEGAS Facility:[facility] Start: 02-05-2024 Telephone encounter Tate Alfonso MD Work Phone: Internal [facility] Comment on above: Coumadin/INR Start: 02-05-2024 End: 02-05-2024 ambulatory FARIBA VEGAS Facility:[facility] Start: 01-30-2024 End: 01-30-2024 Patient encounter procedure Luz Becker PA-C Work Phone: Orthopaedics Comment on above: Primary osteoarthrit is of both knees (Primary Dx) Start: 01-29-2024 End: 01-29-2024 Refill Tate Alfonso MD Work Phone: [facility] Comment on above: Refill Request Start: 01-16-2024 Refill Fariba abdi JET WORKER.GAS 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 Work Phone: [facility] Comment on above: Refill Request Start: 01-01-2024 End: 01-01-2024 Office outpatient visit 25 minutes Tate Alfonso MD Work Phone: [facility] Comment on above: Type 2 diabetes haley itus with other circulatory complication, without long-term current use of insulin (HCC) (Primary Dx); Arthritis of left knee; Arthritis of right knee; Spinal stenosis of lumbar region without neurogenic claudication; Degenerative disc disease, lumbar Start: 12-23-2023 Telephone encounter Tate Alfonso MD Work Phone: [facility] Comment on above: Coumadin/INR Start: 12-17-2023 ambulatory Tate riddle MD Work Phone: Internal [facility] [place] Start: 11-29-2023 Refill Tate riddle MD Work Phone: [facility] Comment on above: Refill Request Start: 11-25-2023 Telephone encounter Taet Alfonso MD Work Phone: [facility] Comment on above: Coumadin/INR Start: 10-31-2023 End: 10-31-2023 Patient encounter procedure Luz Becker PA-C Work Phone: Orthopaedics Comment on above: Primary osteoarthrit is of both knees (Primary Dx) Refill Request Start: 10-28-2023 Telephone encounter Fariba Vegas JET WORKER.GAS 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 Work Phone: [facility] Comment on above: Coumadin/INR Start: 08-26-2023 Telephone encounter Fariba Vegas APRN.GAS 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 Work Phone: [facility] Comment on above: Coumadin/INR Refill Request Start: 07-29-2023 Refill Tate riddle MD Work Phone: [facility] Comment on above: Refill Request Start: 05-27-2023 Refill Tate riddle MD Work Phone: [facility] Comment on above: Refill Request Start: 05-01-2023 Telephone encounter Tate Alfonso MD Work Phone: [facility] Comment on above: Results; Coumadin/IN R Start: 04-24-2023 Refill Tate riddle MD Work Phone: [facility] Comment on above: Refill Request Start: 04-11-2023 End: 04-11-2023 Patient encounter procedure Luz Becker PA-C Work Phone: Orthopaedics Comment on above: Primary osteoarthrit is of both knees (Primary Dx) Start: 04-03-2023 Telephone encounter Flakita Summers APRN.GAS 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 Work Phone: [facility] Comment on above: Anticoagulation (INR 2.0) Start: 03-26-2023 Telephone encounter Tate Alfonso MD Work Phone: [facility] Comment on above: Lab Orders Start: 03-25-2023 Refill Tate riddle MD Work Phone: [facility] Comment on above: Refill Request Start: 02-08-2023 End: 02-08-2023 Office outpatient visit 15 minutes Tate Alfonso MD Work Phone: [facility] Comment on above: Spinal stenosis of l umbar region without neurogenic claudication (Primary Dx); Thrombocytopenia (HCC); Coronary artery disease involving [place] heart without angina pectoris, unspecified vessel or lesion type; Type 2 diabetes mellitus with other circulatory complication, without long-term current use of insulin (HCC); Other chest pain Start: 01-26-2023 Telephone encounter Tate Alfonso MD Work Phone: [facility] Comment on above: Results Start: 01-21-2023 Refill Tate riddle MD Work Phone: [facility] Comment on above: Refill Request Start: 01-08-2023 End: 01-08-2023 Patient encounter procedure Luz BUTLER-C Work Phone: Orthopaedics Comment on above: Primary osteoarthrit is of both knees (Primary Dx) Start: 12-21-2022 Refill Tate riddle MD Work Phone: [facility] Comment on above: Refill Request Start: 12-19-2022 Telephone encounter Tate Alfonso MD Work Phone: [facility] Comment on above: Results Start: 12-03-2022 ambulatory Fariba abdi JET WORKERVestaGAS 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 Work Phone: [facility] Comment on above: Coumadin/INR Start: 11-20-2022 Refill Tate riddle MD Work Phone: [facility] Comment on above: Refill Request Start: 11-08-2022 Telephone encounter Tate Alfonso MD Work Phone: [facility] Comment on above: Results; Coumadin/IN R Start: 10-26-2022 ambulatory Tate riddle MD Work Phone: [facility] Comment on above: Results Start: 10-24-2022 End: 10-24-2022 Office outpatient visit 25 minutes Tate Alfonso MD Work Phone: [facility] Comment on above: Type 2 diabetes haley itus with other circulatory complication, without long-term current use of insulin (HCC) (Primary Dx); Arthritis of left knee; Arthritis of right knee; Spinal stenosis of lumbar region without neurogenic claudication; Degenerative disc disease, lumbar; Acute sinusitis, recurrence not specified, unspecified location Start: 10-23-2022 Refill Fariba abdi APRN.GAS 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 Work Phone: [facility] Comment on above: Refill Request Start: 10-19-2022 Telephone encounter Tate Alfonso MD Work Phone: [facility] Comment on above: Coumadin/INR Start: 10-15-2022 Refill Fariba abdi APRN.GAS 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 Work Phone: [facility] Comment on above: Refill Request Start: 10-09-2022 End: 10-09-2022 Patient encounter procedure Luz Becker PA-C Work Phone: Orthopaedics Comment on above: Primary osteoarthrit is of both knees (Primary Dx) Start: 09-24-2022 Refill Tate riddle MD Work Phone: [facility] Comment on above: Refill Request Start: 09-21-2022 Refill Tate riddle MD Work Phone: [facility] Comment on above: Refill Request Start: 09-12-2022 Telephone encounter Fariba Vegas APRN.GAS 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 Work Phone: [facility] Comment on above: Coumadin/INR Start: 07-25-2022 ambulatory Fariba abdi APRN.GAS 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 Work Phone: [facility] Comment on above: Results Start: 07-13-2022 Telephone encounter Tate Alfonso MD Work Phone: [facility] Comment on above: Results Start: 07-10-2022 ambulatory Tate riddel MD Work Phone: Internal [facility] [place] Start: 06-21-2022 Refill Tate riddle MD Work Phone: [facility] Comment on above: Refill Request Start: 05-22-2022 Refill Tate riddle MD Work Phone: [facility] Comment on above: Refill Request Start: 05-16-2022 ambulatory Tate riddle MD Work Phone: [facility] Comment on above: Coumadin/INR Start: 05-03-2022 Telephone encounter Tate Alfonso MD Work Phone: [facility] Comment on above: Patient Update Start: 05-01-2022 Telephone encounter Tate Alfonso MD Work Phone: [facility] Comment on above: Received Outside [facility] Records ([facility] re:Imaging (05/01/22)) Start: 04-23-2022 End: 04-23-2022 Patient encounter procedure Tate Alfonso MD Work Phone: [facility] Comment on above: Tremor of both hands (Primary Dx); Type 2 diabetes mellitus with other circulatory complication, without long-term current use of insulin (HCC); Spinal stenosis of lumbar region without neurogenic claudication; Degenerative disc disease, lumbar; Arthritis of left knee; Arthritis of right knee Start: 04-23-2022 Telephone encounter Tate Alfonso MD Work Phone: [facility] Comment on above: Appointment; Patient Question Start: 04-20-2022 Refill Tate riddle MD Work Phone: [facility] Comment on above: Refill Request Start: 04-13-2022 Telephone encounter Tate Alfonso MD Work Phone: Internal [facility] Comment on above: Results; Coumadin/IN R Start: 03-27-2022 End: 03-27-2022 Patient encounter procedure Luz Becker PA-C Work Phone: Orthopaedics Comment on above: Primary osteoarthrit is of both knees (Primary Dx) Start: 03-21-2022 Telephone encounter Fariba Vegas APRN.CNP Work Phone: [facility] Comment on above: Coumadin/INR Start: 03-20-2022 Refill Tate riddle MD Work Phone: [facility] Comment on above: Refill Request Start: 03-10-2022 Telephone encounter Tate Alfonso MD Work Phone: [facility] Comment on above: Results; Coumadin/IN R Start: 03-08-2022 Telephone encounter Tate Alfonso MD Work Phone: [facility] Comment on above: INR lab order issue Start: 02-08-2022 Telephone encounter Tate Alfonso MD Work Phone: [facility] Comment on above: Coumadin/INR Start: 01-17-2022 Refill Tate riddle MD Work Phone: [facility] Comment on above: Prescription Refills Start: 12-27-2021 End: 12-27-2021 Patient encounter procedure Tate Alfonso MD Work Phone: [facility] Comment on above: Type 2 diabetes haley itus with other circulatory complication, without long-term current use of insulin (HCC) (Primary Dx); Arthritis of left knee; Arthritis of right knee; Hand arthritis; Tremor of both hands Start: 12-25-2021 Telephone encounter Fariba Vegas APRN.GAS 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 Work Phone: [facility] Comment on above: Coumadin/INR Start: 12-21-2021 End: 12-21-2021 Subsequent hospital visit by physician [facility] Khurram Work Phone: Radiology Comment on above: Pain [R52] Start: 12-05-2021 Orders Only Flako Yang APRN.GAS 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 Work Phone: Orthopaedics Comment on above: Pain (Primary Dx) Procedures Date Procedure Procedure Detail Performing Clinician Start: 02-23-[address] Tate Alfonso MD Work Phone: Start: 02-23-2025 X-ray of chest, PA a nd lateral views Dr. Tate Alfonso MD Work Phone: Start: 11-05-2024 Arthrocentesis aspir &/inj major jt/bursa w/o us Luz Vetovitz PA-C Work Phone: Start: 08-04-2024 Arthrocentesis aspir &/inj major jt/bursa w/o us Luz Vetovitz PA-C Work Phone: Start: 04-30-2024 Arthrocentesis aspir &/inj major jt/bursa w/o us Luz Vetovitz PA-C Work Phone: Start: 03-25-2024 Adult depression scr eening assessment Tate Alfonso MD Work Phone: Start: 01-30-2024 Arthrocentesis aspir &/inj major jt/bursa w/o us Luz Vetovitz PA-C Work Phone: Start: 10-31-2023 Arthrocentesis aspir &/inj major jt/bursa w/o us Luz Vetovitz PA-C Work Phone: Start: 04-11-2023 Arthrocentesis aspir &/inj major jt/bursa w/o us Luz Vetovitz PA-C Work Phone: Start: 01-08-2023 Arthrocentesis aspir &/inj major jt/bursa w/o us Luz Vetovitz PA-C Work Phone: Start: 10-09-2022 Arthrocentesis aspir &/inj major jt/bursa w/o us Luz Vetovitz PA-C Work Phone: Start: 03-27-2022 Arthrocentesis aspir &/inj major jt/bursa w/o us Luz Vetovitz PA-C Work Phone: Start: 12-27-2021 Adult depression scr eening assessment Tate Naty MD Work Phone: Start: 12-21-2021 Radiologic exam knee complete 4/more views Flako Yang APRN.GAS 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 Work Phone: Start: 01-20-2021 History of placement of stent for coronary artery disease History of coronary artery stent placement Theo Fink UTILIZATION REVIEW RN-C Comment on above: MKZ-HLA-Ckej LAD w/ 3.0 x 38 mm Promus Stent 07/08/2013; PCI-DARNELL-Mid LAD w/ 2.5 x 9 mm Orsiro Stent 01/20/21 Start: 12-10-2020 Adult depression scr eening assessment 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: Start: 04-23-2017 End: 04-23-2017 Follow Up Appt 1 year Isaias Ontiveros MD Start: 04-23-2017 End: 04-23-2017 [facility] Isaias Ontiveros MD Start: 10-15-2016 End: 10-15-2016 Dietary management education, guidance, and counseling Paola Branham RN Start: 10-15-2016 End: 10-15-2016 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 DRIER OPERATOR Clarita Velasco PA-C Work Phone: Start: 10-15-2016 End: 10-15-2016 Follow Up Appt 6 months Clarita serrano PA-C Work Phone: Start: 10-15-2016 End: 10-15-2016 Follow Up BP Check Clarita Velasco PA-C Work Phone: Start: 04-18-2016 End: 10-08-2016 *Hepatic Function Panel Venancio Woods Start: 04-18-2016 End: 10-08-2016 Follow Up Appt 6 months Venancio Woods Start: 04-18-2016 End: 10-08-2016 Lipid panel [AGGREGATE] Venancio Woods Start: 04-18-2016 End: 10-08-2016 SHILPI Ontiveros MD Start: 04-11-2016 Placement of stent i n coronary artery Coronary stent Paola Branham RN History of placement of stent for coronary artery disease Hx of heart artery stent Dr. Tate Alfonso MD Work Phone: History of placement of stent for coronary artery disease Hx of heart artery stent Dr. Elizabeth Sultana MD Plan of Treatment Date Care Activity Detail Author Start: 01-21-2026 Hepatitis B screening Urine Albumin:Creatinine Ratio [facility] Start: 01-21-2026 Hepatitis B surface antibody level LDL Cholesterol [facility] Start: 10-26-2025 Annual PCP Team Chronic Disease Visit Annual PCP Team Chronic Disease Visit [facility] Start: 10-26-2025 BP Controlled (<130/80) BP Controlled (<130/80) [facility] Start: 10-21-2025 Hepatitis B surface antibody level LDL Cholesterol [facility] Start: 07-24-2025 Hemoglobin A1c measurement HbA1C [facility] Start: 06-29-2025 Annual PCP Team Chronic Disease Visit Annual PCP Team Chronic Disease Visit [facility] Start: 06-22-2025 Hepatitis B screening Urine Albumin:Creatinine Ratio [facility] Start: 05-17-2025 Influenza vaccination Influenza Vaccine (Season Ended) [facility] Start: 2025 RSV Vaccine (1 - 1-dose 75+ series) RSV Vaccine (1 - 1-dose 75+ series) [facility] Start: 03-25-2025 Annual PCP Team Chronic Disease Visit Annual PCP Team Chronic Disease Visit [facility] Start: 03-25-2025 Anxiety Screening Anxiety Screening [facility] Start: 03-25-2025 Covid-19 Vaccine ( season) Covid-19 Vaccine ( season) [facility] Comment on above: Postponed from 05/17/2023 (Declined at t his time) Start: 03-25-2025 Depression Screening Depression Screening [facility] Start: 03-25-2025 Screening for malignant neoplasm of colon Colorectal Cancer Screening [facility] Comment on above: Postponed from 1995 (Declined at t his time) Start: 02-23-2025 Admission procedure [facility] Start: 02-23-2025 [facility] Start: 02-23-2025 Hospital admission, emergency, from emergency room, medical nature [facility] Start: 02-23-2025 End: 02-23-2025 [facility] Start: 02-09-2025 End: 02-09-2025 Patient encounter procedure 02/09/2025 11:30 AM EDT Office Visit Orthopaedics [address] [address] Luz Becker PA-C [address] [place] [address] bi lateral knee cortisone inj Orthopaedics Comment on above: bi lateral knee cortisone inj Start: 02-01-2025 End: 02-01-2025 Patient encounter procedure 02/01/2025 6:00 PM EDT Office Visit Internal Medicine [place] [address] [address] Tate Alfonso MD [address] [place] [address] Return in about 3 months (around 01/23/2025). [facility] [place] Comment on above: Return in about 3 months (around 01/24/20). Start: 01-24-2025 End: 04-25-2025 CBC panel - Blood by Automated count COMPLETE BLOOD COUNT Lab Routine Type 2 diabetes mellitus with other circulatory complication, without long-term current use of insulin (HCC) Expected: 01/24/2025, Expires: 04/25/2025 [facility] Comment on above: Expected: 01/24/2025, Expires: Start: 01-24-2025 End: 04-25-2025 Comprehensive metabolic 2000 panel - Serum or Plasma COMPREHENSIVE METABOLIC PANEL Lab Routine Type 2 diabetes mellitus with other circulatory complication, without long-term current use of insulin (HCC) Expected: 01/24/2025, Expires: 04/25/2025 [facility] Comment on above: Expected: 01/24/2025, Expires: Start: 01-24-2025 End: 04-25-2025 Hemoglobin A1c in Blood HEMOGLOBIN A1C Lab Routine Type 2 diabetes mellitus with other circulatory complication, without long-term current use of insulin (HCC) Expected: 01/24/2025, Expires: 04/25/2025 [facility] Work Phone: Comment on above: Expected: 01/24/2025, Expires: Start: 01-24-2025 End: 04-25-2025 LIPID PANEL, NONFASTING LIPID PANEL, NONFASTING Lab Routine Type 2 diabetes mellitus with other circulatory complication, without long-term current use of insulin (HCC) Expected: 01/24/2025, Expires: 04/25/2025 [facility] Comment on above: Expected: 01/24/2025, Expires: Start: 01-24-2025 End: 04-25-2025 Microalbumin/Creatini ne [Mass Ratio] in Urine ALBUMIN/CREATININE RATIO, URINE Lab Routine Type 2 diabetes mellitus with other circulatory complication, without long-term current use of insulin (HCC) Expected: 01/24/2025, Expires: 04/25/2025 [facility] Comment on above: Expected: 01/24/2025, Expires: Start: 01-23-2025 End: 04-24-2025 TOXICOLOGY SCREEN, ROUTINE URINE TOXICOLOGY SCREEN, ROUTINE URINE Lab Routine High risk medication use Expected: 01/23/2025, Expires: 04/24/2025 [facility] Comment on above: Expected: 01/23/2025, Expires: Start: 12-31-2024 Annual PCP Team Chronic Disease Visit Annual PCP Team Chronic Disease Visit [facility] Start: 12-31-2024 BP Controlled (<130/80) BP Controlled (<130/80) [facility] Start: 12-22-2024 Hepatitis B surface antibody level LDL Cholesterol [facility] Start: 12-21-2024 Hemoglobin A1c measurement HbA1C [facility] Start: 11-05-2024 End: 11-05-2024 Patient encounter procedure 11/05/2024 3:00 PM EST Office Visit Orthopaedics [address] [address] Luz Becker PA-C [address] [place] [address] bi lateral knee cortisone inj Orthopa[facility]ics Comment on above: bi lateral knee cortisone inj Start: 10-26-2024 End: 10-26-2024 Patient encounter procedure 10/26/2024 5:40 PM EST Office Visit [facility] [place] [address] [address] Tate Alfonso MD [address] [place] [address] Return in about 3 months (around 09/29/2024). [facility] [place] Comment on above: Return in about 3 months (around 09/29/19). Start: 10-13-2024 End: 01-12-2025 Lipid 1996 panel - Serum or Plasma LIPID PANEL BASIC Lab Routine Pure hypercholesterolemia Expected: 10/13/2024, Expires: 01/12/2025 [facility] Work Phone: Comment on above: Expected: 10/13/2024, Expires: Start: 10-13-2024 End: 01-12-2025 Thyrotropin [Units/volume] in Serum or Plasma THYROID STIMULATING HORMONE Lab Routine Subclinical hypothyroidism Expected: 10/13/2024, Expires: 01/12/2025 [facility] Comment on above: Expected: 10/13/2024, Expires: Start: 09-23-2024 Hemoglobin A1c measurement HbA1C [facility] Start: 09-19-2024 Annual PCP Team Chronic Disease Visit Annual PCP Team Chronic Disease Visit [facility] Start: 09-19-2024 BP Controlled (<130/80) BP Controlled (<130/80) [facility] Start: 09-16-2024 Advance Directive Discussion Advance Directive Discussion [facility] Start: 08-04-2024 End: 08-04-2024 Patient encounter procedure 08/04/2024 11:30 AM EST Office Visit Orthopaedics [address] [address] Luz Becker PA-C [address] [place] [address] bi lateral knee cortisone inj Orthopa[facility]ics Comment on above: bi lateral knee cortisone inj Start: 06-29-2024 End: 06-29-2024 Patient encounter procedure 06/29/2024 2:00 PM EDT Office Visit [facility] [place] [address] [address] Kraig Sifuentes APRN.[employer] 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 [address] [place] [address] Medicare Wellness [facility] [place] Comment on above: Medicare Wellness Start: 06-26-2024 End: 06-26-2024 Patient encounter procedure 06/26/2024 1:40 PM EDT Office Visit [facility] [place] [address] [address] Tate Alfonso MD [address] [place] [address] Medicare Wellness [facility] [place] Comment on above: Medicare Wellness Start: 06-25-2024 End: 09-24-2024 Basic metabolic 2000 panel - Serum or Plasma BASIC METABOLIC PANEL Lab Routine Type 2 diabetes mellitus with other circulatory complication, without long-term current use of insulin (HCC) Expected: 06/25/2024 (Approximate), Expires: 09/24/2024 [facility] Comment on above: Expected: 06/25/2024 (Approximate), Expi res: 09/24/2024 Start: 06-23-2024 End: 09-22-2024 Hemoglobin A1c in Blood HEMOGLOBIN A1C Lab Routine Type 2 diabetes mellitus with other circulatory complication, without long-term current use of insulin (HCC) Expected: 06/23/2024, Expires: 09/22/2024 [facility] Work Phone: Comment on above: Expected: 06/23/2024, Expires: Start: 06-23-2024 End: 09-22-2024 Microalbumin/Creatini ne [Mass Ratio] in Urine ALBUMIN/CREATININE RATIO, URINE Lab Routine Type 2 diabetes mellitus with other circulatory complication, without long-term current use of insulin (HCC) Expected: 06/23/2024, Expires: 09/22/2024 [facility] Comment on above: Expected: 06/23/2024, Expires: Start: 06-19-2024 Annual PCP Team Chronic Disease Visit Annual PCP Team Chronic Disease Visit [facility] Start: 06-19-2024 BP Controlled (<130/80) BP Controlled (<130/80) [facility] Start: 05-17-2024 Covid-19 Vaccine () Covid-19 Vaccine () [facility] Start: 05-17-2024 Covid-19 Vaccine () Covid-19 Vaccine () [facility] Start: 05-17-2024 [facility] Start: 05-07-2024 End: 05-07-2024 Patient encounter procedure 05/07/2024 2:20 PM EDT Office Visit [facility] [place] [address] [address] Tate Alfonso MD [address] [place] [address] follow up [facility] [place] Comment on above: follow up Start: 04-30-2024 End: 04-30-2024 Patient encounter procedure 04/30/2024 10:30 AM EDT Office Visit Orthopaedics [address] [address] Luz Becker PA-C [address] [place], [place] [id number] bi lateral knee cortisone inj Orthopa[facility]ics Comment on above: bi lateral knee cortisone inj Start: 03-31-2024 End: 06-30-2024 CBC panel - Blood by Automated count COMPLETE BLOOD COUNT Lab Routine Type 2 diabetes mellitus with other circulatory complication, without long-term current use of insulin (HCC) Expected: 03/31/2024, Expires: 06/30/2024 [facility] Comment on above: Expected: 03/31/2024, Expires: Start: 03-31-2024 End: 06-30-2024 Comprehensive metabolic 2000 panel - Serum or Plasma COMPREHENSIVE METABOLIC PANEL Lab Routine Type 2 diabetes mellitus with other circulatory complication, without long-term current use of insulin (HCC) Expected: 03/31/2024, Expires: 06/30/2024 [facility] Comment on above: Expected: 03/31/2024, Expires: Start: 03-31-2024 End: 06-30-2024 Hemoglobin A1c in Blood HEMOGLOBIN A1C Lab Routine Type 2 diabetes mellitus with other circulatory complication, without long-term current use of insulin (HCC) Expected: 03/31/2024, Expires: 06/30/2024 [facility] Work Phone: Comment on above: Expected: 03/31/2024, Expires: Start: 03-25-2024 End: 03-25-2024 Patient encounter procedure 03/25/2024 9:20 AM EDT Office Visit [facility] [place] [address] [address] Tate Alfonso MD [address] [place] [address] follow up [facility] [place] Comment on above: follow up Start: 03-19-2024 Hemoglobin A1c measurement HbA1C [facility] Start: 02-09-2024 ANNUAL PCP TEAM CHRONIC DISEASE VISIT ANNUAL PCP TEAM CHRONIC DISEASE VISIT [facility] Start: 01-30-2024 End: 01-30-2024 Patient encounter procedure 01/30/2024 10:30 AM EDT Office Visit Orthopaedics [address] [address] Luz Becker PA-C [address] [place] [address] bi lateral knee inj cortisone [facility] Comment on above: bi lateral knee inj cortisone Start: 01-26-2024 Hepatitis B screening URINE ALBUMIN:CREATININE RATIO [facility] Start: 01-26-2024 Hepatitis B surface antibody level LDL CHOLESTEROL [facility] Start: 12-17-2023 End: 03-17-2024 Lipid 1996 panel - Serum or Plasma LIPID PANEL BASIC Lab Routine Pure hypercholesterolemia Expected: 12/17/2023, Expires: 03/17/2024 [facility] Work Phone: Comment on above: Expected: 12/17/2023, Expires: 4 Start: 10-24-2023 ANNUAL PCP TEAM CHRONIC DISEASE VISIT ANNUAL PCP TEAM CHRONIC DISEASE VISIT [facility] Start: 10-19-2023 Hepatitis B surface antibody level LDL CHOLESTEROL [facility] Start: 09-16-2023 Advance Directive Discussion Advance Directive Discussion [facility] Start: 09-16-2023 Behavioral Health Screening Behavioral Health Screening [facility] Start: 09-16-2023 Depression Assessment Depression Assessment [facility] Start: 07-28-2023 Hemoglobin A1c/Hemoglobin.total in Blood HBA1C [facility] Start: 07-24-2023 ANNUAL PCP TEAM CHRONIC DISEASE VISIT ANNUAL PCP TEAM CHRONIC DISEASE VISIT [facility] Start: 07-24-2023 COLORECTAL CANCER SCREENING COLORECTAL CANCER SCREENING [facility] Comment on above: Postponed from 1995 (Declined at t his time) Start: 07-24-2023 Hepatitis B surface antibody level LDL CHOLESTEROL [facility] Start: 05-17-2023 Covid-19 Vaccine ( season) Covid-19 Vaccine () [facility] Start: 05-17-2023 Influenza vaccination INFLUENZA (#1) [facility] Start: 04-23-2023 ANNUAL PCP TEAM CHRONIC DISEASE VISIT ANNUAL PCP TEAM CHRONIC DISEASE VISIT [facility] Start: 02-08-2023 End: 04-10-2023 CBC W Auto Differential panel - Blood CBC + DIFF Lab Routine Thrombocytopenia (HCC) Expected: 02/08/2023, Expires: 04/10/2023 [facility] Work Phone: Comment on above: Expected: 02/08/2023, Expires: 3 Start: 01-22-2023 End: 03-24-2023 ALBUMIN/CREAT RATIO RND UR ALBUMIN/CREAT RATIO RND UR Lab Routine Type 2 diabetes mellitus with other circulatory complication, without long-term current use of insulin (HCC) Expected: 01/22/2023, Expires: 03/24/2023 [facility] Work Phone: Comment on above: Expected: 01/22/2023, Expires: 3 Start: 01-22-2023 End: 03-24-2023 CBC panel - Blood by Automated count CBC Lab Routine Type 2 diabetes mellitus with other circulatory complication, without long-term current use of insulin (HCC) Expected: 01/22/2023, Expires: 03/24/2023 [facility] Work Phone: Comment on above: Expected: 01/22/2023, Expires: 3 Start: 01-22-2023 End: 03-24-2023 Comprehensive metabolic 2000 panel - Serum or Plasma COMP METABOLIC PANEL Lab Routine Type 2 diabetes mellitus with other circulatory complication, without long-term current use of insulin (HCC) Expected: 01/22/2023, Expires: 03/24/2023 [facility] Work Phone: Comment on above: Expected: 01/22/2023, Expires: 3 Start: 01-22-2023 End: 03-24-2023 Hemoglobin A1c in Blood HGB A1C Lab Routine Type 2 diabetes mellitus with other circulatory complication, without long-term current use of insulin (HCC) Expected: 01/22/2023, Expires: 03/24/2023 [facility] Work Phone: Comment on above: Expected: 01/22/2023, Expires: Start: 01-21-2023 Hemoglobin A1c/Hemoglobin.total in Blood HBA1C [facility] Start: 01-21-2023 End: 03-23-2023 Lipid 1996 panel - Serum or Plasma LIPID PANEL BASIC Lab Routine Type 2 diabetes mellitus with other circulatory complication, without long-term current use of insulin (HCC) Expected: 01/21/2023, Expires: 03/23/2023 [facility] Work Phone: Comment on above: Expected: 01/21/2023, Expires: 3 Start: 12-27-2022 Adult depression screening assessment DEPRESSION SCREENING [facility] Start: 12-27-2022 ANNUAL PCP TEAM CHRONIC DISEASE VISIT ANNUAL PCP TEAM CHRONIC DISEASE VISIT [facility] Start: 11-04-2022 End: 01-04-2023 LIPID PANEL, NONFASTING LIPID PANEL, NONFASTING Lab Routine Pure hypercholesterolemia Expected: 11/04/2022, Expires: 01/04/2023 [facility] Work Phone: Comment on above: Expected: 11/04/2022, Expires: 3 Start: 09-25-2022 3 comp foot exam completed DIABETIC FOOT EXAM [facility] Start: 09-25-2022 ANNUAL PCP TEAM CHRONIC DISEASE VISIT ANNUAL PCP TEAM CHRONIC DISEASE VISIT [facility] Start: 09-25-2022 BP CONTROLLED (<130/80) BP CONTROLLED (<130/80) [facility] Start: 09-25-2022 Diabetic foot examination Diabetic Foot Exam [facility] Start: 09-20-2022 Hepatitis B screening URINE ALBUMIN:CREATININE RATIO [facility] Start: 09-20-2022 Hepatitis B surface antibody level LDL CHOLESTEROL [facility] Start: 09-16-2022 ADVANCE DIRECTIVE DISCUSSION ADVANCE DIRECTIVE DISCUSSION [facility] Start: 09-16-2022 DEPRESSION ASSESSMENT DEPRESSION ASSESSMENT [facility] Start: 07-10-2022 End: 09-09-2022 SCHEDULE LAB TESTING SCHEDULE LAB TESTING Lab Routine Expected: 07/10/2022, Expires: 09/09/2022 [facility] Work Phone: Comment on above: Expected: 07/10/2022, Expires: 2 Start: 06-28-2022 Hemoglobin A1c/Hemoglobin.total in Blood HBA1C [facility] Start: 06-26-2022 COLORECTAL CANCER SCREENING COLORECTAL CANCER SCREENING [facility] Comment on above: Postponed from 1995 (Declined at t his time) Start: 05-17-2022 Influenza vaccination INFLUENZA (#1) [facility] Start: 03-28-2022 End: 05-28-2022 LIPID PANEL BASIC LIPID PANEL BASIC Lab Routine Type 2 diabetes mellitus with other circulatory complication, without long-term current use of insulin (HCC) Expected: 03/28/2022, Expires: 05/28/2022 [facility] Work Phone: Comment on above: Expected: 03/28/2022, Expires: 2 Start: 03-27-2022 End: 05-27-2022 CBC panel - Blood by Automated count CBC Lab Routine Type 2 diabetes mellitus with other circulatory complication, without long-term current use of insulin (HCC) Expected: 03/27/2022, Expires: 05/27/2022 [facility] Work Phone: Comment on above: Expected: 03/27/2022, Expires: 2 Start: 03-27-2022 End: 05-27-2022 Comprehensive metabolic 2000 panel - Serum or Plasma COMP METABOLIC PANEL Lab Routine Type 2 diabetes mellitus with other circulatory complication, without long-term current use of insulin (HCC) Expected: 03/27/2022, Expires: 05/27/2022 [facility] Work Phone: Comment on above: Expected: 03/27/2022, Expires: 2 Start: 03-27-2022 End: 05-27-2022 Hemoglobin A1c/Hemoglobin.total in Blood HGB A1C Lab Routine Type 2 diabetes mellitus with other circulatory complication, without long-term current use of insulin (HCC) Expected: 03/27/2022, Expires: 05/27/2022 [facility] Work Phone: Comment on above: Expected: 03/27/2022, Expires: 2 Start: 03-20-2022 Hemoglobin A1c/Hemoglobin.total in Blood HBA1C [facility] Start: 02-02-2022 BP CONTROLLED (<130/80) BP CONTROLLED (<130/80) [facility] Start: 12-10-2021 Adult depression screening assessment DEPRESSION SCREENING [facility] Start: 10-27-2021 COVID-19 VACCINE (4 - Booster for Pfizer series) COVID-19 VACCINE (4 - Booster for Pfizer series) [facility] Start: 09-16-2021 ADVANCE DIRECTIVE DISCUSSION ADVANCE DIRECTIVE DISCUSSION [facility] Start: 09-16-2021 DEPRESSION ASSESSMENT DEPRESSION ASSESSMENT [facility] Start: 08-21-2021 COVID-19 VACCINE (4 - Booster for Pfizer series) COVID-19 VACCINE (4 - Booster for Pfizer series) [facility] Start: 08-21-2021 COVID-19 VACCINE (4 - Pfizer series) COVID-19 VACCINE (4 - Pfizer series) [facility] Start: 01-16-2019 COLORECTAL CANCER SCREENING COLORECTAL CANCER SCREENING [facility] Start: 01-16-2019 FECAL OCCULT BLOOD FECAL OCCULT BLOOD [facility] Start: 01-16-2019 Screening for malignant neoplasm of colon [facility] Start: 04-22-2018 End: 04-22-2018 Appointment Appointment [facility] Work Phone: Start: 04-23-2017 End: 04-23-2017 Appointment Appointment [facility] Work Phone: Start: 04-23-2017 End: 04-23-2017 Follow Up Appt 1 year Follow Up Appt 1 year [facility] Work Phone: Start: 04-23-2017 End: 04-23-2017 JHR JHR [facility] Work Phone: Start: 04-09-2017 End: 10-11-2016 *Hepatic Function Panel *Hepatic Function Panel [facility] Work Phone: Start: 04-09-2017 End: 10-11-2016 Lipid panel [AGGREGATE] *Lipid Profile CC PCP [facility] Work Phone: Start: 10-15-2016 End: 10-15-2016 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 DRIER OPERATOR FIBER DRIER OPERATOR [facility] Work Phone: Start: 10-15-2016 End: 10-15-2016 Follow Up Appt 6 months Follow Up Appt 6 months [facility] Work Phone: Start: 10-15-2016 End: 10-15-2016 Follow Up BP Check Follow Up BP Check [facility] Work Phone: Start: 04-18-2016 End: 10-08-2016 *Hepatic Function Panel *Hepatic Function Panel [facility] Work Phone: Start: 04-18-2016 End: 10-08-2016 Follow Up Appt 6 months Follow Up Appt 6 months [facility] Work Phone: Start: 04-18-2016 End: 10-08-2016 Lipid panel [AGGREGATE] *Lipid Profile CC PCP [facility] Work Phone: Start: 04-18-2016 End: 10-08-2016 MMM MMM [facility] Work Phone: Start: 2010 Hepatitis B Vaccine (1 of 3 - Risk 3-dose series) Hepatitis B Vaccine (1 of 3 - Risk 3-dose series) [facility] Start: 2010 RSV Vaccine (1 - 1-dose 60+ series) RSV Vaccine (1 - 1-dose 60+ series) [facility] Start: 2000 SHINGRIX VACCINE (1 of 2) SHINGRIX VACCINE (1 of 2) [facility] Start: 1995 COLOGUARD (FIT-DNA) COLOGUARD (FIT-DNA) [facility] Start: 1995 Colonoscopy COLONOSCOPY [facility] Start: [address] COLONOGRAPHY [facility] Start: 1995 Screening for malignant neoplasm of colon [facility] Start: 1995 SIGMOIDOSCOPY SIGMOIDOSCOPY [facility] Start: 1969 Urine microalbumin profile [facility] Start: 1960 Glaucoma screening Dilated Retinal Exam [facility] Start: 1960 Hepatitis C antibody, confirmatory test DILATED RETINAL EXAM [facility] Start: 1956 PNEUMOCOCCAL: 65+ (1 - PCV) PNEUMOCOCCAL: 65+ (1 - PCV) [facility] Patient Education LOW%20FAT%20DIET [facility] Work Phone: Patient referral [facility] Work Phone: End: 03-08-2023 PT panel - Platelet poor plasma by Coagulation assay PROTHROMBIN TIME/PT Lab Routine History of DVT of lower extremity Once per week for 99 Occurrences starting 03/08/2022 until 03/08/2023 [facility] Work Phone: Comment on above: Once per week for 99 Occurrences startin g 03/08/2022 until 03/08/2023 End: 03-25-2024 PT panel - Platelet poor plasma by Coagulation assay PROTHROMBIN TIME/PT Lab Routine History of DVT of lower extremity Once per week for 99 Occurrences starting 03/26/2023 until 03/25/2024 [facility] Work Phone: Comment on above: Once per week for 99 Occurrences startin g 03/26/2023 until 03/25/2024 End: 02-11-2025 PT panel - Platelet poor plasma by Coagulation assay PROTHROMBIN TIME Lab Routine Anticoagulation goal of INR 2 to 3 Once per week for 99 Occurrences starting 02/12/2024 until 02/11/2025 [facility] Work Phone: Comment on above: Once per week for 99 Occurrences startin g 02/12/2024 until 02/11/2025 Troponin T.cardiac [Mass/volume] in Serum or Plasma by High sensitivity method [facility] End: 01-04-2023 XR KNEE GENERAL 4V AP BOTH/PA BOTH/LAT/MERC BILATERAL XR KNEE GENERAL 4V AP BOTH/PA BOTH/LAT/MERC BILATERAL Radiology Routine Pain 1 Occurrences starting 12/05/2021 until 01/04/2023 [facility] Work Phone: Comment on above: 1 Occurrences starting 12/05/2021 until 01/04/2023 XR Shoulder - left 3 Views XR SHOULDER GENERAL 3V OR MORE AP/TRUE AP/OTHER LEFT Radiology Routine Chronic pain of both shoulders 10/27/2024 2:20 PM EST [facility] Work Phone: XR Shoulder - right 3 Views XR SHOULDER GENERAL 3V OR MORE AP/TRUE AP/OTHER RIGHT Radiology Routine Chronic pain of both shoulders 10/27/2024 2:20 PM EST [facility] Immunizations Immunization Date Immunization Notes Care Provider Fara patel 06-19-2023 influenza (HD-IIV4) vaccine, age 65+ yr, high dose, quadrivalent, PF (FLUZONE HIGH-DOSE) Tate Alfonso MD Work Phone: [facility] 06-19-2023 influenza virus vacc ine, unspecified formulation Tate Alfonso MD Work Phone: [facility] 07-24-2022 influenza, high-dose , quadrivalent vaccine (FLUZONE HIGH DOSE QUADRIVALENT) Fariba Vegas JET WORKER.[employer] 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 Work Phone: [facility] 07-22-2021 influenza, high-dose , quadrivalent vaccine (FLUZONE HIGH DOSE QUADRIVALENT) 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: [facility] 06-26-2021 COVID-19 vaccine, ag e 12+ yr (PFIZER-BIONTECH - PURPLE TOP) 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: [facility] 12-08-2020 COVID-19 vaccine, ag e 12+ yr (PFIZER-BIONTECH - PURPLE TOP) Flako Grater JET WORKER.GAS 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 Work Phone: [facility] 11-17-2020 COVID-19 vaccine, ag e 12+ yr (PFIZER-BIONTECH - PURPLE TOP) Flako Grater JET WORKER.GAS 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 Work Phone: [facility] 06-01-2020 influenza, high-dose , quadrivalent vaccine (FLUZONE HIGH DOSE QUADRIVALENT) 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: [facility] 07-30-2019 influenza, high dose seasonal, preservative-free Flako Grater JET WORKER.G[employer] 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 Work Phone: [facility] 07-30-2017 influenza, high dose seasonal, preservative-free Flako Grater JET WORKER.GAS 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 Work Phone: [facility] 07-30-2017 pneumococcal polysaccharide vaccine, 23 valent 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: [facility] 07-17-2016 pneumococcal conjuga te vaccine, 13 valent 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: [facility] Payers Date Payer Category Payer Self-pay 2015 Medicare MMO MEDICARE MMO MEDADVANTAGE HMO [id number] 2015-Present [phone] [address] [place] [address] O [id number] 2015 Medicare MMO MEDICARE MMO MEDADVANTAGE HMO [id number] 2015-Present [phone] [address] [place] [address] O [id number] 2015 Medicare (Managed Care) MMO NERY DVANTAGE HMO [id number] 2015 Unknown [id number] Unknown [id number] Unknown [id number] Unknown [id number] Social History Date Type Detail Facility Start: 05-17-2016 End: 02-23-2025 Tobacco smoking status NHIS Never smoked tobacco [facility] Start: 05-17-2016 End: 05-30-2016 Tobacco use and exposure Smokeless tobacco non-user [facility] Start: 09-25-2021 End: 10-26-2024 Alcohol intake Current non-drinker of alcohol (finding) [facility] Start: 1950 Sex Assigned At Not on file [facility] Start: 11-25-2021 End: 12-05-2021 Exposure to SARS-CoV-2 (event) Unable to assess [facility] Start: 12-11-2021 End: 07-24-2022 Exposure to SARS-CoV-2 (event) Not sure [facility] Start: 02-01-2023 End: 02-08-2023 History of Social function [facility] Work Phone: Start: 02-01-2023 End: 02-08-2023 Tobacco use panel [facility] Work Phone: Adult Depression Screening Assessment 0 [facility] Work Phone: How often to you hav e a drink containing alcohol? Never [facility] Start: 01-20-2021 Tobacco Use Tobacco Use [facility] Start: 1950 Sex Assigned At Male [facility] Medical Equipment Procedure Code Equipment Code Equipment Origin al Text Equipment Identifier Dates [id number], [id number] Start: 11-12-2019 Comment on above: 1 Strip twice daily. E11.9 1 Each twice daily. E11.9 Functional Status Date Assessment Result Facility 07-24-2018 Are you deaf, or do you have serious difficulty hearing No 07/24/2018 2:23 PM Nidhi Snell, ROBE No [facility] 07-24-2018 Are you blind, or do you have serious difficulty seeing, even when wearing glasses No 07/24/2018 2:23 PM Nidhi Snell, ROBE No [facility] 07-24-2018 Do you have serious difficulty walking or climbing stairs No 07/24/2018 2:23 PM Nidhi Snell, ROBE No [facility] 07-24-2018 Do you have difficul ty dressing or bathing No 07/24/2018 2:23 PM Nidhi Snell, ROBE No [facility] 07-24-2018 Because of a physica l, mental, or emotional condition, do you have difficulty doing errands alone such as visiting a physician's office or shopping No 07/24/2018 2:23 PM Nidhi Snell RN No [facility] Mental Status Date Assessment Result Facility 07-24-2018 Because of a physica l, mental, or emotional condition, do you have serious difficulty concentrating, remembering, or making decisions No 07/24/2018 2:23 PM Nidhi Snell RN No [facility] Clinical Notes 07-23-2018 to 02-23-2025 Telephone Encounter - [facility], Barbi - 01/25/2025 2:38 PM EDTTelephone Encounter - [facility], [facility] - 01/25/2025 2:38 PM EDT Note Date & Type Note Facility 02-23-2025 Discharge summary [facility] 02-23-2025 Radiology Diagnostic study note [facility] Imaging Services [address] [place] [address] Chest PA and Lateral MR#: [id number] Acct: [id number] Name: TIFFANIEKAYLA ADAM Rep #: [id number] : 1950 M [id number] From: Dean Perdomo MD PCP: Dr. Tate Alfonso MD Status: R EG ER Study:Chest PA and Lateral Date of Exam: 02/23/25 Exam# [id number] Ordering Dr: Yaneth Paz MD PROCEDURE: CHEST PA AND LATERAL 02/23/2025 REASON FOR EXAM: DYSPNEA TECHNIQUE: Frontal and lateral views of the chest. COMPARISON: February 04, 2023. FINDINGS: Hardware: EKG electrodes are seen. Heart: The heart size is normal. Mediastinum: The mediastinal contour is unremarkable. Lungs: The lungs are clear. Bones: Degenerative changes are identified within the thoracic spine. RAD/Chest PA and Lateral IMPRESSION: NO ACUTE FINDINGS. Reading Location: [facility] CC: Dr. Garry Paz MD; Dr. 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 Author Type: Physician Emd Special Education Teacher Type: Progress Notes Filed: 02/16/2025 11:05 Note Text: Large Joint Arthro/Inj: bilateral knee joints 02/16/2025 11:05 AM The procedure site was prepped in the usual sterile fashion. Site: bilateral knee joints Medications (Right): 6 mg betamethasone acetate-betamethasone sodium phosphate 6 mg/mL Medications (Left): 6 mg betamethasone acetate-betamethasone sodium phosphate 6 mg/mL Anesthetics (Right): 5 mL lidocaine (PF) 10 mg/mL (1 %) Anesthetics (Left): 5 mL lidocaine (PF) 10 mg/mL (1 %) Outcome: Tolerated well, no immediate complications Post-injection instructions were reviewed with the patient and the patient voiced understanding of these instructions. Informed Consent Consent Obtained: Verbal [place] Protocol A moment to CARE was completed. SIGN IN Sign in communication not applicable due to emergent procedure. Personnel directly involved with the procedure wore the appropriate PPE. Special Equipment: N/A Patient/Surrogate Stated/Verified: Patient name, Date of , Relevant allergies and Intended procedure TIME OUT Relevant labs, photos, and/or imaging studies have been reviewed. Consent documented and matches the intended procedure. Correct side/site marked and visible. Medications required for procedure verified. No fire risk assessment and interventions applicable. No implant(s) inserted. SIGN OUT No specimen collected. No post-procedure POC communication to the patient's multidisciplinary team (including the bedside nurse for hospitalized patients) applicable. [facility] 02-01-2025 Note HNO ID: [id number] Author: TATE ALFONSO MD Service: ? Author Type: Physician Type: Progress Notes Filed: 02/02/2025 21:16 Note Text: ESTABLISHED PATIENT Kayla is a 74-year-old male with a history of HTN, tremors, and arthritis, presenting for medication management. HISTORY OF PRESENT ILLNESS Hypertension: - Home BP readings: ~130/65-68 mmHg on 40 mg Lisinopril. - BP readings at operator receptionist's office: 140-150/70 mmHg. - Recently received a 90-day supply of 20 mg Lisinopril but has been taking 40 mg for a long time. - Reports that propranolol has worsened BP control. - Denies use of HCTZ. Tremors: - Taking propranolol BID, which has improved tremors and nervousness in feet. - Also taking primidone. Arthritis: - Reports pain in shoulders. - Previously used prednisone with significant relief. - Uses Voltaren gel on knees at night; avoids using it on shoulders due to slow drying time. - Denies recent corticosteroid injections in shoulders. Diabetes: - Recent A1c: 5.7%. - Avoids snacks; inquires about dietary changes. Labs: - Potassium: Elevated - INR: 2.5 - Hemoglobin A1c: 5.7 Chronic Narcotic Pain Medication. Notes waking up around 230 to 3 with pain. Medication: [place] 10mg Used for: Knee pain and chronic back pain. Has arthritis in knees. Has had 3 back surgeries at [facility] Improves quality of life/pain: Yes Amount used per day: Uses 1 per day Non-pharmacologic therapies: gets steroid injections. Pain Scale before medication:6 After medication: 2 If patient is on benzo/muscle relaxer aware of potential sedation: On no benzo or muscle relaxer Concern for addiction: No Non-opioid treatment options: Yes Tylenol Counseled on safe storage and disposal: Yes Counseled on opioid and alcohol: Yes ASSESSMENT AND PLAN 1. Essential hypertension (I10) - Blood pressure readings at home average 130/65-68 mmHg on losartan 40 mg daily; readings at operator receptionist's office range from 140-150/70 mmHg. - Current potassium levels are elevated. - Reduced losartan dosage to 20 mg daily. - Initiated hydrochlorothiazide to manage blood pressure and reduce potassium levels. - Continue monitoring blood pressure at home. 2. Chronic pain of both shoulders (M25.511) - Prescribed a course of prednisone. - Advised use of Voltaren gel topically, avoiding chest area. 3. Encounter for immunization (Z23) - Discussed tetanus booster; patient declined at this time. 4. Type 2 diabetes mellitus with other circulatory complication, without long-term current use of insulin (HCC) (E11.59) - Recent A1c is 5.7%, improved from previous 5.8%. - Continue current management and dietary habits. 5. Tremor of both hands (R25.1) - Continue propranolol twice daily and primidone as prescribed. 6. Coronary artery disease involving [place] heart without angina pectoris, unspecified vessel or lesion type (I25.10) - Continue current management. - Next INR check scheduled for February 19; recent INR is 2.5. 7. Arthritis of left knee (M17.12) 8. Arthritis of right knee (M17.11) - Continue current management. 9. Spinal stenosis of lumbar region without neurogenic claudication (M48.061) - Continue current management. Continue norco Patient Instructions Switch from your current 40 mg dose to the 20 mg version as discussed; use the 20 mg refill you received. Begin taking hydrochlorothiazide (HCTZ) along with the 20 mg medication. Expect to urinate more often during the first one to two weeks. Continue taking your propranolol as usual--one pill in the morning and one at night--to control your nervousness and tremors. Continue your current regimen of Tylenol for pain as needed and use Voltaren gel on your shoulders when necessary (avoid applying it to your chest). You are prescribed another dose of prednisone; confirm pickup at [facility] in [facility]. Your next INR lab check is scheduled between February 19 and . Your follow-up appointment is set for three months from today. Orders Placed During This Visit Office Visit on 02/01/25 [facility] [employer] IN[employer]CTIONS BASIC METABOLIC PANEL hydroCHLOROthiazide 12.5 mg tablet predniSONE (DELTASONE) 10 mg tablet REVIEW OF SYSTEMS Musculoskeletal: (+) bilateral foot swelling, (+) knee pain, (+) shoulder pain Neurological: (+) foot tremors PHYSICAL EXAM BP 132/70 Pulse (!) 58 Temp 37.3 ?C (99.1 ?F) Resp 16 Ht 177.8 cm (5' 10) Wt 97.2 kg (214 lb 4.6 oz) SpO2 100% BMI 30.75 kg/m? General: Well developed, well nourished, in no acute distress. Head: Normocephalic, atraumatic. Neck: Supple. Eyes: Normal conjunctiva, no scleral icterus. Lungs: Clear to auscultation bilaterally, no rubs, no wheezing. Cardiac: Regular rate and rhythm. No murmurs, gallops, or rubs. Extremities: No edema. Allergies: ALLERGIES Allergen Reactions Atorvastatin Myalgia Medications: HYDROcodone-Acetaminophen (NORCO) 10-325 (more content not included)... [facility] 02-01-2025 Note HNO ID: [id number] Author: BELIA HELLER MA Service: ? Author Type: Property Economist Type: Progress Notes Filed: 02/02/2025 21:16 Note Text: Dilated Retinal Exam Never done DTaP,Tdap,Td Vaccine(1 - Tdap) Never done Shingrix Vaccine(1 of 2) Never done Diabetic Foot Exam due on 09/25/2022 Covid-19 Vaccine( season) due on 05/17/2024 Advance Directive Discussion due on 09/16/2024 [facility] 01-25-2025 Telephone encounter Note Prescription Refill Information The patient has been identified by name and date of : Yes Caregiver verified no other encounters exist for this prescription request: Yes Caregiver confirmed with patient/requestor that no other refills are due, in the near future, with this provider at this time: Yes The last office visit in the department: 10/26/24 Does the patient have a future office visit with this provider/department: Yes Requested Prescriptions Pending Prescriptions Disp Refills HYDROcodone-Acetaminophen (NORCO) 10-325 mg per tablet 60 tablet 0 Sig: Take 1 tablet by mouth two times a day as needed for pain for up to [address] [facility] January 25, 2025 2:38 PM [facility] 01-25-2025 Miscellaneous Notes Prescription Refill Information The patient has been identified by name and date of : Yes Caregiver verified no other encounters exist for this prescription request: Yes Caregiver confirmed with patient/requestor that no other refills are due, in the near future, with this provider at this time: Yes The last office visit in the department: 10/26/24 Does the patient have a future office visit with this provider/department: Yes Requested Prescriptions Pending Prescriptions Disp Refills HYDROcodone-Acetaminophen (NORCO) 10-325 mg per tablet 60 tablet 0 Sig: Take 1 tablet by mouth two times a day as needed for pain for up to [address] [facility] January 25, 2025 2:38 PM documented in this encounter [facility] 01-25-2025 Evaluation note Diagnosis Vertigo- Primary Dizziness and giddiness Anticoagulation goal of INR 2 to 3 Encounter for therapeutic drug monitoring Pure hypercholesterolemia Essential hypertension Unspecified essential hypertension Coronary artery disease involving [place] heart without angina pectoris, unspecified vessel or lesion type Type 2 diabetes mellitus with other circulatory complication, 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, right Tremor of both hands Type 2 diabetes mellitus with circulatory disorder, 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 thrombosis and embolism Anticoagulation goal of INR 2 to 3 Encounter for therapeutic drug monitoring Essential hypertension Unspecified essential hypertension CAD (coronary artery disease) Coronary atherosclerosis of unspecified type of vessel, [place] or graft Vertebral artery stenosis, right Pure hypercholesterolemia Spinal stenosis of lumbar region without neurogenic claudication Spinal stenosis, lumbar region, without neurogenic claudication Arthritis of left knee Unspecified arthropathy, lower leg Arthritis of right knee Unspecified arthropathy, lower leg Degenerative disc disease, lumbar Degeneration of lumbar or lumbosacral intervertebral disc documented in this encounter [facility]05-08-2025 Telephone encounter Note* Telephone Encounter - Lacy Rosales RN - 01/21/2025 12:31 PM EDT Spoke with pt, reviewed INR result, current Coumadin dose and instructions. Tracker updated [facility]05-08-2025 Miscellaneous Notes* Telephone Encounter - Lacy Rosales RN - 01/21/2025 12:31 PM EDT Spoke with pt, reviewed INR result, current Coumadin dose and instructions. Tracker updated * Telephone Encounter - Tate Alfonso MD - 01/21/2025 10:58 AM EDT Please let patient know his INR is 2.5. Patient should continue on current dose. Retest in 4 weeks. ThanksTate MD Data from Coumadin Tracker: PT INR 2.5 01/21/2025 PT INR 2.5 12/10/2024 PT INR 2.2 10/21/2024 Goal Range: 2.0-3.0 Last Instructions: Description 4mg six days and 2mg one day, retest in 4 weeks ( 12/10/24) documented in this encounter[facility] Telephone encounter Note * Telephone Encounter - Tate Alfonso MD - 01/21/2025 10:58 AM EDT Please let patient know his INR is 2.5. Patient should continue on current dose. Retest in 4 weeks. ThanksTate MD Data from Coumadin Tracker: PT INR 2.5 01/21/2025 PT INR 2.5 12/10/2024 PT INR 2.2 10/21/2024 Goal Range: 2.0-3.0 Last Instructions: Description 4mg six days and 2mg one day, retest in 4 weeks ( 12/10/24) [facility]04-14-2025 Telephone encounter Note* Telephone Encounter - Kraig Sifuentes APRN.CNP - 12/28/2024 12:32 PM EDT [facility] checked and validated. All prescriptions have been APPROPRIATELY filled. No suspiciousactivity was identified. Kraig Sifuentes APRN.CNP [facility]04-14-2025 Miscellaneous Notes* Telephone Encounter - Kraig Sifuentes APRN.CNP - 12/28/2024 12:32 PM EDT PDMP website checked and validated. All prescriptions have been APPROPRIATELY filled. No suspiciousactivity was identified. Kraig Sifuentes APRN.CNP * Telephone Encounter - Jesi Jacobo - 12/28/2024 10:47 AM EDT Prescription Refill Information The patient has been identified by name and date of : Yes Caregiver verified no other encounters exist for this prescription request: Yes Caregiver confirmed with patient/requestor that no other refills are due, in the near future, with this provider at this time: Yes The last office visit in the department: 10-26-24 Does the patient have a future office visit with this provider/department: Yes Requested Prescriptions Pending Prescriptions Disp Refills HYDROcodone-Acetaminophen (NORCO) 10-325 mg per tablet 60 tablet 0 Sig: Take 1 tablet by mouth two times a day as needed for pain for up to 30 days. Jesi Jacobo December 28, 2024 10:47 AM documented in this encounter[facility] Telephone encounter Note * Telephone Encounter - Jesi Jacobo - 12/28/2024 10:47 AM EDT Prescription Refill Information The patient has been identified by name and date of : Yes Caregiver verified no other encounters exist for this prescription request: Yes Caregiver confirmed with patient/requestor that no other refills are due, in the near future, with this provider at this time: Yes The last office visit in the department: 10-26-24 Does the patient have a future office visit with this provider/department: Yes Requested Prescriptions Pending Prescriptions Disp Refills HYDROcodone-Acetaminophen (NORCO) 10-325 mg per tablet 60 tablet 0 Sig: Take 1 tablet by mouth two times a day as needed for pain for up to 30 days. Jesi Jacobo December 28, 2024 10:47 AM [facility]04-14-2025 Evaluation note* Diagnosis Vertigo- Primary Dizziness and giddiness Anticoagulation goal of INR 2 to 3 Encounter for therapeutic drug monitoring Pure hypercholesterolemia Essential hypertension Unspecified essential hypertension Coronary artery disease involving [place] heart without angina pectoris, unspecified vessel or lesion type Type 2 diabetes mellitus with other circulatory complication, 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, right Tremor of both hands Type 2 diabetes mellitus with circulatory disorder, 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 thrombosis and embolism Anticoagulation goal of INR 2 to 3 Encounter for therapeutic drug monitoring Essential hypertension Unspecified essential hypertension CAD (coronary artery disease) Coronary atherosclerosis of unspecified type of vessel, [place] or graft Vertebral artery stenosis, right Pure hypercholesterolemia Spinal stenosis of lumbar region without neurogenic claudication Spinal stenosis, lumbar region, without neurogenic claudication Arthritis of left knee Unspecified arthropathy, lower leg Arthritis of right knee Unspecified arthropathy, lower leg Degenerative disc disease, lumbar Degeneration of lumbar or lumbosacral intervertebral disc documented in this encounter [facility]03-17-2025 Telephone encounter Note* Telephone Encounter - Poonam Lornez - 11/30/2024 10:55 AM EDT Patient is completely out of this medication, please fill today if possible? [facility]03-17-2025 Miscellaneous Notes* Telephone Encounter - Poonam Lorenz - 11/30/2024 10:55 AM EDT Patient is completely out of this medication, please fill today if possible? * Telephone Encounter - Malina Arndt MA - 11/27/2024 9:50 AM EDT Prescription Refill Information The patient has been identified by name and date of : Yes Caregiver verified no other encounters exist for this prescription request: Yes Caregiver confirmed with patient/requestor that no other refills are due, in the near future, with this provider at this time: Yes The last office visit in the department: 10/26/24 Does the patient have a future office visit with this provider/department: Yes Last Tox/Pain: 10/26/24 Requested Prescriptions Pending Prescriptions Disp Refills HYDROcodone-Acetaminophen (NORCO) 10-325 mg per tablet 60 tablet 0 Sig: Take 1 tablet by mouth two times a day as needed for pain for up to 30 days. Malina Arndt MA November 27, 2024 9:50 AM * Telephone Encounter - Margarita Sharma - 11/27/2024 9:07 AM EDT Patient has been identified by name and date of : Yes, Patient phones for refill(s): Requested Prescriptions Pending Prescriptions Disp Refills HYDROcodone-Acetaminophen (NORCO) 10-325 mg per tablet 60 tablet 0 Sig: Take 1 tablet by mouth two times a day as needed for pain for up to 30 days. Date of last office visit in primary care: 10/26/2024 Date of next office visit in primary care: 02/01/2025 [facility] in [place] Please advise. Thank you. Margarita Sharma. documented in this encounterUniversity [facility] Evaluation note* Diagnosis Vertigo- Primary Dizziness and giddiness Anticoagulation goal of INR 2 to 3 Encounter for therapeutic drug monitoring Pure hypercholesterolemia Essential hypertension Unspecified essential hypertension Coronary artery disease involving [place] heart without angina pectoris, unspecified vessel or lesion type Type 2 diabetes mellitus with other circulatory complication, 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, right Tremor of both hands Type 2 diabetes mellitus with circulatory disorder, 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 thrombosis and embolism Anticoagulation goal of INR 2 to 3 Encounter for therapeutic drug monitoring Essential hypertension Unspecified essential hypertension CAD (coronary artery disease) Coronary atherosclerosis of unspecified type of vessel, [place] or graft Vertebral artery stenosis, right Pure hypercholesterolemia Spinal stenosis of lumbar region without neurogenic claudication Spinal stenosis, lumbar region, without neurogenic claudication Arthritis of left knee Unspecified arthropathy, lower leg Arthritis of right knee Unspecified arthropathy, lower leg Degenerative disc disease, lumbar Degeneration of lumbar or lumbosacral intervertebral disc documented in this encounter [facility]03-14-2025 Telephone encounter Note* Telephone Encounter - Malina Arndt MA - 11/27/2024 9:50 AM EDT Prescription Refill Information The patient has been identified by name and date of : Yes Caregiver verified no other encounters exist for this prescription request: Yes Caregiver confirmed with patient/requestor that no other refills are due, in the near future, with this provider at this time: Yes The last office visit in the department: 10/26/24 Does the patient have a future office visit with this provider/department: Yes Last Tox/Pain: 10/26/24 Requested Prescriptions Pending Prescriptions Disp Refills HYDROcodone-Acetaminophen (NORCO) 10-325 mg per tablet 60 tablet 0 Sig: Take 1 tablet by mouth two times a day as needed for pain for up to 30 days. Malina Arndt MA November 27, 2024 9:[address] [facility]03-14-2025 Telephone encounter Note* Telephone Encounter - Margarita Sharma - 11/27/2024 9:07 AM EDT Patient has been identified by name and date of : Yes, Patient phones for refill(s): Requested Prescriptions Pending Prescriptions Disp Refills HYDROcodone-Acetaminophen (NORCO) 10-325 mg per tablet 60 tablet 0 Sig: Take 1 tablet by mouth two times a day as needed for pain for up to 30 days. Date of last office visit in primary care: 10/26/2024 Date of next office visit in primary care: 02/01/2025 [facility] in [place] Please advise. Thank you. Margarita Sharma. [facility]03-04-2025 Evaluation note* Diagnosis Onset Date Resolution Status Admit Date Essential (primary) hypertension chronic November 17, 2024 12:49pm History of coronary artery stent placement January 20, 2021 chronic November 17, 2024 12:49pm Hypercoagulable state chronic Nov 12:49pm Hyperlipidemia chronic November 17, 2024 12:49pm Chronic anticoagulation acute J une 2024 11:28am Exertional chest pain acute Feb 11:28am Exertional dyspnea acute February 142024 11:28am History of deep vein thrombosis acut e February 23, 2025 11:28am Hx of heart artery stent acute February 23, 2025 11:28am [facility] Work Phone: [phone]) 551-937302-20-2025 NoteHNO ID: [id number] Author: LUZ BECKER PA-C Service: ? Author Type: Physician Emd Special Education Teacher Type: Progress Notes Filed: 11/05/2024 15:14 Note Text: Large Joint Arthro/Inj: bilateral knee joints 11/05/2024 3:14 PM The procedure site was prepped in the usual sterile fashion. Site: bilateral knee joints Medications (Right): 6 mg betamethasone acetate-betamethasone sodium phosphate 6 mg/mL Medications (Left): 6 mg betamethasone acetate-betamethasone sodium phosphate 6 mg/mL Anesthetics (Right): 5 mL lidocaine (PF) 10 mg/mL (1 %) Anesthetics (Left): 5 mL lidocaine (PF) 10 mg/mL (1 %) Outcome: Tolerated well, no immediate complications Post-injection instructions were reviewed with the patient and the patient voiced understanding of these instructions. Informed Consent Consent Obtained: Verbal [place] Protocol A moment to CARE was completed. SIGN IN Sign in communication not applicable due to emergent procedure. Personnel directly involved with the procedure wore the appropriate PPE. Special Equipment: N/A Patient/Surrogate Stated/Verified: Patient name, Date of , Relevant allergies and Intended procedure TIME OUT Relevant labs, photos, and/or imaging studies have been reviewed. Intended patient and procedure match the source document(s). Consent documented and matches the intended procedure. Correct side/site marked and visible. Medications required for procedure verified. No fire risk assessment and interventions applicable. No implant(s) inserted. SIGN OUT No specimen collected. No instruments, equipment or retained foreign bodies applicable. Post-procedure follow-up management communicated and Plan of Care [facility] History of Present illness Narrative* Luz Becker PA-C - 11/05/2024 3:14 PM ESTAssociated Order(s): Large Joint Arthro/Inj: bilateral knee joints Post-Procedure Diagnose(s): Primary osteoarthritis of both knees Large Joint Arthro/Inj: bilateral knee joints 11/05/2024 3:14 PM The procedure site was prepped in the usual sterile fashion. Site: bilateral knee joints Medications (Right): 6 mg betamethasone acetate-betamethasone sodium phosphate 6 mg/mL Medications (Left): 6 mg betamethasone acetate-betamethasone sodium phosphate 6 mg/mL Anesthetics (Right): 5 mL lidocaine (PF) 10 mg/mL (1 %) Anesthetics (Left): 5 mL lidocaine (PF) 10 mg/mL (1 %) Outcome: Tolerated well, no immediate complications Post-injection instructions were reviewed with the patient and the patient voiced understanding of these instructions. Informed Consent Consent Obtained: Verbal [place] Protocol A moment to CARE was completed. SIGN IN Sign in communication not applicable due to emergent procedure. Personnel directly involved with the procedure wore the appropriate PPE. Special Equipment: N/A Patient/Surrogate Stated/Verified: Patient name, Date of , Relevant allergies and Intended procedure TIME OUT Relevant labs, photos, and/or imaging studies have been reviewed. Intended patient and procedure match the source document(s). Consent documented and matches the intended procedure. Correct side/site marked and visible. Medications required for procedure verified. No fire risk assessment and interventions applicable. No implant(s) inserted. SIGN OUT No specimen collected. No instruments, equipment or retained foreign bodies applicable. Post-procedure follow-up management communicated and Plan of Care Visit completed when applicable documented in this encounterUniversity [facility]als [facility]02-18-[facility]25 Telephone encounter Note * Telephone Encounter - Floresita Ramirez RN - 11/03/2024 9:47 AM EST Called patient to discuss. He said the old rotator cuff tear is from 1995, an injury with his toolbox. He will discuss with ortho. Has noted some improvement with the prednisone. Reason for Disposition [1] Other NON-URGENT information for PCP AND [2] does not require PCP response Protocols used: PCP Call - No [id number] [facility]02-18-2025 Miscellaneous Notes* Telephone Encounter - Floresita Ramirez RN - 11/03/2024 9:47 AM EST Called patient to discuss. He said the old rotator cuff tear is from 1995, an injury with his toolbox. He will discuss with ortho. Has noted some improvement with the prednisone. Reason for Disposition [1] Other NON-URGENT information for PCP AND [2] does not require PCP response Protocols used: PCP Call - No [id number] * Telephone Encounter - Lacy Rosales RN - 11/02/2024 8:57 AM EST Called pt, no answer. LVM to call office back * Telephone Encounter - Tate Alfonso MD - 11/02/2024 7:05 AM EST Please let patient know his shoulder xrays show degenerative changes with an old rotator cuff tear on the left. He should follow up with orthopaedics. Thanks, Tate Alfonso MD documented in this encounterUniversity Hospitals [facility]02-17-2025 Telephone encounter Note * Telephone Encounter - Lacy Rosales RN - 11/02/2024 8:57 AM EST Called pt, no answer. LVM to call office back [facility]02-17-2025 Telephone encounter Note* Telephone Encounter - Tate Alfonso MD - 11/02/2024 7:05 AM EST Please let patient know his shoulder xrays show degenerative changes with an old rotator cuff tear on the left. He should follow up with orthopaedics. Thanks, Tate Alfonso MD [facility]02-12-2025 Evaluation note* Diagnosis Vertigo- Primary Dizziness and giddiness Anticoagulation goal of INR 2 to 3 Encounter for therapeutic drug monitoring Pure hypercholesterolemia Essential hypertension Unspecified essential hypertension Coronary artery disease involving [place] heart without angina pectoris, unspecified vessel or lesion type Type 2 diabetes mellitus with other circulatory complication, 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, right Tremor of both hands Type 2 diabetes mellitus with circulatory disorder, 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 thrombosis and embolism Anticoagulation goal of INR 2 to 3 Encounter for therapeutic drug monitoring Essential hypertension Unspecified essential hypertension CAD (coronary artery disease) Coronary atherosclerosis of unspecified type of vessel, [place] or graft Vertebral artery stenosis, right Pure hypercholesterolemia Chronic pain of both shoulders Pain in joint, shoulder region documented in this encounter [facility]02-11-2025 History of Present illness Narrative* Mendoza Campa Tech - 10/27/2024 2:00 PM EST Radiology Service Progress Note PATIENT NAME: Kayla Moreno DATE OF SERVICE: October 27, 2024 TIME: 2:20 PM PATIENT IDENTITY VERIFICATION COMPLETED USING TWO (2) IDENTIFIERS: Name and Date of confirmedby patient verbally. FALL SCREENING: Has the patient had 2 falls in the last year or 1 fall with injury or currently using an Ambulatory Assistive Device (Walker, Cane, Wheelchair, Crutches, etc.)? No PATIENT GENDER DATA: Assigned male at PATIENT RELEVANT IMPLANT DATA REVIEWED: Not Applicable PATIENT PRESENTS WITH AN IMPLANTABLE OR ATTACHED ASSEMBLER RUBBER FOOTWEAR: No RADIOLOGY DEPARTMENT: General X-ray: Exam(s) Completed: Upper Extremity X- Ray(s): Shoulder, AP / TRUE AP / AXILLARY bilateral PERIPHERAL IV DATA: Not applicable SIGNED BY: Kelvin Fraire October 27, 2024 2:20 PM documented in this encounterUniversity Hospitals [facility]02-11-2025 NoteHNO ID: [id number] Author: MENDOZA CAMPA Tech Service: ? Author Type: Color Maker Type: Progress Notes Filed: 10/27/2024 14:20 Note Text: Radiology Service Progress Note PATIENT NAME: Kayla Moreno DATE OF SERVICE: October 27, 2024 TIME: 2:20 PM PATIENT IDENTITY VERIFICATION COMPLETED USING TWO (2) IDENTIFIERS: Name and Date of confirmed by patient verbally. FALL SCREENING: Has the patient had 2 falls in the last year or 1 fall with injury or currently using an Ambulatory Assistive Device (Walker, Cane, Wheelchair, Crutches, etc.)? No PATIENT GENDER DATA: Assigned male at PATIENT RELEVANT IMPLANT DATA REVIEWED: Not Applicable PATIENT PRESENTS WITH AN IMPLANTABLE OR ATTACHED ASSEMBLER RUBBER FOOTWEAR: No RADIOLOGY DEPARTMENT: General X-ray: Exam(s) Completed: Upper Extremity X-Ray(s): Shoulder, AP / TRUE AP / AXILLARY bilateral PERIPHERAL IV DATA: Not applicable SIGNED BY: Kelvin Fraire October 27, 2024 2:20 PMMet[facility] Medical [id number] NoteHNO ID: [id number] Author: TATE ALFONSO MD Service: ? Author Type: Physician Type: Progress Notes Filed: 11/03/2024 10:53 Note Text: ESTABLISHED PATIENT Kayla Moreno is a 74 year old male presenting for F/U 3 months. HISTORY OF PRESENT ILLNESS Bilateral shoulder pain. Started out of no where. Hx of injuring left shoulder a long time ago. THinks it came on gradually. Type 2 Diabetes Follow up: Low blood sugars: no Medication compliance: yes Diet: no change Exercise: no change Increased urination, hunger, thirst, weight changes: no Hemoglobin A1C 6.0 06/22/2024 Hemoglobin A1C 5.8 03/23/2024 Hemoglobin A1C 6.4 09/19/2023 Chronic Narcotic Pain Medication. Notes waking up around 230 to 3 with pain. Medication: [place] 10mg Used for: Knee pain and chronic back pain. Has arthritis in knees. Has had 3 back surgeries at [facility] Improves quality of life/pain: Yes Amount used per day: Uses 1 per day Non-pharmacologic therapies: gets steroid injections. Pain Scale before medication:6 After medication: 2 If patient is on benzo/muscle relaxer aware of potential sedation: On no benzo or muscle relaxer Concern for addiction: No Non-opioid treatment options: Yes Tylenol Counseled on safe storage and disposal: Yes Counseled on opioid and alcohol: Yes Hyperlipidemia Follow up Taking daily: No. Bothers his joints too much. Trying to eat a diet low in saturated fat and cholesterol: Yes LDL 143 10/21/2024 LDL 78 12/23/2023 LDL 53 01/25/2023 HDL 44 10/21/2024 HDL 46 12/23/2023 HDL 51 01/25/2023 Triglycerides, Nonfasting 135 10/21/2024 Triglycerides, Nonfasting 145 12/23/2023 Triglycerides, Nonfasting 116 01/25/2023 CHOL 214 10/21/2024 CHOL 153 12/23/2023 CHOL 127 01/25/2023 AST 16 03/23/2024 ALT 17 03/23/2024 ASSESSMENT: (M25.511, G89.29, M25.512) Chronic pain of both shoulders (primary encounter diagnosis) (E11.59) Type 2 diabetes mellitus with other circulatory complication, without long-term current use of insulin (HCC) (M48.061) Spinal stenosis of lumbar region without neurogenic claudication (M17.12) Arthritis of left knee (M17.11) Arthritis of right knee (M51.369) Degenerative disc disease, lumbar (Z79.899) High risk medication use PLAN: Perhaps strain rotator cuff in right shoulder. Left shoudler hx of rotator cuff tear Consutl orth Continue norco Drug screen REVIEW OF SYSTEMS GENERAL: No weight loss, malaise or fevers. RESPIRATORY: Negative for cough, hemoptysis, wheezing or shortness of breath. CARDIOVASCULAR: Negative for chest pain, leg swelling or palpitations. All other systems reviewed and negative other than HPI. PHYSICAL EXAM BP 120/50 Pulse 60 Temp 36.1 ?C (97 ?F) Resp 16 Ht 177.8 cm (5' 10) Wt 97.5 kg (214 lb 15.2 oz) SpO2 98% BMI 30.84 kg/m? General: Well developed, well nourished, in no acute distress. Head: Normocephalic, atraumatic. Neck: Supple. Eyes: Normal conjunctiva, no scleral icterus. Lungs: Clear to auscultation bilaterally, no rubs, no wheezing. Cardiac: Regular rate and rhythm. No murmurs, gallops, or rubs. Extremities: No edema. Allergies: ALLERGIES Allergen Reactions Atorvastatin Myalgia Medications: HYDROcodone-Acetaminophen (NORCO) 10-325 mg per tablet Take 1 tablet by mouth once daily as needed for pain for up to 30 days. propranolol (INDERAL) 40 mg tablet Take 1 tablet by mouth every 12 hours. nitroglycerin sublingual (NITROQUICK) 0.4 mg SL tablet Dissolve 1 tablet under the tongue every 5 minutes as needed for chest pain. warfarin (COUMADIN) 4 mg tablet Take 1 tablet by mouth once daily. primidone (MYSOLINE) 50 mg tablet TAKE 3 TABLETS TWICE A DAY diclofenac (VOLTAREN) 1 % topical gel Apply 4 g to affected area four times daily. meclizine (ANTIVERT) 25 mg tab Take 1 tablet by mouth every 6 hours as needed (for dizziness.). pantoprazole DR (PROTONIX) 40 mg tablet Take by mouth. rosuvastatin (CRESTOR) 20 mg tablet TAKE 1 TABLET DAILY AT BEDTIME famotidine (PEPCID) 20 mg tablet Take 1 tablet by mouth twice daily. aspirin 81 mg chewable tablet Take 81 mg by mouth once daily. lisinopril (ZESTRIL, PRINIVIL) 20 mg tablet Take 1 tablet by mouth once daily. blood sugar diagnostic (BLOOD GLUCOSE TEST) test strip 1 Strip twice daily. E11.9 Lancets lancets 1 Each twice daily. E11.9 acetaminophen (TYLENOL ARTHRITIS PAIN ORAL) Take 650 mg by mouth daily at bedtime. HISTORIES FAMILY HISTORY Problem Relation Age of Onset Coronary Artery Disease Father Diabetes Father Cancer Mother Uterine Diabetes Mother Diabetes Sister Coronary Artery Disease Brother PAST MEDICAL HISTORY Diagnosis Date DVT (deep venous thrombosis) ([facility]) Leg x 2 Essential hypertension Hyperlipidemia Lumbar herniated disc STEMI (ST elevation myocardial infarction) ([facility]) Tremor of both hands PAST SURGICAL HISTORY Procedure Laterality Date CARPAL TUNNEL Carpal tunnel release x 2 IVC F (more content not included)...[facility]02-10-2025 History of Present illness Narrative* Tate Alfonso MD - 10/26/2024 5:59 PM EST ESTABLISHED PATIENT Kayla Moreno is a 74 year old male presenting for F/U 3 months. HISTORY OF PRESENT ILLNESS Bilateral shoulder pain. Started out of no where. Hx of injuring left shoulder a long time ago. THinks it came on gradually. Type 2 Diabetes Follow up: Low blood sugars: no Medication compliance: yes Diet: no change Exercise: no change Increased urination, hunger, thirst, weight changes: no Hemoglobin A1C 6.0 06/22/2024 Hemoglobin A1C 5.8 03/23/2024 Hemoglobin A1C 6.4 09/19/2023 Chronic Narcotic Pain Medication. Notes waking up around 230 to 3 with pain. Medication: [place] 10mg Used for: Knee pain and chronic back pain. Has arthritis in knees. Has had 3 back surgeries at [facility] Improves quality of life/pain: Yes Amount used per day: Uses 1 per day Non-pharmacologic therapies: gets steroid injections. Pain Scale before medication:6 After medication: 2 If patient is on benzo/muscle relaxer aware of potential sedation: On no benzo or muscle relaxer Concern for addiction: No Non-opioid treatment options: Yes Tylenol Counseled on safe storage and disposal: Yes Counseled on opioid and alcohol: Yes Hyperlipidemia Follow up Taking daily: No. Bothers his joints too much. Trying to eat a diet low in saturated fat and cholesterol: Yes LDL 143 10/21/2024 LDL 78 12/23/2023 LDL 53 01/25/2023 HDL 44 10/21/2024 HDL 46 12/23/2023 HDL 51 01/25/2023 Triglycerides, Nonfasting 135 10/21/2024 Triglycerides, Nonfasting 145 12/23/2023 Triglycerides, Nonfasting 116 01/25/2023 CHOL 214 10/21/2024 CHOL 153 12/23/2023 CHOL 127 01/25/2023 AST 16 03/23/2024 ALT 17 03/23/2024 ASSESSMENT: (M25.511, G89.29, M25.512) Chronic pain of both shoulders (primary encounter diagnosis) (E11.59) Type 2 diabetes mellitus with other circulatory complication, without long-term current use of insulin (HCC) (M48.061) Spinal stenosis of lumbar region without neurogenic claudication (M17.12) Arthritis of left knee (M17.11) Arthritis of right knee (M51.369) Degenerative disc disease, lumbar (Z79.899) High risk medication use PLAN: Perhaps strain rotator cuff in right shoulder. Left shoudler hx of rotator cuff tear Consutl orth Continue norco Drug screen REVIEW OF SYSTEMS GENERAL: No weight loss, malaise or fevers. RESPIRATORY: Negative for cough, hemoptysis, wheezing or shortness of breath. CARDIOVASCULAR: Negative for chest pain, leg swelling or palpitations. All other systems reviewed and negative other than HPI. PHYSICAL EXAM BP 120/50 Pulse 60 Temp 36.1 C (97 F) Resp 16 Ht 177.8 cm (5' 10) Wt 97.5 kg (214 lb 15.2 oz) SpO2 98% BMI 30.84 kg/m General: Well developed, well nourished, in no acute distress. Head: Normocephalic, atraumatic. Neck: Supple. Eyes: Normal conjunctiva, no scleral icterus. Lungs: Clear to auscultation bilaterally, no rubs, no wheezing. Cardiac: Regular rate and rhythm. No murmurs, gallops, or rubs. Extremities: No edema. Allergies: ALLERGIES Allergen Reactions Atorvastatin Myalgia Medications: HYDROcodone-Acetaminophen (NORCO) 10-325 mg per tablet Take 1 tablet by mouth once daily as needed for pain for up to 30 days. propranolol (INDERAL) 40 mg tablet Take 1 tablet by mouth every 12 hours. nitroglycerin sublingual (NITROQUICK) 0.4 mg SL tablet Dissolve 1 tablet under the tongue every 5 minutes as needed for chest pain. warfarin (COUMADIN) 4 mg tablet Take 1 tablet by mouth once daily. primidone (MYSOLINE) 50 mg tablet TAKE 3 TABLETS TWICE A DAY diclofenac (VOLTAREN) 1 % topical gel Apply 4 g to affected area four times daily. meclizine (ANTIVERT) 25 mg tab Take 1 tablet by mouth every 6 hours as needed (for dizziness.). pantoprazole DR (PROTONIX) 40 mg tablet Take by mouth. rosuvastatin (CRESTOR) 20 mg tablet TAKE 1 TABLET DAILY AT BEDTIME famotidine (PEPCID) 20 mg tablet Take 1 tablet by mouth twice daily. aspirin 81 mg chewable tablet Take 81 mg by mouth once daily. lisinopril (ZESTRIL, PRINIVIL) 20 mg tablet Take 1 tablet by mouth once daily. blood sugar diagnostic (BLOOD GLUCOSE TEST) test strip 1 Strip twice daily. E11.9 Lancets lancets 1 Each twice daily. E11.9 acetaminophen (TYLENOL ARTHRITIS PAIN ORAL) Take 650 mg by mouth daily at bedtime. HISTORIES FAMILY HISTORY Problem Relation Age of Onset Coronary Artery Disease Father Diabetes Father Cancer Mother Uterine Diabetes Mother Diabetes Sister Coronary Artery Disease Brother PAST MEDICAL HISTORY Diagnosis Date DVT (deep venous thrombosis) (HCC) Leg x 2 Essential hypertension Hyperlipidemia Lumbar herniated disc STEMI (ST elevation myocardial infarction) (HCC) Tremor of both hands PAST SURGICAL HISTORY Procedure Laterality Date CARPAL TUNNEL Carpal tunnel release x 2 IVC FILTER PERCUTANEOUS 2004 OTHER Microdiskectomy REPAIR MEDIAL OR LATERAL MENISCUS, TO R687 2009 Social History Tobacco Use Smoking status: Never Smokeless tobacco: Never Substance Use Topics Alcohol use: No Drug use: No Tate Alfonso MD * Belia Heller MA - 10/26/2024 5:47 PM EST Dilated Retinal Exam Never done DTaP,Tdap,Td Vaccine(1 - Tdap) Never done Shingrix Vaccine(1 of 2) Never done BP Controlled (<130/80) due on 02/02/2022 Diabetic Foot Exam due on 09/25/2022 Influenza Vaccine(1) due on 05/17/2024 Covid-19 Vaccine( season) due on 05/17/2024 Advance Directive Discussion due on 09/16/2024 documented in this encounterUniversity Hospitals [facility]02-10-2025 NoteHNO ID: [id number] Author: BELIA HELLER MA Service: ? Author Type: Property Economist Type: Progress Notes Filed: 11/03/2024 10:53 Note Text: Dilated Retinal Exam Never done DTaP,Tdap,Td Vaccine(1 - Tdap) Never done Shingrix Vaccine(1 of 2) Never done BP Controlled (<130/80) due on 02/02/2022 Diabetic Foot Exam due on 09/25/2022 Influenza Vaccine(1) due on 05/17/2024 Covid-19 Vaccine( season) due on 05/17/2024 Advance Directive Discussion due on 09/16/2024[facility] 10-26-2024 Instructions* Patient Instructions* Belia Heller MA - 10/26/2024 5:47 PM EST [facility] TEST INFORMATION [facility] HOURS: Lab is open: 7:30am to 5:00pm M - Th, 7:30am to 4:00pm onFri and 8am -12pm on Sat. The lab is located in [facility] on the first floor. There is a registration window at the lab, available 7 am to 3 pm Saturday - Saturday. If registration is unavailable at the lab, you may register at the patient registration office near the front lobby of the hospital. SCHEDULING A LAB APPOINTMENT: Laboratory appointments are recommended.Walk ins are still accepted. Call [phone] or schedule via Simple-Fill scheduling ticket. ROUTINE LAB ORDERS 60 days after they are entered. If your lab orders , you may be required to wait in the lab while they are reinstated FUTURE ORDERS are lab tests to be completed on the EXPECTED date. These orders 60 days afterthe expected date. STANDING ORDERS are recurring orders with an expiration date. The interval will indicate how often the test should be completed. CT / MRI / IVP If you have lab tests ordered for one of these radiology exams, please complete the blood work at least one day prior to the scheduled exam. PRESCRIPTION REFILL REQUESTS Request prescription refills through your Simple-Fill account or contact your Pharmacy. My Chart Schedule My Appointment enables you to view your established primary care provider's open schedule and book an appointment online in real-time. This feature is available in internal medicine, family medicine, or pediatrics at any of our [facility] locations and main campus. documented in this encounterUniversity Hospitals [facility]ar[facility]02-05-2025 Telephone encounter Note * Telephone Encounter - Lacy Rosales RN - 10/21/2024 1:44 PM EST Spoke with pt, reviewed INR result, current Coumadin dose and instructions. Tracker updated [facility]02-05-2025 Miscellaneous Notes* Telephone Encounter - Lacy Rosales RN - 10/21/2024 1:44 PM EST Spoke with pt, reviewed INR result, current Coumadin dose and instructions. Tracker updated * Telephone Encounter - Tate Alfonso MD - 10/21/2024 1:03 PM EST Please let patient know his INR is 2.2. Patient should continue on current dose. Retest in 4 weeks. Thanks, Tate Alfonso MD Data from Coumadin Tracker: PT INR 2.2 10/21/2024 PT INR 2.2 09/18/2024 PT INR 2.1 08/05/2024 Goal Range: 2.0-3.0 Last Instructions: Description 4mg six days and 2mg one day, retest in 4 weeks ( 09/18/23) documented in this encounterUniversity Hospitals [facility]02-05-2025 Telephone encounter Note * Telephone Encounter - Tate Alfonso MD - 10/21/2024 1:03 PM EST Please let patient know his INR is 2.2. Patient should continue on current dose. Retest in 4 weeks. ThanksTate MD Data from Coumadin Tracker: PT INR 2.2 10/21/2024 PT INR 2.2 09/18/2024 PT INR 2.1 08/05/2024 Goal Range: 2.0-3.0 Last Instructions: Description 4mg six days and 2mg one day, retest in 4 weeks (JR 09/18/23) [facility]01-31-2025 Evaluation note* Diagnosis Vertigo- Primary Dizziness and giddiness Anticoagulation goal of INR 2 to 3 Encounter for therapeutic drug monitoring Pure hypercholesterolemia Essential hypertension Unspecified essential hypertension Coronary artery disease involving [place] heart without angina pectoris, unspecified vessel or lesion type Type 2 diabetes mellitus with other circulatory complication, 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, right Tremor of both hands Type 2 diabetes mellitus with circulatory disorder, 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 thrombosis and embolism Anticoagulation goal of INR 2 to 3 Encounter for therapeutic drug monitoring Essential hypertension Unspecified essential hypertension CAD (coronary artery disease) Coronary atherosclerosis of unspecified type of vessel, [place] or graft Vertebral artery stenosis, right Pure hypercholesterolemia Pure hypercholesterolemia Subclinical hypothyroidism Other specified acquired hypothyroidism documented in this encounter [facility]01-28-2025 NotePatient Outreach (INTMMN) KAYLA MORENO ([id number]) 1950 M Date Time Provider Department 10/13/24 TATE ALFONSO INTMMN During your visit today, we recorded the following information about you: Allergies As of Date: 10/13/2024 Noted Allergy Reaction ATORVASTATIN 05/30/2016 17 - Myalgia Date Reviewed: 08/04/2024 Reviewed by: Michelle Bingham LPN - Fully Assessed Visit Diagnoses:Pure hypercholesterolemia [E78.00] Subclinical hypothyroidism [E03.8] Order(s):LIPID PANEL BASIC [SQLIPB] Order #: [id number] FUTURE THYROID STIMULATING HORMONE [SQTSH] Order #: [id number] FUTURE Prescriptions as of 10/16/2024 - HYDROcodone-Acetaminophen (NORCO) 10-325 mg per tablet Take 1 tablet by mouth once daily as needed for pain for up to 30 days. - propranolol (INDERAL) 40 mg tablet Take 1 tablet by mouth every 12 hours. - nitroglycerin sublingual (NITROQUICK) 0.4 mg SL tablet Dissolve 1 tablet under the tongue every 5 minutes as needed for chest pain. - warfarin (COUMADIN) 4 mg tablet Take 1 tablet by mouth once daily. - primidone (MYSOLINE) 50 mg tablet TAKE 3 TABLETS TWICE A DAY - diclofenac (VOLTAREN) 1 % topical gel Apply 4 g to affected area four times daily. - meclizine (ANTIVERT) 25 mg tab Take 1 tablet by mouth every 6 hours as needed (for dizziness.). - pantoprazole DR (PROTONIX) 40 mg tablet Take by mouth. - rosuvastatin (CRESTOR) 20 mg tablet TAKE 1 TABLET DAILY AT BEDTIME - famotidine (PEPCID) 20 mg tablet Take 1 tablet by mouth twice daily. - aspirin 81 mg chewable tablet Take 81 mg by mouth once daily. - lisinopril (ZESTRIL, PRINIVIL) 20 mg tablet Take 1 tablet by mouth once daily. - blood sugar diagnostic (BLOOD GLUCOSE TEST) test strip 1 Strip twice daily. E11.9 - Lancets lancets 1 Each twice daily. E11.9 - acetaminophen (TYLENOL ARTHRITIS PAIN ORAL) Take 650 mg by mouth daily at bedtime. Problem List As Of Date 10/13/2024 Noted Resolved History of DVT of lower extremity [Z86.718] 05/30/2016 Essential hypertension [I10] 05/30/2016 Tremor of both hands [R25.1] 05/30/2016 Pure hypercholesterolemia [E78.00] 05/30/2016 Arthritis of left knee [M17.12] 05/30/2016 Arthritis of right knee [M17.11] 05/30/2016 Lumbar stenosis [M48.061] 05/30/2016 Degenerative disc disease, lumbar [M51.369] 05/30/2016 CAD (coronary artery disease) [I25.10] 05/30/2016 Type 2 diabetes mellitus with circulatory disor*07/17/2016 Anticoagulation goal of INR 2 to 3 [Z51.81, Z79*07/23/2018 Vertigo [R42] 07/23/2018 10/29/2018 Vertebral artery stenosis, right [I65.01] 07/23/2018 Subclinical hypothyroidism [E03.8] 08/01/2018 Vertigo [R42] 11/30/2019 Imbalance [R26.89] 12/02/2019 BPPV (benign paroxysmal positional vertigo), le*12/02/2019 Thrombocytopenia (HCC) [D69.6] 09/24/2023 Encounter Status:Closed by ISRRAEL, PRODUSER on 10/16/24[facility] 10-01-2024 Telephone encounter Note* Telephone Encounter - Kraig Sifuentes APRN.CNP - 10/01/2024 9:35 AM EST PDMP website checked and validated. All prescriptions have been APPROPRIATELY filled. No suspiciousactivity was identified. Kraig Sifuentes APRN.CNP [facility]01-16-2025 Miscellaneous Notes* Telephone Encounter - Kraig Sifuentes APRN.CNP - 10/01/2024 9:35 AM EST PDMP website checked and validated. All prescriptions have been APPROPRIATELY filled. No suspiciousactivity was identified. Kraig Sifuentes APRN.CNP * Telephone Encounter - Poonam Lorenz - 09/30/2024 1:27 PM EST Prescription Refill Information The patient has been identified by name and date of : Yes Caregiver verified no other encounters exist for this prescription request: Yes Caregiver confirmed with patient/requestor that no other refills are due, in the near future, with this provider at this time: Yes The last office visit in the department: 06/29/2024 Does the patient have a future office visit with this provider/department: Yes Requested Prescriptions Pending Prescriptions Disp Refills HYDROcodone-Acetaminophen (NORCO) 10-325 mg per tablet 30 tablet 0 Sig: Take 1 tablet by mouth once daily as needed for pain for up to 30 days. Poonam Villaseñor September 30, 2024 1:28 PM documented in this encounter[facility] Evaluation note* Diagnosis Vertigo- Primary Dizziness and giddiness Anticoagulation goal of INR 2 to 3 Encounter for therapeutic drug monitoring Pure hypercholesterolemia Essential hypertension Unspecified essential hypertension Coronary artery disease involving [place] heart without angina pectoris, unspecified vessel or lesion type Type 2 diabetes mellitus with other circulatory complication, 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, right Tremor of both hands Type 2 diabetes mellitus with circulatory disorder, 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 thrombosis and embolism Anticoagulation goal of INR 2 to 3 Encounter for therapeutic drug monitoring Essential hypertension Unspecified essential hypertension CAD (coronary artery disease) Coronary atherosclerosis of unspecified type of vessel, [place] or graft Vertebral artery stenosis, right Pure hypercholesterolemia Spinal stenosis of lumbar region without neurogenic claudication Spinal stenosis, lumbar region, without neurogenic claudication Arthritis of left knee Unspecified arthropathy, lower leg Arthritis of right knee Unspecified arthropathy, lower leg Degenerative disc disease, lumbar Degeneration of lumbar or lumbosacral intervertebral disc documented in this encounter [facility]01-15-2025 Telephone encounter Note* Telephone Encounter - Poonam Lorenz - 09/30/2024 1:27 PM EST Prescription Refill Information The patient has been identified by name and date of : Yes Caregiver verified no other encounters exist for this prescription request: Yes Caregiver confirmed with patient/requestor that no other refills are due, in the near future, with this provider at this time: Yes The last office visit in the department: 06/29/2024 Does the patient have a future office visit with this provider/department: Yes Requested Prescriptions Pending Prescriptions Disp Refills HYDROcodone-Acetaminophen (NORCO) 10-325 mg per tablet 30 tablet 0 Sig: Take 1 tablet by mouth once daily as needed for pain for up to 30 days. Poonam Villaseñor September 30, 2024 1:28 PM [facility]01-03-2025 Telephone encounter Note* Telephone Encounter - Lacy Rosales RN - 09/18/2024 1:39 PM EST Spoke with pt, reviewed INR result, current Coumadin dose and instructions. Tracker updated [facility]01-03-2025 Miscellaneous Notes* Telephone Encounter - Lacy Rosales RN - 09/18/2024 1:39 PM EST Spoke with pt, reviewed INR result, current Coumadin dose and instructions. Tracker updated * Telephone Encounter - Lacy Rosales RN - 09/18/2024 1:03 PM EST Called pt, no answer. Left detailed message on identified VM Tracker updated * Telephone Encounter - Tate Alfonso MD - 09/18/2024 12:40 PM EST Please let patient know his INR is 2.2. Patient should continue on current dose. Retest in 4 weeks. Thanks, Tate Alfonso MD Data from Coumadin Tracker: PT INR 2.2 09/18/2024 PT INR 2.1 08/05/2024 PT INR 2.9 06/22/2024 Goal Range: 2.0-3.0 Last Instructions: Description 4mg six days and 2mg one day, retest in 4 weeks (MM 08/06/24) documented in this encounter[facility] Telephone encounter Note * Telephone Encounter - Lacy Rosales RN - 09/18/2024 1:03 PM EST Called pt, no answer. Left detailed message on identified VM Tracker updated [facility]01-03-2025 Telephone encounter Note* Telephone Encounter - Tate Alfonso MD - 09/18/2024 12:40 PM EST Please let patient know his INR is 2.2. Patient should continue on current dose. Retest in 4 weeks. Thanks, Tate Alfonso MD Data from Coumadin Tracker: PT INR 2.2 09/18/2024 PT INR 2.1 08/05/2024 PT INR 2.9 06/22/2024 Goal Range: 2.0-3.0 Last Instructions: Description 4mg six days and 2mg one day, retest in 4 weeks (MM 08/06/24) [facility]12-16-2024 Telephone encounter Note* Telephone Encounter - Sofie Matthews RN - 08/31/2024 12:29 PM EST Notified patient. Patient verbalizes understanding and has no other questions or concerns at this time. Sofie Matthews RN [facility]12-16-2024 Miscellaneous Notes* Telephone Encounter - Sofie Matthews RN - 08/31/2024 12:29 PM EST Notified patient. Patient verbalizes understanding and has no other questions or concerns at this time. Sofie Matthews RN * Telephone Encounter - Kraig Sifuentes APRN.CNP - 08/31/2024 12:23 PM EST Please call and verify of fill PDMP website checked and validated. All prescriptions have been APPROPRIATELY filled. No suspiciousactivity was identified. Kraig Sifuentes APRN.CNP * Telephone Encounter - Barbi Mera - 08/31/2024 10:17 AM EST Patient called to check on the status, he is out of medication. Please send today and notify the patient. * Telephone Encounter - Autumn Menendez - 08/27/2024 12:41 PM EST Prescription Refill Information The patient has been identified by name and date of : Yes Caregiver verified no other encounters exist for this prescription request: Yes Caregiver confirmed with patient/requestor that no other refills are due, in the near future, with this provider at this time: Yes The last office visit in the department: 06-29-24 Does the patient have a future office visit with this provider/department: Yes Requested Prescriptions Pending Prescriptions Disp Refills HYDROcodone-Acetaminophen (NORCO) 10-325 mg per tablet 30 tablet 0 Sig: Take 1 tablet by mouth once daily as needed for pain for up to 30 days. Autumn Frey August 27, 2024 12:41 PM documented in this encounterUniversity [facility]als [facility]12-[facility]24 Telephone encounter Note * Telephone Encounter - Kraig Sifuentes APRN.CNP - 08/31/2024 12:23 PM EST Please call and verify of fill PDMP website checked and validated. All prescriptions have been APPROPRIATELY filled. No suspiciousactivity was identified. Kraig Sifuentes APRN.CNP [facility]12-16-2024 Telephone encounter Note* Telephone Encounter - Barbi Mera - 08/31/2024 10:17 AM EST Patient called to check on the status, he is out of medication. Please send today and notify the patient. [facility]12-12-2024 Telephone encounter Note* Telephone Encounter - Autumn Menendez - 08/27/2024 12:41 PM EST Prescription Refill Information The patient has been identified by name and date of : Yes Caregiver verified no other encounters exist for this prescription request: Yes Caregiver confirmed with patient/requestor that no other refills are due, in the near future, with this provider at this time: Yes The last office visit in the department: 06-29-24 Does the patient have a future office visit with this provider/department: Yes Requested Prescriptions Pending Prescriptions Disp Refills HYDROcodone-Acetaminophen (NORCO) 10-325 mg per tablet 30 tablet 0 Sig: Take 1 tablet by mouth once daily as needed for pain for up to 30 days. Autumn Frey August 27, 2024 12:41 PM [facility]11-21-2024 Telephone encounter Note* Telephone Encounter - Sofie Matthews RN - 08/06/2024 1:03 PM EST Notified patient. Updated tracker. Patient verbalizes understanding and has no other questions or concerns at this time. Sofie Matthews RN [facility]11-21-2024 Miscellaneous Notes* Telephone Encounter - Sofie Matthews RN - 08/06/2024 1:03 PM EST Notified patient. Updated tracker. Patient verbalizes understanding and has no other questions or concerns at this time. Sofie Matthews RN * Telephone Encounter - Kraig Sifuentes APRN.CNP - 08/06/2024 12:30 PM EST Please let patient know his INR is 2.1. Patient should continue on current dose. Retest in 2-3 weeks. ThanksKraig APRN.CNP Data from Coumadin Tracker: PT INR 2.1 08/05/2024 PT INR 2.9 06/22/2024 PT INR 2.9 05/28/2024 Goal Range: 2.0-3.0 Last Instructions: Description 4mg six days and 2mg one day, retest in 4 weeks ([place] 06/23/24) documented in this encounterUniversity [facility]11-[facility]24 Telephone encounter Note * Telephone Encounter - Kraig Sifuentes APRN.CNP - 08/06/2024 12:30 PM EST Please let patient know his INR is 2.1. Patient should continue on current dose. Retest in 2-3 weeks. Kraig Pérez APRN.CNP Data from Coumadin Tracker: PT INR 2.1 08/05/2024 PT INR 2.9 06/22/2024 PT INR 2.9 05/28/2024 Goal Range: 2.0-3.0 Last Instructions: Description 4mg six days and 2mg one day, retest in 4 weeks ([place] 06/23/24) [facility]11-19-2024 NoteHNO ID: [id number] Author: LUZ BECKER PA-C Service: ? Author Type: Physician [employer] Special Education Teacher Type: Progress Notes Filed: 08/04/2024 11:38 Note Text: Large Joint Arthro/Inj: bilateral knee joints Informed Consent Consent Obtained: Verbal [place] Protocol A moment to CARE was completed. SIGN IN Sign in communication not applicable due to emergent procedure. Personnel directly involved with the procedure wore the appropriate PPE. Special Equipment: N/A Patient/Surrogate Stated/Verified: Patient name, Date of , Relevant allergies and Intended procedure TIME OUT Intended patient and procedure match the source document(s). Consent documented and matches the intended procedure. Relevant labs, photos, and/or imaging studies have been reviewed. Correct side/site marked and visible. Medications required for procedure verified. No fire risk assessment and interventions applicable. No implant(s) inserted. 08/04/2024 11:38 AM The procedure site was prepped in the usual sterile fashion. Site: bilateral knee joints Medications (Right): 6 mg betamethasone acetate-betamethasone sodium phosphate 6 mg/mL Medications (Left): 6 mg betamethasone acetate-betamethasone sodium phosphate 6 mg/mL Anesthetics (Right): 5 mL lidocaine (PF) 10 mg/mL (1 %) Anesthetics (Left): 5 mL lidocaine (PF) 10 mg/mL (1 %) Outcome: Tolerated well, no immediate complications Post-injection instructions were reviewed with the patient and the patient voiced understanding of these instructions. SIGN OUT No specimen collected. No instruments, equipment or retained foreign bodies applicable. Post-procedure follow-up management communicated and Plan of [facility] History of Present illness Narrative* Luz Becker PA-C - 08/04/2024 11:37 AM ESTAssociated Order(s): Large Joint Arthro/Inj: bilateral knee joints Post-Procedure Diagnose(s): Primary osteoarthritis of both knees Large Joint Arthro/Inj: bilateral knee joints Informed Consent Consent Obtained: Verbal [place] Protocol A moment to CARE was completed. SIGN IN Sign in communication not applicable due to emergent procedure. Personnel directly involved with the procedure wore the appropriate PPE. Special Equipment: N/A Patient/Surrogate Stated/Verified: Patient name, Date of , Relevant allergies and Intended procedure TIME OUT Intended patient and procedure match the source document(s). Consent documented and matches the intended procedure. Relevant labs, photos, and/or imaging studies have been reviewed. Correct side/site marked and visible. Medications required for procedure verified. No fire risk assessment and interventions applicable. No implant(s) inserted. 08/04/2024 11:38 AM The procedure site was prepped in the usual sterile fashion. Site: bilateral knee joints Medications (Right): 6 mg betamethasone acetate-betamethasone sodium phosphate 6 mg/mL Medications (Left): 6 mg betamethasone acetate-betamethasone sodium phosphate 6 mg/mL Anesthetics (Right): 5 mL lidocaine (PF) 10 mg/mL (1 %) Anesthetics (Left): 5 mL lidocaine (PF) 10 mg/mL (1 %) Outcome: Tolerated well, no immediate complications Post-injection instructions were reviewed with the patient and the patient voiced understanding of these instructions. SIGN OUT No specimen collected. No instruments, equipment or retained foreign bodies applicable. Post-procedure follow-up management communicated and Plan of Care Visit completed when applicable documented in this encounterUniversity [facility] Evaluation note* Diagnosis Vertigo- Primary Dizziness and giddiness Anticoagulation goal of INR 2 to 3 Encounter for therapeutic drug monitoring Pure hypercholesterolemia Essential hypertension Unspecified essential hypertension Coronary artery disease involving [place] heart without angina pectoris, unspecified vessel or lesion type Type 2 diabetes mellitus with other circulatory complication, 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, right Tremor of both hands Type 2 diabetes mellitus with circulatory disorder, 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 thrombosis and embolism Anticoagulation goal of INR 2 to 3 Encounter for therapeutic drug monitoring Essential hypertension Unspecified essential hypertension CAD (coronary artery disease) Coronary atherosclerosis of unspecified type of vessel, [place] or graft Vertebral artery stenosis, right Pure hypercholesterolemia Primary osteoarthritis of both knees- Primary Primary localized osteoarthrosis, lower leg documented in this encounter [facility]11-15-2024 Telephone encounter Note* Telephone Encounter - Belia Heller MA - 07/31/2024 2:39 PM EST I called pt and left a message [facility]11-15-2024 Miscellaneous Notes* Telephone Encounter - Belia Heller MA - 07/31/2024 2:39 PM EST I called pt and left a message * Telephone Encounter - Tate Alfonso MD - 07/31/2024 12:39 PM EST Rx sent. Please notify Tate Alfonso MD * Telephone Encounter - Margarita Sharma - 07/31/2024 9:30 AM EST Patient is calling to check on refill as he is out of medication. He is asking if this can please be expedited today. TY * Telephone Encounter - Fariba Bowman - 07/28/2024 1:55 PM EST Prescription Refill Information The patient has been identified by name and date of : Yes Caregiver verified no other encounters exist for this prescription request: Yes Caregiver confirmed with patient/requestor that no other refills are due, in the near future, with this provider at this time: Yes The last office visit in the department: 06-29-24 Does the patient have a future office visit with this provider/department: Yes Requested Prescriptions Pending Prescriptions Disp Refills HYDROcodone-Acetaminophen (NORCO) 10-325 mg per tablet 30 tablet 0 Sig: Take 1 tablet by mouth once daily as needed for pain for up to 30 days. Fariba Frey July 28, 2024 1:55 PM documented in this encounterUniversity [facility]als [facility]11-[facility]-2024 Telephone encounter Note * Telephone Encounter - Tate Alfonso MD - 07/31/2024 12:39 PM EST Rx sent. Please notify Tate Alfonso MD [facility]11-15-2024 Telephone encounter Note* Telephone Encounter - Margarita Sharma - 07/31/2024 9:30 AM EST Patient is calling to check on refill as he is out of medication. He is asking if this can please be expedited today. TY [facility]11-15-2024 Evaluation note* Diagnosis Vertigo- Primary Dizziness and giddiness Anticoagulation goal of INR 2 to 3 Encounter for therapeutic drug monitoring Pure hypercholesterolemia Essential hypertension Unspecified essential hypertension Coronary artery disease involving [place] heart without angina pectoris, unspecified vessel or lesion type Type 2 diabetes mellitus with other circulatory complication, 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, right Tremor of both hands Type 2 diabetes mellitus with circulatory disorder, 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 thrombosis and embolism Anticoagulation goal of INR 2 to 3 Encounter for therapeutic drug monitoring Essential hypertension Unspecified essential hypertension CAD (coronary artery disease) Coronary atherosclerosis of unspecified type of vessel, [place] or graft Vertebral artery stenosis, right Pure hypercholesterolemia Spinal stenosis of lumbar region without neurogenic claudication Spinal stenosis, lumbar region, without neurogenic claudication Arthritis of left knee Unspecified arthropathy, lower leg Arthritis of right knee Unspecified arthropathy, lower leg Degenerative disc disease, lumbar Degeneration of lumbar or lumbosacral intervertebral disc documented in this encounter [facility]11-12-2024 Telephone encounter Note* Telephone Encounter - Fariba Bowman - 07/28/2024 1:55 PM EST Prescription Refill Information The patient has been identified by name and date of : Yes Caregiver verified no other encounters exist for this prescription request: Yes Caregiver confirmed with patient/requestor that no other refills are due, in the near future, with this provider at this time: Yes The last office visit in the department: 06-29-24 Does the patient have a future office visit with this provider/department: Yes Requested Prescriptions Pending Prescriptions Disp Refills HYDROcodone-Acetaminophen (NORCO) 10-325 mg per tablet 30 tablet 0 Sig: Take 1 tablet by mouth once daily as needed for pain for up to 30 days. Fariba Frey July 28, 2024 1:55 PM [facility]10-14-2024 Instructions* Patient Instructions* Kraig Sifuentes APRN.CNP - 06/29/2024 2:13 PM EDT Screening schedule The following prevention plan is recommended: Dilated Retinal Exam Never done DTaP,Tdap,Td Vaccine(1 - Tdap) Never done Shingrix Vaccine(1 of 2) Never done BP Controlled (<130/80) due on 02/02/2022 Diabetic Foot Exam due on 09/25/2022 Influenza Vaccine(1) due on 05/17/2024 Covid-19 Vaccine( season) due on 05/17/2024 WHAT YOU CAN DO TO PREVENT FALLS Many falls can be prevented. By making some changes, you can lower your chances of falling. Four things YOU can do to prevent falls for you* and your caregiver 1. Begin a regular exercise program Exercise is one of the most important ways to lower your chances of falling. It makes you stronger and helps you feel better. Exercises that improve balance and coordination (like [place]umaro Chi) are the most helpful. Lack of exercise leads to weakness and increases your chances of falling. Ask your doctor or health care provider about the best type of exercise program for you. 2. Have your health care provider review your medicines Have your doctor or pharmacist review all the medicines you take, even [id number] medicines. As you get older, the way medicines work in your body can change. Some medicines, or combinations of medicines, can make you sleepy or dizzy andcan cause you to fall. 3. Have your vision checked Have your eyes checked by an eye doctor at least once a year. You may be wearing the wrong glasses or have a condition like glaucoma or cataracts that limits your vision. Poor vision can increase your chances of falling. 4. Make your home safer About half of all falls happen at home. To make your home safer: Remove things you can trip over (like papers, books, clothes, and shoes) from stairs and places where you walk. Remove small throw rugs or use double-sided tape to keep the rugs from slipping. Keep items you use often in cabinets you can reach easily without using a step stool. Have grab bars put in next to your toilet and in the tub or shower. Use non-slip mats in the bathtub and on shower floors. Improve the lighting in your home. As you get older, you need brighter lights to see well. Hang light-weight curtains or shades to reduce glare. Have handrails and lights put in on all staircases. Wear shoes both inside and outside the house. Avoid going barefoot or wearing slippers. For more information, contact: Centers for Disease Control and Prevention www.cdc.gov/injury * This information may not apply if you have certain medical conditions. documented in this encounterUniversity [facility]als [facility]10-14-2024 NoteHNO ID: [id number] Author: KRAIG SIFUENTES APRN.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 Service: ? Author Type: Nurse Practitioner Type: Progress Notes Filed: 07/13/2024 14:01 Note Text: Medicare Health Risk Assessment General Health Good Exercise: Minutes/Day 15 Exercise: Days/Week 5 days Alcohol: Daily Use Never Alcohol: Drinks/Day 0 Alcohol: 6 or more drinks 0 Feel off balance No Concerns: Teeth/Dentures No Concerns: Sexual function No Troubled by feelings None of the above Frequency: Eating healthy diet Several days ADLs requiring help no Safety precautions in home/vehicle No (throw rugs) Smoke, vape, chews tobacco No Difficulty hearing No Difficulty seeing No (needs new glasses) Current Providers Specialists: I have reviewed specialist-related care of the patient in the medical record. Orthopedic injection q 90 days Medical/Family history review Reviewed and updated problem list, medical/surgical/family/social history, medications, and allergies. Opioid use review Opioid Medications (last 90 days) 04/29/2024 00:00 05/28/2024 06/29/2024 Opioid Medications hydrocodone/acetaminophen 1 tablet DAILY PRN ORAL 1 tablet DAILY PRN ORAL-Discontinued hydrocodone/acetaminophen 1 tablet DAILY PRN ORAL -Discontinued hydrocodone/acetaminophen 1 tablet DAILY PRN ORAL 1 tablet DAILY PRN ORAL Details Outpatient prescription Medication marked as long-term Anxiety/Depression screening Recommendation: no further intervention at this time Cognitive screening Patient declined cognitive exam Functional Observation Was the patient's Timed Up AND Go test unsteady or >= 12 seconds? No Advance Care Planning Patient did not wish or was not able to name a surrogate decision maker or provide an advance care plan Measurements BP 138/88 Pulse (!) 58 Temp 36.9 ?C (98.4 ?F) (Temporal) Ht 177.8 cm (5' 10) Wt 99.7 kg (219 lb 12.8 oz) SpO2 99% BMI 31.54 kg/m? Vision Screening: Follows with optometry/ophthalmology Additional Concerns The following concerns were also discussed with the patient: Hypertension Follow up Medication Adherence: no missed doses and took medications this morning Home monitoring: no needs batteries Heart palpitations: no Chest pain: no Last 3 Encounter BP Readings: Date: BP: 06/29/2024 138/88 03/25/2024 130/72 01/01/2024 120/60 Feels like metoprolol better at BP, switched propanolol for tremors Dr. Ontiveros Type 2 Diabetes Follow up: Fasting blood sugars: EVERY ONCE in a whilke 130-140 Medication compliance: not medicated Diet: could improve Exercise: unable, walks Increased urination, hunger, thirst, weight changes: no Hemoglobin A1C 6.0 06/22/2024 Hemoglobin A1C 5.8 03/23/2024 Hemoglobin A1C 6.4 09/19/2023 Chronic Narcotic Pain Medication Medication: [place] 10mg Used for: Knee pain and chronic back pain. Has arthritis in knees. Has had 3 back surgeries at [facility] Improves quality of life/pain: Yes Amount used per day: Uses 1 per day Non-pharmacologic therapies: gets steroid injections. Pain Scale before medication:6 After medication: 2 If patient is on benzo/muscle relaxer aware of potential sedation: On no benzo or muscle relaxer Concern for addiction: No Non-opioid treatment options: Yes Tylenol Counseled on safe storage and disposal: Yes Counseled on opioid and alcohol: Yes PHYSICAL EXAM BP 138/88 Pulse (!) 58 Temp 36.9 ?C (98.4 ?F) (Temporal) Ht 177.8 cm (5' 10) Wt 99.7 kg (219 lb 12.8 oz) SpO2 99% BMI 31.54 kg/m? GENERAL: well appearing, alert, in no acute distress CARDIOVASCULAR: regular rate and rhythm. No murmur, rubs or gallops. PULMONARY: clear to auscultation, no wheezing, rhonchi, or crackles ABDOMEN: soft, non-tender, non-distended, no masses or organomegaly EXTREMITY: no lower extremity edema. No skin discoloration. ASSESSMENT (Z00.00) Medicare welcome exam (primary encounter diagnosis) (M48.061) Spinal stenosis of lumbar region without neurogenic claudication (M17.12) Arthritis of left knee (M17.11) Arthritis of right knee (M51.369) Degenerative disc disease, lumbar (E11.59) Type 2 diabetes mellitus with other circulatory complication, without long-term current use of insulin (HCC) (I10) Essential hypertension PLAN -Medicare annual wellness visit complete. Counseled on healthy diet and regular exercise. Fall avoidance information provided. Labs reviewed screenings up to date. -[place] sent for chronic pain, benefits quality of life. PDMP website checked and validated. All prescriptions have been APPROPRIATELY filled. No suspicious activity was identified. -A1c Elevated. Advised limiting sugar, sweets and carbs -Htn stable, continue current treatment Follow up in 3 months Kraig [facility]uentes [facility] History of Present illness Narrative* Kraig Sifuentes APRN.CNP - 06/29/2024 2:08 PM EDT Images from the original note were not included. Medicare Health Risk Assessment General Health Good Exercise: Minutes/Day Exercise: Days/Week 5 days Alcohol: Daily Use Never Alcohol: Drinks/Day Alcohol: 6 or more drinks Feel off balance No Concerns: Teeth/Dentures No Concerns: Sexual function No Troubled by feelings None of the above Frequency: Eating healthy diet Several days ADLs requiring help Safety precautions in home/vehicle No (throw rugs) Smoke, vape, chews tobacco No Difficulty hearing No Difficulty seeing No (needs new glasses) Current Providers Specialists: I have reviewed specialist-related care of the patient in the medical record. Orthopedic injection q 90 days Medical/Family history review Reviewed and updated problem list, medical/surgical/family/social history, medications, and allergies. Opioid use review Opioid Medications (last 90 days) 04/29/2024 00:00 05/28/2024 06/29/2024 Opioid Medications hydrocodone/acetaminophen 1 tablet DAILY PRN ORAL 1 tablet DAILY PRN ORAL-Discontinued hydrocodone/acetaminophen 1 tablet DAILY PRN ORAL -Discontinued hydrocodone/acetaminophen 1 tablet DAILY PRN ORAL 1 tablet DAILY PRN ORAL Details Outpatient prescription Medication marked as long-term Anxiety/Depression screening Recommendation: no further intervention at this time Cognitive screening Patient declined cognitive exam Functional Observation Was the patient's Timed Up & Go test unsteady or >= 12 seconds? No Advance Care Planning Patient did not wish or was not able to name a surrogate decision maker or provide an advance care plan Measurements BP 138/88 Pulse (!) 58 Temp 36.9 C (98.4 F) (Temporal) Ht 177.8 cm (5' 10) Wt 99.7 kg (219lb 12.8 oz) SpO2 99% BMI 31.54 kg/m Vision Screening: Follows with optometry/ophthalmology Assessment/Plan Medicare annual wellness visit, subsequent (.) - Counseled on healthy diet and regular exercise - Fall avoidance information provided - Personalized prevention plan provided Additional Concerns The following concerns were also discussed with the patient: Hypertension Follow up Medication Adherence: no missed doses and took medications this morning Home monitoring: no needs batteries Heart palpitations: no Chest pain: no Last 3 Encounter BP Readings: Date: BP: 06/29/2024 138/88 03/25/2024 130/72 01/01/2024 120/60 Feels like metoprolol better at BP, switched propanolol for tremors Dr. Ontiveros Type 2 Diabetes Follow up: Fasting blood sugars: EVERY ONCE in a whilke 130-140 Medication compliance: not medicated Diet: could improve Exercise: unable, walks Increased urination, hunger, thirst, weight changes: no Hemoglobin A1C 6.0 06/22/2024 Hemoglobin A1C 5.8 03/23/2024 Hemoglobin A1C 6.4 09/19/2023 Chronic Narcotic Pain Medication Medication: [place] 10mg Used for: Knee pain and chronic back pain. Has arthritis in knees. Has had 3 back surgeries at [facility] Improves quality of life/pain: Yes Amount used per day: Uses 1 per day Non-pharmacologic therapies: gets steroid injections. Pain Scale before medication:6 After medication: 2 If patient is on benzo/muscle relaxer aware of potential sedation: On no benzo or muscle relaxer Concern for addiction: No Non-opioid treatment options: Yes Tylenol Counseled on safe storage and disposal: Yes Counseled on opioid and alcohol: Yes PHYSICAL EXAM BP 138/88 Pulse (!) 58 Temp 36.9 C (98.4 F) (Temporal) Ht 177.8 cm (5' 10) Wt 99.7 kg (219lb 12.8 oz) SpO2 99% BMI 31.54 kg/m GENERAL: well appearing, alert, in no acute distress CARDIOVASCULAR: regular rate and rhythm. No murmur, rubs or gallops. PULMONARY: clear to auscultation, no wheezing, rhonchi, or crackles ABDOMEN: soft, non-tender, non-distended, no masses or organomegaly EXTREMITY: no lower extremity edema. No skin discoloration. ASSESSMENT (Z00.) Medicare welcome exam (primary encounter diagnosis) (M48.061) Spinal stenosis of lumbar region without neurogenic claudication (M17.12) Arthritis of left knee (M17.11) Arthritis of right knee (M51.369) Degenerative disc disease, lumbar (E11.59) Type 2 diabetes mellitus with other circulatory complication, without long-term current use of insulin (HCC) (I10) Essential hypertension PLAN -Medicare annual wellness visit complete. Counseled on healthy diet and regular exercise. Fall avoidance information provided. Labs reviewed screenings up to date. -[place] sent for chronic pain, benefits quality of life. PDMP website checked and validated. All prescriptions have been APPROPRIATELY filled. No suspicious activity was identified. -A1c Elevated. Advised limiting sugar, sweets and carbs -Htn stable, continue current treatment Follow up in 3 months documented in this encounterUniversity [facility]10-08-2024 Telephone encounter Note * Telephone Encounter - Georgia Tavarez RN - 06/23/2024 1:21 PM EDT Spoke to patient who is aware of INR results. Will continue with current dose of coumadin - verified dose. Retest INR in 4 weeks. Tracker updated [facility]10-08-2024 Miscellaneous Notes* Telephone Encounter - Georgia Tavarez RN - 06/23/2024 1:21 PM EDT Spoke to patient who is aware of INR results. Will continue with current dose of coumadin - verified dose. Retest INR in 4 weeks. Tracker updated * Telephone Encounter - Kraig Sifuentes APRN.CNP - 06/23/2024 1:03 PM EDT Please let patient know his INR is 2.9. Patient should continue on current dose. Retest in 4 weeks. Kraig Pérez APRN.CNP Data from Coumadin Tracker: PT INR 2.9 06/22/2024 PT INR 2.9 05/28/2024 PT INR 2.6 04/24/2024 Goal Range: 2.0-3.0 Last Instructions: Description Patient should continue on current dose. Retest in 4 weeks.(05/28/24 KB) documented in this encounterUniversity [facility]als [facility]10-08-2024 Telephone encounter Note * Telephone Encounter - Kraig Sifuentes APRN.CNP - 06/23/2024 1:03 PM EDT Please let patient know his INR is 2.9. Patient should continue on current dose. Retest in 4 weeks. Kraig Pérez APRN.CNP Data from Coumadin Tracker: PT INR 2.9 06/22/2024 PT INR 2.9 05/28/2024 PT INR 2.6 04/24/2024 Goal Range: 2.0-3.0 Last Instructions: Description Patient should continue on current dose. Retest in 4 weeks.(05/28/24 KB) [facility]09-12-2024 Note* Addendum Note - Kraig Sifuentes APRN.CNP - 05/28/2024 5:47 PM EDTAddended by: KRAIG SIFUENTES on: 05/28/2024 05:47 PM Modules accepted: Orders [facility]09-12-2024 Miscellaneous Notes* Addendum Note - Kraig Sifuentes APRN.CNP - 05/28/2024 5:47 PM EDTAddended by: KRAIG SIFUENTES on: 05/28/2024 05:47 PM Modules accepted: Orders * Telephone Encounter - Kraig Sifuentes APRN.CNP - 05/28/2024 5:46 PM EDT PDMP website checked and validated. All prescriptions have been APPROPRIATELY filled. No suspiciousactivity was identified. Scripts sent Kraig Sifuentes APRN.CNP * Addendum Note - Yoselin Tony RN - 05/28/2024 5:19 PM EDTAddended by: YOSELIN TONY on: 05/28/2024 05:19 PM Modules accepted: Orders * Telephone Encounter - Yoselin Tony RN - 05/28/2024 5:00 PM EDT Patient was notified and voiced understanding of provider message below. He needs some refills also [facility] to [facility] * Telephone Encounter - Kraig Sifuentes APRN.CNP - 05/28/2024 4:15 PM EDT Please let patient know his INR is 2.9. Patient should continue on current dose. Retest in 4 weeks. Thanks, Kraig Sifuentes APRN.CNP Data from Coumadin Tracker: PT INR 2.9 05/28/2024 PT INR 2.6 04/24/2024 PT INR 2.0 03/18/2024 Goal Range: 2.0-3.0 Last Instructions: Description Pt reports taking 2mg on Mondays and 4 mg all other days. Retest in 4 weeks. ( 04/24/24) documented in this encounterUniversity Hospitals [facility]09-12-2024 Telephone encounter Note * Telephone Encounter - Kraig Sifuentes APRN.CNP - 05/28/2024 5:46 PM EDT PDMP website checked and validated. All prescriptions have been APPROPRIATELY filled. No suspiciousactivity was identified. Scripts sent Kraig Sifuentes APRN.CNP [facility]09-12-20[facility] Note* Addendum Note - Yoselin Tony RN - 05/28/2024 5:19 PM EDTAddended by: YOSELIN TONY on: 05/28/2024 05:19 PM Modules accepted: Orders [facility]09-12-2024 Telephone encounter Note* Telephone Encounter - Yoselin Tony RN - 05/28/2024 5:00 PM EDT Patient was notified and voiced understanding of provider message below. He needs some refills also [facility]09-12-2024 Telephone encounter Note* Telephone Encounter - Kraig Sifuentes APRN.CNP - 05/28/2024 4:15 PM EDT Please let patient know his INR is 2.9. Patient should continue on current dose. Retest in 4 weeks. Thanks, Kraig Sifuentes APRN.CNP Data from Coumadin Tracker: PT INR 2.9 05/28/2024 PT INR 2.6 04/24/2024 PT INR 2.0 03/18/2024 Goal Range: 2.0-3.0 Last Instructions: Description Pt reports taking 2mg on Mondays and 4 mg all other days. Retest in 4 weeks. ( 04/24/24) [facility]09-12-[facility] Evaluation note* Diagnosis Vertigo- Primary Dizziness and giddiness Anticoagulation goal of INR 2 to 3 Encounter for therapeutic drug monitoring Pure hypercholesterolemia Essential hypertension Unspecified essential hypertension Coronary artery disease involving [place] heart without angina pectoris, unspecified vessel or lesion type Type 2 diabetes mellitus with other circulatory complication, 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, right Tremor of both hands Type 2 diabetes mellitus with circulatory disorder, 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 thrombosis and embolism Anticoagulation goal of INR 2 to 3 Encounter for therapeutic drug monitoring Essential hypertension Unspecified essential hypertension CAD (coronary artery disease) Coronary atherosclerosis of unspecified type of vessel, [place] or graft Vertebral artery stenosis, right Pure hypercholesterolemia Spinal stenosis of lumbar region without neurogenic claudication Spinal stenosis, lumbar region, without neurogenic claudication Arthritis of left knee Unspecified arthropathy, lower leg Arthritis of right knee Unspecified arthropathy, lower leg Degenerative disc disease, lumbar Degeneration of lumbar or lumbosacral intervertebral disc documented in this encounter [facility]08-15-2024 NoteHNO ID: [id number] Author: LUZ BECKER PA-C Service: ? Author Type: Physician Em[employer] Special Education Teacher Type: Progress Notes Filed: 04/30/2024 10:59 Note Text: Luz Becker PA-C Department of Orthopaedics Orthopaedics [address] [place] [id number] Dept: [phone] April 30, 2024 CHIEF COMPLAINT: Follow Up, Knee Pain, and Injections of the Left Knee and Follow Up, Knee Pain, and Injections of the Right Knee. ASSESSMENT: M17.0 Primary osteoarthritis of both knees (primary encounter diagnosis) SUMMARY/PLAN: Patient presents who presents requesting repeat bilateral knee corticosteroid injections, he has had multiple previous injections and finds them to be very beneficial. Pain only started to return within the last 10 days, pain is a 5 out of 10 aching in both knees. Will proceed with repeat injections today. Large Joint Arthro/Inj: bilateral knee joints Informed Consent Consent Obtained: Verbal [place] Protocol A moment to CARE was completed. SIGN IN Sign in communication not applicable due to emergent procedure. Personnel directly involved with the procedure wore the appropriate PPE. Special Equipment: N/A Patient/Surrogate Stated/Verified: Patient name, Date of , Relevant allergies and Intended procedure TIME OUT Intended patient and procedure match the source document(s). Consent documented and matches the intended procedure. Relevant labs, photos, and/or imaging studies have been reviewed. Correct side/site marked and visible. Medications required for procedure verified. No fire risk assessment and interventions applicable. No implant(s) inserted. 04/30/2024 10:59 AM The procedure site was prepped in the usual sterile fashion. Site: bilateral knee joints Medications (Right): 6 mg betamethasone acetate-betamethasone sodium phosphate 6 mg/mL Medications (Left): 6 mg betamethasone acetate-betamethasone sodium phosphate 6 mg/mL Anesthetics (Right): 5 mL lidocaine (PF) 10 mg/mL (1 %) Anesthetics (Left): 5 mL lidocaine (PF) 10 mg/mL (1 %) Outcome: Tolerated well, no immediate complications Post-injection instructions were reviewed with the patient and the patient voiced understanding of these instructions. SIGN OUT No instruments, equipment or retained foreign bodies applicable. Kayla Moreno was advised as to contrast therapies and/or to take analgesics/anti-inflammatories as needed and all contraindications were reviewed. Supporting Information Below: Medications: Current Outpatient Medications Medication Sig HYDROcodone-Acetaminophen (NORCO) 10-325 mg per tablet Take 1 tablet by mouth once daily as needed for pain for up to 30 days. Patient should start on April 29, 2024. warfarin (COUMADIN) 4 mg tablet Take 1 tablet by mouth once daily. primidone (MYSOLINE) 50 mg tablet TAKE 3 TABLETS TWICE A DAY diclofenac (VOLTAREN) 1 % topical gel Apply 4 g to affected area four times daily. propranolol (INDERAL) 40 mg tablet Take 1 tablet by mouth every 12 hours. meclizine (ANTIVERT) 25 mg tab Take 1 tablet by mouth every 6 hours as needed (for dizziness.). pantoprazole DR (PROTONIX) 40 mg tablet Take by mouth. rosuvastatin (CRESTOR) 20 mg tablet TAKE 1 TABLET DAILY AT BEDTIME famotidine (PEPCID) 20 mg tablet Take 1 tablet by mouth twice daily. aspirin 81 mg chewable tablet Take 81 mg by mouth once daily. lisinopril (ZESTRIL, PRINIVIL) 20 mg tablet Take 1 tablet by mouth once daily. blood sugar diagnostic (BLOOD GLUCOSE TEST) test strip 1 Strip twice daily. E11.9 Lancets lancets 1 Each twice daily. E11.9 acetaminophen (TYLENOL ARTHRITIS PAIN ORAL) Take 650 mg by mouth daily at bedtime. No current facility-administered medications for this visit. Allergies: Atorvastatin This note was partially generated using The Author Hub voice recognition system, and there may be some incorrect words, spellings, and punctuation that were not noted in checking the note before saving. [facility] History of Present illness Narrative* Luz Becker PA-C - 04/30/2024 10:57 AM EDTAssociated Order(s): Large Joint Arthro/Inj: bilateral knee joints Post-Procedure Diagnose(s): Primary osteoarthritis of both knees Luz Becker PA-C Department of Orthopaedics Orthopaedics [address] [address] Dept: [phone] April 30, 2024 CHIEF COMPLAINT: Follow Up, Knee Pain, and Injections of the Left Knee and Follow Up, Knee Pain, and Injections of the Right Knee. ASSESSMENT: M17.0 Primary osteoarthritis of both knees (primary encounter diagnosis) SUMMARY/PLAN: Patient presents who presents requesting repeat bilateral knee corticosteroid injections, he has had multiple previous injections and finds them to be very beneficial. Pain only started to return within the last 10 days, pain is a 5 out of 10 aching in both knees. Will proceed with repeat injections today. Large Joint Arthro/Inj: bilateral knee joints Informed Consent Consent Obtained: Verbal [place] Protocol A moment to CARE was completed. SIGN IN Sign in communication not applicable due to emergent procedure. Personnel directly involved with the procedure wore the appropriate PPE. Special Equipment: N/A Patient/Surrogate Stated/Verified: Patient name, Date of , Relevant allergies and Intended procedure TIME OUT Intended patient and procedure match the source document(s). Consent documented and matches the intended procedure. Relevant labs, photos, and/or imaging studies have been reviewed. Correct side/site marked and visible. Medications required for procedure verified. No fire risk assessment and interventions applicable. No implant(s) inserted. 04/30/2024 10:59 AM The procedure site was prepped in the usual sterile fashion. Site: bilateral knee joints Medications (Right): 6 mg betamethasone acetate-betamethasone sodium phosphate 6 mg/mL Medications (Left): 6 mg betamethasone acetate-betamethasone sodium phosphate 6 mg/mL Anesthetics (Right): 5 mL lidocaine (PF) 10 mg/mL (1 %) Anesthetics (Left): 5 mL lidocaine (PF) 10 mg/mL (1 %) Outcome: Tolerated well, no immediate complications Post-injection instructions were reviewed with the patient and the patient voiced understanding of these instructions. SIGN OUT No instruments, equipment or retained foreign bodies applicable. Mr. Kayla Moreno was advised as to contrast therapies and/or to take analgesics/anti-inflammatories as needed and all contraindications were reviewed. Supporting Information Below: Medications: Current Outpatient Medications Medication Sig HYDROcodone-Acetaminophen (NORCO) 10-325 mg per tablet Take 1 tablet by mouth once daily as needed for pain for up to 30 days. Patient should start on April 29, 2024. warfarin (COUMADIN) 4 mg tablet Take 1 tablet by mouth once daily. primidone (MYSOLINE) 50 mg tablet TAKE 3 TABLETS TWICE A DAY diclofenac (VOLTAREN) 1 % topical gel Apply 4 g to affected area four times daily. propranolol (INDERAL) 40 mg tablet Take 1 tablet by mouth every 12 hours. meclizine (ANTIVERT) 25 mg tab Take 1 tablet by mouth every 6 hours as needed (for dizziness.). pantoprazole DR (PROTONIX) 40 mg tablet Take by mouth. rosuvastatin (CRESTOR) 20 mg tablet TAKE 1 TABLET DAILY AT BEDTIME famotidine (PEPCID) 20 mg tablet Take 1 tablet by mouth twice daily. aspirin 81 mg chewable tablet Take 81 mg by mouth once daily. lisinopril (ZESTRIL, PRINIVIL) 20 mg tablet Take 1 tablet by mouth once daily. blood sugar diagnostic (BLOOD GLUCOSE TEST) test strip 1 Strip twice daily. E11.9 Lancets lancets 1 Each twice daily. E11.9 acetaminophen (TYLENOL ARTHRITIS PAIN ORAL) Take 650 mg by mouth daily at bedtime. No current facility-administered medications for this visit. Allergies: Atorvastatin This note was partially generated using LogFire recognition system, and there may be some incorrect words, spellings, and punctuation that were not noted in checking the note before saving. Luz Becker PA-C documented in this encounterUniversity Hospitals [facility]08-12-2024 Telephone encounter Note * Telephone Encounter - Kraig Sifuentes APRN.CNP - 04/27/2024 3:38 PM EDT PDMP website checked and validated. All prescriptions have been APPROPRIATELY filled. No suspiciousactivity was identified. Kraig Sifuentes APRN.CNP [facility]08-12-2024 Miscellaneous Notes* Telephone Encounter - Kraig Sifuentes APRN.CNP - 04/27/2024 3:38 PM EDT PDMP website checked and validated. All prescriptions have been APPROPRIATELY filled. No suspiciousactivity was identified. Kraig Sifuentes APRN.CNP * Telephone Encounter - Rosalba Alvarez MA - 04/27/2024 1:18 PM EDT Prescription Refill Information The patient has been identified by name and date of : Yes Caregiver verified no other encounters exist for this prescription request: Yes Caregiver confirmed with patient/requestor that no other refills are due, in the near future, with this provider at this time: Yes The last office visit in the department: 03/25/24 Does the patient have a future office visit with this provider/department: Yes Requested Prescriptions Pending Prescriptions Disp Refills HYDROcodone-Acetaminophen (NORCO) 10-325 mg per tablet [Pharmacy Med Name: HYDROCODONE-ACETAMIN 10-325 MG] 30 tablet Sig: take 1 tablet by mouth once daily NEEDED FOR PAIN DO NOT START BEFORE 06/26/2023 Rosalba Alvarez MA April 27, 2024 1:18 PM documented in this encounterUniversity Hospitals [facility]08-12-2024 Telephone encounter Note * Telephone Encounter - Rosalba Alvarez MA - 04/27/2024 1:18 PM EDT Prescription Refill Information The patient has been identified by name and date of : Yes Caregiver verified no other encounters exist for this prescription request: Yes Caregiver confirmed with patient/requestor that no other refills are due, in the near future, with this provider at this time: Yes The last office visit in the department: 03/25/24 Does the patient have a future office visit with this provider/department: Yes Requested Prescriptions Pending Prescriptions Disp Refills HYDROcodone-Acetaminophen (NORCO) 10-325 mg per tablet [Pharmacy Med Name: HYDROCODONE-ACETAMIN 10-325 MG] 30 tablet Sig: take 1 tablet by mouth once daily NEEDED FOR PAIN DO NOT START BEFORE 06/26/2023 Rosalba Alvarez MA April 27, 2024 1:18 PM [facility]08-[facility]24 Telephone encounter Note* Telephone Encounter - Margarita Whyte RN - 04/24/2024 3:06 PM EDT Spoke with patient, he is aware of provider message. [facility]08-09-2024 Miscellaneous Notes* Telephone Encounter - Margarita Whyte RN - 04/24/2024 3:06 PM EDT Spoke with patient, he is aware of provider message. * Telephone Encounter - Tate Alfonso MD - 04/24/2024 11:31 AM EDT Please let patient know his INR is 2.6. Patient should continue on current dose. Retest in 4 weeks. ThanksTate MD Data from Coumadin Tracker: PT INR 2.6 04/24/2024 PT INR 2.0 03/18/2024 PT INR 2.0 03/02/2024 Goal Range: 2.0-3.0 Last Instructions: Description Pt reports taking 2mg on Mon and 4 mg all other days. Retest in 4 weeks. (JR 03/18/24) documented in this encounterUniversity Hospitals [facility]08-09-2024 Telephone encounter Note * Telephone Encounter - Tate Alfonso MD - 04/24/2024 11:31 AM EDT Please let patient know his INR is 2.6. Patient should continue on current dose. Retest in 4 weeks. ThanksTate MD Data from Coumadin Tracker: PT INR 2.6 04/24/2024 PT INR 2.0 03/18/2024 PT INR 2.0 03/02/2024 Goal Range: 2.0-3.0 Last Instructions: Description Pt reports taking 2mg on Mondays and 4 mg all other days. Retest in 4 weeks. (JR 03/18/24) [facility]07-26-[facility] Telephone encounter Note* Telephone Encounter - Mita Neri MA - 04/10/2024 4:14 PM EDT Pended with correct pharmacy [facility]07-26-2024 Miscellaneous Notes* Telephone Encounter - Mita Neri MA - 04/10/2024 4:14 PM EDT Pended with correct pharmacy * Telephone Encounter - Barbi Mera - 04/10/2024 11:43 AM EDT Prescription Refill Information The patient has been identified by name and date of : Yes Caregiver verified no other encounters exist for this prescription request: Yes Caregiver confirmed with patient/requestor that no other refills are due, in the near future, with this provider at this time: Yes The last office visit in the department: 03/25/24 Does the patient have a future office visit with this provider/department: Yes Requested Prescriptions Pending Prescriptions Disp Refills warfarin (COUMADIN) 4 mg tablet 90 tablet 4 Sig: Take 1 tablet by mouth once daily. Patient called this was sent to the wrong pharmacy in December. He has to use [facility]. Verified with patient he has enough until it arrives from mail order. Barbi Frey April 10, 2024 11:44 AM documented in this encounterUniversity Hospitals [facility]07-26-2024 Telephone encounter Note * Telephone Encounter - Barbi Mera - 04/10/2024 11:43 AM EDT Prescription Refill Information The patient has been identified by name and date of : Yes Caregiver verified no other encounters exist for this prescription request: Yes Caregiver confirmed with patient/requestor that no other refills are due, in the near future, with this provider at this time: Yes The last office visit in the department: 03/25/24 Does the patient have a future office visit with this provider/department: Yes Requested Prescriptions Pending Prescriptions Disp Refills warfarin (COUMADIN) 4 mg tablet 90 tablet 4 Sig: Take 1 tablet by mouth once daily. Patient called this was sent to the wrong pharmacy in December. He has to use [facility]. Verified with patient he has enough until it arrives from mail order. Barbi Frey April 10, 2024 11:44 AM [facility]07-10-2024 Instructions* Patient Instructions* Tate Alfonso MD - 03/25/2024 9:58 AM EDT Latest Ref Rng 03/23/2024 Protein, Total 6.3 - 8.0 g/dL 6.6 Albumin 3.9 - 4.9 g/dL 4.0 Calcium 8.5 - 10.2 mg/dL 8.8 Bilirubin, Total 0.2 - 1.3 mg/dL 0.6 Alkaline Phosphatase 38 - 113 U/L 74 AST 14 - 40 U/L 16 ALT 10 - 54 U/L 17 Glucose 74 - 99 mg/dL 232 (H) BUN 9 - 24 mg/dL 15 Creatinine 0.73 - 1.22 mg/dL 1.16 Sodium 136 - 144 mmol/L 138 Potassium 3.7 - 5.1 mmol/L 4.8 Chloride 98 - 107 mmol/L 102 CO2 22 - 30 mmol/L 27 Anion Gap 8 - 15 mmol/L 9 eGFR >=60 mL/min/1.73m 67 WBC 3.70 - 11.00 k/uL 5.21 RBC 4.20 - 6.00 m/uL 4.47 Hemoglobin 13.0 - 17.0 g/dL 14.8 Hematocrit 39.0 - 51.0 % 43.2 MCV 80.0 - 100.0 fL 96.6 MCH 26.0 - 34.0 pg 33.1 MCHC 30.5 - 36.0 g/dL 34.3 RDW-CV 11.5 - 15.0 % 13.2 Platelet Count 150 - 400 k/uL 139 (L) MPV 9.0 - 12.7 fL 9.9 Hemoglobin A1C 4.3 - 5.6 % 5.8 (H) Estimated Average Glucose mg/dL 120 Legend: (H) High (L) Low documented in this encounterUniversity Hospitals [facility]07-10-2024 NoteHNO ID: [id number] Author: TATE ALFONSO MD Service: ? Author Type: Physician Type: Progress Notes Filed: 03/25/2024 10:10 Note Text: ESTABLISHED PATIENT Kayla Moreno is a 73 year old male presenting for Follow Up. HISTORY OF PRESENT ILLNESS Type 2 Diabetes Follow up: Fasting blood sugars: 124 Low blood sugars: no Medication compliance: yes Diet: No longer snacks Exercise: none Increased urination, hunger, thirst, weight changes: no Hemoglobin A1C 5.8 03/23/2024 Hemoglobin A1C 6.4 09/19/2023 Hemoglobin A1C 6.3 01/25/2023 Chronic Narcotic Pain Medication Medication: [place] 10mg Used for: Knee pain and chronic back pain. Has arthritis in knees. Has had 3 back surgeries at [facility] Improves quality of life/pain: Yes Amount used per day: Uses 1 per day Non-pharmacologic therapies: gets steroid injections. Pain Scale before medication:6 After medication: 2 If patient is on benzo/muscle relaxer aware of potential sedation: On no benzo or muscle relaxer Concern for addiction: No Non-opioid treatment options: Yes Tylenol Counseled on safe storage and disposal: Yes Counseled on opioid and alcohol: Yes Knee injections are helping. Propranolol is helping tremors. Seeing operator receptionist April 21. ASSESSMENT: (R25.1) Tremor of both hands (primary encounter diagnosis) (E11.59) Type 2 diabetes mellitus with other circulatory complication, without long-term current use of insulin (HCC) (M48.061) Spinal stenosis of lumbar region without neurogenic claudication (M17.12) Arthritis of left knee (M17.11) Arthritis of right knee (M51.36) Degenerative disc disease, lumbar PLAN: Continue propranolol. Will follow up with Cardiology and if they are ok with how he is doing with the medicaiton may consider increasing A1C at goal. Continue current meds [place] working well. Continue current meds Handicap placard. Reviewed preventative health care. Declines noted REVIEW OF SYSTEMS GENERAL: No weight loss, malaise or fevers PHYSICAL EXAM BP 130/72 Pulse (!) 58 Temp 36.6 ?C (97.8 ?F) Resp 18 Ht 177.8 cm (5' 10) Wt 97.5 kg (214 lb 15.2 oz) SpO2 99% BMI 30.84 kg/m? General: Well developed, well nourished, in no acute distress. Head: Normocephalic, atraumatic. Neck: Supple. Eyes: Normal conjunctiva, no scleral icterus. Lungs: Clear to auscultation bilaterally, no rubs, no wheezing. Cardiac: Regular rate and rhythm. No murmurs, gallops, or rubs. Extremities: Improved essential tremor but still present. Allergies: ALLERGIES Allergen Reactions Atorvastatin Myalgia Medications: HYDROcodone-Acetaminophen (NORCO) 10-325 mg per tablet Take 1 tablet by mouth once daily as needed for pain for up to 30 days. primidone (MYSOLINE) 50 mg tablet TAKE 3 TABLETS TWICE A DAY diclofenac (VOLTAREN) 1 % topical gel Apply 4 g to affected area four times daily. warfarin (COUMADIN) 4 mg tablet Take 1 tablet by mouth once daily. propranolol (INDERAL) 40 mg tablet Take 1 tablet by mouth every 12 hours. meclizine (ANTIVERT) 25 mg tab Take 1 tablet by mouth every 6 hours as needed (for dizziness.). pantoprazole DR (PROTONIX) 40 mg tablet Take by mouth. rosuvastatin (CRESTOR) 20 mg tablet TAKE 1 TABLET DAILY AT BEDTIME famotidine (PEPCID) 20 mg tablet Take 1 tablet by mouth twice daily. aspirin 81 mg chewable tablet Take 81 mg by mouth once daily. lisinopril (ZESTRIL, PRINIVIL) 20 mg tablet Take 1 tablet by mouth once daily. blood sugar diagnostic (BLOOD GLUCOSE TEST) test strip 1 Strip twice daily. E11.9 Lancets lancets 1 Each twice daily. E11.9 acetaminophen (TYLENOL ARTHRITIS PAIN ORAL) Take 650 mg by mouth daily at bedtime. predniSONE (DELTASONE) 10 mg tablet Take PO 4 tablets x 5 days, then 3 tablets x 3 days, then 2 tablets x 3 days, 1 tablets x 3 days (Patient not taking: Reported on 03/25/2024) HISTORIES FAMILY HISTORY Problem Relation Age of Onset Coronary Artery Disease Father Diabetes Father Cancer Mother Uterine Diabetes Mother Diabetes Sister Coronary Artery Disease Brother PAST MEDICAL HISTORY Diagnosis Date DVT (deep venous thrombosis) ([facility]) Leg x 2 Essential hypertension Hyperlipidemia Lumbar herniated disc STEMI (ST elevation myocardial infarction) ([facility]) Tremor of both hands PAST SURGICAL HISTORY Procedure Laterality Date CARPAL TUNNEL Carpal tunnel release x 2 IVC FILTER PERCUTANEOUS 2004 OTHER Microdiskectomy REPAIR MEDIAL OR LATERAL MENISCUS, TO R687 2009 Social History Tobacco Use Smoking status: Never Smokeless tobacco: Never Substance Use Topics Alcohol use: No Drug use: No Tate Alfonso [facility]07-10-2024 History of Present illness Narrative* Tate Alfonso MD - 03/25/2024 9:48 AM EDT ESTABLISHED PATIENT Kayla Moreno is a 73 year old male presenting for Follow Up. HISTORY OF PRESENT ILLNESS Type 2 Diabetes Follow up: Fasting blood sugars: 124 Low blood sugars: no Medication compliance: yes Diet: No longer snacks Exercise: none Increased urination, hunger, thirst, weight changes: no Hemoglobin A1C 5.8 03/23/2024 Hemoglobin A1C 6.4 09/19/2023 Hemoglobin A1C 6.3 01/25/2023 Chronic Narcotic Pain Medication Medication: [place] 10mg Used for: Knee pain and chronic back pain. Has arthritis in knees. Has had 3 back surgeries at [facility] Improves quality of life/pain: Yes Amount used per day: Uses 1 per day Non-pharmacologic therapies: gets steroid injections. Pain Scale before medication:6 After medication: 2 If patient is on benzo/muscle relaxer aware of potential sedation: On no benzo or muscle relaxer Concern for addiction: No Non-opioid treatment options: Yes Tylenol Counseled on safe storage and disposal: Yes Counseled on opioid and alcohol: Yes Knee injections are helping. Propranolol is helping tremors. Seeing operator receptionist April 21. ASSESSMENT: (R25.1) Tremor of both hands (primary encounter diagnosis) (E11.59) Type 2 diabetes mellitus with other circulatory complication, without long-term current use of insulin (HCC) (M48.061) Spinal stenosis of lumbar region without neurogenic claudication (M17.12) Arthritis of left knee (M17.11) Arthritis of right knee (M51.36) Degenerative disc disease, lumbar PLAN: Continue propranolol. Will follow up with Cardiology and if they are ok with how he is doing with the medicaiton may consider increasing A1C at goal. Continue current meds [place] working well. Continue current meds Handicap placlen. Reviewed preventative health care. Declines noted REVIEW OF SYSTEMS GENERAL: No weight loss, malaise or fevers PHYSICAL EXAM BP 130/72 Pulse (!) 58 Temp 36.6 C (97.8 F) Resp 18 Ht 177.8 cm (5' 10) Wt 97.5 kg (214 lb 15.2 oz) SpO2 99% BMI 30.84 kg/m General: Well developed, well nourished, in no acute distress. Head: Normocephalic, atraumatic. Neck: Supple. Eyes: Normal conjunctiva, no scleral icterus. Lungs: Clear to auscultation bilaterally, no rubs, no wheezing. Cardiac: Regular rate and rhythm. No murmurs, gallops, or rubs. Extremities: Improved essential tremor but still present. Allergies: ALLERGIES Allergen Reactions Atorvastatin Myalgia Medications: HYDROcodone-Acetaminophen (NORCO) 10-325 mg per tablet Take 1 tablet by mouth once daily as needed for pain for up to 30 days. primidone (MYSOLINE) 50 mg tablet TAKE 3 TABLETS TWICE A DAY diclofenac (VOLTAREN) 1 % topical gel Apply 4 g to affected area four times daily. warfarin (COUMADIN) 4 mg tablet Take 1 tablet by mouth once daily. propranolol (INDERAL) 40 mg tablet Take 1 tablet by mouth every 12 hours. meclizine (ANTIVERT) 25 mg tab Take 1 tablet by mouth every 6 hours as needed (for dizziness.). pantoprazole DR (PROTONIX) 40 mg tablet Take by mouth. rosuvastatin (CRESTOR) 20 mg tablet TAKE 1 TABLET DAILY AT BEDTIME famotidine (PEPCID) 20 mg tablet Take 1 tablet by mouth twice daily. aspirin 81 mg chewable tablet Take 81 mg by mouth once daily. lisinopril (ZESTRIL, PRINIVIL) 20 mg tablet Take 1 tablet by mouth once daily. blood sugar diagnostic (BLOOD GLUCOSE TEST) test strip 1 Strip twice daily. E11.9 Lancets lancets 1 Each twice daily. E11.9 acetaminophen (TYLENOL ARTHRITIS PAIN ORAL) Take 650 mg by mouth daily at bedtime. predniSONE (DELTASONE) 10 mg tablet Take PO 4 tablets x 5 days, then 3 tablets x 3 days, then 2 tablets x 3 days, 1 tablets x 3 days (Patient not taking: Reported on 03/25/2024) HISTORIES FAMILY HISTORY Problem Relation Age of Onset Coronary Artery Disease Father Diabetes Father Cancer Mother Uterine Diabetes Mother Diabetes Sister Coronary Artery Disease Brother PAST MEDICAL HISTORY Diagnosis Date DVT (deep venous thrombosis) ([facility]) Leg x 2 Essential hypertension Hyperlipidemia Lumbar herniated disc STEMI (ST elevation myocardial infarction) ([facility]) Tremor of both hands PAST SURGICAL HISTORY Procedure Laterality Date CARPAL TUNNEL Carpal tunnel release x 2 IVC FILTER PERCUTANEOUS 2004 OTHER Microdiskectomy REPAIR MEDIAL OR LATERAL MENISCUS, TO R687 2009 Social History Tobacco Use Smoking status: Never Smokeless tobacco: Never Substance Use Topics Alcohol use: No Drug use: No Tate Alfonso MD * Grisel Charles LPN - 03/25/2024 9:18 AM EDT Dilated Retinal Exam Never done DTaP,Tdap,Td Vaccine(1 - Tdap) Never done Shingrix Vaccine(1 of 2) Never done RSV Vaccine(1 - 1-dose 60+ series) Never done Colorectal Cancer Screening due on 01/16/2019 Diabetic Foot Exam due on 09/25/2022 Covid-19 Vaccine( season) due on 05/17/2023 Advance Directive Discussion due on 09/16/2023 Behavioral Health Screening Never done Urine Albumin:Creatinine Ratio due on 01/26/2024 documented in this encounterUniversity Hospitals [facility]07-10-2024 NoteHNO ID: [id number] Author: GRISEL CHARLES LPN Service: ? Author Type: LICENSED NURSE Type: Progress Notes Filed: 03/25/2024 10:10 Note Text: Dilated Retinal Exam Never done DTaP,Tdap,Td Vaccine(1 - Tdap) Never done Shingrix Vaccine(1 of 2) Never done RSV Vaccine(1 - 1-dose 60+ series) Never done Colorectal Cancer Screening due on 01/16/2019 Diabetic Foot Exam due on 09/25/2022 Covid-19 Vaccine( season) due on 05/17/2023 Advance Directive Discussion due on 09/16/2023 Behavioral Health Screening Never done Urine Albumin:Creatinine Ratio due on 01/26/2024[facility] 03-18-2024 Telephone encounter Note* Telephone Encounter - Lacy Rosales RN - 03/18/2024 3:48 PM EDT Spoke to pt Pt states he has been taking half pill, 2 mg, on Mondays and 4 mg all other days. Confirmed he is certain this is what he has been taking. Unclear when as last several encounters has been reporting taking 6 mg 1 or 2 days a week Pt asked to move up f/u appt d/t needing handicap placard renewed- r/s to next week No further questions [facility]07-03-[facility]24 Miscellaneous Notes* Telephone Encounter - Lacy Rosales RN - 03/18/2024 3:48 PM EDT Spoke to pt Pt states he has been taking half pill, 2 mg, on Mondays and 4 mg all other days. Confirmed he is certain this is what he has been taking. Unclear when as last several encounters has been reporting taking 6 mg 1 or 2 days a week Pt asked to move up f/u appt d/t needing handicap placard renewed- r/s to next week No further questions * Telephone Encounter - Tate Alfonso MD - 03/18/2024 3:18 PM EDT Please let patient know his INR is 2.0. Patient should continue on current dose. Retest in 4 weeks. Thanks, Tate Alfonso MD Data from Coumadin Tracker: PT INR 2.0 03/18/2024 PT INR 2.0 03/02/2024 PT INR 3.1 02/12/2024 Goal Range: 2.0-3.0 Last Instructions: Description 6 mg 1 day/week and 4 mg 6 day/week. Retest in 1-2 weeks. (DT 03/03/24) documented in this encounterUniversity Hospitals [facility]07-03-2024 Telephone encounter Note * Telephone Encounter - Tate Alfonso MD - 03/18/2024 3:18 PM EDT Please let patient know his INR is 2.0. Patient should continue on current dose. Retest in 4 weeks. Thanks, Tate Alfonso MD Data from Coumadin Tracker: PT INR 2.0 03/18/2024 PT INR 2.0 03/02/2024 PT INR 3.1 02/12/2024 Goal Range: 2.0-3.0 Last Instructions: Description 6 mg 1 day/week and 4 mg 6 day/week. Retest in 1-2 weeks. (DT 03/03/24) [facility] Telephone encounter Note* Telephone Encounter - Autumn Gonzalez RN - 03/03/2024 12:21 PM EDT Message to patient. Tracker done. [facility] Miscellaneous Notes* Telephone Encounter - Autumn Gonzalez RN - 03/03/2024 12:21 PM EDT Message to patient. Tracker done. * Telephone Encounter - Kraig Sifuentes APRN.CNP - 03/03/2024 11:33 AM EDT Please let patient know his INR is 2.0. Patient should continue on current dose. Retest in 1 weeks. Kraig Pérez APRN.CNP Data from Coumadin Tracker: PT INR 2.0 03/02/2024 PT INR 3.1 02/12/2024 PT INR 1.7 02/05/2024 Goal Range: 2.0-3.0 Last Instructions: Description 6 mg 1 day/week and 4 mg 6 day/week. Retest in 1-2 weeks. (JR 02/12/24) documented in this encounterUniversity Hospitals [facility]06-18-2024 Telephone encounter Note * Telephone Encounter - Kraig Sifuentes APRN.CNP - 03/03/2024 11:33 AM EDT Please let patient know his INR is 2.0. Patient should continue on current dose. Retest in 1 weeks. Kraig Pérez APRN.CNP Data from Coumadin Tracker: PT INR 2.0 03/02/2024 PT INR 3.1 02/12/2024 PT INR 1.7 02/05/2024 Goal Range: 2.0-3.0 Last Instructions: Description 6 mg 1 day/week and 4 mg 6 day/week. Retest in 1-2 weeks. (JR 02/12/24) [facility] Work Phone: [phone]) 478-266106-17-2024 Telephone encounter Note* Telephone Encounter - Autumn Menendez - 03/02/2024 9:32 AM EDT Prescription Refill Information The patient has been identified by name and date of : Yes Caregiver verified no other encounters exist for this prescription request: Yes Caregiver confirmed with patient/requestor that no other refills are due, in the near future, with this provider at this time: Yes The last office visit in the department: 01-01-24 Does the patient have a future office visit with this provider/department: Yes Requested Prescriptions Pending Prescriptions Disp Refills HYDROcodone-Acetaminophen (NORCO) 10-325 mg per tablet 30 tablet 0 Sig: Take 1 tablet by mouth once daily as needed for pain for up to 30 days. Autumn Frey March 02, 2024 9:[address] [facility]06-17-2024 Miscellaneous Notes* Telephone Encounter - Autumn Menendez - 03/02/2024 9:32 AM EDT Prescription Refill Information The patient has been identified by name and date of : Yes Caregiver verified no other encounters exist for this prescription request: Yes Caregiver confirmed with patient/requestor that no other refills are due, in the near future, with this provider at this time: Yes The last office visit in the department: 01-01-24 Does the patient have a future office visit with this provider/department: Yes Requested Prescriptions Pending Prescriptions Disp Refills HYDROcodone-Acetaminophen (NORCO) 10-325 mg per tablet 30 tablet 0 Sig: Take 1 tablet by mouth once daily as needed for pain for up to 30 days. Autumn Frey March 02, 2024 9:33 AM documented in this encounterUniversity Hospitals [facility]05-29-2024 Telephone encounter Note * Telephone Encounter - Lacy Rosales RN - 02/12/2024 12:31 PM EDT Spoke with pt, reviewed INR result, current Coumadin dose and instructions. Tracker updated [facility]-29-2024 Miscellaneous Notes* Telephone Encounter - Lacy Rosales RN - 02/12/2024 12:31 PM EDT Spoke with pt, reviewed INR result, current Coumadin dose and instructions. Tracker updated * Telephone Encounter - Tate Alfonso MD - 02/12/2024 12:20 PM EDT Please let patient know his INR is 3.1. If patient is taking as noted below, then please have patient take 6mg one day per week and 4mg six days per week. Retest in 1-2 weeks. Thanks, Tate Alfonso MD Data from Coumadin Tracker: PT INR 3.1 02/12/2024 PT INR 1.7 02/05/2024 PT INR 1.7 01/29/2024 Goal Range: 2.0-3.0 Last Instructions: Description Increase to 6mg two days per week and 4mg all other days. Retest in 1 week. ( MM 02/05/24) documented in this encounterUniversity Hospitals [facility]05-29-2024 Telephone encounter Note * Telephone Encounter - Tate Alfonso MD - 02/12/2024 12:20 PM EDT Please let patient know his INR is 3.1. If patient is taking as noted below, then please have patient take 6mg one day per week and 4mg six days per week. Retest in 1-2 weeks. Thanks, Tate Alfonso MD Data from Coumadin Tracker: PT INR 3.1 02/12/2024 PT INR 1.7 02/05/2024 PT INR 1.7 01/29/2024 Goal Range: 2.0-3.0 Last Instructions: Description Increase to 6mg two days per week and 4mg all other days. Retest in 1 week. ( MM 02/05/24) [facility]05-29-[facility]24 Evaluation note* Diagnosis Anticoagulation goal of INR 2 to 3- Primary Encounter for therapeutic drug monitoring documented in this encounter [facility]05-22-2024 Telephone encounter Note* Telephone Encounter - Sofie Matthews RN - 02/05/2024 1:37 PM EDT Notified patient. Updated tracker. Patient verbalizes understanding and has no other questions or concerns at this time. Sofie Matthews RN [facility]05-22-2024 Miscellaneous Notes* Telephone Encounter - Sofie Matthews RN - 02/05/2024 1:37 PM EDT Notified patient. Updated tracker. Patient verbalizes understanding and has no other questions or concerns at this time. Sofie Matthews RN * Telephone Encounter - Tate Alfonso MD - 02/05/2024 1:21 PM EDT Please let patient know his INR is 1.7. If patient is taking as noted below, then please have patient increase to 6mg two days per week and 4mg all other days. Retest in 1 weeks. Thanks, Tate Alfonso MD Data from Coumadin Tracker: PT INR 1.7 02/05/2024 PT INR 1.7 01/29/2024 PT INR 2.7 12/23/2023 Goal Range: 2.0-3.0 Last Instructions: Description 6 mg Wednesdays, 4 mg all other days. Retest in 1 week (JR 01/29/2024) documented in this encounter[facility] Telephone encounter Note * Telephone Encounter - Tate Alfonso MD - 02/05/2024 1:21 PM EDT Please let patient know his INR is 1.7. If patient is taking as noted below, then please have patient increase to 6mg two days per week and 4mg all other days. Retest in 1 weeks. Thanks, Tate Alfonso MD Data from Coumadin Tracker: PT INR 1.7 02/05/2024 PT INR 1.7 01/29/2024 PT INR 2.7 12/23/2023 Goal Range: 2.0-3.0 Last Instructions: Description 6 mg Wednesdays, 4 mg all other days. Retest in 1 week (JR 01/29/2024) [facility]05-16-[facility] History of Present illness Narrative* Luz Becker PA-C - 01/30/2024 10:35 AM EDTAssociated Order(s): Large Joint Arthro/Inj: bilateral knee joints Post-Procedure Diagnose(s): Primary osteoarthritis of both knees Luz Becker PA-C Department of Orthopaedics Orthopaedics [address] [place] [id number] Dept: [phone] January 30, 2024 CHIEF COMPLAINT: Established Patient, Knee Pain, and Injections of the Left Knee and Established Patient, Knee Pain, and Injections of the Right Knee. ASSESSMENT: M17.0 Primary osteoarthritis of both knees (primary encounter diagnosis) SUMMARY/PLAN: Patient presents for repeat bilateral knee corticosteroid injections, he finds the injections to bevery helpful for several weeks. Pain today is a 6 out of 10 intermittent aching. Will proceed with repeat injections. Large Joint Arthro/Inj: bilateral knee joints Informed Consent Consent Obtained: Verbal [place] Protocol A moment to CARE was completed. SIGN IN Sign in communication not applicable due to emergent procedure. Personnel directly involved with the procedure wore the appropriate PPE. Special Equipment: N/A Patient/Surrogate Stated/Verified: Patient name, Date of , Relevant allergies and Intended procedure TIME OUT Intended patient and procedure match the source document(s). Consent documented and matches the intended procedure. Relevant labs, photos, and/or imaging studies have been reviewed. Correct side/site marked and visible. Medications required for procedure verified. No fire risk assessment and interventions applicable. No implant(s) inserted. 01/30/2024 10:35 AM The procedure site was prepped in the usual sterile fashion. Site: bilateral knee joints Medications (Right): 6 mg betamethasone acetate-betamethasone sodium phosphate 6 mg/mL Medications (Left): 6 mg betamethasone acetate-betamethasone sodium phosphate 6 mg/mL Anesthetics (Right): 5 mL lidocaine (PF) 10 mg/mL (1 %) Anesthetics (Left): 5 mL lidocaine (PF) 10 mg/mL (1 %) Outcome: Tolerated well, no immediate complications Post-injection instructions were reviewed with the patient and the patient voiced understanding of these instructions. SIGN OUT No instruments, equipment or retained foreign bodies applicable. Mr. Leach Radha Tiffanie was advised as to contrast therapies and/or to take analgesics/anti-inflammatories as needed and all contraindications were reviewed. Supporting Information Below: Medications: Current Outpatient Medications Medication Sig primidone (MYSOLINE) 50 mg tablet TAKE 3 TABLETS TWICE A DAY diclofenac (VOLTAREN) 1 % topical gel Apply 4 g to affected area four times daily. HYDROcodone-Acetaminophen (NORCO) 10-325 mg per tablet Take 1 tablet by mouth once daily as needed for pain for up to 30 days. predniSONE (DELTASONE) 10 mg tablet Take PO 4 tablets x 5 days, then 3 tablets x 3 days, then 2 tablets x 3 days, 1 tablets x 3 days warfarin (COUMADIN) 4 mg tablet Take 1 tablet by mouth once daily. propranolol (INDERAL) 40 mg tablet Take 1 tablet by mouth every 12 hours. meclizine (ANTIVERT) 25 mg tab Take 1 tablet by mouth every 6 hours as needed (for dizziness.). pantoprazole DR (PROTONIX) 40 mg tablet Take by mouth. rosuvastatin (CRESTOR) 20 mg tablet TAKE 1 TABLET DAILY AT BEDTIME famotidine (PEPCID) 20 mg tablet Take 1 tablet by mouth twice daily. aspirin 81 mg chewable tablet Take 81 mg by mouth once daily. lisinopril (ZESTRIL, PRINIVIL) 20 mg tablet Take 1 tablet by mouth once daily. blood sugar diagnostic (BLOOD GLUCOSE TEST) test strip 1 Strip twice daily. E11.9 Lancets lancets 1 Each twice daily. E11.9 acetaminophen (TYLENOL ARTHRITIS PAIN ORAL) Take 650 mg by mouth daily at bedtime. No current facility-administered medications for this visit. Allergies: Atorvastatin This note was partially generated using LogFire recognition system, and there may be some incorrect words, spellings, and punctuation that were not noted in checking the note before saving. Luz Becker PA-C documented in this encounterUniversity [facility]als [facility] Telephone encounter Note * Telephone Encounter - Lacy Rosales RN - 01/29/2024 4:40 PM EDT Requested Prescriptions Pending Prescriptions Disp Refills HYDROcodone-Acetaminophen (NORCO) 10-325 mg per tablet 30 tablet 0 Sig: Take 1 tablet by mouth once daily as needed for pain for up to 30 days. [facility]05-15-2024 Miscellaneous Notes* Telephone Encounter - Lacy Rosales RN - 01/29/2024 4:40 PM EDT Requested Prescriptions Pending Prescriptions Disp Refills HYDROcodone-Acetaminophen (NORCO) 10-325 mg per tablet 30 tablet 0 Sig: Take 1 tablet by mouth once daily as needed for pain for up to 30 days. documented in this encounterUniversity [facility]24 Telephone encounter Note * Telephone Encounter - Merlene Kirby MA - 01/16/2024 9:43 AM EDT Pharmacy verified in [facility] Patient has been identified by name and date of : Yes Patient aware RX will be sent to pharmacy. No need to notify patient. Pharmacy phones for refill(s): Requested Prescriptions Pending Prescriptions Disp Refills primidone (MYSOLINE) 50 mg tablet [Pharmacy Med Name: PRIMIDONE TABS 50MG] 540 tablet 3 Sig: TAKE 3 TABLETS TWICE A DAY Date of last office visit : 01/01/2024 Date of next office visit : 05/07/2024 Last 2 Encounter Wt Readings: Date: Wt: 01/01/2024 99.5 kg (219 lb 5.7 oz) 09/19/2023 97.7 kg (215 lb 6.2 oz) Thyroid: TSH Date Value 06/13/2023 1.990 mIU/L 09/20/2021 2.370 uU/mL Diabetes: Hemoglobin A1C (%) Date Value 09/20/2021 6.8 Hemoglobin A1C (POCT) (%) Date Value 09/19/2023 6.4 Cholesterol: Triglyceride (mg/dL) Date Value 12/23/2023 145 09/20/2021 110 HDL Cholesterol (mg/dL) Date Value 12/23/2023 46 09/20/2021 52 LDL Cholesterol (mg/dL) Date Value 12/23/2023 78 09/20/2021 94 LDL Cholesterol, Nonfasting (mg/dL) Date Value 10/19/2022 59 ALT (U/L) Date Value 07/12/2023 9 2021 18 Non HDL Cholesterol, Nonfasting (mg/dL) Date Value 10/21/2019 139 Non HDL Cholesterol (mg/dL) Date Value 12/23/2023 107 09/20/2021 116 Blood Pressure: BUN (mg/dL) Date Value 07/12/2023 18 09/20/2021 18 Creatinine (mg/dL) Date Value 07/12/2023 1.16 09/20/2021 1.11 Sodium (mmol/L) Date Value 07/12/2023 136 09/20/2021 141 Potassium (mmol/L) Date Value 07/12/2023 4.2 09/26/2021 4.9 Last 1 Encounter BP Readings: Date: BP: 01/01/2024 120/60 Coumadin: PT INR (no units) Date Value 09/26/2021 2.3 INR (no units) Date Value 12/23/2023 2.7 Blood Counts: RBC (m/uL) Date Value 07/12/2023 4.01 09/20/2021 4.28 WBC (k/uL) Date Value 07/12/2023 5.03 09/20/2021 5.94 Hematocrit (%) Date Value 07/12/2023 38.5 09/20/2021 40.6 Hemoglobin (g/dL) Date Value 07/12/2023 13.2 09/20/2021 14.0 Platelet Count (k/uL) Date Value 07/12/2023 110 09/20/2021 139 Liver Function: ALT (U/L) Date Value 07/12/2023 9 2021 18 AST (U/L) Date Value 07/12/2023 23 2021 20 Potassium: Potassium (mmol/L) Date Value 07/12/2023 4.2 09/26/2021 4.9 B12: Vitamin B12 (pg/mL) Date Value 11/13/2019 335 Please advise. Merlene Kirby MA [facility]05-02-2024 Miscellaneous Notes* Telephone Encounter - Merlene Kirby MA - 01/16/2024 9:43 AM EDT Pharmacy verified in Epic Patient has been identified by name and date of : Yes Patient aware RX will be sent to pharmacy. No need to notify patient. Pharmacy phones for refill(s): Requested Prescriptions Pending Prescriptions Disp Refills primidone (MYSOLINE) 50 mg tablet [Pharmacy Med Name: PRIMIDONE TABS 50MG] 540 tablet 3 Sig: TAKE 3 TABLETS TWICE A DAY Date of last office visit : 01/01/2024 Date of next office visit : 05/07/2024 Last 2 Encounter Wt Readings: Date: Wt: 01/01/2024 99.5 kg (219 lb 5.7 oz) 09/19/2023 97.7 kg (215 lb 6.2 oz) Thyroid: TSH Date Value 06/13/2023 1.990 mIU/L 09/20/2021 2.370 uU/mL Diabetes: Hemoglobin A1C (%) Date Value 09/20/2021 6.8 Hemoglobin A1C (POCT) (%) Date Value 09/19/2023 6.4 Cholesterol: Triglyceride (mg/dL) Date Value 12/23/2023 145 09/20/2021 110 HDL Cholesterol (mg/dL) Date Value 12/23/2023 46 09/20/2021 52 LDL Cholesterol (mg/dL) Date Value 12/23/2023 78 09/20/2021 94 LDL Cholesterol, Nonfasting (mg/dL) Date Value 10/19/2022 59 ALT (U/L) Date Value 07/12/2023 9 2021 18 Non HDL Cholesterol, Nonfasting (mg/dL) Date Value 10/21/2019 139 Non HDL Cholesterol (mg/dL) Date Value 12/23/2023 107 09/20/2021 116 Blood Pressure: BUN (mg/dL) Date Value 07/12/2023 18 09/20/2021 18 Creatinine (mg/dL) Date Value 07/12/2023 1.16 09/20/2021 1.11 Sodium (mmol/L) Date Value 07/12/2023 136 09/20/2021 141 Potassium (mmol/L) Date Value 07/12/2023 4.2 09/26/2021 4.9 Last 1 Encounter BP Readings: Date: BP: 01/01/2024 120/60 Coumadin: PT INR (no units) Date Value 09/26/2021 2.3 INR (no units) Date Value 12/23/2023 2.7 Blood Counts: RBC (m/uL) Date Value 07/12/2023 4.01 09/20/2021 4.28 WBC (k/uL) Date Value 07/12/2023 5.03 09/20/2021 5.94 Hematocrit (%) Date Value 07/12/2023 38.5 09/20/2021 40.6 Hemoglobin (g/dL) Date Value 07/12/2023 13.2 09/20/2021 14.0 Platelet Count (k/uL) Date Value 07/12/2023 110 09/20/2021 139 Liver Function: ALT (U/L) Date Value 07/12/2023 9 2021 18 AST (U/L) Date Value 07/12/2023 23 2021 20 Potassium: Potassium (mmol/L) Date Value 07/12/2023 4.2 09/26/2021 4.9 B12: Vitamin B12 (pg/mL) Date Value 11/13/2019 335 Please advise. Merlene Kirby MA documented in this encounterUniversity Hospitals [facility]04-[facility] History of Present illness Narrative* Tate Alfonso MD - 01/01/2024 3:04 PM EDT ESTABLISHED PATIENT Kayla Moreno is a 73 year old male presenting for F/U 3 months. HISTORY OF PRESENT ILLNESS Patient is current on propranolol for tremors. Stopped metoprolol. Notes improvement in the tremor.Taking twice daily. Notes BP higher since stopping metoprolol. Hypertension Follow up Medication Adherence: no missed doses and took medications this morning Home monitorin at home using wrist. Heart palpitations: no Chest pain: no Last 3 Encounter BP Readings: Date: BP: 01/01/2024 120/60 09/19/2023 112/60 07/12/2023 145/85 Last 10 Encounter Wt Readings: Date: Wt: 01/01/2024 99.5 kg (219 lb 5.7 oz) 09/19/2023 97.7 kg (215 lb 6.2 oz) 06/19/2023 99.1 kg (218 lb 6.4 oz) 02/08/2023 96.2 kg (212 lb) 10/24/2022 95.7 kg (211 lb) 07/24/2022 98.2 kg (216 lb 6.4 oz) 04/23/2022 99.9 kg (220 lb 3.2 oz) 12/27/2021 97.5 kg (215 lb) 09/25/2021 99.3 kg (219 lb) 06/26/2021 98.9 kg (218 lb) Notices the pain in the knees isn't helping as much for the norco. Having more pain in the right leg and going down to the foot. Chronic Narcotic Pain Medication Medication: [place] 10mg Used for: Knee pain and chronic back pain. Has arthritis in knees. Has had 3 back surgeries at [facility] Improves quality of life/pain: Yes Amount used per day: Uses 1 per day Non-pharmacologic therapies: gets steroid injections. Pain Scale before medication:6 After medication: 2 If patient is on benzo/muscle relaxer aware of potential sedation: On no benzo or muscle relaxer Concern for addiction: No Non-opioid treatment options: Yes Tylenol Counseled on safe storage and disposal: Yes Counseled on opioid and alcohol: Yes ASSESSMENT: (E11.59) Type 2 diabetes mellitus with other circulatory complication, without long-term current use of insulin ([facility]) (primary encounter diagnosis) (M17.12) Arthritis of left knee (M17.11) Arthritis of right knee (M48.061) Spinal stenosis of lumbar region without neurogenic claudication (M51.36) Degenerative disc disease, lumbar PLAN: DM2 stable. Continue current meds Continue norco. Patient is thinking he may want to have knee replacement as pain is getting bad. Refill voltaren gel Prednisone Patient will check INR on Saturday since he is taking prednisone HISTORIES FAMILY HISTORY Problem Relation Age of Onset Coronary Artery Disease Father Diabetes Father Cancer Mother Uterine Diabetes Mother Diabetes Sister Coronary Artery Disease Brother PAST MEDICAL HISTORY Diagnosis Date DVT (deep venous thrombosis) ([facility]) Leg x 2 Essential hypertension Hyperlipidemia Lumbar herniated disc STEMI (ST elevation myocardial infarction) ([facility]) Tremor of both hands PAST SURGICAL HISTORY Procedure Laterality Date CARPAL TUNNEL Carpal tunnel release x 2 IVC FILTER PERCUTANEOUS 2004 OTHER Microdiskectomy REPAIR MEDIAL OR LATERAL MENISCUS, TO R687 2009 Social History Tobacco Use Smoking status: Never Smokeless tobacco: Never Substance Use Topics Alcohol use: No Drug use: No Allergies: ALLERGIES Allergen Reactions Atorvastatin Myalgia Medications: propranolol (INDERAL) 40 mg tablet Take 1 tablet by mouth every 12 hours. meclizine (ANTIVERT) 25 mg tab Take 1 tablet by mouth every 6 hours as needed (for dizziness.). pantoprazole DR (PROTONIX) 40 mg tablet Take by mouth. primidone (MYSOLINE) 50 mg tablet TAKE 3 TABLETS TWICE A DAY warfarin (COUMADIN) 4 mg tablet TAKE 1 TABLET DAILY rosuvastatin (CRESTOR) 20 mg tablet TAKE 1 TABLET DAILY AT BEDTIME famotidine (PEPCID) 20 mg tablet Take 1 tablet by mouth twice daily. aspirin 81 mg chewable tablet Take 81 mg by mouth once daily. lisinopril (ZESTRIL, PRINIVIL) 20 mg tablet Take 1 tablet by mouth once daily. blood sugar diagnostic (BLOOD GLUCOSE TEST) test strip 1 Strip twice daily. E11.9 Lancets lancets 1 Each twice daily. E11.9 acetaminophen (TYLENOL ARTHRITIS PAIN ORAL) Take 650 mg by mouth daily at bedtime. diclofenac (VOLTAREN) 1 % topical gel Apply 4 g to affected area four times daily. HYDROcodone-Acetaminophen (NORCO) 10-325 mg per tablet Take 1 tablet by mouth once daily as needed for pain for up to 30 days. predniSONE (DELTASONE) 10 mg tablet Take PO 4 tablets x 5 days, then 3 tablets x 3 days, then 2 tablets x 3 days, 1 tablets x 3 days REVIEW OF SYSTEMS GENERAL: No weight loss, malaise or fevers. RESPIRATORY: Negative for cough, hemoptysis, wheezing or shortness of breath. CARDIOVASCULAR: Negative for chest pain, leg swelling or palpitations. All other systems reviewed and negative other than HPI. PHYSICAL EXAM BP 120/60 Pulse 61 Temp 36.8 C (98.3 F) Resp 16 Ht 177.8 cm (5' 10) Wt 99.5 kg (219 lb 5.7 oz) SpO2 98% BMI 31.47 kg/m General: Well developed, well nourished, in no acute distress. Head: Normocephalic, atraumatic. Neck: Supple. Eyes: Normal conjunctiva, no scleral icterus. Lungs: Clear to auscultation bilaterally, no rubs, no wheezing. Cardiac: Regular rate and rhythm. No murmurs, gallops, or rubs. Extremities: No edema. Tate Alfonso MD * Belia Heller MA - 01/01/2024 2:27 PM EDT Dilated Retinal Exam Never done DTaP,Tdap,Td Vaccine(1 - Tdap) Never done Shingrix Vaccine(1 of 2) Never done RSV Vaccine(1 - 1-dose 60+ series) Never done Colorectal Cancer Screening due on 01/16/2019 Diabetic Foot Exam due on 09/25/2022 Covid-19 Vaccine( season) due on 05/17/2023 Advance Directive Discussion due on 09/16/2023 Behavioral Health Screening Never done Urine Albumin:Creatinine Ratio due on 01/26/2024 documented in this encounterUniversity Hospitals [facility]04-17-2024 Instructions* Patient Instructions* Belia Heller MA - 01/01/2024 2:27 PM EDT [facility] BUILD[facility] LAB TEST INFORMATION [facility] BUILDING LAB HOURS: Lab is open: 7:30am to 5:00pm M - Th, 7:30am to 4:00pm onFri and 8am -12pm on Sat. The lab is located in [facility] on the first floor. There is a registration window at the lab, available 7 am to 3 pm Saturday - Saturday. If registration is unavailable at the lab, you may register at the patient registration office near the [facility]. SCHEDULING A LAB APPOINTMENT: Laboratory appointments are recommended.Walk ins are still accepted. Call [phone] or schedule via Simple-Fill scheduling ticket. ROUTINE LAB ORDERS 60 days after they are entered. If your lab orders , you may be required to wait in the lab while they are reinstated FUTURE ORDERS are lab tests to be completed on the EXPECTED date. These orders 60 days afterthe expected date. STANDING ORDERS are recurring orders with an expiration date. The interval will indicate how often the test should be completed. CT / MRI / IVP If you have lab tests ordered for one of these radiology exams, please complete the blood work at least one day prior to the scheduled exam. PRESCRIPTION REFILL REQUESTS Request prescription refills through your Simple-Fill account or contact your Pharmacy. My Chart Schedule My Appointment enables you to view your established primary care provider's open schedule and book an appointment online in real-time. This feature is available in internal medicine, family medicine, or pediatrics at any of our [facility] locations and main campus. documented in this encounterUniversity Hospitals [facility] Center04-08-2024 Miscellaneous Notes* Telephone Encounter - Autumn Gonzalez RN - 12/23/2023 4:44 PM EDT Message to patient. Tracker done * Telephone Encounter - Tate Alfonso MD - 12/23/2023 4:41 PM EDT Please let patient know his INR is 2.7. Patient should continue on current dose. Retest in 4 weeks. Thanks, Tate Alfonso MD Data from Coumadin Tracker: PT INR 2.7 12/23/2023 PT INR 2.6 11/25/2023 PT INR 2.3 10/28/2023 Goal Range: 2.0-3.0 Last Instructions: Description 4 mg daily. Retest in 4 weeks (MM 11/25/23) documented in this encounterUniversity Hospitals [facility]ar[facility] Center03-18-2024 Miscellaneous Notes* Telephone Encounter - Tate Alfonso MD - 12/02/2023 9:45 PM EDT PDMP website checked and validated. All prescriptions have been APPROPRIATELY filled. No suspiciousactivity was identified. 12/02/2023 by Tate Alfonso MD * Telephone Encounter - Rosalba Alvarez MA - 12/02/2023 11:23 AM EDT Last appointment: 09/19/23 Next appointment: 01/01/24 Pharmacy verified in [facility]. Refill(s) requested: Requested Prescriptions Pending Prescriptions Disp Refills HYDROcodone-Acetaminophen (NORCO) 10-325 mg per tablet 30 tablet 0 Sig: Take 1 tablet by mouth once daily as needed for pain for up to 30 days. Order(s) pended. Please advise. Rosalba Alvarez MA, [facility] * Telephone Encounter - Margarita Sharma - 11/29/2023 2:05 PM EDT Patient has been identified by name and date of : Yes Requested Prescriptions Pending Prescriptions Disp Refills HYDROcodone-Acetaminophen (NORCO) 10-325 mg per tablet 30 tablet 0 Sig: Take 1 tablet by mouth once daily as needed for pain for up to 30 days. RX INSTRUCTIONS: Patient aware RX will be sent to [facility] pharmacy. No need to notify patient. Margarita Sharma documented in this encounterUniversity Hospitals [facility]ar[facility] Center03-11-2024 Miscellaneous Notes* Telephone Encounter - Sofie Matthews RN - 11/25/2023 12:39 PM EDT Notified patient. Updated tracker. Patient verbalizes understanding and has no other questions or concerns at this time. Sofie Matthews RN * Telephone Encounter - Tate Alfonso MD - 11/25/2023 11:04 AM EDT Please let patient know his INR is 2.6. Patient should continue on current dose. Retest in 4 weeks. ThanksTate MD Data from Coumadin Tracker: PT INR 2.6 11/25/2023 PT INR 2.3 10/28/2023 PT INR 1.8 10/16/2023 Goal Range: 2.0-3.0 Last Instructions: Description 4 mg daily. Retest in 4 weeks (MM 10/28/23) documented in this encounterUniversity Hospitals Samar[facility] Center02-16-2024 Miscellaneous Notes* Telephone Encounter - Fariba Vegas APRN.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 - 11/01/2023 9:09 AM EST PDMP website checked and validated. All prescriptions have been APPROPRIATELY filled. No suspiciousactivity was identified. 11/01/2023 by Fariba Vegas APRN.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 * Telephone Encounter - Rosalba Alvarez MA - 10/31/2023 2:04 PM EST Last appointment: 09/19/23 Next appointment: 01/01/24 Pharmacy verified in [facility]. Refill(s) requested: Requested Prescriptions Pending Prescriptions Disp Refills HYDROcodone-Acetaminophen (NORCO) 10-325 mg per tablet 30 tablet 0 Sig: Take 1 tablet by mouth once daily as needed for pain for up to 30 days. Order(s) pended. Please advise. Rosalba Alvarez MA, [facility] * Telephone Encounter - Kiya Martin - 10/31/2023 12:54 PM EST Patient has been identified by name and date of : Yes Requested Prescriptions Pending Prescriptions Disp Refills HYDROcodone-Acetaminophen (NORCO) 10-325 mg per tablet 30 tablet 0 Sig: Take 1 tablet by mouth once daily as needed for pain for up to 30 days. RX INSTRUCTIONS: Patient aware RX will be sent to pharmacy. No need to notify patient. Kiya Martin documented in this encounterUniversity Hospitals Samaritan Medical Center02-15-2024 History of Present illness Narrative* Luz Becker PA-C - 10/31/2023 11:40 AM ESTAssociated Order(s): Large Joint Arthro/Inj: bilateral knee joints Post-Procedure Diagnose(s): Primary osteoarthritis of both knees Luz Becker PA-C Department of Orthopaedics Orthopaedics [address] [address] Dept: [phone] October 31, 2023 CHIEF COMPLAINT: Established Patient, Knee Pain, and Injections of the Right Knee and Established Patient, Knee Pain, and Injections of the Left Knee. ASSESSMENT: M17.0 Primary osteoarthritis of both knees (primary encounter diagnosis) SUMMARY/PLAN: Patient presents for repeat bilateral knee corticosteroid injections, injections are very helpful lasting him almost the entire 3 months. Pain today is a 7 out of 10 intermittent aching. He did starta new medication for his tremors which is causing some joint swelling and stiffness. Large Joint Arthro/Inj: bilateral knee joints Informed Consent Consent Obtained: Verbal [place] Protocol A moment to CARE was completed. SIGN IN Sign in communication not applicable due to emergent procedure. Personnel directly involved with the procedure wore the appropriate PPE. Special Equipment: N/A Patient/Surrogate Stated/Verified: Patient name, Date of , Relevant allergies and Intended procedure TIME OUT Intended patient and procedure match the source document(s). Consent documented and matches the intended procedure. Relevant labs, photos, and/or imaging studies have been reviewed. Correct side/site marked and visible. Medications required for procedure verified. No fire risk assessment and interventions applicable. No implant(s) inserted. 10/31/2023 11:41 AM The procedure site was prepped in the usual sterile fashion. Site: bilateral knee joints Medications (Right): 6 mg betamethasone acetate-betamethasone sodium phosphate 6 mg/mL Medications (Left): 6 mg betamethasone acetate-betamethasone sodium phosphate 6 mg/mL Anesthetics (Right): 5 mL lidocaine (PF) 10 mg/mL (1 %) Anesthetics (Left): 5 mL lidocaine (PF) 10 mg/mL (1 %) Outcome: Tolerated well, no immediate complications Post-injection instructions were reviewed with the patient and the patient voiced understanding of these instructions. SIGN OUT No instruments, equipment or retained foreign bodies applicable. Mr. Kayla Moreno was advised as to contrast therapies and/or to take analgesics/anti-inflammatories as needed and all contraindications were reviewed. Supporting Information Below: Medications: Current Outpatient Medications Medication Sig propranolol (INDERAL) 40 mg tablet Take 1 tablet by mouth every 12 hours. HYDROcodone-Acetaminophen (NORCO) 10-325 mg per tablet Take 1 tablet by mouth once daily as needed for pain for up to 30 days. meclizine (ANTIVERT) 25 mg tab Take 1 tablet by mouth every 6 hours as needed (for dizziness.). pantoprazole DR (PROTONIX) 40 mg tablet Take by mouth. primidone (MYSOLINE) 50 mg tablet TAKE 3 TABLETS TWICE A DAY warfarin (COUMADIN) 4 mg tablet TAKE 1 TABLET DAILY rosuvastatin (CRESTOR) 20 mg tablet TAKE 1 TABLET DAILY AT BEDTIME famotidine (PEPCID) 20 mg tablet Take 1 tablet by mouth twice daily. aspirin 81 mg chewable tablet Take 81 mg by mouth once daily. lisinopril (ZESTRIL, PRINIVIL) 20 mg tablet Take 1 tablet by mouth once daily. blood sugar diagnostic (BLOOD GLUCOSE TEST) test strip 1 Strip twice daily. E11.9 Lancets lancets 1 Each twice daily. E11.9 diclofenac sodium (VOLTAREN) 1 % topical gel Apply to affected area four times daily. acetaminophen (TYLENOL ARTHRITIS PAIN ORAL) Take 650 mg by mouth daily at bedtime. metoprolol succinate ER (TOPROL XL) 50 mg 24 hr tablet Take 1 tablet by mouth once daily. predniSONE (DELTASONE) 20 mg tablet Take 1 tablet by mouth once daily. (Patient not taking: Reported on 10/31/2023) No current facility-administered medications for this visit. Allergies: Atorvastatin This note was partially generated using The Author Hub voice recognition system, and there may be some incorrect words, spellings, and punctuation that were not noted in checking the note before saving. Luz Becker PA-C documented in this encounterUniversity Hospitals Samaritan [facility] Center02-12-2024 Miscellaneous Notes* Telephone Encounter - Sofie Matthews RN - 10/28/2023 10:59 AM EST Notified patient. Updated tracker. Patient verbalizes understanding and has no other questions or concerns at this time. Sofie Matthews RN * Telephone Encounter - Fariba Vegas APRN.GAS 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 - 10/28/2023 10:54 AM EST Please let patient know his INR is 2.3. Patient should continue on current dose. Retest in 4 weeks. Thanks, Fariba Vegas APRN.GAS 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 Data from Coumadin Tracker: PT INR 2.3 10/28/2023 PT INR 1.8 10/16/2023 PT INR 2.6 08/26/2023 Goal Range: 2.0-3.0 Last Instructions: Description 4 mg daily. Retest in 1 wk ( 10/16/23) documented in this encounterUniversity Hospitals Samar[facility] Center12-11-2023 Miscellaneous Notes* Telephone Encounter - Fariba Vegas APRN.CNP - 08/26/2023 4:45 PM EST PDMP website checked and validated. All prescriptions have been APPROPRIATELY filled. No suspiciousactivity was identified. 08/26/2023 by Fariba Vegas APRN.ERMA * Telephone Encounter - Ana Maria Laguna LPN - 08/26/2023 1:37 PM EST Last appointment: 06/19/23 Next appointment: 09/02/23 Pharmacy verified in [facility]. Refill(s) requested: Requested Prescriptions Pending Prescriptions Disp Refills HYDROcodone-Acetaminophen (NORCO) 10-325 mg per tablet 30 tablet 0 Sig: Take 1 tablet by mouth once daily as needed for pain for up to 30 days. Order(s) pended. Please advise. Ana Maria Laguna LPN MANAGER AIR * Telephone Encounter - Fariba Bowman - 08/26/2023 12:56 PM EST Pharmacy verified in [facility] Patient has been identified by name and date of : Yes Patient aware RX will be sent to pharmacy. No need to notify patient. Patient phones for refill(s): Requested Prescriptions Pending Prescriptions Disp Refills HYDROcodone-Acetaminophen (NORCO) 10-325 mg per tablet 30 tablet 0 Sig: Take 1 tablet by mouth once daily as needed for pain for up to 30 days. Date of last office visit : 06/19/2023 Date of next office visit : 09/19/2023 Last 2 Encounter Wt Readings: Date: Wt: 06/19/2023 99.1 kg (218 lb 6.4 oz) 02/08/2023 96.2 kg (212 lb) Not applicable Please advise. Fariba Crow Pss documented in this encounterUniversity Hospitals Samaritan Medical Center12-11-2023 Miscellaneous Notes* Telephone Encounter - Lacy Rosales RN - 08/26/2023 12:10 PM EST Spoke with pt, reviewed below message. Verbalized understanding, no further questions. Tracker updated * Telephone Encounter - Fariba Vegas APRN.CNP - 08/26/2023 11:53 AM EST Please let patient know his INR is 2.6. Patient should continue on current dose. Retest in 2 weeks. Thanks, Fariba Vegas APRN.GAS 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 Data from Coumadin Tracker: PT INR 2.6 08/26/2023 PT INR 2.2 07/12/2023 PT INR 2.2 06/13/2023 Goal Range: 2.0-3.0 Last Instructions: Description 4mg 6 days/ week, 2 mg 1 day/ week- Saturday. Retest in 4 wk (JR 06/13/23) documented in this encounterUniversity Hospitals Samaritan [facility] Center11-13-2023 Miscellaneous Notes* Telephone Encounter - Tate Alfonso MD - 07/29/2023 4:48 PM EST PDMP website checked and validated. All prescriptions have been APPROPRIATELY filled. No suspiciousactivity was identified. 07/29/2023 by Tate Alfonso MD * Telephone Encounter - Malina Arndt Ma - 07/29/2023 4:35 PM EST Patient requesting refills as follow: Last prescribed : 06/26/23 Last OV: 06/19/23 Next OV: 09/02/23 Requested Prescriptions Pending Prescriptions Disp Refills HYDROcodone-Acetaminophen (NORCO) 10-325 mg per tablet 30 tablet 0 Sig: Take 1 tablet by mouth once daily as needed for pain for up to 30 days. Please review and advise. Malina Arndt Ma * Telephone Encounter - Autumn Menendez - 07/29/2023 10:00 AM EST Patient has been identified by name and date of : Yes Requested Prescriptions Pending Prescriptions Disp Refills HYDROcodone-Acetaminophen (NORCO) 10-325 mg per tablet 30 tablet 0 Sig: Take 1 tablet by mouth once daily as needed for pain for up to 30 days. RX INSTRUCTIONS: Patient aware RX will be sent to pharmacy. No need to notify patient. Autumn Frey documented in this encounterUniversity Hospitals Samaritan Medical Center09-11-2023 Miscellaneous Notes* Telephone Encounter - Fariba Bowman - 05/27/2023 9:20 AM EDT Pharmacy verified in Epic Patient has been identified by name and date of : Yes Patient requesting a call when RX is approved and sent to the pharmacy. Please call patient at: [phone] Patient phones for refill(s): Requested Prescriptions Pending Prescriptions Disp Refills HYDROcodone-Acetaminophen (NORCO) 10-325 mg per tablet 30 tablet 0 Sig: Take 1 tablet by mouth once daily as needed for pain for up to 30 days. Date of last office visit : 02/08/2023 Date of next office visit : 06/19/2023 Last 2 Encounter Wt Readings: Date: Wt: 02/08/2023 96.2 kg (212 lb) 10/24/2022 95.7 kg (211 lb) Not applicable Please advise. Fariba Frey documented in this encounterUniversity Hospitals Samaritan Medical Center08-16-2023 Miscellaneous Notes* Telephone Encounter - Lacy Rosales - 05/01/2023 2:02 PM EDT Pt aware. Tracker updated * Telephone Encounter - Tate Alfonso MD - 05/01/2023 1:37 PM EDT Please let patient know his INR is 2.0. Patient should continue on current dose. Retest in 4 weeks. ThanksTate MD Data from Coumadin Tracker: PT INR 2.0 05/01/2023 PT INR 2.0 04/03/2023 PT INR 2.6 01/25/2023 Goal Range: 2.0-3.0 Last Instructions: Description Continue current dose retest in 4 weeks. (04/03/23 KB) 4mg 6 days a week and 2 mg one day week Takes the 2 mg on the Saturday. documented in this encounterUniversity Hospitals Samaritan Medical Center08-09-2023 Miscellaneous Notes* Telephone Encounter - Fariba Vegas APRN.CNP - 04/24/2023 5:14 PM EDT PDMP website checked and validated. All prescriptions have been APPROPRIATELY filled. No suspiciousactivity was identified. 04/24/2023 by Fariba Vegas APRN.CNP * Telephone Encounter - Belia Heller - 04/24/2023 2:39 PM EDT Last OV : 02/08/23 Next OV : 06/19/23 * Telephone Encounter - Margarita Sharma - 04/24/2023 1:50 PM EDT Patient has been identified by name and date of : Yes Requested Prescriptions Pending Prescriptions Disp Refills HYDROcodone-Acetaminophen (NORCO) 10-325 mg per tablet 30 tablet 0 Sig: Take 1 tablet by mouth once daily as needed for pain for up to 30 days. RX INSTRUCTIONS: Patient aware RX will be sent to pharmacy. No need to notify patient. Margarita Sharma documented in this encounterUniversity Hospitals Samar[facility] Center07-27-2023 History of Present illness Narrative* Luz Becker PA-C - 04/11/2023 11:37 AM EDTAssociated Order(s): Large Joint Arthro/Inj: bilateral knee joints Post-Procedure Diagnose(s): Primary osteoarthritis of both knees Luz Becker PA-C Department of Orthopaedics Orthopaedics [address] [place] [id number] Dept: [phone] April 11, 2023 CHIEF COMPLAINT: Established Patient, Knee Pain, and Injections of the Left Knee and Established Patient, Knee Pain, and Injections of the Right Knee. ASSESSMENT: M17.0 Primary osteoarthritis of both knees (primary encounter diagnosis) SUMMARY/PLAN: Patient presents for repeat bilateral knee corticosteroid injections. The injections continue to behelpful for a few months. 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 Large Joint Arthro/Inj: bilateral knee joints Informed Consent Consent Obtained: Verbal [place] Protocol A moment to CARE was completed. SIGN IN Sign in communication not applicable due to emergent procedure. Personnel directly involved with the procedure wore the appropriate PPE. Special Equipment: N/A Patient/Surrogate Stated/Verified: Patient name, Date of , Relevant allergies and Intended procedure TIME OUT Intended patient and procedure match the source document(s). Consent documented and matches the intended procedure. Relevant labs, photos, and/or imaging studies have been reviewed. Correct side/site marked and visible. Medications required for procedure verified. No fire risk assessment and interventions applicable. No implant(s) inserted. 04/11/2023 11:38 AM The procedure site was prepped in the usual sterile fashion. Site: bilateral knee joints Medications (Right): 6 mg betamethasone acetate-betamethasone sodium phosphate 6 mg/mL Medications (Left): 6 mg betamethasone acetate-betamethasone sodium phosphate 6 mg/mL Anesthetics (Right): 5 mL lidocaine (PF) 10 mg/mL (1 %) Anesthetics (Left): 5 mL lidocaine (PF) 10 mg/mL (1 %) Outcome: Tolerated well, no immediate complications Post-injection instructions were reviewed with the patient and the patient voiced understanding of these instructions. SIGN OUT No instruments, equipment or retained foreign bodies applicable. Mr. Kayla Moreno was advised as to contrast therapies and/or to take analgesics/anti-inflammatories as needed and all contraindications were reviewed. Supporting Information Below: Medications: Current Outpatient Medications Medication Sig HYDROcodone-Acetaminophen (NORCO) 10-325 mg per tablet Take 1 tablet by mouth once daily as needed for pain for up to [address] (PROTONIX) 40 mg tablet Take by mouth. primidone (MYSOLINE) 50 mg tablet TAKE 3 TABLETS TWICE A DAY warfarin (COUMADIN) 4 mg tablet TAKE 1 TABLET DAILY rosuvastatin (CRESTOR) 20 mg tablet TAKE 1 TABLET DAILY AT BEDTIME famotidine (PEPCID) 20 mg tablet Take 1 tablet by mouth twice daily. aspirin 81 mg chewable tablet Take 81 mg by mouth once daily. lisinopril (ZESTRIL, PRINIVIL) 20 mg tablet Take 1 tablet by mouth once daily. blood sugar diagnostic (BLOOD GLUCOSE TEST) test strip 1 Strip twice daily. E11.9 Lancets lancets 1 Each twice daily. E11.9 meclizine (ANTIVERT) 25 mg tab Take 1 tablet by mouth every 6 hours as needed (for dizziness.). diclofenac sodium (VOLTAREN) 1 % topical gel Apply to affected area four times daily. acetaminophen (TYLENOL ARTHRITIS PAIN ORAL) Take 650 mg by mouth daily at bedtime. metoprolol succinate ER (TOPROL XL) 50 mg 24 hr tablet Take 1 tablet by mouth once daily. predniSONE (DELTASONE) 20 mg tablet Take 1 tablet by mouth once daily. (Patient not taking: Reported on 04/11/2023) No current facility-administered medications for this visit. Allergies: Atorvastatin This note was partially generated using The Author Hub voice recognition system, and there may be some incorrect words, spellings, and punctuation that were not noted in checking the note before saving. Luz Becker PA-C documented in this encounterUniversity Hospitals Samaritan Medical Center07-19-2023 Miscellaneous Notes* Telephone Encounter - Yoselin Tony RN - 04/03/2023 5:15 PM EDT Patient was notified and voiced understanding of provider message below. Tracker updated Will continue current dose 4 mg 6 days a week And 2 mg one day a week on Mondays. * Telephone Encounter - Flakita Daugherty APRN.CNP - 04/03/2023 9:56 AM EDT Please advise the patient that his PT INR (no units) Date Value 09/26/2021 2.3 INR (no units) Date Value 04/03/2023 2.0 is therapeutic. Confirm present Coumadin dose. If current dose is as stated on the Coumadin tracking form, please have patient continue their same dose of coumadin as per the flow sheet and to have arepeat PT/INR drawn in 1 month. Platelet count has improved. To f/u as scheduled. documented in this encounterUniversity Hospitals Samar[facility] Center07-11-2023 Miscellaneous Notes* Telephone Encounter - Fariba Vegas APRN.CNP - 03/26/2023 1:10 PM EDT PDMP website checked and validated. All prescriptions have been APPROPRIATELY filled. No suspiciousactivity was identified. 03/26/2023 by Fariba Vegas APRN.CNP * Telephone Encounter - Kiya Martin - 03/25/2023 12:53 PM EDT Patient has been identified by name and date of : Yes Requested Prescriptions Pending Prescriptions Disp Refills HYDROcodone-Acetaminophen (NORCO) 10-325 mg per tablet 30 tablet 0 Sig: Take 1 tablet by mouth once daily as needed for pain for up to 30 days. RX INSTRUCTIONS: Patient aware RX will be sent to pharmacy. No need to notify patient. Kiya Martin documented in this encounterUniversity Hospitals Samaritan Medical Center07-11-2023 Miscellaneous Notes* Telephone Encounter - Autumn Menendez - 03/26/2023 10:46 AM EDT Contains abnormal data PROTHROMBIN TIME/PT Patient states he is at the LAB now and there are not orders for the following any more. States that there should be standing orders for this to be done. He is at the [facility] wanting to get this done NOW. Autumn Frey documented in this encounterUniversity Hospitals Samaritan Medical Center05-26-2023 History of Present illness Narrative* Tate Alfonso MD - 02/08/2023 4:16 PM EDT ESTABLISHED PATIENT Kyala Moreno is a 72 year old male presenting for Follow Up. HISTORY OF PRESENT ILLNESS Was in the ER for CP. Chuck. No CP with exertion. Workup negative. Occasioanlly has some dysphagia. Started on pantopraozle. Type 2 Diabetes Follow up: Low blood sugars: no Medication compliance: yes Diet: no change Exercise: no change Increased urination, hunger, thirst, weight changes: no Hemoglobin A1C 6.3 01/25/2023 Hemoglobin A1C 6.1 07/24/2022 Hemoglobin A1C 6.4 12/27/2021 No bleeding issues. Chronic Narcotic Pain Medication Medication: [place] 10mg Used for: Knee pain and chronic back pain. Has arthritis in knees. Has had 3 back surgeries at [facility] Improves quality of life/pain: Yes Amount used per day: Uses 1 per day Non-pharmacologic therapies: gets steroid injections. Pain Scale before medication:6 After medication: 2 If patient is on benzo/muscle relaxer aware of potential sedation: On no benzo or muscle relaxer Concern for addiction: No Non-opioid treatment options: Yes Tylenol Counseled on safe storage and disposal: Yes Counseled on opioid and alcohol: Yes ASSESSMENT: (M48.061) Spinal stenosis of lumbar region without neurogenic claudication (primary encounter diagnosis) (D69.6) Thrombocytopenia (HCC) (I25.10) Coronary artery disease involving [place] heart without angina pectoris, unspecified vesselor lesion type (E11.59) Type 2 diabetes mellitus with other circulatory complication, without long-term current use of insulin ([facility]) (R07.89) Other chest pain PLAN: Continue norco Continue to monitor CBC. No bleeding issues Chest pain doesn't appear to be cardiac in nature Dm2 stable. Continue current meds HISTORIES FAMILY HISTORY Problem Relation Age of Onset Coronary Artery Disease Father Diabetes Father Cancer Mother Uterine Diabetes Mother Diabetes Sister Coronary Artery Disease Brother PAST MEDICAL HISTORY Diagnosis Date DVT (deep venous thrombosis) ([facility]) Leg x 2 Essential hypertension Hyperlipidemia Lumbar herniated disc STEMI (ST elevation myocardial infarction) ([facility]) Tremor of both hands PAST SURGICAL HISTORY Procedure Laterality Date CARPAL TUNNEL Carpal tunnel release x 2 IVC FILTER PERCUTANEOUS 2004 OTHER Microdiskectomy REPAIR MEDIAL OR LATERAL MENISCUS, TO R687 2009 Social History Tobacco Use Smoking status: Never Smokeless tobacco: Never Substance Use Topics Alcohol use: No Drug use: No Allergies: ALLERGIES Allergen Reactions Atorvastatin Myalgia Medications: HYDROcodone-Acetaminophen (NORCO) 10-325 mg per tablet Take 1 tablet by mouth once daily as needed for pain for up to 30 days. predniSONE (DELTASONE) 20 mg tablet Take 1 tablet by mouth once daily. primidone (MYSOLINE) 50 mg tablet TAKE 3 TABLETS TWICE A DAY warfarin (COUMADIN) 4 mg tablet TAKE 1 TABLET DAILY rosuvastatin (CRESTOR) 20 mg tablet TAKE 1 TABLET DAILY AT BEDTIME rosuvastatin (CRESTOR) 10 mg tablet Take 1 tablet by mouth every other day. gabapentin (NEURONTIN) 100 mg capsule take 2 capsules by mouth three times a day for 30 DAYS famotidine (PEPCID) 20 mg tablet Take 1 tablet by mouth twice daily. aspirin 81 mg chewable tablet Take 81 mg by mouth once daily. lisinopril (ZESTRIL, PRINIVIL) 20 mg tablet Take 1 tablet by mouth once daily. blood sugar diagnostic (BLOOD GLUCOSE TEST) test strip 1 Strip twice daily. E11.9 Lancets lancets 1 Each twice daily. E11.9 meclizine (ANTIVERT) 25 mg tab Take 1 tablet by mouth every 6 hours as needed (for dizziness.). diclofenac sodium (VOLTAREN) 1 % topical gel Apply to affected area four times daily. acetaminophen (TYLENOL ARTHRITIS PAIN ORAL) Take 650 mg by mouth daily at bedtime. metoprolol succinate ER (TOPROL XL) 50 mg 24 hr tablet Take 1 tablet by mouth once daily. REVIEW OF SYSTEMS GENERAL: No weight loss, malaise or fevers. RESPIRATORY: Negative for cough, hemoptysis, wheezing or shortness of breath. CARDIOVASCULAR: Negative for chest pain, leg swelling or palpitations. All other systems reviewed and negative other than HPI. PHYSICAL EXAM BP 130/76 Pulse (!) 53 Temp 36.6 C (97.9 F) Resp 16 Ht 177.8 cm (5' 10) Wt 96.2 kg (212 lb) SpO2 99% BMI 30.42 kg/m General: Well developed, well nourished, in no acute distress. Head: Normocephalic, atraumatic. Neck: Supple. Eyes: Normal conjunctiva, no scleral icterus. Lungs: Clear to auscultation bilaterally, no rubs, no wheezing. Cardiac: Regular rate and rhythm. No murmurs, gallops, or rubs. Extremities: No edema. Tate Alfonso MD * Belia Heller - 02/08/2023 3:51 PM EDT DILATED RETINAL EXAM Never done DTAP,TDAP,TD(1 - Tdap) Never done SHINGRIX VACCINE(1 of 2) Never done COVID-19 VACCINE(4 - Booster for Pfizer series) due on 08/21/2021 BP CONTROLLED (<130/80) due on 02/02/2022 ADVANCE DIRECTIVE DISCUSSION due on 09/16/2022 DEPRESSION ASSESSMENT due on 09/16/2022 DIABETIC FOOT EXAM due on 09/25/2022 documented in this encounterUniversity Hospitals Samar[facility] Medical Center05-26-2023 Instructions* Patient Instructions* Belia Heller - 02/08/2023 3:52 PM EDT [facility] LAB TEST INFORMATION [facility] BUILDING LAB HOURS: Lab is open: 7:30am to 5:00pm M - Th, 7:30am to 4:00pm onFri and 8am -12pm on Sat. The lab is located in [facility] on the first floor. There is a registration window at the lab, available 7 am to 3 pm Saturday - Saturday. If registration is unavailable at the lab, you may register at the patient registration office near the front lobby of the hospital. SCHEDULING A LAB APPOINTMENT: Laboratory appointments are recommended.Walk ins are still accepted. Call [phone] or schedule via Simple-Fill scheduling ticket. ROUTINE LAB ORDERS 60 days after they are entered. If your lab orders , you may be required to wait in the lab while they are reinstated FUTURE ORDERS are lab tests to be completed on the EXPECTED date. These orders 60 days afterthe expected date. STANDING ORDERS are recurring orders with an expiration date. The interval will indicate how often the test should be completed. CT / MRI / IVP If you have lab tests ordered for one of these radiology exams, please complete the blood work at least one day prior to the scheduled exam. PRESCRIPTION REFILL REQUESTS Request prescription refills through your Simple-Fill account or contact your Pharmacy. My Chart Schedule My Appointment enables you to view your established primary care provider's open schedule and book an appointment online in real-time. This feature is available in internal medicine, family medicine, or pediatrics at any of our [facility] locations and main campus. documented in this encounterUniversity Hospitals Samaritan Medical Center05-15-2023 Miscellaneous Notes* Telephone Encounter - Yoselin Tony RN - 01/28/2023 10:47 AM EDT Patient was notified and voiced understanding of provider message below. * Telephone Encounter - Tate Alfonso MD - 01/26/2023 5:45 AM EDT Please let patient know his INR is 2.6. Patient should continue on current dose. Retest in 4 weeks. Thanks, Tate Alfonso MD Data from Coumadin Tracker: PT INR 2.6 01/25/2023 PT INR 2.4 01/02/2023 PT INR 1.6 12/19/2022 Goal Range: 2.0-3.0 Last Instructions: Description 4mg six days per week and 2mg one day per week. Retest in 2 weeks. (MM 01/02/23) documented in this encounterUniversity Hospitals Samaritan Medical Center05-09-2023 Miscellaneous Notes* Telephone Encounter - Flakita Sumemrs APRN.CNP - 01/22/2023 5:31 PM EDT Patient's request for medication is as follows: Requested Prescriptions Signed Prescriptions Disp Refills HYDROcodone-Acetaminophen (NORCO) 10-325 mg per tablet 30 tablet 0 Sig: Take 1 tablet by mouth once daily as needed for pain for up to 30 days. Authorizing Provider: FLAKITA DAUGHERTY Refused Prescriptions Disp Refills HYDROcodone-Acetaminophen (NORCO) 10-325 mg per tablet 30 tablet 0 Sig: Take 1 tablet by mouth once daily as needed for pain for up to 30 days. Refused By: BALJEET MCINTYRE MA Reason for Refusal: Refill currently being reviewed in another request Prescription(s) as above. Please process accordingly. Flakita Summers APRN.ERMA * Telephone Encounter - Jesi Jacobo - 01/22/2023 9:47 AM EDT Patient calling to check the status of his request for medication. * Telephone Encounter - Kiya Martin - 01/21/2023 8:45 AM EDT Patient has been identified by name and date of : Yes Requested Prescriptions Pending Prescriptions Disp Refills HYDROcodone-Acetaminophen (NORCO) 10-325 mg per tablet 30 tablet 0 Sig: Take 1 tablet by mouth once daily as needed for pain for up to 30 days. RX INSTRUCTIONS: Patient aware RX will be sent to pharmacy. No need to notify patient. Kiya Martin documented in this encounterUniversity [facility]23 History of Present illness Narrative* Luz Becker PA-C - 01/08/2023 10:31 AM EDTAssociated Order(s): Large Joint Arthro/Inj: bilateral knee joints Post-Procedure Diagnose(s): Primary osteoarthritis of both knees Large Joint Arthro/Inj: bilateral knee joints Informed Consent Consent Obtained: Verbal Esbon Protocol A moment to CARE was completed. SIGN IN Sign in communication not applicable due to emergent procedure. Personnel directly involved with the procedure wore the appropriate PPE. Special Equipment: N/A Patient/Surrogate Stated/Verified: Patient name, Date of , Relevant allergies and Intended procedure TIME OUT Intended patient and procedure match the source document(s). Consent documented and matches the intended procedure. Relevant labs, photos, and/or imaging studies have been reviewed. Correct side/site marked and visible. Medications required for procedure verified. No fire risk assessment and interventions applicable. No implant(s) inserted. 01/08/2023 10:32 AM The procedure site was prepped in the usual sterile fashion. Site: bilateral knee joints Medications (Right): 6 mg betamethasone acetate-betamethasone sodium phosphate 6 mg/mL Medications (Left): 6 mg betamethasone acetate-betamethasone sodium phosphate 6 mg/mL Anesthetics (Right): 5 mL lidocaine (PF) 10 mg/mL (1 %) Anesthetics (Left): 5 mL lidocaine (PF) 10 mg/mL (1 %) Outcome: Tolerated well, no immediate complications Post-injection instructions were reviewed with the patient and the patient voiced understanding of these instructions. SIGN OUT No instruments, equipment or retained foreign bodies applicable. documented in this encounterUniversity Hospitals [facility]04-07-2023 Miscellaneous Notes* Telephone Encounter - Rina Chun Pss - 12/21/2022 11:09 AM EDT Patient has been identified by name and date of : Yes Requested Prescriptions Pending Prescriptions Disp Refills HYDROcodone-Acetaminophen (NORCO) 10-325 mg per tablet 30 tablet 0 Sig: Take 1 tablet by mouth once daily as needed for pain for up to 30 days. RX INSTRUCTIONS: Patient aware RX will be sent to pharmacy. No need to nofity patient. Controlled medication - must be call in. Rina Chun Pss documented in this encounterUniversity Hospitals [facility]04-05-2023 Miscellaneous Notes* Telephone Encounter - Georgia Tavarez RN - 12/19/2022 1:55 PM EDT Spoke to patient who is aware of results and providers advice. Thinks he missed a dose of coumadin Saturday night - would have been 4 mg. Patient is agreeable to 4mg six days and 2mg one day. Advised we will call back if different advice Tracker updated * Telephone Encounter - Tate Alfonso MD - 12/19/2022 12:23 PM EDT Please let patient know his INR is 1.6. If patient is taking 4mg five days per week and 2mg two days per week, then please have patient increase to 4mg six days per week and 2mg one day per week. Retest in 1 weeks. Thanks, Tate Alfonso MD Data from Coumadin Tracker: PT INR 1.6 12/19/2022 PT INR 3.5 12/03/2022 PT INR 1.9 11/08/2022 Goal Range: 2.0-3.0 Last Instructions: Description Decrease dose to 4mg five days per week and 2mg two days per week. Retest in 1 week. (MM 12/03/12) documented in this encounterUniversity Hospitals [facility]03-20-2023 Miscellaneous Notes* Telephone Encounter - Sofie Matthews RN - 12/03/2022 12:22 PM EDT Notified patient- updated tracker. Patient verbalizes understanding and has no other questions or concerns at this time. Sofie Matthews RN Reason for Disposition Health Information question, no triage required and triager able to answer question Protocols used: Information Only Call - No [id number] * Telephone Encounter - Fariba Vegas APRN.CNP - 12/03/2022 12:17 PM EDT Please let patient know his INR is 3.5. If patient is taking 4 mg 6 days per week, and 2 mg one ann week, then please have patient decrease dose to 4mg five days per week and 2mg two days per week.Retest in 1 week. Thanks, Fariba Vegas APRN.CNP Data from Coumadin Tracker: PT INR 3.5 12/03/2022 PT INR 1.9 11/08/2022 PT INR 2.1 10/26/2022 Goal Range: 2.0-3.0 Last Instructions: Description Continue 4 mg 6 days per week, and 2 mg one day a week. Recheck in 1 week. (kk 11/09/22) documented in this encounterUniversity Hospitals [facility]03-07-2023 Miscellaneous Notes* Telephone Encounter - Fariba Vegas APRN.CNP - 11/20/2022 5:04 PM EST Please contact patient and let him know Rx sent to fill today. Thanks, Fariba Vegas APRN.CNP * Telephone Encounter - Fariba Vegas APRN.CNP - 11/20/2022 5:04 PM EST PDMP website checked and validated. All prescriptions have been APPROPRIATELY filled. No suspiciousactivity was identified. 11/20/2022 by Fariba Vegas APRN.G[employer] 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 * Telephone Encounter - Fariba Frey - 11/20/2022 10:13 AM EST Kayla is going out of town until the weekend and would like to know if his [place] can be release today. It is due on 11-21-22 Please call him with status [phone] * Telephone Encounter - Fariba Frey - 11/20/2022 10:12 AM EST Pharmacy verified in [facility] Patient has been identified by name and date of : Yes Patient aware RX will be sent to pharmacy. No need to notify patient. Patient phones for refill(s): Requested Prescriptions Pending Prescriptions Disp Refills HYDROcodone-Acetaminophen (NORCO) 10-325 mg per tablet 30 tablet 0 Sig: Take 1 tablet by mouth once daily as needed for pain for up to 30 days. Date of last office visit : 10/24/2022 Date of next office visit : 02/01/2023 Last 2 Encounter Wt Readings: Date: Wt: 10/24/2022 95.7 kg (211 lb) 07/24/2022 98.2 kg (216 lb 6.4 oz) Please advise. Fariba Crow Pss documented in this encounterUniversity Hospitals Samar[facility]02-24-2023 Miscellaneous Notes* Telephone Encounter - Leela Thomason RN - 11/09/2022 9:17 AM EST Spoke with patient and relayed message. Patient verbalized understanding. Updated tracker Confirmed dose * Telephone Encounter - Tate Alfonso MD - 11/08/2022 9:49 PM EST Please let patient know his INR is 1.9. If patient is taking 4mg five days per week and 2mg two days per week, then please have patient increase to 4mg six days per week and 2mg one days per week. Retest in 1 weeks. Thanks, Tate Alfonso MD Data from Coumadin Tracker: PT INR 1.9 11/08/2022 PT INR 2.1 10/26/2022 PT INR 4.4 10/19/2022 Goal Range: 2.0-3.0 Last Instructions: Description Continue 4 mg five days per week, and 2 mg two days a week. Recheck in 1 week. (MM 10/26/22) documented in this encounterUniversity Hospitals [facility]02-10-2023 Miscellaneous Notes* Telephone Encounter - Sofie Matthews RN - 10/26/2022 1:30 PM EST Notified patient. Updated tracker. Sofie Matthews RN Reason for Disposition [1] Other NON-URGENT information for PCP AND [2] does not require PCP response Protocols used: PCP Call - No [id number] * Telephone Encounter - Fariba Vegas APRN.CNP - 10/26/2022 12:52 PM EST Ok to continue 4mg five days per week and 2mg two days per week, retest in 1 week. Please update tracker. Thanks, Fariba Vegas APRN.CNP * Telephone Encounter - Yoselin Tony RN - 10/26/2022 12:30 PM EST Talked with Patient Explained the message above however Stated he his now taking 4 mg 5x a week And 2 mg 2 days a week on Mondays and (he took 2 mg ) Which he states He discussed with Dr. Alfonso at his visit on Saturday. Let me know if okay I will update the tracker to reflect the dose change. * Telephone Encounter - Tate Alfonso MD - 10/26/2022 11:47 AM EST Please let patient know his INR is 2.1. Patient should continue on current dose. Retest in 1 weeks. Thanks, Tate Alfonso MD Data from Coumadin Tracker: PT INR 2.1 10/26/2022 PT INR 4.4 10/19/2022 PT INR 3.0 09/12/2022 Goal Range: 2.0-3.0 Last Instructions: Description Decrease to 4 mg six days per week, and 2 mg one day a week Hold dose tomorrow 10/20/22 recheck in 1 week ROBE KIM 10/19/22 documented in this encounterUniversity Hospitals [facility]02-08-2023 History of Present illness Narrative* Tate Alfonso MD - 10/24/2022 12:04 PM EST ESTABLISHED PATIENT Kayla Moreno is a 72 year old male presenting for Follow Up. HISTORY OF PRESENT ILLNESS Chronic Narcotic Pain Medication Medication: [place] 10mg Used for: Knee pain and chronic back pain. Has arthritis in knees. Has had 3 back surgeries at [facility] Improves quality of life/pain: Yes Amount used per day: Uses 1 per day Non-pharmacologic therapies: gets steroid injections. Pain Scale before medication:6 After medication: 2 If patient is on benzo/muscle relaxer aware of potential sedation: On no benzo or muscle relaxer Concern for addiction: No Non-opioid treatment options: Yes Tylenol Counseled on safe storage and disposal: Yes Counseled on opioid and alcohol: Yes Type 2 Diabetes Follow up: Low blood sugars: no Medication compliance: yes Diet: no changes Exercise: no changes Increased urination, hunger, thirst, weight changes: no Hemoglobin A1C 6.1 07/24/2022 Hemoglobin A1C 6.4 12/27/2021 Hemoglobin A1C 6.8 09/20/2021 Sinus infection symptoms ASSESSMENT: (E11.59) Type 2 diabetes mellitus with other circulatory complication, without long-term current use of insulin ([facility]) (primary encounter diagnosis) (M17.12) Arthritis of left knee (M17.11) Arthritis of right knee (M48.061) Spinal stenosis of lumbar region without neurogenic claudication (M51.36) Degenerative disc disease, lumbar (J01.90) Acute sinusitis, recurrence not specified, unspecified location PLAN: Continue norco. Dm2 well controlled Abx HISTORIES FAMILY HISTORY Problem Relation Age of Onset Coronary Artery Disease Father Diabetes Father Cancer Mother Uterine Diabetes Mother Diabetes Sister Coronary Artery Disease Brother PAST MEDICAL HISTORY Diagnosis Date DVT (deep venous thrombosis) ([facility]) Leg x 2 Essential hypertension Hyperlipidemia Lumbar herniated disc STEMI (ST elevation myocardial infarction) ([facility]) Tremor of both hands PAST SURGICAL HISTORY Procedure Laterality Date CARPAL TUNNEL Carpal tunnel release x 2 IVC FILTER PERCUTANEOUS 2004 OTHER Microdiskectomy REPAIR MEDIAL OR LATERAL MENISCUS, TO R687 2009 Social History Tobacco Use Smoking status: Never Smokeless tobacco: Never Substance Use Topics Alcohol use: No Drug use: No Allergies: ALLERGIES Allergen Reactions Atorvastatin Myalgia Medications: primidone (MYSOLINE) 50 mg tablet TAKE 3 TABLETS TWICE A DAY warfarin (COUMADIN) 4 mg tablet TAKE 1 TABLET DAILY rosuvastatin (CRESTOR) 20 mg tablet TAKE 1 TABLET DAILY AT BEDTIME HYDROcodone-Acetaminophen (NORCO) 10-325 mg per tablet Take 1 tablet by mouth once daily as needed for pain for up to 30 days. rosuvastatin (CRESTOR) 10 mg tablet Take 1 tablet by mouth every other day. gabapentin (NEURONTIN) 100 mg capsule take 2 capsules by mouth three times a day for 30 DAYS famotidine (PEPCID) 20 mg tablet Take 1 tablet by mouth twice daily. aspirin 81 mg chewable tablet Take 81 mg by mouth once daily. lisinopril (ZESTRIL, PRINIVIL) 20 mg tablet Take 1 tablet by mouth once daily. blood sugar diagnostic (BLOOD GLUCOSE TEST) test strip 1 Strip twice daily. E11.9 Lancets lancets 1 Each twice daily. E11.9 meclizine (ANTIVERT) 25 mg tab Take 1 tablet by mouth every 6 hours as needed (for dizziness.). diclofenac sodium (VOLTAREN) 1 % topical gel Apply to affected area four times daily. acetaminophen (TYLENOL ARTHRITIS PAIN ORAL) Take 650 mg by mouth daily at bedtime. metoprolol succinate ER (TOPROL XL) 50 mg 24 hr tablet Take 1 tablet by mouth once daily. REVIEW OF SYSTEMS GENERAL: No weight loss, malaise or fevers. RESPIRATORY: Negative for cough, hemoptysis, wheezing or shortness of breath. CARDIOVASCULAR: Negative for chest pain, leg swelling or palpitations. All other systems reviewed and negative other than HPI. PHYSICAL EXAM BP 159/74 Pulse 68 Temp 36.9 C (98.5 F) Resp 16 Ht 177.8 cm (5' 10) Wt 95.7 kg (211 lb) SpO2 98% BMI 30.28 kg/m General: Well developed, well nourished, in no acute distress. Head: Normocephalic, atraumatic. Neck: Supple. Eyes: Normal conjunctiva, no scleral icterus. Lungs: Clear to auscultation bilaterally, no rubs, no wheezing. Cardiac: Regular rate and rhythm. No murmurs, gallops, or rubs. Extremities: No edema. Tate Alfnoso MD * Belia Heller - 10/24/2022 11:49 AM EST DILATED RETINAL EXAM Never done DTAP,TDAP,TD(1 - Tdap) Never done SHINGRIX VACCINE(1 of 2) Never done COVID-19 VACCINE(4 - Booster for Pfizer series) due on 08/21/2021 BP CONTROLLED (<130/80) due on 02/02/2022 ADVANCE DIRECTIVE DISCUSSION due on 09/16/2022 DEPRESSION ASSESSMENT due on 09/16/2022 URINE ALBUMIN:CREATININE RATIO due on 09/20/2022 DIABETIC FOOT EXAM due on 09/25/2022 documented in this encounterUniversity Hospitals [facility]02-07-2023 Miscellaneous Notes* Telephone Encounter - Ana Maria Laguna LPN - 10/23/2022 9:23 AM EST Last appointment: 07/24/22 Next appointment: 10/24/22 Pharmacy verified in Epic. Refill(s) requested: Requested Prescriptions Pending Prescriptions Disp Refills primidone (MYSOLINE) 50 mg tablet [Pharmacy Med Name: PRIMIDONE TABS 50MG] 540 tablet 3 Sig: TAKE 3 TABLETS TWICE A DAY Order(s) pended. Please advise. Ana Maria Laguna LPN, CMA documented in this encounterUniversity Hospitals [facility]02-03-2023 Miscellaneous Notes* Telephone Encounter - Yoselin Tony RN - 10/19/2022 5:02 PM EST Patient was notified and voiced understanding of provider message below. He understands the medication change. Tracker updated. * Telephone Encounter - Floresita Ramirez RN - 10/19/2022 2:33 PM EST Called patient at [phone]. Left message on voicemail for patient to return call for message from provider. * Telephone Encounter - Tate Alfonso MD - 10/19/2022 2:21 PM EST Please let patient know his INR is 4.4. If patient is taking 4mg seven days [er week, then please have patient take 4mg six days per week and 2mg one day per week. Hold one day tomorrow. Retest in 1 weeks. Thanks, Tate Alfonso MD Data from Coumadin Tracker: PT INR 4.4 10/19/2022 PT INR 3.0 09/12/2022 PT INR 2.0 07/12/2022 Goal Range: 2.0-3.0 Last Instructions: Description 4 mg seven days per week, recheck in 1 month ROBE NATARAJAN 09/13/22 documented in this encounterUniversity Hospitals [facility]01-30-2023 Miscellaneous Notes* Telephone Encounter - Grisel Charles - 10/15/2022 8:59 AM EST Last appointment: 07/24/22 Next appointment: 10/24/22 Pharmacy verified in [facility]. Refill(s) requested: Requested Prescriptions Pending Prescriptions Disp Refills warfarin (COUMADIN) 4 mg tablet [Pharmacy Med Name: WARFARIN TABS 4MG] 90 tablet 3 Sig: TAKE 1 TABLET DAILY Order(s) pended. Please advise. Grisel Charles LPN documented in this encounterUniversity Hospitals Sam[facility] Center01-24-2023 History of Present illness Narrative* Luz Becker PA-C - 10/09/2022 12:00 PM ESTAssociated Order(s): Large Joint Arthro/Inj: bilateral knee joints Post-Procedure Diagnose(s): Primary osteoarthritis of both knees Luz Becker PA-C Department of Orthopaedics Orthopaedics [address] [address] Dept: [phone] October 09, 2022 CHIEF COMPLAINT: Follow Up of the Left Knee and Follow Up of the Right Knee. ASSESSMENT: M17.0 Primary osteoarthritis of both knees (primary encounter diagnosis) SUMMARY/PLAN: Patient presents for repeat bilateral knee corticosteroid injections, previous injections were helpful for almost 3 months. Pain today is a 0 out of 10. Large Joint Arthro/Inj: bilateral knee joints Informed Consent Consent Obtained: Verbal Esbon Protocol A moment to CARE was completed. SIGN IN Sign in communication not applicable due to emergent procedure. Personnel directly involved with the procedure wore the appropriate PPE. Special Equipment: N/A Patient/Surrogate Stated/Verified: Patient name, Date of , Relevant allergies and Intended procedure TIME OUT Intended patient and procedure match the source document(s). Consent documented and matches the intended procedure. Relevant labs, photos, and/or imaging studies have been reviewed. Correct side/site marked and visible. Medications required for procedure verified. No fire risk assessment and interventions applicable. No implant(s) inserted. 10/09/2022 12:00 PM The procedure site was prepped in the usual sterile fashion. Site: bilateral knee joints Medications (Right): 6 mg betamethasone acetate-betamethasone sodium phosphate 6 mg/mL Medications (Left): 6 mg betamethasone acetate-betamethasone sodium phosphate 6 mg/mL Anesthetics (Right): 5 mL lidocaine (PF) 10 mg/mL (1 %) Anesthetics (Left): 5 mL lidocaine (PF) 10 mg/mL (1 %) Outcome: Tolerated well, no immediate complications Post-injection instructions were reviewed with the patient and the patient voiced understanding of these instructions. SIGN OUT Post-procedure follow-up management communicated and Plan of Care Visit completed when applicable Mr. Kayla Moreno was advised as to contrast therapies and/or to take analgesics/anti-inflammatories as needed and all contraindications were reviewed. Supporting Information Below: Medications: Current Outpatient Medications Medication Sig rosuvastatin (CRESTOR) 20 mg tablet TAKE 1 TABLET DAILY AT BEDTIME HYDROcodone-Acetaminophen (NORCO) 10-325 mg per tablet Take 1 tablet by mouth once daily as needed for pain for up to 30 days. rosuvastatin (CRESTOR) 10 mg tablet Take 1 tablet by mouth every other day. gabapentin (NEURONTIN) 100 mg capsule take 2 capsules by mouth three times a day for 30 DAYS warfarin (COUMADIN) 4 mg tablet Take 1 tablet by mouth once daily. primidone (MYSOLINE) 50 mg tablet Take 3 tablets by mouth twice daily. famotidine (PEPCID) 20 mg tablet Take 1 tablet by mouth twice daily. aspirin 81 mg chewable tablet Take 81 mg by mouth once daily. lisinopril (ZESTRIL, PRINIVIL) 20 mg tablet Take 1 tablet by mouth once daily. blood sugar diagnostic (BLOOD GLUCOSE TEST) test strip 1 Strip twice daily. E11.9 Lancets lancets 1 Each twice daily. E11.9 meclizine (ANTIVERT) 25 mg tab Take 1 tablet by mouth every 6 hours as needed (for dizziness.). diclofenac sodium (VOLTAREN) 1 % topical gel Apply to affected area four times daily. acetaminophen (TYLENOL ARTHRITIS PAIN ORAL) Take 650 mg by mouth daily at bedtime. metoprolol succinate ER (TOPROL XL) 50 mg 24 hr tablet Take 1 tablet by mouth once daily. No current facility-administered medications for this visit. Allergies: Atorvastatin This note was partially generated using The Author Hub voice recognition system, and there may be some incorrect words, spellings, and punctuation that were not noted in checking the note before saving. Luz Becker PA-C documented in this encounterUniversity Hospitals Samar[facility] Center01-09-2023 Miscellaneous Notes* Telephone Encounter - Ana Maria Laguna LPN - 09/24/2022 3:17 PM EST New pharmacy Last appointment: 07/24/22 Next appointment: 10/24/22 Pharmacy verified in [facility]. Refill(s) requested: Requested Prescriptions Pending Prescriptions Disp Refills rosuvastatin (CRESTOR) 20 mg tablet [Pharmacy Med Name: ROSUVASTATIN TABS 20MG] 90 tablet 3 Sig: TAKE 1 TABLET DAILY AT BEDTIME Order(s) pended. Please advise. Ana Maria Laguna LPN, CMA documented in this encounterUniversity Hospitals Samaritan [facility] Center01-06-2023 Miscellaneous Notes* Telephone Encounter - Fariba Vegas APRN.ERMA - 09/21/2022 4:40 PM EST PDMP website checked and validated. All prescriptions have been APPROPRIATELY filled. No suspiciousactivity was identified. 09/21/2022 by Fariba Vegas APRN.ERMA * Telephone Encounter - Ashwini Meraz MA - 09/21/2022 1:28 PM EST Last appointment: 07/24/22 Next appointment: 10/24/22 Pharmacy verified in Epic. Refill(s) requested: Requested Prescriptions Pending Prescriptions Disp Refills HYDROcodone-Acetaminophen (NORCO) 10-325 mg per tablet 30 tablet 0 Sig: Take 1 tablet by mouth once daily as needed for pain for up to 30 days. Order(s) pended. Please advise. Ashwini Meraz MA, MANAGER AIR * Telephone Encounter - Courtney Sy Pss - 09/21/2022 11:40 AM EST Patient has been identified by name and date of : Yes Requested Prescriptions Pending Prescriptions Disp Refills HYDROcodone-Acetaminophen (NORCO) 10-325 mg per tablet 30 tablet 0 Sig: Take 1 tablet by mouth once daily as needed for pain for up to 30 days. RX INSTRUCTIONS: Patient aware RX will be sent to pharmacy. No need to notify patient. Courtney Kerrie Pss documented in this encounterUniversity Hospitals Samaritan Medical Center12-29-2022 Miscellaneous Notes* Telephone Encounter - Floresita Ramirez RN - 09/13/2022 11:46 AM EST Called patient to notify of provider message. He verbalized understanding, confirmed dosage, and noquestions at this time. Tracker updated. * Telephone Encounter - Fariba Vegas APRN.ERMA - 09/12/2022 7:58 PM EST Please let patient know his INR is 3.0. Patient should continue on current dose. Retest in 1 month. Thanks, Fariba Vegas APRN.G[employer] 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 Data from Coumadin Tracker: PT INR 3.0 09/12/2022 PT INR 2.0 07/12/2022 PT INR 2.2 05/16/2022 Goal Range: 2.0-3.0 Last Instructions: Description 4 mg seven days per week (KK 07/13/22) BW 4 weeks documented in this encounterUniversity Hospitals Samaritan Medical Center11-22-2022 Miscellaneous Notes* Telephone Encounter - Georgia Tavarez RN - 08/07/2022 11:10 AM EST Left voicemail for patient to call back and receive a message from provider. * Telephone Encounter - Fariba Vegas APRN.ERMA - 08/06/2022 9:44 PM EST Please let patient know I sent new Rx for crestor 10mg every other day. He can also try a COQ-10 supplement daily OTC to see if this helps with the aches. Labs ordered for 3 months. He should let us know if symptoms are not improving on the lower dose over the next few weeks. Thanks, Fariba Vegas APRN.GAS 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 * Telephone Encounter - Sofie Matthews RN - 08/06/2022 1:08 PM EST Called patient, discussed message below. He is agreeable to 10 mg every other day and rechecking levels in 3 months. Sofie Matthews RN * Telephone Encounter - Fariba Vegas APRN.ERMA - 08/06/2022 1:04 PM EST He can try taking 10mg every other day and see if that helps his pain. See if he would be ok with that and then we can recheck labs again in 3 months. Also review lifestyle changes such as exercise and decreasing saturated fats, trans fats, and high cholesterol foods in his diet. Thanks, Fariba Vegas APRN.GAS 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 * Telephone Encounter - Georgia Tavarez RN - 07/26/2022 12:02 PM EST Pt states he isn't tolerating statin well. Mostly pain in hands When it occurs, pain lasts all day If he doesn't take it at night, pain is relieved the next day 6/10 on statin and 1-2/10 when he doesn't take it. Patient states he is unsure if arthritis is contributing to the pain. Patient agreeable to medication modification, please send new prescription to [facility] on file Reason for Disposition [1] Follow-up call to recent contact AND [2] information only call, no triage required Protocols used: Information Only Call - No [id number] * Telephone Encounter - Fariba Vegas APRN.ERMA - 07/26/2022 8:48 AM EST Is he tolerating this 3 times a week? If so, we can add on zetia to the statin which is less likelyto cause joint pain and can help better control his cholesterol. Thanks, Fariba Vegas APRN.ERMA * Telephone Encounter - Sofie Matthews RN - 07/25/2022 1:52 PM EST Called patient, discussed message below. Admits to taking statin only 3 times a week on average. States it causes joint pain, same as Lipitor did. Diet has not been good either, a lot of fried foods. Advised to work on healthy diet, lifestyle etc. He is asking if there is an alternate statin he can try? Sofie Matthews RN * Telephone Encounter - Fariba Vegas APRN.ERMA - 07/25/2022 12:35 PM EST Please let patient know cholesterol is high. Is he taking his statin? Has he been eating more high cholesterol foods? Kidney function, liver function, and electrolytes are normal. Platelets are stable. Thanks, Fariba Vegas APRN.GAS 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 documented in this encounterUniversity Hospitals Samaritan Medical [facility] Miscellaneous Notes* Telephone Encounter - Leela Thomason RN - 07/13/2022 9:18 AM EDT Spoke with patient and relayed message. Patient verbalized understanding. Verified dose Updated tracker * Telephone Encounter - Tate Alfonso MD - 07/13/2022 6:56 AM EDT Please let patient know his INR is 2.0. Patient should continue on current dose. Retest in 4 weeks. Thanks, Tate Alfonso MD Data from Coumadin Tracker: PT INR 2.0 07/12/2022 PT INR 2.2 05/16/2022 PT INR 2.4 04/13/2022 Goal Range: 2.0-3.0 Last Instructions: Description 4 mg seven days per week (MM 05/16/2022) BW 4 weeks documented in this encounterUniversity Hospitals Samar[facility] Center10-06-2022 Miscellaneous Notes* Telephone Encounter - Fariba Vegas APRN.CNP - 06/21/2022 9:28 PM EDT PDMP website checked and validated. All prescriptions have been APPROPRIATELY filled. No suspiciousactivity was identified. 06/21/2022 by Fariba Vegas APRN.GAS 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 * Telephone Encounter - Christina Mccormack LPN - 06/21/2022 2:11 PM EDT Pharmacy verified in Epic Patient has been identified by name and date of : Yes Patient aware RX will be sent to pharmacy. No need to notify patient. Patient phones for refill(s): Requested Prescriptions Pending Prescriptions Disp Refills HYDROcodone-Acetaminophen (NORCO) 10-325 mg per tablet 30 tablet 0 Sig: Take 1 tablet by mouth once daily as needed for pain for up to 30 days. Date of last office visit : 04/23/2022 Date of next office visit : 07/24/2022 Last 2 Encounter Wt Readings: Date: Wt: 04/23/2022 99.9 kg (220 lb 3.2 oz) 12/27/2021 97.5 kg (215 lb) Not applicable Please advise. Christina Mccormack LPN * Telephone Encounter - Barbi Arzate Pss - 06/21/2022 12:02 PM EDT Patient has been identified by name and date of : Yes Requested Prescriptions Pending Prescriptions Disp Refills HYDROcodone-Acetaminophen (NORCO) 10-325 mg per tablet 30 tablet 0 Sig: Take 1 tablet by mouth once daily as needed for pain for up to 30 days. RX INSTRUCTIONS: Patient aware RX will be sent to pharmacy. No need to notify patient. Barbi Arzate Pss documented in this encounterUniversity Hospitals Samaritan Medical Center09-06-2022 Miscellaneous Notes* Telephone Encounter - Fariba Vegas APRN.GAS 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 - 05/22/2022 4:28 PM EDT PDMP website checked and validated. All prescriptions have been APPROPRIATELY filled. No suspiciousactivity was identified. 05/22/2022 by Fariba Vegas APRN.GAS 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 * Telephone Encounter - Poonam Maynard [facility] [place] - 05/22/2022 12:54 PM EDT Patient has been identified by name and date of : Yes Requested Prescriptions Pending Prescriptions Disp Refills HYDROcodone-Acetaminophen (NORCO) 10-325 mg per tablet 30 tablet 0 Sig: Take 1 tablet by mouth once daily as needed for pain for up to 30 days. RX INSTRUCTIONS: Patient aware RX will be sent to pharmacy. No need to notify patient. [facility] documented in this encounterUniversity Hospitals Samaritan Medical Center08-31-2022 Miscellaneous Notes* Telephone Encounter - Sofie Matthews RN - 05/16/2022 12:44 PM EDT Notified patient. Updated tracker. Sofie Matthews RN Reason for Disposition Health Information question, no triage required and triager able to answer question Protocols used: Information Only Call - No [id number] * Telephone Encounter - Tate Alfonso MD - 05/16/2022 12:36 PM EDT Please let patient know his INR is 2.2. Patient should continue on current dose. Retest in 4 weeks. Thanks, Tate Alfonso MD Data from Coumadin Tracker: PT INR 2.2 05/16/2022 PT INR 2.4 04/13/2022 PT INR 2.0 03/21/2022 Goal Range: 2.0-3.0 Last Instructions: Description 4 mg seven days per week (DT 03/21/2022) BW 2 weeks documented in this encounterUniversity Hospitals Samaritan Medical Center08-18-2022 Miscellaneous Notes* Telephone Encounter - Echo Mendoza MA - 05/03/2022 6:18 PM EDT Received 04-28-22 from [facility]. Placed in provider's inbox for review. Route to [place] scanning documented in this encounterUniversity Hospitals Samaritan Medical Center08-16-2022 Miscellaneous Notes* Telephone Encounter - Malina Arndt Ma - 05/01/2022 8:04 PM EDT Received patient's Imaging (dos: 04/28/22) from [facility] placed in provider's in box to befor reviewed & signed with providers approval to be sent to scanning. Malina Arndt ([place]) documented in this encounterUniversity Hospitals Samaritan Medical Center08-11-2022 Miscellaneous Notes* Telephone Encounter - Jeanne Montiel - 04/26/2022 8:52 AM EDT Patient is scheduled. * Telephone Encounter - Tate Alfonso MD - 04/25/2022 12:38 PM EDT Ok to see Kenia or use flex slots. Tate Alfonso MD * Telephone Encounter - Kayley Araujo - 04/23/2022 6:23 PM EDT PT says Dr. Alfonso said to see him in 4 weeks but nothing is available. I scheduled with Kenia for the meantime. Please advise documented in this encounterUniversity Hospitals Samaritan Medical Center08-08-2022 History of Present illness Narrative* Tate Alfonso MD - 04/23/2022 6:37 PM EDT ESTABLISHED PATIENT Kayla Moreno is a 72 year old male presenting for Follow Up. HISTORY OF PRESENT ILLNESS Chronic Narcotic Pain Medication Medication: [place] 10mg Used for: Knee pain and chronic back pain. Has arthritis in knees. Has had 3 back surgeries at [facility] Improves quality of life/pain: Yes Amount used per day: Uses 1 per day Non-pharmacologic therapies: gets steroid injections. Pain Scale before medication:6 After medication: 2 If patient is on benzo/muscle relaxer aware of potential sedation: On no benzo or muscle relaxer Concern for addiction: No Non-opioid treatment options: Yes Tylenol Counseled on safe storage and disposal: Yes Counseled on opioid and alcohol: Yes Patient was placed on gabapentin. Will have tremor in his feet. Patient stopped metformin at last visit. BGhas been 130-138. ASSESSMENT: (R25.1) Tremor of both hands (primary encounter diagnosis) (E11.59) Type 2 diabetes mellitus with other circulatory complication, without long-term current use of insulin (HCC) (M48.061) Spinal stenosis of lumbar region without neurogenic claudication (M51.36) Degenerative disc disease, lumbar (M17.12) Arthritis of left knee (M17.11) Arthritis of right knee PLAN: Increase gabapentin for tremors. Not controlled Check a1c at next visit. DM2 well controlled Continue norco for pain HISTORIES FAMILY HISTORY Problem Relation Age of Onset Coronary Artery Disease Father Diabetes Father Cancer Mother Uterine Diabetes Mother Diabetes Sister Coronary Artery Disease Brother PAST MEDICAL HISTORY Diagnosis Date DVT (deep venous thrombosis) ([facility]) Leg x 2 Essential hypertension Hyperlipidemia Lumbar herniated disc STEMI (ST elevation myocardial infarction) ([facility]) Tremor of both hands PAST SURGICAL HISTORY Procedure Laterality Date CARPAL TUNNEL Carpal tunnel release x 2 IVC FILTER PERCUTANEOUS 2004 OTHER Microdiskectomy REPAIR MEDIAL OR LATERAL MENISCUS, TO R687 2009 Social History Tobacco Use Smoking status: Never Smokeless tobacco: Never Substance Use Topics Alcohol use: No Drug use: No Allergies: ALLERGIES Allergen Reactions Atorvastatin Myalgia Medications: HYDROcodone-Acetaminophen (NORCO) 10-325 mg per tablet^Take 1 tablet by mouth once daily as needed for pain for up to 30 days.^Disp: 30 tablet^Rfl: 0 warfarin (COUMADIN) 4 mg tablet^Take 1 tablet by mouth once daily.^Disp: 90 tablet^Rfl: 3 primidone (MYSOLINE) 50 mg tablet^Take 3 tablets by mouth twice daily.^Disp: 540 tablet^Rfl: 3 rosuvastatin (CRESTOR) 20 mg tablet^Take 1 tablet by mouth daily at bedtime.^Disp: 90 tablet^Rfl: 3 famotidine (PEPCID) 20 mg tablet^Take 1 tablet by mouth twice daily.^Disp: 180 tablet^Rfl: 1 aspirin 81 mg chewable tablet^Take 81 mg by mouth once daily.^Disp: ^Rfl: lisinopril (ZESTRIL, PRINIVIL) 20 mg tablet^Take 1 tablet by mouth once daily.^Disp: ^Rfl: blood sugar diagnostic (BLOOD GLUCOSE TEST) test strip^1 Strip twice daily. E11.9^Disp: 180 Strip^Rfl: 3 Lancets lancets^1 Each twice daily. E11.9^Disp: 180 Each^Rfl: 3 meclizine (ANTIVERT) 25 mg tab^Take 1 tablet by mouth every 6 hours as needed (for dizziness.).^Disp: 30 tablet^Rfl: 2 diclofenac sodium (VOLTAREN) 1 % topical gel^Apply to affected area four times daily.^Disp: 400 g^Rfl: 2 acetaminophen (TYLENOL ARTHRITIS PAIN ORAL)^Take 650 mg by mouth daily at bedtime.^Disp: ^Rfl: metoprolol succinate ER (TOPROL XL) 50 mg 24 hr tablet^Take 1 tablet by mouth once daily.^Disp: ^Rfl: 0 gabapentin (NEURONTIN) 100 mg capsule^Take 1 capsule by mouth three times daily for 30 days.^Disp: 90 capsule^Rfl: 0 metFORMIN ER (GLUCOPHAGE XR) 500 mg 24 hr tablet^Take 1 tablet by mouth once daily.^Disp: 90 tablet^Rfl: 3 (Patient not taking: Reported on 04/23/2022) clopidogrel (PLAVIX) 75 mg tablet^Take 75 mg by mouth once daily.^Disp: ^Rfl: (Patient not taking: Reported on 04/23/2022) REVIEW OF SYSTEMS See above PHYSICAL EXAM BP 130/79 Pulse (!) 56 Temp 36.7 C (98.1 F) (Temporal) Resp 16 Wt 99.9 kg (220 lb 3.2 oz) SpO2 97% BMI 31.60 kg/m General: Well developed, well nourished, in no acute distress. Head: Normocephalic, atraumatic. Neck: Supple. Eyes: Normal conjunctiva, no scleral icterus. Lungs: Clear to auscultation bilaterally, no rubs, no wheezing. Cardiac: Regular rate and rhythm. No murmurs, gallops, or rubs. Extremities: No edema. Tate Alfonso MD * Echo Mendoza MA - 04/23/2022 6:26 PM EDT DILATED RETINAL EXAM Never done DTAP,TDAP,TD(1 - Tdap) Never done SHINGRIX VACCINE(1 of 2) Never done COVID-19 VACCINE(4 - Booster for Pfizer series) due on 10/27/2021 BP CONTROLLED (<130/80) due on 02/02/2022 documented in this encounterUniversity Hospitals Samaritan Medical Center08-08-2022 Instructions* Patient Instructions* Echo Mendoza MA - 04/23/2022 6:26 PM EDT [facility] TEST INFORMATION [facility] BUILD[facility] LAB HOURS: Lab is open: 7:30am to 5:00pm M - Th, 7:30am to 4:00pm onFri and 8am -12pm on Sat. The lab is located in [facility] on the first floor. There is a registration window at the lab, available 7 am to 3 pm Saturday - Saturday. If registration is unavailable at the lab, you may register at the patient registration office near the front lobby of the hospital. SCHEDULING A LAB APPOINTMENT: Laboratory appointments are recommended.Walk ins are still accepted. Call [phone] or schedule via Simple-Fill scheduling ticket. ROUTINE LAB ORDERS 60 days after they are entered. If your lab orders , you may be required to wait in the lab while they are reinstated FUTURE ORDERS are lab tests to be completed on the EXPECTED date. These orders 60 days afterthe expected date. STANDING ORDERS are recurring orders with an expiration date. The interval will indicate how often the test should be completed. CT / MRI / IVP If you have lab tests ordered for one of these radiology exams, please complete the blood work at least one day prior to the scheduled exam. PRESCRIPTION REFILL REQUESTS Request prescription refills through your Simple-Fill account or contact your Pharmacy. My Chart Schedule My Appointment enables you to view your established primary care provider's open schedule and book an appointment online in real-time. This feature is available in internal medicine, family medicine, or pediatrics at any of our [facility] locations and main campus. documented in this encounterUniversity Hospitals Samaritan Medical Center08-05-2022 Miscellaneous Notes* Telephone Encounter - Fariba Vegas APRN.CNP - 04/20/2022 4:52 PM EDT PDMP website checked and validated. All prescriptions have been APPROPRIATELY filled. No suspiciousactivity was identified. 04/20/2022 by Fariba Vegas APRN.GAS 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 * Telephone Encounter - Courtney Gilmoree Pss - 04/20/2022 10:25 AM EDT Last appointment : 12/27/21 Next appointment: 04/23/22 Patient has been identified by name and date of : Yes Pending Prescriptions Disp Refills HYDROCODONE 10 MG-ACETAMINOPHEN 325 MG TABLET 30 tablet 0 Sig: Take 1 tablet by mouth once daily as needed for pain for up to 30 days. MELITON Class: C-II FAUSTINO: No RX INSTRUCTIONS: Patient aware RX will be sent to pharmacy. No need to notify patient. Courtney Sy Pss documented in this encounterUniversity Hospitals Samaritan Medical Center07-29-2022 Miscellaneous Notes* Telephone Encounter - Girsel Charles - 04/13/2022 12:31 PM EDT Spoke with Kayla Moreno on April 13, 2022. Informed of results / instructions as stated below. Patient states understanding, no further questions. * Telephone Encounter - Tate Alfonso MD - 04/13/2022 12:07 PM EDT Please let patient know his INR is 2.4. Patient should continue on current dose. Retest in 4 weeks. Thanks, Tate Alfonso MD Data from Coumadin Tracker: PT INR 2.4 04/13/2022 PT INR 2.0 03/21/2022 PT INR 1.9 03/09/2022 Goal Range: 2.0-3.0 Last Instructions: Description 4 mg seven days per week (DT 03/21/2022) BW 2 weeks documented in this encounterUniversity Hospitals Samaritan Medical Center07-12-2022 History of Present illness Narrative* Luz Becker PA-C - 03/27/2022 11:37 AM EDT Associated Order(s): Large Joint Arthro/Inj: bilateral knee joints Post-Procedure Diagnose(s): Primary osteoarthritis of both knees Luz Becker PA-C Department of Orthopaedics Orthopa[facility] [address] [address] Dept: [phone] March 27, 2022 CHIEF COMPLAINT: Established Patient, Knee Pain, and Injections of the Left Knee and Established Patient, Knee Pain, and Injections of the Right Knee. ASSESSMENT: M17.0 Primary osteoarthritis of both knees (primary encounter diagnosis) SUMMARY/PLAN: Patient presents for repeat bilateral knee corticosteroid injections. Injections are helpful for about 3 months, he tells me the last 10 days he has had some knee pain otherwise is doing pretty well.We will proceed with repeat injections today. Large Joint Arthro/Inj: bilateral knee joints Informed Consent Consent Obtained: Verbal [place] Protocol A moment to CARE was completed. SIGN IN Sign in communication not applicable due to emergent procedure. Personnel directly involved with the procedure wore the appropriate PPE. Special Equipment: N/A Patient/Surrogate Stated/Verified: Patient name, Date of , Relevant allergies and Intended procedure TIME OUT Intended patient and procedure match the source document(s). Consent documented and matches the intended procedure. Relevant labs, photos, and/or imaging studies have been reviewed. Correct side/site marked and visible. Medications required for procedure verified. No fire risk assessment and interventions applicable. No implant(s) inserted. 03/27/2022 11:38 AM The procedure site was prepped in the usual sterile fashion. Site: bilateral knee joints Medications (Right): 6 mg betamethasone acetate-betamethasone sodium phosphate 6 mg/mL Medications (Left): 6 mg betamethasone acetate-betamethasone sodium phosphate 6 mg/mL Anesthetics (Right): 5 mL lidocaine (PF) 10 mg/mL (1 %) Anesthetics (Left): 5 mL lidocaine (PF) 10 mg/mL (1 %) Outcome: Tolerated well, no immediate complications Post-injection instructions were reviewed with the patient and the patient voiced understanding of these instructions. SIGN OUT Post-procedure follow-up management communicated and Plan of Care Visit completed when applicable Mr. Kayla Moreno was advised as to contrast therapies and/or to take analgesics/anti-inflammatories as needed and all contraindications were reviewed. Supporting Information Below: Medications: Current Outpatient Medications Medication Sig HYDROcodone-Acetaminophen (NORCO) 10-325 mg per tablet Take 1 tablet by mouth once daily as needed for pain for up to 30 days. gabapentin (NEURONTIN) 100 mg capsule Take 1 capsule by mouth three times daily for 30 days. warfarin (COUMADIN) 4 mg tablet Take 1 tablet by mouth once daily. primidone (MYSOLINE) 50 mg tablet Take 3 tablets by mouth twice daily. rosuvastatin (CRESTOR) 20 mg tablet Take 1 tablet by mouth daily at bedtime. metFORMIN ER (GLUCOPHAGE XR) 500 mg 24 hr tablet Take 1 tablet by mouth once daily. famotidine (PEPCID) 20 mg tablet Take 1 tablet by mouth twice daily. aspirin 81 mg chewable tablet Take 81 mg by mouth once daily. lisinopril (ZESTRIL, PRINIVIL) 20 mg tablet Take 1 tablet by mouth once daily. blood sugar diagnostic (BLOOD GLUCOSE TEST) test strip 1 Strip twice daily. E11.9 Lancets lancets 1 Each twice daily. E11.9 meclizine (ANTIVERT) 25 mg tab Take 1 tablet by mouth every 6 hours as needed (for dizziness.). diclofenac sodium (VOLTAREN) 1 % topical gel Apply to affected area four times daily. acetaminophen (TYLENOL ARTHRITIS PAIN ORAL) Take 650 mg by mouth daily at bedtime. metoprolol succinate ER (TOPROL XL) 50 mg 24 hr tablet Take 1 tablet by mouth once daily. clopidogrel (PLAVIX) 75 mg tablet Take 75 mg by mouth once daily. (Patient not taking: Reported on 03/27/2022 ) Current Facility-Administered Medications Medication Dose Route Frequency betamethasone acetate-betamethasone sodium phosphate 6 mg injection (CELESTONE) 6 mg Injection - FOR ORTHO USE ONLY betamethasone acetate-betamethasone sodium phosphate 6 mg injection (CELESTONE) 6 mg Injection - FOR ORTHO USE ONLY lidocaine (PF) 10 mg/mL (1 %) 5 mL injection (XYLOCAINE) 5 mL Injection - FOR ORTHO USE ONLY lidocaine (PF) 10 mg/mL (1 %) 5 mL injection (XYLOCAINE) 5 mL Injection - FOR ORTHO USE ONLY Allergies: Atorvastatin This note was partially generated using The Author Hub voice recognition system, and there may be some incorrect words, spellings, and punctuation that were not noted in checking the note before saving. Luz Becker PA-C documented in this encounterUniversity Hospitals Samaritan Medical Center07-06-2022 Miscellaneous Notes* Telephone Encounter - Autumn Gonzalez RN - 03/21/2022 12:58 PM EDT Late note: was supposed to be 4 mg 7 days a week from 03/12/2022. message, patient agreed. Message to patient, to continue same. Tracker done. * Telephone Encounter - Fariba Vegas APRN.CNP - 03/21/2022 12:41 PM EDT Please let patient know his INR is 2.0. Patient should continue on current dose. Retest in 2 weeks. Thanks, Fariba Vegas APRN.GAS 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 Data from Coumadin Tracker: PT INR 2.0 03/21/2022 PT INR 1.9 03/09/2022 PT INR 1.9 02/08/2022 Goal Range: 2.0-3.0 Last Instructions: Description 4 mg six days per week (DT 03/12/2022) BW one week documented in this encounterUniversity Hospitals Samaritan Medical Center07-05-2022 Miscellaneous Notes* Telephone Encounter - Fariba Vegas APRN.CNP - 03/20/2022 4:39 PM EDT PDMP website checked and validated. All prescriptions have been APPROPRIATELY filled. No suspiciousactivity was identified. 03/20/2022 by Fariba Vegas APRN.CNP * Telephone Encounter - Barbi Frey - 03/20/2022 3:20 PM EDT Patient has been identified by name and date of : Yes Pending Prescriptions Disp Refills HYDROCODONE 10 MG-ACETAMINOPHEN 325 MG TABLET 30 tablet 0 Sig: Take 1 tablet by mouth once daily as needed for pain for up to 30 days. MELITON Class: C-II FAUSTINO: No RX INSTRUCTIONS: Patient aware RX will be sent to pharmacy. No need to notify patient. Barbi Arzate Pss documented in this encounterUniversity Hospitals Samaritan Medical Center06-27-2022 Miscellaneous Notes* Telephone Encounter - Autumn Gonzalez RN - 03/12/2022 5:10 PM EDT Message to patient, agreed. Tracker done * Telephone Encounter - Fariba Vegas APRN.CNP - 03/12/2022 5:00 PM EDT Please have patient increase dose to 4mg 7 days per week and update tracker. Thanks, Fariba Vegas APRN.GAS 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 * Telephone Encounter - Autumn Gonzalez RN - 03/12/2022 4:55 PM EDT Patient has phone issues, phone goes in and out. * Telephone Encounter - Autumn Gonzalez RN - 03/12/2022 4:54 PM EDT Spoke to patient, was advised to take 4 mg 6 days and 2 mg one day a week on 02/08 which he been doing, tracker was not updated. Please advise. * Telephone Encounter - Autumn Gonzalez RN - 03/12/2022 12:29 PM EDT Spoke to patient briefly then phone disconnected. Unable to reach, will try again later. * Telephone Encounter - Tone Tate RN - 03/10/2022 8:28 AM EDT Attempted to reach patient, left message to call back. * Telephone Encounter - Tate Alfonso MD - 03/10/2022 8:10 AM EDT Please let patient know his INR is 1.9. If patient is taking as noted below, then please have patient increase to 4mg six days per week and 2mg one day per week. Retest in 1 weeks. Thanks, Tate Alfonso MD Data from Coumadin Tracker: PT INR 1.9 03/09/2022 PT INR 1.9 02/08/2022 PT INR 2.2 12/25/2021 Goal Range: 2.0-3.0 Last Instructions: Description 4 mg five days per week and 2 mg two days per week and recheck the INR in 1 month (TATUM, RN 12/25/21) documented in this encounterUniversity Hospitals Samaritan Medical Center06-23-2022 Miscellaneous Notes* Telephone Encounter - Belia Heller - 03/08/2022 2:29 PM EDT Called pt twice, no answer, left a detailed message. * Telephone Encounter - Tate Alfonso MD - 03/08/2022 2:21 PM EDT Order placed Tate Alfonso MD * Telephone Encounter - Courtney Frey - 03/08/2022 1:49 PM EDT Patient stated he went to [facility] to get his INR labs done today. Two different techs triedto draw the labs and couldn't. Patient got upset and left; said he always has issues with the [facility] lab drawing his labs. He wants to go to [place] to get them done. I called the [place] lab to confirm the lab hours for him andto make sure there wouldn't be any issues with patient coming there since the labs were already attempted today. Margarita at [facility] told me she wasn't sure if a new order would need to be placed. Please review and call patient mary at [phone] to let him know if everything is ok for him to go there. documented in this encounterUniversity Hospitals Samaritan Medical Center05-26-2022 Miscellaneous Notes* Telephone Encounter - Jonna Tenorio RN - 02/08/2022 12:57 PM EDT Spoke with Kayla and gave him the results of his INR as below. He stated that he is currently taking 4mg of Coumadin 5 days per week and 2 mg Coumadin 2 days. He verbalized understanding of the instructions to begin taking 4 mg of Coumadin 6 days per week and 2 mg one day per week as per message from Dr. Alfonso. Instructed to recheck in one to two weeks. * Telephone Encounter - Tate Alfonso MD - 02/08/2022 12:52 PM EDT Please let patient know his INR is 1.9. If patient is taking as noted below, then please have patient increase to 4mg six days per week and 2mg one day per week. Retest in 1-2 weeks. Thanks, Tate Alfonso MD Data from Coumadin Tracker: PT INR 1.9 02/08/2022 PT INR 2.2 12/25/2021 PT INR 2.0 11/13/2021 Goal Range: 2.0-3.0 Last Instructions: Description 4 mg five days per week and 2 mg two days per week and recheck the INR in 1 month (TATUM RN 12/25/21) documented in this encounterUniversity Hospitals Samaritan Medical Center05-04-2022 Miscellaneous Notes* Telephone Encounter - Fariba Vegas APRN.CNP - 01/17/2022 5:23 PM EDT PDMP website checked and validated. All prescriptions have been APPROPRIATELY filled. No suspiciousactivity was identified. 01/17/2022 by Fariba Vegas APRN.GAS 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 * Telephone Encounter - Autumn Frey - 01/17/2022 10:39 AM EDT Patient has been identified by name and date of : Yes Pending Prescriptions Disp Refills HYDROCODONE 10 MG-ACETAMINOPHEN 325 MG TABLET 30 tablet 0 Sig: Take 1 tablet by mouth once daily as needed for pain for up to 30 days. MELITON Class: C-II FAUSTINO: No RX INSTRUCTIONS: Patient aware RX will be sent to pharmacy. No need to notify patient. Autumn Dexter Pss documented in this encounterUniversity Hospitals Samaritan Medical Center04-13-2022 History of Present illness Narrative* Tate Alfonso MD - 12/27/2021 8:55 AM EDT ESTABLISHED PATIENT Kayla Moreno is a 71 year old male presenting for F/U 3 Month. HISTORY OF PRESENT ILLNESS Type 2 Diabetes Follow up: Low blood sugars: no Medication compliance: yes Diet: eating fewer snacks Exercise: none Increased urination, hunger, thirst, weight changes: no Hemoglobin A1C 6.4 12/27/21 Hemoglobin A1C 6.8 09/20/2021 Hemoglobin A1C 6.7 06/26/2021 Hemoglobin A1C 6.8 12/10/2020 Chronic Narcotic Pain Medication Medication: [place] 10mg Used for: Knee pain and chronic back pain. Has arthritis in knees. Has had 3 back surgeries at [facility] Improves quality of life/pain: Yes Amount used per day: Uses 1 per day Non-pharmacologic therapies: gets steroid injections. Pain Scale before medication:6 After medication: 2 If patient is on benzo/muscle relaxer aware of potential sedation: On no benzo or muscle relaxer Concern for addiction: No Non-opioid treatment options: Yes Tylenol Counseled on safe storage and disposal: Yes Counseled on opioid and alcohol: Yes Patient has an essential tremor. On primidone. Has been on higher doses than 150mg bid but didn't tolerate. Just had shots in knees on . Continues to have pain and swelling in his hands. Has arthritis. Rheum workup negative. Hasn' tbeenroutinely using votlaren gel. Recent Labs: WBC 5.94 09/20/2021 Hemoglobin 14.0 09/20/2021 Hematocrit 40.6 09/20/2021 Platelet Count 139 09/20/2021 Sodium 141 09/20/2021 Potassium 4.9 09/26/2021 Creatinine 1.11 09/20/2021 BUN 18 09/20/2021 eGFR, >60 05/30/2016 eGFR-All Other Races >60 09/20/2021 Glucose 154 09/20/2021 Calcium 9.0 09/20/2021 Hemoglobin A1C (POCT) 6.8 09/20/2021 LDL 94 09/20/2021 HDL 52 09/20/2021 CHOL 168 09/20/2021 Triglycerides, Nonfasting 110 09/20/2021 AST 20 2021 ALT 18 2021 Alkaline Phosphatase 69 2021 TSH 2.370 09/20/2021 PSA Screening 0.88 08/08/2020 Estimated Creatinine Clearance: 71.5 mL/min (based on SCr of 1.11 mg/dL). ASSESSMENT: (E11.59) Type 2 diabetes mellitus with other circulatory complication, without long-term current use of insulin (HCC) (primary encounter diagnosis) (M17.12) Arthritis of left knee (M17.11) Arthritis of right knee (M19.049) Hand arthritis (R25.1) Tremor of both hands PLAN: DM2 well controlled Continue to use voltaren gel. Encouraged patient to use more frequently on hands Start gabapentin for hands. Patient aware of side effects. Will slowly increase. HISTORIES FAMILY HISTORY Problem Relation Age of Onset Coronary Artery Disease Father Diabetes Father Cancer Mother Uterine Diabetes Mother Diabetes Sister Coronary Artery Disease Brother PAST MEDICAL HISTORY Diagnosis Date DVT (deep venous thrombosis) (HCC) Leg x 2 Essential hypertension Hyperlipidemia Lumbar herniated disc STEMI (ST elevation myocardial infarction) ([facility]) Tremor of both hands PAST SURGICAL HISTORY Procedure Laterality Date CARPAL TUNNEL Carpal tunnel release x 2 IVC FILTER PERCUTANEOUS 2003 OTHER Microdiskectomy REPAIR MEDIAL OR LATERAL MENISCUS, TO R687 2009 Social History Tobacco Use Smoking status: Never Smoker Smokeless tobacco: Never Used Substance Use Topics Alcohol use: No Drug use: No Allergies: ALLERGIES Allergen Reactions Atorvastatin Myalgia Medications: HYDROcodone-Acetaminophen (NORCO) 10-325 mg per tablet Take 1 tablet by mouth once daily as needed for pain for up to 30 days. warfarin (COUMADIN) 4 mg tablet Take 1 tablet by mouth once daily. primidone (MYSOLINE) 50 mg tablet Take 3 tablets by mouth twice daily. predniSONE (DELTASONE) 10 mg tablet Take PO 4 tablets x 5 days, then 3 tablets x 3 days, then 2 tablets x 3 days, 1 tablets x 3 days rosuvastatin (CRESTOR) 20 mg tablet Take 1 tablet by mouth daily at bedtime. metFORMIN ER (GLUCOPHAGE XR) 500 mg 24 hr tablet Take 1 tablet by mouth once daily. famotidine (PEPCID) 20 mg tablet Take 1 tablet by mouth twice daily. aspirin 81 mg chewable tablet Take 81 mg by mouth once daily. clopidogrel (PLAVIX) 75 mg tablet Take 75 mg by mouth once daily. lisinopril (ZESTRIL, PRINIVIL) 20 mg tablet Take 1 tablet by mouth once daily. blood sugar diagnostic (BLOOD GLUCOSE TEST) test strip 1 Strip twice daily. E11.9 Lancets lancets 1 Each twice daily. E11.9 meclizine (ANTIVERT) 25 mg tab Take 1 tablet by mouth every 6 hours as needed (for dizziness.). diclofenac sodium (VOLTAREN) 1 % topical gel Apply to affected area four times daily. acetaminophen (TYLENOL ARTHRITIS PAIN ORAL) Take 650 mg by mouth daily at bedtime. metoprolol succinate ER (TOPROL XL) 50 mg 24 hr tablet Take 1 tablet by mouth once daily. REVIEW OF SYSTEMS GENERAL: No weight loss, malaise or fevers. RESPIRATORY: Negative for cough, hemoptysis, wheezing or shortness of breath. CARDIOVASCULAR: Negative for chest pain, leg swelling or palpitations. All other systems reviewed and negative other than HPI. PHYSICAL EXAM BP 138/78 Pulse 66 Temp 37.2 C (98.9 F) Resp 16 Ht 177.8 cm (5' 10) Wt 97.5 kg (215 lb) SpO2 99% BMI 30.85 kg/m General: Well developed, well nourished, in no acute distress. Head: Normocephalic, atraumatic. Neck: Supple. Eyes: Normal conjunctiva, no scleral icterus. Lungs: Clear to auscultation bilaterally, no rubs, no wheezing. Cardiac: Regular rate and rhythm. No murmurs, gallops, or rubs. Extremities: No edema. Tate Alfonso MD * Belia Heller - 12/27/2021 8:37 AM EDT DILATED RETINAL EXAM Never done DTAP,TDAP,TD(1 - Tdap) Never done SHINGRIX VACCINE(1 of 2) Never done ADVANCE DIRECTIVE DISCUSSION Never done DEPRESSION SCREENING due on 12/10/2021 documented in this encounterUniversity [facility]-13-[facility]22 Instructions* Patient Instructions* Belia Heller - 12/27/2021 8:38 AM EDT [facility] BU[facility] LAB TEST INFORMATION [facility] BU[facility] LAB HOURS: Lab is open: 7:30am to 5:00pm M - Th, 7:30am to 4:00pm onFri and 8am -12pm on Sat. The lab is located in [facility] on the first floor. There is a registration window at the lab, available 7 am to 3 pm Saturday. If registration is unavailable at the lab, you may register at the patient registration office near the front lobby of the hospital. SCHEDULING A LAB APPOINTMENT: Laboratory appointments are recommended.Walk ins are still accepted. Call [phone] or schedule via Simple-Fill scheduling ticket. ROUTINE LAB ORDERS 60 days after they are entered. If your lab orders , you may be required to wait in the lab while they are reinstated FUTURE ORDERS are lab tests to be completed on the EXPECTED date. These orders 60 days after the expected date. STANDING ORDERS are recurring orders with an expiration date. The interval will indicate how often the test should be completed. CT / MRI / IVP If you have lab tests ordered for one of these radiology exams, please complete the blood work at least one day prior to the scheduled exam. PRESCRIPTION REFILL REQUESTS Request prescription refills through your Simple-Fill account or contact your Pharmacy. My Chart Schedule My Appointment enables you to view your established primary care provider's open schedule and book an appointment online in real-time. This feature is available in internal medicine, family medicine, or pediatrics at any of our [facility] locations and main campus. documented in this encounterUniversity Hospitals [facility]04-11-2022 Miscellaneous Notes* Telephone Encounter - Ana Maria Boo RN - 12/25/2021 10:28 AM EDT Spoke with patient, informed of provider message and recommendations Tracker updated and INR goal set * Telephone Encounter - Fariba Vegas APRN.CNP - 12/25/2021 10:04 AM EDT Please let patient know his INR is 2.2. Patient should continue on current dose. Retest in 1 month.Update INR goal to 2-3. Thanks, Fariba Vegas APRN.ERMA Data from Coumadin Tracker: PT INR 2.2 12/25/2021 PT INR 2.0 11/13/2021 PT INR 2.3 09/26/2021 Goal Range: The patient does not have an INR goal. 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 and mild atherosclerotic diisease of cervical ICA with 25% stenosis on right MRI showing no acute intracranial findings but does hsow chronic microvascular ischemia TSH mildly elevated, free T4 low/normal Dizziness resolved at this point with meclizine Tele showing no acute events overnight PT recommending vestibular therapy if symptoms not improving Will discharge on meclizine as this seems to be effective for symptom management Suggest repeat TSH in a few weeks documented as of this encounter (statuses as of 12/05/2021) [facility] History of Past illness Narrative* Problem Noted Date Resolved Date Vertigo 07/23/2018 10/29/2018 Last Assessment & Plan: Assessment: Appears to be positional and intermittent at this point, possibly BPPV CTA showing 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 and mild atherosclerotic diisease of cervical ICA with 25% stenosis on right MRI showing no acute intracranial findings but does hsow chronic microvascular ischemia TSH mildly elevated, free T4 low/normal Dizziness resolved at this point with meclizine Tele showing no acute events overnight PT recommending vestibular therapy if symptoms not improving Will discharge on meclizine as this seems to be effective for symptom management Suggest repeat TSH in a few weeks documented as of this encounter (statuses as of 12/22/2021) [facility] History of Past illness Narrative* Problem Noted Date Resolved Date Vertigo 07/23/2018 10/29/2018 Last Assessment & Plan: Assessment: Appears to be positional and intermittent at this point, possibly BPPV CTA showing 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 and mild atherosclerotic diisease of cervical ICA with 25% stenosis on right MRI showing no acute intracranial findings but does hsow chronic microvascular ischemia TSH mildly elevated, free T4 low/normal Dizziness resolved at this point with meclizine Tele showing no acute events overnight PT recommending vestibular therapy if symptoms not improving Will discharge on meclizine as this seems to be effective for symptom management Suggest repeat TSH in a few weeks documented as of this encounter (statuses as of 12/25/2021) [facility] History of Past illness Narrative* Problem Noted Date Resolved Date Vertigo 07/23/2018 10/29/2018 Last Assessment & Plan: Assessment: Appears to be positional and intermittent at this point, possibly BPPV CTA showing 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 and mild atherosclerotic diisease of cervical ICA with 25% stenosis on right MRI showing no acute intracranial findings but does hsow chronic microvascular ischemia TSH mildly elevated, free T4 low/normal Dizziness resolved at this point with meclizine Tele showing no acute events overnight PT recommending vestibular therapy if symptoms not improving Will discharge on meclizine as this seems to be effective for symptom management Suggest repeat TSH in a few weeks documented as of this encounter (statuses as of 12/27/2021) [facility] History of Past illness Narrative* Problem Noted Date Resolved Date Vertigo 07/23/2018 10/29/2018 Last Assessment & Plan: Assessment: Appears to be positional and intermittent at this point, possibly BPPV CTA showing 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 and mild atherosclerotic diisease of cervical ICA with 25% stenosis on right MRI showing no acute intracranial findings but does hsow chronic microvascular ischemia TSH mildly elevated, free T4 low/normal Dizziness resolved at this point with meclizine Tele showing no acute events overnight PT recommending vestibular therapy if symptoms not improving Will discharge on meclizine as this seems to be effective for symptom management Suggest repeat TSH in a few weeks documented as of this encounter (statuses as of 01/17/2022) [facility] of Past illness Narrative* Problem Noted Date Resolved Date Vertigo 07/23/2018 10/29/2018 Last Assessment & Plan: Assessment: Appears to be positional and intermittent at this point, possibly BPPV CTA showing 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 and mild atherosclerotic diisease of cervical ICA with 25% stenosis on right MRI showing no acute intracranial findings but does hsow chronic microvascular ischemia TSH mildly elevated, free T4 low/normal Dizziness resolved at this point with meclizine Tele showing no acute events overnight PT recommending vestibular therapy if symptoms not improving Will discharge on meclizine as this seems to be effective for symptom management Suggest repeat TSH in a few weeks documented as of this encounter (statuses as of 02/08/2022) [facility] of Past illness Narrative* Problem Noted Date Resolved Date Vertigo 07/23/2018 10/29/2018 Last Assessment & Plan: Assessment: Appears to be positional and intermittent at this point, possibly BPPV CTA showing 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 and mild atherosclerotic diisease of cervical ICA with 25% stenosis on right MRI showing no acute intracranial findings but does hsow chronic microvascular ischemia TSH mildly elevated, free T4 low/normal Dizziness resolved at this point with meclizine Tele showing no acute events overnight PT recommending vestibular therapy if symptoms not improving Will discharge on meclizine as this seems to be effective for symptom management Suggest repeat TSH in a few weeks documented as of this encounter (statuses as of 03/08/2022) [facility] of Past illness Narrative* Problem Noted Date Resolved Date Vertigo 07/23/2018 10/29/2018 Last Assessment & Plan: Assessment: Appears to be positional and intermittent at this point, possibly BPPV CTA showing 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 and mild atherosclerotic diisease of cervical ICA with 25% stenosis on right MRI showing no acute intracranial findings but does hsow chronic microvascular ischemia TSH mildly elevated, free T4 low/normal Dizziness resolved at this point with meclizine Tele showing no acute events overnight PT recommending vestibular therapy if symptoms not improving Will discharge on meclizine as this seems to be effective for symptom management Suggest repeat TSH in a few weeks documented as of this encounter (statuses as of 03/12/2022) [facility] of [facility] illness Narrative* Problem Noted Date Resolved Date Vertigo 07/23/2018 10/29/2018 Last Assessment & Plan: Assessment: Appears to be positional and intermittent at this point, possibly BPPV CTA showing 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 and mild atherosclerotic diisease of cervical ICA with 25% stenosis on right MRI showing no acute intracranial findings but does hsow chronic microvascular ischemia TSH mildly elevated, free T4 low/normal Dizziness resolved at this point with meclizine Tele showing no acute events overnight PT recommending vestibular therapy if symptoms not improving Will discharge on meclizine as this seems to be effective for symptom management Suggest repeat TSH in a few weeks documented as of this encounter (statuses as of 03/20/2022) [facility] of Past illness Narrative* Problem Noted Date Resolved Date Vertigo 07/23/2018 10/29/2018 Last Assessment & Plan: Assessment: Appears to be positional and intermittent at this point, possibly BPPV CTA showing 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 and mild atherosclerotic diisease of cervical ICA with 25% stenosis on right MRI showing no acute intracranial findings but does hsow chronic microvascular ischemia TSH mildly elevated, free T4 low/normal Dizziness resolved at this point with meclizine Tele showing no acute events overnight PT recommending vestibular therapy if symptoms not improving Will discharge on meclizine as this seems to be effective for symptom management Suggest repeat TSH in a few weeks documented as of this encounter (statuses as of 03/21/2022) [facility] of Past illness Narrative* Problem Noted Date Resolved Date Vertigo 07/23/2018 10/29/2018 Last Assessment & Plan: Assessment: Appears to be positional and intermittent at this point, possibly BPPV CTA showing 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 and mild atherosclerotic diisease of cervical ICA with 25% stenosis on right MRI showing no acute intracranial findings but does hsow chronic microvascular ischemia TSH mildly elevated, free T4 low/normal Dizziness resolved at this point with meclizine Tele showing no acute events overnight PT recommending vestibular therapy if symptoms not improving Will discharge on meclizine as this seems to be effective for symptom management Suggest repeat TSH in a few weeks documented as of this encounter (statuses as of 03/27/2022) [facility] of [facility] illness Narrative* Problem Noted Date Resolved Date Vertigo 07/23/2018 10/29/2018 Last Assessment & Plan: Assessment: Appears to be positional and intermittent at this point, possibly BPPV CTA showing 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 and mild atherosclerotic diisease of cervical ICA with 25% stenosis on right MRI showing no acute intracranial findings but does hsow chronic microvascular ischemia TSH mildly elevated, free T4 low/normal Dizziness resolved at this point with meclizine Tele showing no acute events overnight PT recommending vestibular therapy if symptoms not improving Will discharge on meclizine as this seems to be effective for symptom management Suggest repeat TSH in a few weeks documented as of this encounter (statuses as of 04/13/2022) [facility] of [facility] illness Narrative* Problem Noted Date Resolved Date Vertigo 07/23/2018 10/29/2018 Last Assessment & Plan: Assessment: Appears to be positional and intermittent at this point, possibly BPPV CTA showing 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 and mild atherosclerotic diisease of cervical ICA with 25% stenosis on right MRI showing no acute intracranial findings but does hsow chronic microvascular ischemia TSH mildly elevated, free T4 low/normal Dizziness resolved at this point with meclizine Tele showing no acute events overnight PT recommending vestibular therapy if symptoms not improving Will discharge on meclizine as this seems to be effective for symptom management Suggest repeat TSH in a few weeks documented as of this encounter (statuses as of 04/20/2022) [facility] Narrative* Problem Noted Date Resolved Date Vertigo 07/23/2018 10/29/2018 Last Assessment & Plan: Assessment: Appears to be positional and intermittent at this point, possibly BPPV CTA showing 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 and mild atherosclerotic diisease of cervical ICA with 25% stenosis on right MRI showing no acute intracranial findings but does hsow chronic microvascular ischemia TSH mildly elevated, free T4 low/normal Dizziness resolved at this point with meclizine Tele showing no acute events overnight PT recommending vestibular therapy if symptoms not improving Will discharge on meclizine as this seems to be effective for symptom management Suggest repeat TSH in a few weeks documented as of this encounter (statuses as of 04/23/2022) [facility] Narrative* Problem Noted Date Resolved Date Vertigo 07/23/2018 10/29/2018 Last Assessment & Plan: Assessment: Appears to be positional and intermittent at this point, possibly BPPV CTA showing 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 and mild atherosclerotic diisease of cervical ICA with 25% stenosis on right MRI showing no acute intracranial findings but does hsow chronic microvascular ischemia TSH mildly elevated, free T4 low/normal Dizziness resolved at this point with meclizine Tele showing no acute events overnight PT recommending vestibular therapy if symptoms not improving Will discharge on meclizine as this seems to be effective for symptom management Suggest repeat TSH in a few weeks documented as of this encounter (statuses as of 04/26/2022) [facility] Narrative* Problem Noted Date Resolved Date Vertigo 07/23/2018 10/29/2018 Last Assessment & Plan: Assessment: Appears to be positional and intermittent at this point, possibly BPPV CTA showing 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 and mild atherosclerotic diisease of cervical ICA with 25% stenosis on right MRI showing no acute intracranial findings but does hsow chronic microvascular ischemia TSH mildly elevated, free T4 low/normal Dizziness resolved at this point with meclizine Tele showing no acute events overnight PT recommending vestibular therapy if symptoms not improving Will discharge on meclizine as this seems to be effective for symptom management Suggest repeat TSH in a few weeks documented as of this encounter (statuses as of 05/10/2022) [facility] Narrative* Problem Noted Date Resolved Date Vertigo 07/23/2018 10/29/2018 Last Assessment & Plan: Assessment: Appears to be positional and intermittent at this point, possibly BPPV CTA showing 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 and mild atherosclerotic diisease of cervical ICA with 25% stenosis on right MRI showing no acute intracranial findings but does hsow chronic microvascular ischemia TSH mildly elevated, free T4 low/normal Dizziness resolved at this point with meclizine Tele showing no acute events overnight PT recommending vestibular therapy if symptoms not improving Will discharge on meclizine as this seems to be effective for symptom management Suggest repeat TSH in a few weeks documented as of this encounter (statuses as of 05/16/2022) [facility] Narrative* Problem Noted Date Resolved Date Vertigo 07/23/2018 10/29/2018 Last Assessment & Plan: Assessment: Appears to be positional and intermittent at this point, possibly BPPV CTA showing 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 and mild atherosclerotic diisease of cervical ICA with 25% stenosis on right MRI showing no acute intracranial findings but does hsow chronic microvascular ischemia TSH mildly elevated, free T4 low/normal Dizziness resolved at this point with meclizine Tele showing no acute events overnight PT recommending vestibular therapy if symptoms not improving Will discharge on meclizine as this seems to be effective for symptom management Suggest repeat TSH in a few weeks documented as of this encounter (statuses as of 05/22/2022) [facility] Narrative* Problem Noted Date Resolved Date Vertigo 07/23/2018 10/29/2018 Last Assessment & Plan: Assessment: Appears to be positional and intermittent at this point, possibly BPPV CTA showing 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 and mild atherosclerotic diisease of cervical ICA with 25% stenosis on right MRI showing no acute intracranial findings but does hsow chronic microvascular ischemia TSH mildly elevated, free T4 low/normal Dizziness resolved at this point with meclizine Tele showing no acute events overnight PT recommending vestibular therapy if symptoms not improving Will discharge on meclizine as this seems to be effective for symptom management Suggest repeat TSH in a few weeks documented as of this encounter (statuses as of 05/30/2022) [facility]11-07-2018 History of Past illness Narrative* Problem Noted Date Resolved Date Vertigo 07/23/2018 10/29/2018 Last Assessment & Plan: Assessment: Appears to be positional and intermittent at this point, possibly BPPV CTA showing 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 and mild atherosclerotic diisease of cervical ICA with 25% stenosis on right MRI showing no acute intracranial findings but does hsow chronic microvascular ischemia TSH mildly elevated, free T4 low/normal Dizziness resolved at this point with meclizine Tele showing no acute events overnight PT recommending vestibular therapy if symptoms not improving Will discharge on meclizine as this seems to be effective for symptom management Suggest repeat TSH in a few weeks documented as of this encounter (statuses as of 06/22/2022) [facility]11-07-2018 History of Past illness Narrative* Problem Noted Date Resolved Date Vertigo 07/23/2018 10/29/2018 Last Assessment & Plan: Assessment: Appears to be positional and intermittent at this point, possibly BPPV CTA showing 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 and mild atherosclerotic diisease of cervical ICA with 25% stenosis on right MRI showing no acute intracranial findings but does hsow chronic microvascular ischemia TSH mildly elevated, free T4 low/normal Dizziness resolved at this point with meclizine Tele showing no acute events overnight PT recommending vestibular therapy if symptoms not improving Will discharge on meclizine as this seems to be effective for symptom management Suggest repeat TSH in a few weeks documented as of this encounter (statuses as of 07/13/2022) [facility]11-07-2018 History of Past illness Narrative* Problem Noted Date Resolved Date Vertigo 07/23/2018 10/29/2018 Last Assessment & Plan: Assessment: Appears to be positional and intermittent at this point, possibly BPPV CTA showing 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 and mild atherosclerotic diisease of cervical ICA with 25% stenosis on right MRI showing no acute intracranial findings but does hsow chronic microvascular ischemia TSH mildly elevated, free T4 low/normal Dizziness resolved at this point with meclizine Tele showing no acute events overnight PT recommending vestibular therapy if symptoms not improving Will discharge on meclizine as this seems to be effective for symptom management Suggest repeat TSH in a few weeks documented as of this encounter (statuses as of 07/13/2022) [facility]11[facility]2018 History of Past illness Narrative* Problem Noted Date Resolved Date Vertigo 07/23/2018 10/29/2018 Last Assessment & Plan: Assessment: Appears to be positional and intermittent at this point, possibly BPPV CTA showing 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 and mild atherosclerotic diisease of cervical ICA with 25% stenosis on right MRI showing no acute intracranial findings but does hsow chronic microvascular ischemia TSH mildly elevated, free T4 low/normal Dizziness resolved at this point with meclizine Tele showing no acute events overnight PT recommending vestibular therapy if symptoms not improving Will discharge on meclizine as this seems to be effective for symptom management Suggest repeat TSH in a few weeks documented as of this encounter (statuses as of 08/07/2022) [facility]11[facility]2018 History of Past illness Narrative* Problem Noted Date Resolved Date Vertigo 07/23/2018 10/29/2018 Last Assessment & Plan: Assessment: Appears to be positional and intermittent at this point, possibly BPPV CTA showing 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 and mild atherosclerotic diisease of cervical ICA with 25% stenosis on right MRI showing no acute intracranial findings but does hsow chronic microvascular ischemia TSH mildly elevated, free T4 low/normal Dizziness resolved at this point with meclizine Tele showing no acute events overnight PT recommending vestibular therapy if symptoms not improving Will discharge on meclizine as this seems to be effective for symptom management Suggest repeat TSH in a few weeks documented as of this encounter (statuses as of 09/19/2022) [facility]11[facility]2018 History of Past illness Narrative* Problem Noted Date Resolved Date Vertigo 07/23/2018 10/29/2018 Last Assessment & Plan: Assessment: Appears to be positional and intermittent at this point, possibly BPPV CTA showing 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 and mild atherosclerotic diisease of cervical ICA with 25% stenosis on right MRI showing no acute intracranial findings but does hsow chronic microvascular ischemia TSH mildly elevated, free T4 low/normal Dizziness resolved at this point with meclizine Tele showing no acute events overnight PT recommending vestibular therapy if symptoms not improving Will discharge on meclizine as this seems to be effective for symptom management Suggest repeat TSH in a few weeks documented as of this encounter (statuses as of 09/22/2022) [facility]11[facility]2018 History of Past illness Narrative* Problem Noted Date Resolved Date Vertigo 07/23/2018 10/29/2018 Last Assessment & Plan: Assessment: Appears to be positional and intermittent at this point, possibly BPPV CTA showing 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 and mild atherosclerotic diisease of cervical ICA with 25% stenosis on right MRI showing no acute intracranial findings but does hsow chronic microvascular ischemia TSH mildly elevated, free T4 low/normal Dizziness resolved at this point with meclizine Tele showing no acute events overnight PT recommending vestibular therapy if symptoms not improving Will discharge on meclizine as this seems to be effective for symptom management Suggest repeat TSH in a few weeks documented as of this encounter (statuses as of 09/25/2022) [facility]11-07-2018 History of Past illness Narrative* Problem Noted Date Resolved Date Vertigo 07/23/2018 10/29/2018 Last Assessment & Plan: Assessment: Appears to be positional and intermittent at this point, possibly BPPV CTA showing 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 and mild atherosclerotic diisease of cervical ICA with 25% stenosis on right MRI showing no acute intracranial findings but does hsow chronic microvascular ischemia TSH mildly elevated, free T4 low/normal Dizziness resolved at this point with meclizine Tele showing no acute events overnight PT recommending vestibular therapy if symptoms not improving Will discharge on meclizine as this seems to be effective for symptom management Suggest repeat TSH in a few weeks documented as of this encounter (statuses as of 10/09/2022) [facility]11[facility]2018 History of Past illness Narrative* Problem Noted Date Resolved Date Vertigo 07/23/2018 10/29/2018 Last Assessment & Plan: Assessment: Appears to be positional and intermittent at this point, possibly BPPV CTA showing 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 and mild atherosclerotic diisease of cervical ICA with 25% stenosis on right MRI showing no acute intracranial findings but does hsow chronic microvascular ischemia TSH mildly elevated, free T4 low/normal Dizziness resolved at this point with meclizine Tele showing no acute events overnight PT recommending vestibular therapy if symptoms not improving Will discharge on meclizine as this seems to be effective for symptom management Suggest repeat TSH in a few weeks documented as of this encounter (statuses as of 10/15/2022) [facility]11[facility]2018 History of Past illness Narrative* Problem Noted Date Resolved Date Vertigo 07/23/2018 10/29/2018 Last Assessment & Plan: Assessment: Appears to be positional and intermittent at this point, possibly BPPV CTA showing 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 and mild atherosclerotic diisease of cervical ICA with 25% stenosis on right MRI showing no acute intracranial findings but does hsow chronic microvascular ischemia TSH mildly elevated, free T4 low/normal Dizziness resolved at this point with meclizine Tele showing no acute events overnight PT recommending vestibular therapy if symptoms not improving Will discharge on meclizine as this seems to be effective for symptom management Suggest repeat TSH in a few weeks documented as of this encounter (statuses as of 10/20/2022) [facility]11[facility]2018 History of Past illness Narrative* Problem Noted Date Resolved Date Vertigo 07/23/2018 10/29/2018 Last Assessment & Plan: Assessment: Appears to be positional and intermittent at this point, possibly BPPV CTA showing 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 and mild atherosclerotic diisease of cervical ICA with 25% stenosis on right MRI showing no acute intracranial findings but does hsow chronic microvascular ischemia TSH mildly elevated, free T4 low/normal Dizziness resolved at this point with meclizine Tele showing no acute events overnight PT recommending vestibular therapy if symptoms not improving Will discharge on meclizine as this seems to be effective for symptom management Suggest repeat TSH in a few weeks documented as of this encounter (statuses as of 10/23/2022) [facility]2018 History of Past illness Narrative* Problem Noted Date Resolved Date Vertigo 07/23/2018 10/29/2018 Last Assessment & Plan: Assessment: Appears to be positional and intermittent at this point, possibly BPPV CTA showing 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 and mild atherosclerotic diisease of cervical ICA with 25% stenosis on right MRI showing no acute intracranial findings but does hsow chronic microvascular ischemia TSH mildly elevated, free T4 low/normal Dizziness resolved at this point with meclizine Tele showing no acute events overnight PT recommending vestibular therapy if symptoms not improving Will discharge on meclizine as this seems to be effective for symptom management Suggest repeat TSH in a few weeks documented as of this encounter (statuses as of 10/26/2022) [facility]2018 History of Past illness Narrative* Problem Noted Date Resolved Date Vertigo 07/23/2018 10/29/2018 Last Assessment & Plan: Assessment: Appears to be positional and intermittent at this point, possibly BPPV CTA showing 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 and mild atherosclerotic diisease of cervical ICA with 25% stenosis on right MRI showing no acute intracranial findings but does hsow chronic microvascular ischemia TSH mildly elevated, free T4 low/normal Dizziness resolved at this point with meclizine Tele showing no acute events overnight PT recommending vestibular therapy if symptoms not improving Will discharge on meclizine as this seems to be effective for symptom management Suggest repeat TSH in a few weeks documented as of this encounter (statuses as of 11/03/2022) [facility]11[facility]2018 History of Past illness Narrative* Problem Noted Date Resolved Date Vertigo 07/23/2018 10/29/2018 Last Assessment & Plan: Assessment: Appears to be positional and intermittent at this point, possibly BPPV CTA showing 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 and mild atherosclerotic diisease of cervical ICA with 25% stenosis on right MRI showing no acute intracranial findings but does hsow chronic microvascular ischemia TSH mildly elevated, free T4 low/normal Dizziness resolved at this point with meclizine Tele showing no acute events overnight PT recommending vestibular therapy if symptoms not improving Will discharge on meclizine as this seems to be effective for symptom management Suggest repeat TSH in a few weeks documented as of this encounter (statuses as of 11/09/2022) [facility]2018 History of Past illness Narrative* Problem Noted Date Resolved Date Vertigo 07/23/2018 10/29/2018 Last Assessment & Plan: Assessment: Appears to be positional and intermittent at this point, possibly BPPV CTA showing 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 and mild atherosclerotic diisease of cervical ICA with 25% stenosis on right MRI showing no acute intracranial findings but does hsow chronic microvascular ischemia TSH mildly elevated, free T4 low/normal Dizziness resolved at this point with meclizine Tele showing no acute events overnight PT recommending vestibular therapy if symptoms not improving Will discharge on meclizine as this seems to be effective for symptom management Suggest repeat TSH in a few weeks documented as of this encounter (statuses as of 11/22/2022) [place] [id number] History of Past illness Narrative* Problem Noted Date Resolved Date Vertigo 07/23/2018 10/29/2018 Last Assessment & Plan: Assessment: Appears to be positional and intermittent at this point, possibly BPPV CTA showing 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 and mild atherosclerotic diisease of cervical ICA with 25% stenosis on right MRI showing no acute intracranial findings but does hsow chronic microvascular ischemia TSH mildly elevated, free T4 low/normal Dizziness resolved at this point with meclizine Tele showing no acute events overnight PT recommending vestibular therapy if symptoms not improving Will discharge on meclizine as this seems to be effective for symptom management Suggest repeat TSH in a few weeks documented as of this encounter (statuses as of 12/03/2022) [facility]11[facility]2018 History of Past illness Narrative* Problem Noted Date Resolved Date Vertigo 07/23/2018 10/29/2018 Last Assessment & Plan: Assessment: Appears to be positional and intermittent at this point, possibly BPPV CTA showing 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 and mild atherosclerotic diisease of cervical ICA with 25% stenosis on right MRI showing no acute intracranial findings but does hsow chronic microvascular ischemia TSH mildly elevated, free T4 low/normal Dizziness resolved at this point with meclizine Tele showing no acute events overnight PT recommending vestibular therapy if symptoms not improving Will discharge on meclizine as this seems to be effective for symptom management Suggest repeat TSH in a few weeks documented as of this encounter (statuses as of 12/19/2022) [facility]11[facility]2018 History of Past illness Narrative* Problem Noted Date Resolved Date Vertigo 07/23/2018 10/29/2018 Last Assessment & Plan: Assessment: Appears to be positional and intermittent at this point, possibly BPPV CTA showing 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 and mild atherosclerotic diisease of cervical ICA with 25% stenosis on right MRI showing no acute intracranial findings but does hsow chronic microvascular ischemia TSH mildly elevated, free T4 low/normal Dizziness resolved at this point with meclizine Tele showing no acute events overnight PT recommending vestibular therapy if symptoms not improving Will discharge on meclizine as this seems to be effective for symptom management Suggest repeat TSH in a few weeks documented as of this encounter (statuses as of 12/21/2022) [facility]2018 History of Past illness Narrative* Problem Noted Date Resolved Date Vertigo 07/23/2018 10/29/2018 Last Assessment & Plan: Assessment: Appears to be positional and intermittent at this point, possibly BPPV CTA showing 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 and mild atherosclerotic diisease of cervical ICA with 25% stenosis on right MRI showing no acute intracranial findings but does hsow chronic microvascular ischemia TSH mildly elevated, free T4 low/normal Dizziness resolved at this point with meclizine Tele showing no acute events overnight PT recommending vestibular therapy if symptoms not improving Will discharge on meclizine as this seems to be effective for symptom management Suggest repeat TSH in a few weeks documented as of this encounter (statuses as of 01/08/2023) [facility]11[facility]2018 History of Past illness Narrative* Problem Noted Date Resolved Date Vertigo 07/23/2018 10/29/2018 Last Assessment & Plan: Assessment: Appears to be positional and intermittent at this point, possibly BPPV CTA showing 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 and mild atherosclerotic diisease of cervical ICA with 25% stenosis on right MRI showing no acute intracranial findings but does hsow chronic microvascular ischemia TSH mildly elevated, free T4 low/normal Dizziness resolved at this point with meclizine Tele showing no acute events overnight PT recommending vestibular therapy if symptoms not improving Will discharge on meclizine as this seems to be effective for symptom management Suggest repeat TSH in a few weeks documented as of this encounter (statuses as of 01/23/2023) [facility]11[facility]2018 History of Past illness Narrative* Problem Noted Date Resolved Date Vertigo 07/23/2018 10/29/2018 Last Assessment & Plan: Assessment: Appears to be positional and intermittent at this point, possibly BPPV CTA showing 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 and mild atherosclerotic diisease of cervical ICA with 25% stenosis on right MRI showing no acute intracranial findings but does hsow chronic microvascular ischemia TSH mildly elevated, free T4 low/normal Dizziness resolved at this point with meclizine Tele showing no acute events overnight PT recommending vestibular therapy if symptoms not improving Will discharge on meclizine as this seems to be effective for symptom management Suggest repeat TSH in a few weeks documented as of this encounter (statuses as of 01/28/2023) [facility]11[facility]2018 History of Past illness Narrative* Problem Noted Date Resolved Date Vertigo 07/23/2018 10/29/2018 Last Assessment & Plan: Assessment: Appears to be positional and intermittent at this point, possibly BPPV CTA showing 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 and mild atherosclerotic diisease of cervical ICA with 25% stenosis on right MRI showing no acute intracranial findings but does hsow chronic microvascular ischemia TSH mildly elevated, free T4 low/normal Dizziness resolved at this point with meclizine Tele showing no acute events overnight PT recommending vestibular therapy if symptoms not improving Will discharge on meclizine as this seems to be effective for symptom management Suggest repeat TSH in a few weeks documented as of this encounter (statuses as of 02/09/2023) [facility]11[facility]2018 History of Past illness Narrative* Problem Noted Date Diagnosed Date Resolved Date Vertigo 07/23/2018 10/29/2018 Last Assessment & Plan: Assessment: Appears to be positional and intermittent at this point, possibly BPPV CTA showing 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 and mild atherosclerotic diisease of cervical ICA with 25% stenosis on right MRI showing no acute intracranial findings but does hsow chronic microvascular ischemia TSH mildly elevated, free T4 low/normal Dizziness resolved at this point with meclizine Tele showing no acute events overnight PT recommending vestibular therapy if symptoms not improving Will discharge on meclizine as this seems to be effective for symptom management Suggest repeat TSH in a few weeks documented as of this encounter (statuses as of 03/26/2023) [facility]2018 History of Past illness Narrative* Problem Noted Date Diagnosed Date Resolved Date Vertigo 07/23/2018 10/29/2018 Last Assessment & Plan: Assessment: Appears to be positional and intermittent at this point, possibly BPPV CTA showing 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 and mild atherosclerotic diisease of cervical ICA with 25% stenosis on right MRI showing no acute intracranial findings but does hsow chronic microvascular ischemia TSH mildly elevated, free T4 low/normal Dizziness resolved at this point with meclizine Tele showing no acute events overnight PT recommending vestibular therapy if symptoms not improving Will discharge on meclizine as this seems to be effective for symptom management Suggest repeat TSH in a few weeks documented as of this encounter (statuses as of 03/26/2023) [facility]2018 History of Past illness Narrative* Problem Noted Date Diagnosed Date Resolved Date Vertigo 07/23/2018 10/29/2018 Last Assessment & Plan: Assessment: Appears to be positional and intermittent at this point, possibly BPPV CTA showing 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 and mild atherosclerotic diisease of cervical ICA with 25% stenosis on right MRI showing no acute intracranial findings but does hsow chronic microvascular ischemia TSH mildly elevated, free T4 low/normal Dizziness resolved at this point with meclizine Tele showing no acute events overnight PT recommending vestibular therapy if symptoms not improving Will discharge on meclizine as this seems to be effective for symptom management Suggest repeat TSH in a few weeks documented as of this encounter (statuses as of 04/04/2023) [facility] History of Past illness Narrative* Problem Noted Date Diagnosed Date Resolved Date Vertigo 07/23/2018 10/29/2018 Last Assessment & Plan: Assessment: Appears to be positional and intermittent at this point, possibly BPPV CTA showing 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 and mild atherosclerotic diisease of cervical ICA with 25% stenosis on right MRI showing no acute intracranial findings but does hsow chronic microvascular ischemia TSH mildly elevated, free T4 low/normal Dizziness resolved at this point with meclizine Tele showing no acute events overnight PT recommending vestibular therapy if symptoms not improving Will discharge on meclizine as this seems to be effective for symptom management Suggest repeat TSH in a few weeks documented as of this encounter (statuses as of 04/11/2023) [facility] History of Past illness Narrative* Problem Noted Date Diagnosed Date Resolved Date Vertigo 07/23/2018 10/29/2018 Last Assessment & Plan: Assessment: Appears to be positional and intermittent at this point, possibly BPPV CTA showing 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 and mild atherosclerotic diisease of cervical ICA with 25% stenosis on right MRI showing no acute intracranial findings but does hsow chronic microvascular ischemia TSH mildly elevated, free T4 low/normal Dizziness resolved at this point with meclizine Tele showing no acute events overnight PT recommending vestibular therapy if symptoms not improving Will discharge on meclizine as this seems to be effective for symptom management Suggest repeat TSH in a few weeks documented as of this encounter (statuses as of 04/25/2023) [facility]2018 History of Past illness Narrative* Problem Noted Date Diagnosed Date Resolved Date Vertigo 07/23/2018 10/29/2018 Last Assessment & Plan: Assessment: Appears to be positional and intermittent at this point, possibly BPPV CTA showing 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 and mild atherosclerotic diisease of cervical ICA with 25% stenosis on right MRI showing no acute intracranial findings but does hsow chronic microvascular ischemia TSH mildly elevated, free T4 low/normal Dizziness resolved at this point with meclizine Tele showing no acute events overnight PT recommending vestibular therapy if symptoms not improving Will discharge on meclizine as this seems to be effective for symptom management Suggest repeat TSH in a few weeks documented as of this encounter (statuses as of 05/02/2023) [facility]11-07-2018 History of Past illness Narrative* Problem Noted Date Diagnosed Date Resolved Date Vertigo 07/23/2018 10/29/2018 Last Assessment & Plan: Assessment: Appears to be positional and intermittent at this point, possibly BPPV CTA showing 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 and mild atherosclerotic diisease of cervical ICA with 25% stenosis on right MRI showing no acute intracranial findings but does hsow chronic microvascular ischemia TSH mildly elevated, free T4 low/normal Dizziness resolved at this point with meclizine Tele showing no acute events overnight PT recommending vestibular therapy if symptoms not improving Will discharge on meclizine as this seems to be effective for symptom management Suggest repeat TSH in a few weeks documented as of this encounter (statuses as of 05/28/2023) [facility]11-07-2018 History of Past illness Narrative* Problem Noted Date Diagnosed Date Resolved Date Vertigo 07/23/2018 10/29/2018 Last Assessment & Plan: Assessment: Appears to be positional and intermittent at this point, possibly BPPV CTA showing 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 and mild atherosclerotic diisease of cervical ICA with 25% stenosis on right MRI showing no acute intracranial findings but does hsow chronic microvascular ischemia TSH mildly elevated, free T4 low/normal Dizziness resolved at this point with meclizine Tele showing no acute events overnight PT recommending vestibular therapy if symptoms not improving Will discharge on meclizine as this seems to be effective for symptom management Suggest repeat TSH in a few weeks documented as of this encounter (statuses as of 07/30/2023) [facility]11-07-2018 History of Past illness Narrative* Problem Noted Date Diagnosed Date Resolved Date Vertigo 07/23/2018 10/29/2018 Last Assessment & Plan: Assessment: Appears to be positional and intermittent at this point, possibly BPPV CTA showing 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 and mild atherosclerotic diisease of cervical ICA with 25% stenosis on right MRI showing no acute intracranial findings but does hsow chronic microvascular ischemia TSH mildly elevated, free T4 low/normal Dizziness resolved at this point with meclizine Tele showing no acute events overnight PT recommending vestibular therapy if symptoms not improving Will discharge on meclizine as this seems to be effective for symptom management Suggest repeat TSH in a few weeks documented as of this encounter (statuses as of 08/26/2023) [facility]2018 History of Past illness Narrative* Problem Noted Date Diagnosed Date Resolved Date Vertigo 07/23/2018 10/29/2018 Last Assessment & Plan: Assessment: Appears to be positional and intermittent at this point, possibly BPPV CTA showing 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 and mild atherosclerotic diisease of cervical ICA with 25% stenosis on right MRI showing no acute intracranial findings but does hsow chronic microvascular ischemia TSH mildly elevated, free T4 low/normal Dizziness resolved at this point with meclizine Tele showing no acute events overnight PT recommending vestibular therapy if symptoms not improving Will discharge on meclizine as this seems to be effective for symptom management Suggest repeat TSH in a few weeks documented as of this encounter (statuses as of 08/27/2023) [facility] History of Past illness Narrative* Problem Noted Date Diagnosed Date Resolved Date Vertigo 07/23/2018 10/29/2018 Last Assessment & Plan: Assessment: Appears to be positional and intermittent at this point, possibly BPPV CTA showing 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 and mild atherosclerotic diisease of cervical ICA with 25% stenosis on right MRI showing no acute intracranial findings but does hsow chronic microvascular ischemia TSH mildly elevated, free T4 low/normal Dizziness resolved at this point with meclizine Tele showing no acute events overnight PT recommending vestibular therapy if symptoms not improving Will discharge on meclizine as this seems to be effective for symptom management Suggest repeat TSH in a few weeks documented as of this encounter (statuses as of 10/28/2023) [facility] History of Past illness Narrative* Problem Noted Date Diagnosed Date Resolved Date Vertigo 07/23/2018 10/29/2018 Last Assessment & Plan: Assessment: Appears to be positional and intermittent at this point, possibly BPPV CTA showing 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 and mild atherosclerotic diisease of cervical ICA with 25% stenosis on right MRI showing no acute intracranial findings but does hsow chronic microvascular ischemia TSH mildly elevated, free T4 low/normal Dizziness resolved at this point with meclizine Tele showing no acute events overnight PT recommending vestibular therapy if symptoms not improving Will discharge on meclizine as this seems to be effective for symptom management Suggest repeat TSH in a few weeks documented as of this encounter (statuses as of 10/31/2023) [facility]2018 History of Past illness Narrative* Problem Noted Date Diagnosed Date Resolved Date Vertigo 07/23/2018 10/29/2018 Last Assessment & Plan: Assessment: Appears to be positional and intermittent at this point, possibly BPPV CTA showing 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 and mild atherosclerotic diisease of cervical ICA with 25% stenosis on right MRI showing no acute intracranial findings but does hsow chronic microvascular ischemia TSH mildly elevated, free T4 low/normal Dizziness resolved at this point with meclizine Tele showing no acute events overnight PT recommending vestibular therapy if symptoms not improving Will discharge on meclizine as this seems to be effective for symptom management Suggest repeat TSH in a few weeks documented as of this encounter (statuses as of 11/01/2023) [facility]11-07-2018 History of Past illness Narrative* Problem Noted Date Diagnosed Date Resolved Date Vertigo 07/23/2018 10/29/2018 Last Assessment & Plan: Assessment: Appears to be positional and intermittent at this point, possibly BPPV CTA showing 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 and mild atherosclerotic diisease of cervical ICA with 25% stenosis on right MRI showing no acute intracranial findings but does hsow chronic microvascular ischemia TSH mildly elevated, free T4 low/normal Dizziness resolved at this point with meclizine Tele showing no acute events overnight PT recommending vestibular therapy if symptoms not improving Will discharge on meclizine as this seems to be effective for symptom management Suggest repeat TSH in a few weeks documented as of this encounter (statuses as of 11/25/2023) [facility] History of Past illness Narrative* Problem Noted Date Diagnosed Date Resolved Date Vertigo 07/23/2018 10/29/2018 Last Assessment & Plan: Assessment: Appears to be positional and intermittent at this point, possibly BPPV CTA showing 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 and mild atherosclerotic diisease of cervical ICA with 25% stenosis on right MRI showing no acute intracranial findings but does hsow chronic microvascular ischemia TSH mildly elevated, free T4 low/normal Dizziness resolved at this point with meclizine Tele showing no acute events overnight PT recommending vestibular therapy if symptoms not improving Will discharge on meclizine as this seems to be effective for symptom management Suggest repeat TSH in a few weeks documented as of this encounter (statuses as of 12/03/2023) [facility] History of Past illness Narrative* Problem Noted Date Diagnosed Date Resolved Date Vertigo 07/23/2018 10/29/2018 Last Assessment & Plan: Assessment: Appears to be positional and intermittent at this point, possibly BPPV CTA showing 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 and mild atherosclerotic diisease of cervical ICA with 25% stenosis on right MRI showing no acute intracranial findings but does hsow chronic microvascular ischemia TSH mildly elevated, free T4 low/normal Dizziness resolved at this point with meclizine Tele showing no acute events overnight PT recommending vestibular therapy if symptoms not improving Will discharge on meclizine as this seems to be effective for symptom management Suggest repeat TSH in a few weeks documented as of this encounter (statuses as of 12/20/2023) [facility] History of Past illness Narrative* Problem Noted Date Diagnosed Date Resolved Date Vertigo 07/23/2018 10/29/2018 Last Assessment & Plan: Assessment: Appears to be positional and intermittent at this point, possibly BPPV CTA showing 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 and mild atherosclerotic diisease of cervical ICA with 25% stenosis on right MRI showing no acute intracranial findings but does hsow chronic microvascular ischemia TSH mildly elevated, free T4 low/normal Dizziness resolved at this point with meclizine Tele showing no acute events overnight PT recommending vestibular therapy if symptoms not improving Will discharge on meclizine as this seems to be effective for symptom management Suggest repeat TSH in a few weeks documented as of this encounter (statuses as of 12/23/2023) [facility] Author Garry Paz [facility] Note Date/Time February 23, 2025 11:1 9am [facility] Medical Records Department [address] [place] [address] Emergency Department Summary 02/23/25 MR#: [id number] Acct: [id number] Name: KAYLA MORENO ADAM Rep #:[id number] 2 : 1950 74 From: Garry Paz MD PCP: Dr. Tate Alfonso MD Status:R EG ER Location: ED HPI History of Present Illness Chief Complaint: Shortness of Breath Informant: patient and spouse/S.O. Onset/Context/Timing Onset: Weeks Context: gradual Timing: Intermittent Quality: Positive for Dyspnea on exertion Current Severity: Gone Maximum Severity: Mild Worsened by: Exertion Relieved by: Rest Associated Symptoms cough Chest Pain: Positive for Intermittent Narrative Narrative: 74-year-old male history of diabetes, prior DVT with hypercoagulability on Coumadin, hypertension CAD with stents and 3 prior back surgeries. He also has a Derek filter. Patient states the last week he has had exertional dyspneaand exertional upper sternal chest discomfort. Better at rest. Denies any hemoptysis. Chronic leg swelling from her prior DVT. Had a URI several weeks ago. He said that is resolved. PE Risk Factors: Positive for Prior DVT or PE; Negative for Cancer, OCP + Smoking + > 35, Recent immobilization, Recent surgery or Recent travel Prior similar symptoms: Yes Recent Illness/Hospitalization: No PFSH PFSH Medical History Essential tremor COVID-19 (~06/2023) Non-smoker Diabetes Obesity History of deep venous thrombosis Right bundle branch block (RBBB) Essential (primary) hypertension Hyperlipidemia Hypercoagulable state Atherosclerosis of [place] coronary artery of [place] heart without angina pectoris Home Medications ?Medication ?Instructions ?Recorded ?Last Taken ?Type primidone 50 mg tablet 150 mg (3 x 50 mg) PO BID #9 0 tabs 10/03/17 02/22/25 Rx nitroglycerin 0.4 mg sublingual 0.4 mg sublingual Q5-1 5M PRN chest 04/22/18 Unknown Rx tablet pain #25 tabs acetaminophen 650 mg 650 mg PO QHS 09/25/2302/22 History tablet,extended release (Tylenol Arthritis Pain) diclofenac sodium 1 % topical gel 2 g topical 4X/DAY P RN pain 09/25/23 Unknown History (Aleve (diclofenac)) warfarin 4 mg tablet 4 mg PO DAILY blood thinner 09/25/23 02/22/25 History propranolol 40 mg tablet 40 mg PO BID #180 tabs 12/1702/22/25 Rx hydrocodone 10 mg-acetaminophen 1 tab PO BID PRN Pain 11/17/24 Unknown History 325 mg tablet hydrochlorothiazide 12.5 mg tablet 12.5 mg PO DAILY 02/22/25 History lisinopril 20 mg tablet 20 mg PO DAILY 02/23/25 0606/10 History Allergy/AdvReac Type Severity Reaction Status Date / Time ticagrelor (From Brilinta) AdvReac Intermediate dyspnea Verified 11/17/24 13:12 atorvastatin (From Lipitor) AdvReac myalgia Verified 11/17/24 13:12 Family History Father Heart disease Sister Heart disease Sister Heart disease Diabetes Surgical History History of coronary artery stent placement (01/20/21) H/O knee surgery Breeze[place] filter in place (2005) History of carpal tunnel surgery History of lumbar surgery Social History Smoking Status: Never smoker alcohol intake: never substance use type: does not use caffeine: Yes Type: carbonated beverages and coffee ROS ROS ED ROS Narrative Exertional chest pain. Exertional dyspnea. URI 2 weeks ago. Constitutional Constitutional ED: Denies chills or fever(s) Eyes Eyes: Denies blurry vision ENT ENT ED: Denies ear pain Cardiovascular Cardiovascular: Reports chest pain Respiratory/Chest Respiratory/Chest: Reports dyspnea and dyspnea on exertion; Denies cough or sputum Gastrointestinal Gastrointestinal: Denies abdominal pain, constipation, diarrhea, melena, nausea or vomiting Genitourinary Genitourinary ED: Denies dysuria or hematuria Musculoskeletal Musculoskeletal: Denies arthralgias Integumentary Denies abscess Neurologic Neurologic: Denies headache(s) Psychiatric Psychiatric: Denies anxiety or depression Endocrine Endocrinology: Denies cold intolerance Hematologic/Lymphatic Hematologic/Lymphatic: Denies easy bleeding, easy bruising or lymphadenopathy Allergic/Immunologic Allergic/Immunologic ED: Denies mouth swelling, tongue swelling or urticaria EXAM Physical Exam Narrative Exam Narrative: 74-year-old male sitting upright in bed. Vital signs are stable. Pulse ox 9 9%on room air no hypoxia. He is in no distress. sitting at bedside with him. H EENT exam pupils round react light. Moist mucous membranes. No facial droop. Normal speech. Neck nontender no JVD. Back nontender. Lungs clear to auscultation bilaterally. Heart bradycardic rate about 55. No murmur. Chest wall ribs nontender. Abdomen soft nontender. Moving all 4 extremities. He does have edema in his left lower leg he states that is chronic from a prior DVTthat is not new or changed. 5 out of 5 brush or broom cutter strength. Equal symmetrical radialpulses. Dorsi plantarflexion intact. Neurologically is awake and alert. Answering questions following commands. No focal motor deficits. Const Vital Signs: 02/23/25 09:15 02/23/25 10:39 Temperature 98.3 F Temperature Source Oral Pulse Rate 55 L Respiratory Rate 13 Respiratory Effort Normal Respiratory Depth Normal Respiratory Pattern Normal Blood Pressure 179/83 H Blood Pressure Mean 115 Pulse Ox 99 Oxygen Delivery Method Room Air Room Air Positive well nourished and well developed; Negative for cachectic, contracturesor unkempt General Appearance ED: well developed and NAD; Negative for unkempt, cachectic, contractures or pallor Nutritional Appearance: Negative for cachectic HEENT Reports moist mucous membranes atraumatic; Negative for trauma or tenderness Eyes PERRL and EOMs intact bilaterally General Eye ED: Negative for pale conjunctiva or scleral icterus Neck no lymphadenopathy, supple, no meningeal signs and no JVD Resp normal respiratory effort and clear to auscultation bilaterally Effort and Inspection: Negative for pain with movement Auscultation: Negative for rales, rhonchi or wheezes Cardio regular rhythm, S1 normal heart sound, S2 normal heart sound and no murmurs; Negative for regular rate Rate: Negative for bradycardia or tachycardic Rhythm: Negative for abnormal rhythm GI non-tender, non-distended and no masses Auscultation: normoactive bowel sounds Palpation: soft; Negative for tender or guarding Back/Spine no CVA tenderness and normal to inspection Extremity Negative for normal to inspection Extremity Narrative: Chronic left leg edema. Chronic calf tenderness. Prior DVT in that leg. General Extremety ED: Yes edema and tenderness General Extremity: edema Neuro oriented x3 and CN's II-XII intact bilaterally Sensorium / Orientation: alert, oriented to person, oriented to place and oriented to time; Negative for orientation impaired, confused, lethargic or stuporous Speech: speech normal Motor Exam: strength 5/5 throughout Psych mental status grossly normal Appearance: Negative for unkempt Attitude: No agitated Mood & Affect: Negative for depressed, anxious or tearful Thought Process: normal thought process Skin no wounds and skin turgor normal General Skin Exam: Negative for jaundice or pallor Lesions: no lesions Rashes: no rashes MDM MDM MDM Narrative Medical decision making narrative: 74-year-old male exertional chest pain exertional dyspnea. History of 2 prior cardiac stents. He is on Coumadin due to hypercoagulability and prior DVT. Hisexam is benign. His lungs are clear. Undergo cardiac workup with a PT/INR. This could be secondary to cardiac disease. Could be anemia versus other etiologies. Repeat exam patient doing well. Ordered admitting for his exertional chest painand dyspnea with his known cardiac history. He is anticoagulant Coumadin. I donot think he needs a D-dimer or CTA. Patient talked with the plan. Have already spoke with the hospitalist. History & Record Review Discussion w/independent historian: Patient Additional record(s) reviewed:: Prior inpatient record, Prior outpatient record,Prior ED visit and Prior labs Lab Data Attestation: I reviewed the patient's lab results. Lab results narrative: CBC shows a white count of 10. H&H 15 and 44. Platelets 161. Chemistry shows sodium 136. Gap 14. BUN/creatinine is 17 and 1. Glucose 144. Initial troponin 29. PT/INR 33 and 3.2. He is on Coumadin. Labs: Laboratory Results - last 24 hr 02/23/25 02/23/25 10:11 10:49 WBC 10.0 RBC 4.71 Hgb 15.1 Hct 44.1 MCV 93.6 MCH 32.1 H MCHC 34.2 RDW Std Deviation 43.3 RDW Coeff of Trish 12.6 Plt Count 161 MPV 9.7 Immature Gran % (Auto) 0.500 Neut % (Auto) 73.1 H Lymph % (Auto) 13.3 L [place] % (Auto) 11.8 H Eos % (Auto) 0.8 Baso % (Auto) 0.5 Absolute Neuts (auto) 7.3 Absolute Lymphs (auto) 1.33 Nucleated RBC % 0 PT Cancelled 33.2 H INR Cancelled 3.2 Sodium 136 Potassium 4.8 Chloride 103 Carbon Dioxide 19.3 L Anion Gap 14 BUN 17 Creatinine 1.05 Estim Creat Clear Calc 69.77 Est GFR (MDRD) Non-Af 74 BUN/Creatinine Ratio 15.8 Glucose 144 H Calcium 8.9 Troponin T High Sens 29 H Radiography Chest X-Ray - ED: 2 View, Read by ED Physician, Heart, Lungs, Mediastinum, Bony Structures, No Acute Disease and Chronic Changes Diagnostic Testing: Clinical Impression(s) from Imaging Studies Chest X-Ray 02/23/25 09:23 IMPRESSION: NO ACUTE FINDINGS. [facility], 2 views, AP and lateral, interpreted by myself shows normal cardiacsilhouette. Normal lung camarena. No pneumonia. No effusions. Old lower thoracic compression fracture. No acute processes. Rhythm Strip Rhythm Strip: Sinus bradycardia Rate: 55 Ectopy: None EKG Initial EKG: Interpretation: No Acute Injury Pattern and Sinus Bradycardia Comments: Sinus pericardia. Rate of 55. Bifascicular block. Left anterior fascicular block. Right bundle branch block. No acute signs of IA or ischemia. Discharge Plan Dx/Rx/DC Orders Clinical Impression: Exertional dyspnea, Hx of heart artery stent, Exertional chest pain, Chronic anticoagulation, History of deep vein thrombosis Disposition Disposition: Acute Care Hospital [facility] What to do if you have Problems For any increased pain, shortness of breath, bleeding, nausea or vomiting, chestpain, or any unexpected problems, contact your Primary Care Provider. Call [facility] ([phone]) or report to the closest Emergency Room. Call 911 if necessary. 02/23/25 1119 <Electronically signed by Garry Paz MD> Cosigner Signature (if applicable): CC: Dr. Tate Alfonso MD ~ Signed [facility] Work Phone: Evaluation note* Diagnosis Pain- Primary Generalized pain [facility] Pain Generalized pain [facility] Diagnosis Type 2 diabetes mellitus with other circulatory complication, without long-term current use of insulin (HCC)- Primary Arthritis of left knee Unspecified arthropathy, lower leg Arthritis of right knee Unspecified arthropathy, lower leg Hand arthritis Unspecified arthropathy, hand Tremor of both hands [facility] Diagnosis Arthritis of left knee Unspecified arthropathy, lower leg Arthritis of right knee Unspecified arthropathy, lower leg Spinal stenosis of lumbar region without neurogenic claudication Spinal stenosis, lumbar region, without neurogenic claudication Degenerative disc disease, lumbar Degeneration of lumbar or lumbosacral intervertebral disc [facility] Diagnosis History of DVT of lower extremity- Primary Personal history of venous thrombosis and embolism [facility] Diagnosis Primary osteoarthritis of both knees- Primary Primary localized osteoarthrosis, lower leg [facility] Diagnosis Arthritis of left knee Unspecified arthropathy, lower leg Arthritis of right knee Unspecified arthropathy, lower leg Spinal stenosis of lumbar region without neurogenic claudication Spinal stenosis, lumbar region, without neurogenic claudication Degenerative disc disease, lumbar Degeneration of lumbar or lumbosacral intervertebral disc [facility] Diagnosis Tremor of both hands- Primary Type 2 diabetes mellitus with other circulatory complication, without long-term current use of insulin (HCC) Spinal stenosis of lumbar region without neurogenic claudication Spinal stenosis, lumbar region, without neurogenic claudication Degenerative disc disease, lumbar Degeneration of lumbar or lumbosacral intervertebral disc Arthritis of left knee Unspecified arthropathy, lower leg Arthritis of right knee Unspecified arthropathy, lower leg [facility] Diagnosis Arthritis of left knee Unspecified arthropathy, lower leg Arthritis of right knee Unspecified arthropathy, lower leg Spinal stenosis of lumbar region without neurogenic claudication Spinal stenosis, lumbar region, without neurogenic claudication Degenerative disc disease, lumbar Degeneration of lumbar or lumbosacral intervertebral disc [facility] Diagnosis Arthritis of left knee Unspecified arthropathy, lower leg Arthritis of right knee Unspecified arthropathy, lower leg Spinal stenosis of lumbar region without neurogenic claudication Spinal stenosis, lumbar region, without neurogenic claudication Degenerative disc disease, lumbar Degeneration of lumbar or lumbosacral intervertebral disc [facility] Diagnosis Subclinical hypothyroidism Other specified acquired hypothyroidism [facility] Diagnosis Pure hypercholesterolemia- Primary [facility] in this [facility] Diagnosis Primary osteoarthritis of both knees- Primary Primary localized osteoarthrosis, lower leg documented [facility] this [facility] Diagnosis Type 2 diabetes mellitus with other circulatory complication, without long-term current use of insulin (HCC)- Primary Arthritis of left knee Unspecified arthropathy, lower leg Arthritis of right knee Unspecified arthropathy, lower leg Spinal stenosis of lumbar region without neurogenic claudication Spinal stenosis, lumbar region, without neurogenic claudication Degenerative disc disease, lumbar Degeneration of lumbar or lumbosacral intervertebral disc Acute sinusitis, recurrence not specified, unspecified location [facility] this [facility] Diagnosis Arthritis of left knee Unspecified arthropathy, lower leg Arthritis of right knee Unspecified arthropathy, lower leg Spinal stenosis of lumbar region without neurogenic claudication Spinal stenosis, lumbar region, without neurogenic claudication Degenerative disc disease, lumbar Degeneration of lumbar or lumbosacral intervertebral disc documented in this [facility] Diagnosis Primary osteoarthritis of both knees- Primary Primary localized osteoarthrosis, lower leg documented [facility] this [facility] Diagnosis Arthritis of left knee Unspecified arthropathy, lower leg Arthritis of right knee Unspecified arthropathy, lower leg Spinal stenosis of lumbar region without neurogenic claudication Spinal stenosis, lumbar region, without neurogenic claudication Degenerative disc disease, lumbar Degeneration of lumbar or lumbosacral intervertebral disc documented in this [facility] Diagnosis Spinal stenosis of lumbar region without neurogenic claudication- Primary Spinal stenosis, lumbar region, without neurogenic claudication Thrombocytopenia (HCC) Thrombocytopenia, unspecified Coronary artery disease involving [place] heart without angina pectoris, unspecified vessel or lesion type Type 2 diabetes mellitus with other circulatory complication, without long-term current use of insulin (HCC) Other chest pain documented [facility] this [facility] Diagnosis History of DVT of lower extremity- Primary Personal history of venous thrombosis and embolism documented in this [facility] Diagnosis Arthritis of left knee Unspecified arthropathy, lower leg Arthritis of right knee Unspecified arthropathy, lower leg Spinal stenosis of lumbar region without neurogenic claudication Spinal stenosis, lumbar region, without neurogenic claudication Degenerative disc disease, lumbar Degeneration of lumbar or lumbosacral intervertebral disc documented [facility] this [facility] Diagnosis Primary osteoarthritis of both knees- Primary Primary localized osteoarthrosis, lower leg documented [facility] Diagnosis Arthritis of left knee Unspecified arthropathy, lower leg Arthritis of right knee Unspecified arthropathy, lower leg Spinal stenosis of lumbar region without neurogenic claudication Spinal stenosis, lumbar region, without neurogenic claudication Degenerative disc disease, lumbar Degeneration of lumbar or lumbosacral intervertebral disc documented in this [facility] Diagnosis Arthritis of left knee Unspecified arthropathy, lower leg Arthritis of right knee Unspecified arthropathy, lower leg Spinal stenosis of lumbar region without neurogenic claudication Spinal stenosis, lumbar region, without neurogenic claudication Degenerative disc disease, lumbar Degeneration of lumbar or lumbosacral intervertebral disc documented in this [facility]* Diagnosis Arthritis of left knee Unspecified arthropathy, lower leg Arthritis of right knee Unspecified arthropathy, lower leg Spinal stenosis of lumbar region without neurogenic claudication Spinal stenosis, lumbar region, without neurogenic claudication Degenerative disc disease, lumbar Degeneration of lumbar or lumbosacral intervertebral disc documented in this [facility] Diagnosis Primary osteoarthritis of both knees- Primary Primary localized osteoarthrosis, lower leg documented in this encounter [facility]* Diagnosis Arthritis of left knee Unspecified arthropathy, lower leg Arthritis of right knee Unspecified arthropathy, lower leg Spinal stenosis of lumbar region without neurogenic claudication Spinal stenosis, lumbar region, without neurogenic claudication Degenerative disc disease, lumbar Degeneration of lumbar or lumbosacral intervertebral disc documented in this encounter [facility]* Diagnosis Pure hypercholesterolemia documented in this encounter [facility]* Diagnosis Type 2 diabetes mellitus with other circulatory complication, without long-term current use of insulin (HCC)- Primary Arthritis of left knee Unspecified arthropathy, lower leg Arthritis of right knee Unspecified arthropathy, lower leg Spinal stenosis of lumbar region without neurogenic claudication Spinal stenosis, lumbar region, without neurogenic claudication Degenerative disc disease, lumbar Degeneration of lumbar or lumbosacral intervertebral disc documented in this encounter [facility]* Diagnosis Primary osteoarthritis of both knees- Primary Primary localized osteoarthrosis, lower leg [facility] Diagnosis Arthritis of left knee Unspecified arthropathy, lower leg Arthritis of right knee Unspecified arthropathy, lower leg Spinal stenosis of lumbar region without neurogenic claudication Spinal stenosis, lumbar region, without neurogenic claudication Degenerative disc disease, lumbar Degeneration of lumbar or lumbosacral intervertebral disc documented in this encounter [facility]* Diagnosis Tremor of both hands- Primary Type 2 diabetes mellitus with other circulatory complication, without long-term current use of insulin (HCC) Spinal stenosis of lumbar region without neurogenic claudication Spinal stenosis, lumbar region, without neurogenic claudication Arthritis of left knee Unspecified arthropathy, lower leg Arthritis of right knee Unspecified arthropathy, lower leg Degenerative disc disease, lumbar Degeneration of lumbar or lumbosacral intervertebral disc documented in this encounter [facility]* Diagnosis Spinal stenosis of lumbar region without neurogenic claudication Spinal stenosis, lumbar region, without neurogenic claudication Arthritis of left knee Unspecified arthropathy, lower leg Arthritis of right knee Unspecified arthropathy, lower leg Degenerative disc disease, lumbar Degeneration of lumbar or lumbosacral intervertebral disc documented in this encounter [facility] note* Diagnosis Vertigo- Primary Dizziness and giddiness Anticoagulation goal of INR 2 to 3 Encounter for therapeutic drug monitoring Pure hypercholesterolemia Essential hypertension Unspecified essential hypertension Coronary artery disease involving [place] heart without angina pectoris, unspecified vessel or lesion type Type 2 diabetes mellitus with other circulatory complication, 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, right Tremor of both hands Type 2 diabetes mellitus with circulatory disorder, 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 thrombosis and embolism Anticoagulation goal of INR 2 to 3 Encounter for therapeutic drug monitoring Essential hypertension Unspecified essential hypertension CAD (coronary artery disease) Coronary atherosclerosis of unspecified type of vessel, [place] or graft Vertebral artery stenosis, right Pure hypercholesterolemia Medicare welcome exam- Primary Routine general medical examination at a [facility] care facility Spinal stenosis of lumbar region without neurogenic claudication Spinal stenosis, lumbar region, without neurogenic claudication Arthritis of left knee Unspecified arthropathy, lower leg Arthritis of right knee Unspecified arthropathy, lower leg Degenerative disc disease, lumbar Degeneration of lumbar or lumbosacral intervertebral disc Type 2 diabetes mellitus with other circulatory complication, without long-term current use of insulin (HCC) Essential hypertension Unspecified essential hypertension documented in this encounter [facility] note* Diagnosis Vertigo- Primary Dizziness and giddiness Anticoagulation goal of INR 2 to 3 Encounter for therapeutic drug monitoring Pure hypercholesterolemia Essential hypertension Unspecified essential hypertension Coronary artery disease involving [place] heart without angina pectoris, unspecified vessel or lesion type Type 2 diabetes mellitus with other circulatory complication, 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, right Tremor of both hands Type 2 diabetes mellitus with circulatory disorder, 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 thrombosis and embolism Anticoagulation goal of INR 2 to 3 Encounter for therapeutic drug monitoring Essential hypertension Unspecified essential hypertension CAD (coronary artery disease) Coronary atherosclerosis of unspecified type of vessel, [place] or graft Vertebral artery stenosis, right Pure hypercholesterolemia Spinal stenosis of lumbar region without neurogenic claudication Spinal stenosis, lumbar region, without neurogenic claudication Arthritis of left knee Unspecified arthropathy, lower leg Arthritis of right knee Unspecified arthropathy, lower leg Degenerative disc disease, lumbar Degeneration of lumbar or lumbosacral intervertebral disc documented in this encounter [facility]* Diagnosis Vertigo- Primary Dizziness and giddiness Anticoagulation goal of INR 2 to 3 Encounter for therapeutic drug monitoring Pure hypercholesterolemia Essential hypertension Unspecified essential hypertension Coronary artery disease involving [place] heart without angina pectoris, unspecified vessel or lesion type Type 2 diabetes mellitus with other circulatory complication, 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, right Tremor of both hands Type 2 diabetes mellitus with circulatory disorder, 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 thrombosis and embolism Anticoagulation goal of INR 2 to 3 Encounter for therapeutic drug monitoring Essential hypertension Unspecified essential hypertension CAD (coronary artery disease) Coronary atherosclerosis of unspecified type of vessel, [place] or graft Vertebral artery stenosis, right Pure hypercholesterolemia Chronic pain of both shoulders- Primary Pain in joint, shoulder region Type 2 diabetes mellitus with other circulatory complication, without long-term current use of insulin (HCC) Spinal stenosis of lumbar region without neurogenic claudication Spinal stenosis, lumbar region, without neurogenic claudication Arthritis of left knee Unspecified arthropathy, lower leg Arthritis of right knee Unspecified arthropathy, lower leg Degenerative disc disease, lumbar Degeneration of lumbar or lumbosacral intervertebral disc High risk medication use Encounter for long-term (current) use of other medications Chronic pain of both shoulders Pain in joint, shoulder region documented in this encounter [facility]* Diagnosis Vertigo- Primary Dizziness and giddiness Anticoagulation goal of INR 2 to 3 Encounter for therapeutic drug monitoring Pure hypercholesterolemia Essential hypertension Unspecified essential hypertension Coronary artery disease involving [place] heart without angina pectoris, unspecified vessel or lesion type Type 2 diabetes mellitus with other circulatory complication, 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, right Tremor of both hands Type 2 diabetes mellitus with circulatory disorder, 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 thrombosis and embolism Anticoagulation goal of INR 2 to 3 Encounter for therapeutic drug monitoring Essential hypertension Unspecified essential hypertension CAD (coronary artery disease) Coronary atherosclerosis of unspecified type of vessel, [place] or graft Vertebral artery stenosis, right Pure hypercholesterolemia Primary osteoarthritis of both knees- Primary Primary localized osteoarthrosis, lower leg documented in this encounter [facility] for referral (narrative)* Diagnostic Procedure Only (Routine) - Pending Review Specialty Diagnoses / Procedures Referred By Contac t Referred To Contact XR IMAGING Diagnoses Pain Procedures XR KNEE GENERAL 4V AP BOTH/PA BOTH/LAT/MERC BILATERAL RADIOLOGIC EXAM KNEE COMPLETE 4/MORE VIEWS Flako Yang APRN.CNP [address] [place] [address] Xr Imaging Referral ID Status Reason Start Date Expiration Date Visits Requested Visits Authorized [id number] Pending Review Auto-Generat ed Referral 12/05/2021 01/04/2023 1 1 [facility] for referral (narrative)* Diagnostic Procedure Only (Routine) - Closed Specialty Diagnoses / Procedures Referred By Contac t Referred To Contact XR IMAGING Diagnoses Pain Procedures XR KNEE GENERAL 4V AP BOTH/PA BOTH/LAT/MERC BILATERAL RADIOLOGIC EXAM KNEE COMPLETE 4/MORE VIEWS Flako Yang APRN.CNP [address] [place] [address] Xr Imaging Referral ID Status Reason Start Date Expiration Date V isits Requested Visits Authorized [id number] Closed Auto-Generate d Referral 12/05/2021 01/04/2023 1 1 [facility] for referral (narrative)No reason for referral information availableWS[facility] Work Phone: Reason for visit Narrative* Diagnostic Procedure Only (Routine) - Closed Specialty Diagnoses / Procedures Referred By Contac t Referred To Contact XR IMAGING Diagnoses Pain Procedures XR KNEE GENERAL 4V AP BOTH/PA BOTH/LAT/MERC BILATERAL RADIOLOGIC EXAM KNEE COMPLETE 4/MORE VIEWS Flako Yang APRN.CNP [address] [place] [address] Xr Imaging Referral ID Status Reason Start Date Expiration Date V isits Requested Visits Authorized [id number] Closed Auto-Generate d Referral 12/05/2021 01/04/2023 1 1 [facility]* Diagnostic Procedure Only (Routine) - Closed Specialty Diagnoses / Procedures Referred By Contac t Referred To Contact XR IMAGING Diagnoses Chronic pain of both shoulders Procedures XR SHOULDER GENERAL 3V OR MORE AP/TRUE AP/OTHER RIGHT RADEX SHOULDER COMPLETE MINIMUM 2 VIEWS Tate Alfonso MD [address] [place] [address] Phone: tel: fax: [place] [id number] Referral ID Status Reason Start Date Expiration Date V isits Requested Visits Authorized [id number] Closed Auto-Generate d Referral 10/26/2024 11/25/2025 1 1 [facility] Advance Directives Documents on File 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 Advance Directive(s) 09/25/2021 4:11 PM Advance Directive(s) 11/22/2020 11:14 AM Advance Directive(s) 06/29/2020 10:30 AM Advance Directive(s) 11/25/2019 6:55 AM Advance Directive(s) 07/23/2018 4:23 AM Documents on File 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 No February 04, 2023 11:38am Do you have a Healthcare Power of Bathing Suit Maker? Yes February 23, 2025 9:22am Name of Medical Power of Bathing Suit Maker rajni kramer February 23, 2025 9:22am Medications Administered Section Inactive Administered Medications - up to 3 most recent administrations Medication Order MAR Action Action Date Dose Rate Site betamethasone acetate-betamethasone sodium phosphate 6 mg injection (CELESTONE) 6 mg, Injection - FOR ORTHO USE ONLY, ONE TIME INJECTION, 1 dose, Starting on Sat03/27/22 at 1138, Until Sat03/27/22 at 1138 Given 03/27/2022 11:38 AM EDT 6 mg lidocaine (PF) 10 mg/mL (1 %) 5 mL injection (XYLOCAINE) 5 mL, Injection - FOR ORTHO USE ONLY, ONE TIME INJECTION, 1 dose, Starting on Sat03/27/22 at 1138, Until Sat03/27/22 at 1138 Given 03/27/2022 11:38 AM EDT 5 mL Inactive Administered Medications - up to 3 most recent administrations Medication Order MAR Action Action Date Dose Rate Site betamethasone acetate-betamethasone sodium phosphate 6 mg injection (CELESTONE) 6 mg, Injection - FOR ORTHO USE ONLY, ONE TIME INJECTION, 1 dose, Starting on Sat10/09/22 at 1200, Until Sat10/09/22 at 1200 Given 10/09/2022 12:00 PM EST 6 mg Knee, Left betamethasone acetate-betamethasone sodium phosphate 6 mg injection (CELESTONE) 6 mg, Injection - FOR ORTHO USE ONLY, ONE TIME INJECTION, 1 dose, Starting on Sat10/09/22 at 1200, Until Sat10/09/22 at 1200 Given 10/09/2022 12:00 PM EST 6 mg Knee, Right lidocaine (PF) 10 mg/mL (1 %) 5 mL injection (XYLOCAINE) 5 mL, Injection - FOR ORTHO USE ONLY, ONE TIME INJECTION, 1 dose, Starting on Sat10/09/22 at 1200, Until Sat10/09/22 at 1200 Given 10/09/2022 12:00 PM EST 5 mL Knee, Left lidocaine (PF) 10 mg/mL (1 %) 5 mL injection (XYLOCAINE) 5 mL, Injection - FOR ORTHO USE ONLY, ONE TIME INJECTION, 1 dose, Starting on Sat10/09/22 at 1200, Until Sat10/09/22 at 1200 Given 10/09/2022 12:00 PM EST 5 mL Knee, Right Inactive Administered Medications - up to 3 most recent administrations Medication Order MAR Action Action Date Dose Rate Site betamethasone acetate-betamethasone sodium phosphate 6 mg injection (CELESTONE) 6 mg, Injection - FOR ORTHO USE ONLY, ONE TIME INJECTION, 1 dose, Starting on Sat01/08/23 at 1032, Until Sat01/08/23 at 1032 Given 01/08/2023 10:32 AM EDT 6 mg Knee, Left betamethasone acetate-betamethasone sodium phosphate 6 mg injection (CELESTONE) 6 mg, Injection - FOR ORTHO USE ONLY, ONE TIME INJECTION, 1 dose, Starting on Sat01/08/23 at 1032, Until Sat01/08/23 at 1032 Given 01/08/2023 10:32 AM EDT 6 mg Knee, Right lidocaine (PF) 10 mg/mL (1 %) 5 mL injection (XYLOCAINE) 5 mL, Injection - FOR ORTHO USE ONLY, ONE TIME INJECTION, 1 dose, Starting on Sat01/08/23 at 1032, Until Sat01/08/23 at 1032 Given 01/08/2023 10:32 AM EDT 5 mL Knee, Left lidocaine (PF) 10 mg/mL (1 %) 5 mL injection (XYLOCAINE) 5 mL, Injection - FOR ORTHO USE ONLY, ONE TIME INJECTION, 1 dose, Starting on Sat01/08/23 at 1032, Until Sat01/08/23 at 1032 Given 01/08/2023 10:32 AM EDT 5 mL Knee, Right Inactive Administered Medications - up to 3 most recent administrations Medication Order MAR Action Action Date Dose Rate Site betamethasone acetate-betamethasone sodium phosphate 6 mg injection (CELESTONE) 6 mg, Injection - FOR ORTHO USE ONLY, ONE TIME INJECTION, 1 dose, Starting on Dyana 04/11/23 at 1138, Until [place] 04/11/23 at 1138 Given 04/11/2023 11:38 AM EDT 6 mg Knee, Left betamethasone acetate-betamethasone sodium phosphate 6 mg injection (CELESTONE) 6 mg, Injection - FOR ORTHO USE ONLY, ONE TIME INJECTION, 1 dose, Starting on [place] 04/11/23 at 1138, Until [place] 04/11/23 at 1138 Given 04/11/2023 11:38 AM EDT 6 mg Knee, Right lidocaine (PF) 10 mg/mL (1 %) 5 mL injection (XYLOCAINE) 5 mL, Injection - FOR ORTHO USE ONLY, ONE TIME INJECTION, 1 dose, Starting on [place] 04/11/23 at 1138, Until Dy[place] 04/11/23 at 1138 Given 04/11/2023 11:38 AM EDT 5 mL Knee, Left lidocaine (PF) 10 mg/mL (1 %) 5 mL injection (XYLOCAINE) 5 mL, Injection - FOR ORTHO USE ONLY, ONE TIME INJECTION, 1 dose, Starting on Dy[place] 04/11/23 at 1138, Until Dy[place] 04/11/23 at 1138 Given 04/11/2023 11:38 AM EDT 5 mL Knee, Right Summary Purpose Family History Relationship Condition Age at Onset Recorded Date/T lucy father Cardiac disease Unknown sister Cardiac disease Unknown Diabetes mellitus Unknown Chief Complaint and Reason for Visit Chief Complaint Admit Date 6-9 M FU November 17, 2024 12:4 9pm CHEST PAIN February 23, 2025 11:2 8am Reason for Visit Admit Date Essential (primary) hypertension November 172024 12:49pm History of coronary artery stent placeme nt November 17, 2024 12:49pm Hypercoagulable state November 17, 2024 12 :49pm Hyperlipidemia November 17, 2024 12:4 9pm Chronic anticoagulation February 23, 2025 11:28am Exertional chest pain February 23, 2025 11 :28am Exertional dyspnea February 23, 2025 11:2 8am History of deep vein thrombosis February 11:28am Hx of heart artery stent February 23, 2025 11:28am Additional Source Comments Source Comments (unrecognize d section and content) In the event this informatio n is protected by the Federal Confidentiality of Alcohol and Drug Abuse Patient Records regulations: The Federal rules restrict any use of the information to criminally investigate or prosecute any alcohol or drug abuse patient.[facility] the event this information is protected by the Federal Confidentiality of Alcohol and Drug Abuse Patient Records regulations: The Federal rules restrict any use of the information to criminally investigate or prosecute any alcohol or drug abuse patient.[facility] the event this information is protected by the Federal Confidentiality of Alcohol and Drug Abuse Patient Records regulations: The Federal rules restrict any use of the information to criminally investigate or prosecute any alcohol or drug abuse patient.[facility] the event this information is protected by the Federal Confidentiality of Alcohol and Drug Abuse Patient Records regulations: The Federal rules restrict any use of the information to criminally investigate or prosecute any alcohol or drug abuse patient.[facility] Center[facility] the event this information is protected by the Federal Confidentiality of Alcohol and Drug Abuse Patient Records regulations: The Federal rules restrict any use of the information to criminally investigate or prosecute any alcohol or drug abuse patient.[facility] CenterIn the event this information is protected by the Federal Confidentiality of Alcohol and Drug Abuse Patient Records regulations: The Federal rules restrict any use of the information to criminally investigate or prosecute any alcohol or drug abuse patient.[facility] CenterIn the event this information is protected by the Federal Confidentiality of Alcohol and Drug Abuse Patient Records regulations: The Federal rules restrict any use of the information to criminally investigate or prosecute any alcohol or drug abuse patient.[facility] CenterIn the event this information is protected by the Federal Confidentiality of Alcohol and Drug Abuse Patient Records regulations: The Federal rules restrict any use of the information to criminally investigate or prosecute any alcohol or drug abuse patient.[facility] CenterIn the event this information is protected by the Federal Confidentiality of Alcohol and Drug Abuse Patient Records regulations: The Federal rules restrict any use of the information to criminally investigate or prosecute any alcohol or drug abuse patient.[facility] CenterIn the event this information is protected by the Federal Confidentiality of Alcohol and Drug Abuse Patient Records regulations: The Federal rules restrict any use of the information to criminally investigate or prosecute any alcohol or drug abuse patient.[facility] CenterIn the event this information is protected by the Federal Confidentiality of Alcohol and Drug Abuse Patient Records regulations: The Federal rules restrict any use of the information to criminally investigate or prosecute any alcohol or drug abuse patient.[facility] CenterIn the event this information is protected by the Federal Confidentiality of Alcohol and Drug Abuse Patient Records regulations: The Federal rules restrict any use of the information to criminally investigate or prosecute any alcohol or drug abuse patient.[facility] CenterIn the event this information is protected by the Federal Confidentiality of Alcohol and Drug Abuse Patient Records regulations: The Federal rules restrict any use of the information to criminally investigate or prosecute any alcohol or drug abuse patient.[facility] CenterIn the event this information is protected by the Federal Confidentiality of Alcohol and Drug Abuse Patient Records regulations: The Federal rules restrict any use of the information to criminally investigate or prosecute any alcohol or drug abuse patient.[facility] CenterIn the event this information is protected by the Federal Confidentiality of Alcohol and Drug Abuse Patient Records regulations: The Federal rules restrict any use of the information to criminally investigate or prosecute any alcohol or drug abuse patient.[facility] CenterIn the event this information is protected by the Federal Confidentiality of Alcohol and Drug Abuse Patient Records regulations: The Federal rules restrict any use of the information to criminally investigate or prosecute any alcohol or drug abuse patient.[facility] CenterIn the event this information is protected by the Federal Confidentiality of Alcohol and Drug Abuse Patient Records regulations: The Federal rules restrict any use of the information to criminally investigate or prosecute any alcohol or drug abuse patient.[facility] CenterIn the event this information is protected by the Federal Confidentiality of Alcohol and Drug Abuse Patient Records regulations: The Federal rules restrict any use of the information to criminally investigate or prosecute any alcohol or drug abuse patient.[facility] CenterIn the event this information is protected by the Federal Confidentiality of Alcohol and Drug Abuse Patient Records regulations: The Federal rules restrict any use of the information to criminally investigate or prosecute any alcohol or drug abuse patient.[facility] CenterIn the event this information is protected by the Federal Confidentiality of Alcohol and Drug Abuse Patient Records regulations: The Federal rules restrict any use of the information to criminally investigate or prosecute any alcohol or drug abuse patient.[facility] CenterIn the event this information is protected by the Federal Confidentiality of Alcohol and Drug Abuse Patient Records regulations: The Federal rules restrict any use of the information to criminally investigate or prosecute any alcohol or drug abuse patient.[facility] CenterIn the event this information is protected by the Federal Confidentiality of Alcohol and Drug Abuse Patient Records regulations: The Federal rules restrict any use of the information to criminally investigate or prosecute any alcohol or drug abuse patient.[facility] CenterIn the event this information is protected by the Federal Confidentiality of Alcohol and Drug Abuse Patient Records regulations: The Federal rules restrict any use of the information to criminally investigate or prosecute any alcohol or drug abuse patient.[facility] CenterIn the event this information is protected by the Federal Confidentiality of Alcohol and Drug Abuse Patient Records regulations: The Federal rules restrict any use of the information to criminally investigate or prosecute any alcohol or drug abuse patient.[facility] CenterIn the event this information is protected by the Federal Confidentiality of Alcohol and Drug Abuse Patient Records regulations: The Federal rules restrict any use of the information to criminally investigate or prosecute any alcohol or drug abuse patient.[facility] CenterIn the event this information is protected by the Federal Confidentiality of Alcohol and Drug Abuse Patient Records regulations: The Federal rules restrict any use of the information to criminally investigate or prosecute any alcohol or drug abuse patient.[facility] CenterIn the event this information is protected by the Federal Confidentiality of Alcohol and Drug Abuse Patient Records regulations: The Federal rules restrict any use of the information to criminally investigate or prosecute any alcohol or drug abuse patient.[facility] CenterIn the event this information is protected by the Federal Confidentiality of Alcohol and Drug Abuse Patient Records regulations: The Federal rules restrict any use of the information to criminally investigate or prosecute any alcohol or drug abuse patient.[facility] CenterIn the event this information is protected by the Federal Confidentiality of Alcohol and Drug Abuse Patient Records regulations: The Federal rules restrict any use of the information to criminally investigate or prosecute any alcohol or drug abuse patient.[facility] CenterIn the event this information is protected by the Federal Confidentiality of Alcohol and Drug Abuse Patient Records regulations: The Federal rules restrict any use of the information to criminally investigate or prosecute any alcohol or drug abuse patient.[facility] CenterIn the event this information is protected by the Federal Confidentiality of Alcohol and Drug Abuse Patient Records regulations: The Federal rules restrict any use of the information to criminally investigate or prosecute any alcohol or drug abuse patient.[facility] CenterIn the event this information is protected by the Federal Confidentiality of Alcohol and Drug Abuse Patient Records regulations: The Federal rules restrict any use of the information to criminally investigate or prosecute any alcohol or drug abuse patient.[facility] CenterIn the event this information is protected by the Federal Confidentiality of Alcohol and Drug Abuse Patient Records regulations: The Federal rules restrict any use of the information to criminally investigate or prosecute any alcohol or drug abuse patient.[facility] CenterIn the event this information is protected by the Federal Confidentiality of Alcohol and Drug Abuse Patient Records regulations: The Federal rules restrict any use of the information to criminally investigate or prosecute any alcohol or drug abuse patient.[facility] CenterIn the event this information is protected by the Federal Confidentiality of Alcohol and Drug Abuse Patient Records regulations: The Federal rules restrict any use of the information to criminally investigate or prosecute any alcohol or drug abuse patient.[facility] CenterIn the event this information is protected by the Federal Confidentiality of Alcohol and Drug Abuse Patient Records regulations: The Federal rules restrict any use of the information to criminally investigate or prosecute any alcohol or drug abuse patient.[facility] CenterIn the event this information is protected by the Federal Confidentiality of Alcohol and Drug Abuse Patient Records regulations: The Federal rules restrict any use of the information to criminally investigate or prosecute any alcohol or drug abuse patient.[facility] CenterIn the event this information is protected by the Federal Confidentiality of Alcohol and Drug Abuse Patient Records regulations: The Federal rules restrict any use of the information to criminally investigate or prosecute any alcohol or drug abuse patient.[facility] CenterIn the event this information is protected by the Federal Confidentiality of Alcohol and Drug Abuse Patient Records regulations: The Federal rules restrict any use of the information to criminally investigate or prosecute any alcohol or drug abuse patient.[facility] CenterIn the event this information is protected by the Federal Confidentiality of Alcohol and Drug Abuse Patient Records regulations: The Federal rules restrict any use of the information to criminally investigate or prosecute any alcohol or drug abuse patient.[facility] CenterIn the event this information is protected by the Federal Confidentiality of Alcohol and Drug Abuse Patient Records regulations: The Federal rules restrict any use of the information to criminally investigate or prosecute any alcohol or drug abuse patient.[facility] CenterIn the event this information is protected by the Federal Confidentiality of Alcohol and Drug Abuse Patient Records regulations: The Federal rules restrict any use of the information to criminally investigate or prosecute any alcohol or drug abuse patient.[facility] CenterIn the event this information is protected by the Federal Confidentiality of Alcohol and Drug Abuse Patient Records regulations: The Federal rules restrict any use of the information to criminally investigate or prosecute any alcohol or drug abuse patient.[facility] CenterIn the event this information is protected by the Federal Confidentiality of Alcohol and Drug Abuse Patient Records regulations: The Federal rules restrict any use of the information to criminally investigate or prosecute any alcohol or drug abuse patient.[facility] CenterIn the event this information is protected by the Federal Confidentiality of Alcohol and Drug Abuse Patient Records regulations: The Federal rules restrict any use of the information to criminally investigate or prosecute any alcohol or drug abuse patient.[facility] CenterIn the event this information is protected by the Federal Confidentiality of Alcohol and Drug Abuse Patient Records regulations: The Federal rules restrict any use of the information to criminally investigate or prosecute any alcohol or drug abuse patient.[facility] CenterIn the event this information is protected by the Federal Confidentiality of Alcohol and Drug Abuse Patient Records regulations: The Federal rules restrict any use of the information to criminally investigate or prosecute any alcohol or drug abuse patient.[facility] CenterIn the event this information is protected by the Federal Confidentiality of Alcohol and Drug Abuse Patient Records regulations: The Federal rules restrict any use of the information to criminally investigate or prosecute any alcohol or drug abuse patient.[facility] CenterIn the event this information is protected by the Federal Confidentiality of Alcohol and Drug Abuse Patient Records regulations: The Federal rules restrict any use of the information to criminally investigate or prosecute any alcohol or drug abuse patient.[facility] CenterIn the event this information is protected by the Federal Confidentiality of Alcohol and Drug Abuse Patient Records regulations: The Federal rules restrict any use of the information to criminally investigate or prosecute any alcohol or drug abuse patient.[facility] CenterIn the event this information is protected by the Federal Confidentiality of Alcohol and Drug Abuse Patient Records regulations: The Federal rules restrict any use of the information to criminally investigate or prosecute any alcohol or drug abuse patient.[facility] CenterIn the event this information is protected by the Federal Confidentiality of Alcohol and Drug Abuse Patient Records regulations: The Federal rules restrict any use of the information to criminally investigate or prosecute any alcohol or drug abuse patient.[facility] CenterIn the event this information is protected by the Federal Confidentiality of Alcohol and Drug Abuse Patient Records regulations: The Federal rules restrict any use of the information to criminally investigate or prosecute any alcohol or drug abuse patient.[facility] CenterIn the event this information is protected by the Federal Confidentiality of Alcohol and Drug Abuse Patient Records regulations: The Federal rules restrict any use of the information to criminally investigate or prosecute any alcohol or drug abuse patient.[facility] CenterIn the event this information is protected by the Federal Confidentiality of Alcohol and Drug Abuse Patient Records regulations: The Federal rules restrict any use of the information to criminally investigate or prosecute any alcohol or drug abuse patient.[facility] CenterIn the event this information is protected by the Federal Confidentiality of Alcohol and Drug Abuse Patient Records regulations: The Federal rules restrict any use of the information to criminally investigate or prosecute any alcohol or drug abuse patient.[facility]In the event this information is protected by the Federal Confidentiality of Alcohol and Drug Abuse Patient Records regulations: The Federal rules restrict any use of the information to criminally investigate or prosecute any alcohol or drug abuse patient.[facility]In the event this information is protected by the Federal Confidentiality of Alcohol and Drug Abuse Patient Records regulations: The Federal rules restrict any use of the information to criminally investigate or prosecute any alcohol or drug abuse patient.[facility] CenterIn the event this information is protected by the Federal Confidentiality of Alcohol and Drug Abuse Patient Records regulations: The Federal rules restrict any use of the information to criminally investigate or prosecute any alcohol or drug abuse patient.[facility]In the event this information is protected by the Federal Confidentiality of Alcohol and Drug Abuse Patient Records regulations: The Federal rules restrict any use of the information to criminally investigate or prosecute any alcohol or drug abuse patient.[facility] CenterIn the event this information is protected by the Federal Confidentiality of Alcohol and Drug Abuse Patient Records regulations: The Federal rules restrict any use of the information to criminally investigate or prosecute any alcohol or drug abuse patient.[facility] CenterIn the event this information is protected by the Federal Confidentiality of Alcohol and Drug Abuse Patient Records regulations: The Federal rules restrict any use of the information to criminally investigate or prosecute any alcohol or drug abuse patient.[facility] CenterIn the event this information is protected by the Federal Confidentiality of Alcohol and Drug Abuse Patient Records regulations: The Federal rules restrict any use of the information to criminally investigate or prosecute any alcohol or drug abuse patient.[facility] CenterIn the event this information is protected by the Federal Confidentiality of Alcohol and Drug Abuse Patient Records regulations: The Federal rules restrict any use of the information to criminally investigate or prosecute any alcohol or drug abuse patient.[facility] CenterIn the event this information is protected by the Federal Confidentiality of Alcohol and Drug Abuse Patient Records regulations: The Federal rules restrict any use of the information to criminally investigate or prosecute any alcohol or drug abuse patient.[facility] CenterIn the event this information is protected by the Federal Confidentiality of Alcohol and Drug Abuse Patient Records regulations: The Federal rules restrict any use of the information to criminally investigate or prosecute any alcohol or drug abuse patient.[facility] CenterIn the event this information is protected by the Federal Confidentiality of Alcohol and Drug Abuse Patient Records regulations: The Federal rules restrict any use of the information to criminally investigate or prosecute any alcohol or drug abuse patient.[facility] CenterIn the event this information is protected by the Federal Confidentiality of Alcohol and Drug Abuse Patient Records regulations: The Federal rules restrict any use of the information to criminally investigate or prosecute any alcohol or drug abuse patient.[facility] CenterIn the event this information is protected by the Federal Confidentiality of Alcohol and Drug Abuse Patient Records regulations: The Federal rules restrict any use of the information to criminally investigate or prosecute any alcohol or drug abuse patient.[facility] CenterIn the event this information is protected by the Federal Confidentiality of Alcohol and Drug Abuse Patient Records regulations: The Federal rules restrict any use of the information to criminally investigate or prosecute any alcohol or drug abuse patient.[facility] CenterIn the event this information is protected by the Federal Confidentiality of Alcohol and Drug Abuse Patient Records regulations: The Federal rules restrict any use of the information to criminally investigate or prosecute any alcohol or drug abuse patient.[facility] CenterIn the event this information is protected by the Federal Confidentiality of Alcohol and Drug Abuse Patient Records regulations: The Federal rules restrict any use of the information to criminally investigate or prosecute any alcohol or drug abuse patient.[facility] CenterIn the event this information is protected by the Federal Confidentiality of Alcohol and Drug Abuse Patient Records regulations: The Federal rules restrict any use of the information to criminally investigate or prosecute any alcohol or drug abuse patient.[facility] CenterIn the event this information is protected by the Federal Confidentiality of Alcohol and Drug Abuse Patient Records regulations: The Federal rules restrict any use of the information to criminally investigate or prosecute any alcohol or drug abuse patient.[facility] CenterIn the event this information is protected by the Federal Confidentiality of Alcohol and Drug Abuse Patient Records regulations: The Federal rules restrict any use of the information to criminally investigate or prosecute any alcohol or drug abuse patient.[facility]In the event this information is protected by the Federal Confidentiality of Alcohol and Drug Abuse Patient Records regulations: The Federal rules restrict any use of the information to criminally investigate or prosecute any alcohol or drug abuse patient.[facility] CenterIn the event this information is protected by the Federal Confidentiality of Alcohol and Drug Abuse Patient Records regulations: The Federal rules restrict any use of the information to criminally investigate or prosecute any alcohol or drug abuse patient.[facility] CenterIn the event this information is protected by the Federal Confidentiality of Alcohol and Drug Abuse Patient Records regulations: The Federal rules restrict any use of the information to criminally investigate or prosecute any alcohol or drug abuse patient.[facility] CenterIn the event this information is protected by the Federal Confidentiality of Alcohol and Drug Abuse Patient Records regulations: The Federal rules restrict any use of the information to criminally investigate or prosecute any alcohol or drug abuse patient.[facility] CenterIn the event this information is protected by the Federal Confidentiality of Alcohol and Drug Abuse Patient Records regulations: The Federal rules restrict any use of the information to criminally investigate or prosecute any alcohol or drug abuse patient.[facility] CenterIn the event this information is protected by the Federal Confidentiality of Alcohol and Drug Abuse Patient Records regulations: The Federal rules restrict any use of the information to criminally investigate or prosecute any alcohol or drug abuse patient.[facility] CenterIn the event this information is protected by the Federal Confidentiality of Alcohol and Drug Abuse Patient Records regulations: The Federal rules restrict any use of the information to criminally investigate or prosecute any alcohol or drug abuse patient.[facility] CenterIn the event this information is protected by the Federal Confidentiality of Alcohol and Drug Abuse Patient Records regulations: The Federal rules restrict any use of the information to criminally investigate or prosecute any alcohol or drug abuse patient.[facility] CenterIn the event this information is protected by the Federal Confidentiality of Alcohol and Drug Abuse Patient Records regulations: The Federal rules restrict any use of the information to criminally investigate or prosecute any alcohol or drug abuse patient.[facility] [facility] Center[facility] the event this information is protected by the Federal Confidentiality of Alcohol and Drug Abuse Patient Records regulations: The Federal rules restrict any use of the information to criminally investigate or prosecute any alcohol or drug abuse patient.[facility] Center[facility] the event this information is protected by the Federal Confidentiality of Alcohol and Drug Abuse Patient Records regulations: The Federal rules restrict any use of the information to criminally investigate or prosecute any alcohol or drug abuse patient.[facility] CenterIn the event this information is protected by the Federal Confidentiality of Alcohol and Drug Abuse Patient Records regulations: The Federal rules restrict any use of the information to criminally investigate or prosecute any alcohol or drug abuse patient.[facility] CenterIn the event this information is protected by the Federal Confidentiality of Alcohol and Drug Abuse Patient Records regulations: The Federal rules restrict any use of the information to criminally investigate or prosecute any alcohol or drug abuse patient.[facility] CenterIn the event this information is protected by the Federal Confidentiality of Alcohol and Drug Abuse Patient Records regulations: The Federal rules restrict any use of the information to criminally investigate or prosecute any alcohol or drug abuse patient.[facility] CenterIn the event this information is protected by the Federal Confidentiality of Alcohol and Drug Abuse Patient Records regulations: The Federal rules restrict any use of the information to criminally investigate or prosecute any alcohol or drug abuse patient.[facility] CenterIn the event this information is protected by the Federal Confidentiality of Alcohol and Drug Abuse Patient Records regulations: The Federal rules restrict any use of the information to criminally investigate or prosecute any alcohol or drug abuse patient.[facility] CenterIn the event this information is protected by the Federal Confidentiality of Alcohol and Drug Abuse Patient Records regulations: The Federal rules restrict any use of the information to criminally investigate or prosecute any alcohol or drug abuse patient.[facility] CenterIn the event this information is protected by the Federal Confidentiality of Alcohol and Drug Abuse Patient Records regulations: The Federal rules restrict any use of the information to criminally investigate or prosecute any alcohol or drug abuse patient.[facility] Care Teams (unrecognized sec tion and content) Vineyardist Relationship Specialty Start Date End Date Tate Alfonso MD [address] [place] [address] PCP - General Internal Medicine 07/17/16 Vineyardist Relationship Specialty Start Date End Date Naty, Tate Salazar MD [address] [place] [address] PCP - General Internal Medicine 07/17/16 Vineyardist Relationship Specialty Start Date End Date Naty, Tate Salazar MD [address] [place] [address] PCP - General Internal Medicine 07/17/16 Vineyardist Relationship Specialty Start Date End Date [place], Tate Salazar MD [address] [place] [address] PCP - General Internal Medicine 07/17/16 Vineyardist Relationship Specialty Start Date End Date [place], Tate Salazar MD [address] [place] [address] PCP - General Internal Medicine 07/17/16 Vineyardist Relationship Specialty Start Date End Date Naty, Tate Salazar MD [address] [place] [address] PCP - General Internal Medicine 07/17/16 Vineyardist Relationship Specialty Start Date End Date [place], Ttae Salazar MD [address] [place] [address] PCP - General Internal Medicine 07/17/16 Vineyardist Relationship Specialty Start Date End Date [place], Tate Salazar MD [address] [place] [address] PCP - General Internal Medicine 07/17/16 Vineyardist Relationship Specialty Start Date End Date Naty, Tate Salazar MD [address] [place] [address] PCP - General Internal Medicine 07/17/16 Vineyardist Relationship Specialty Start Date End Date Ntay, Tate Salazar MD [address] [place] [address] PCP - General Internal Medicine 07/17/16 Vineyardist Relationship Specialty Start Date End Date [place], Tate Salazar MD [address] [place] [address] PCP - General Internal Medicine 07/17/16 Vineyardist Relationship Specialty Start Date End Date Naty, Tate Salazar MD [address] [place] [address] PCP - General Internal Medicine 07/17/16 Vineyardist Relationship Specialty Start Date End Date [place], Tate Salazar MD [address] [place] [address] PCP - General Internal Medicine 07/17/16 Vineyardist Relationship Specialty Start Date End Date [place], Tate Salazar MD [address] [place] [address] PCP - General Internal Medicine 07/17/16 Vineyardist Relationship Specialty Start Date End Date Naty, Tate Salazar MD [address] [place] [address] PCP - General Internal Medicine 07/17/16 Vineyardist Relationship Specialty Start Date End Date [place], Tate Salazar MD [address] [place] [address] PCP - General Internal Medicine 07/17/16 Vineyardist Relationship Specialty Start Date End Date Naty, Tate Salazar MD [address] [place] [address] PCP - General Internal Medicine 07/17/16 Vineyardist Relationship Specialty Start Date End Date [place], Tate Salazar MD [address] [place] [address] PCP - General Internal Medicine 07/17/16 Vineyardist Relationship Specialty Start Date End Date Stone MountainTate MD [address] [place] [address] PCP - General Internal Medicine 07/17/16 Vineyardist Relationship Specialty Start Date End Date NatyTate MD [address] [place] [address] PCP - General Internal Medicine 07/17/16 Vineyardist Relationship Specialty Start Date End Date NatyTate MD [address] [place] [address] PCP - General Internal Medicine 07/17/16 Vineyardist Relationship Specialty Start Date End Date NatyTate MD [address] [place] [address] PCP - General Internal Medicine 07/17/16 Vineyardist Relationship Specialty Start Date End Date NatyTate young MD [address] [place] [address] PCP - General Internal Medicine 07/17/16 Vineyardist Relationship Specialty Start Date End Date Stone MountainTate young MD [address] [place] [address] PCP - General Internal Medicine 07/17/16 Vineyardist Relationship Specialty Start Date End Date Stone MountainTate young MD [address] [place] [address] PCP - General Internal Medicine 07/17/16 Vineyardist Relationship Specialty Start Date End Date [place] Mountain[place]ate young MD [address] [place] [address] PCP - General Internal Medicine 07/17/16 Vineyardist Relationship Specialty Start Date End Date [place], Tate Salazar MD [address] [place] [address] PCP - General Internal Medicine 07/17/16 Vineyardist Relationship Specialty Start Date End Date [place], Tate Salazar MD [address] [place] [address] PCP - General Internal Medicine 07/17/16 Vineyardist Relationship Specialty Start Date End Date [place], Tate Salazar MD [address] [place] [address] PCP - General Internal Medicine 07/17/16 Vineyardist Relationship Specialty Start Date End Date [place], Tate Salazar MD [address] [place] [address] PCP - General Internal Medicine 07/17/16 Vineyardist Relationship Specialty Start Date End Date Naty, Tate Salazar MD [address] [place] [address] PCP - General Internal Medicine 07/17/16 Vineyardist Relationship Specialty Start Date End Date Naty, Tate Salazar MD [address] [place] [address] PCP - General Internal Medicine 07/17/16 Vineyardist Relationship Specialty Start Date End Date [place], Tate Salazar MD [address] [place] [address] PCP - General Internal Medicine 07/17/16 Vineyardist Relationship Specialty Start Date End Date Naty, Tate Salazar MD [address] [place] [address] PCP - General Internal Medicine 07/17/16 Vineyardist Relationship Specialty Start Date End Date [place], Tate Salazar MD [address] [place] [address] PCP - General Internal Medicine 07/17/16 Vineyardist Relationship Specialty Start Date End Date Naty, Tate Salazar MD [address] [place] [address] PCP - General Internal Medicine 07/17/16 Vineyardist Relationship Specialty Start Date End Date Naty, Tate Salazar MD [address] [place] [address] PCP - General Internal Medicine 07/17/16 Vineyardist Relationship Specialty Start Date End Date Naty, Tate Salazar MD [address] [place] [address] PCP - General Internal Medicine 07/17/16 Vineyardist Relationship Specialty Start Date End Date [place], Tate Salazar MD [address] [place] [address] PCP - General Internal Medicine 07/17/16 Vineyardist Relationship Specialty Start Date End Date Naty, Tate Salazar MD [address] [place] [address] PCP - General Internal Medicine 07/17/16 Vineyardist Relationship Specialty Start Date End Date [place], Tate Salazar MD [address] [place] [address] PCP - General Internal Medicine 07/17/16 Kraig Sifuentes APRN.G[employer] 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 [address] [place] [address] Virtual Classroom Manager Internal Medicine 08/23/24 Vineyardist Relationship Specialty Start Date End Date Tate Alfonso MD [address] [place] [address] PCP - General Internal Medicine 07/17/16 Kraig Sifuentes APRN.GAS 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 [address] [place] [address] Virtual Classroom Manager Internal Medicine 08/23/24 Vineyardist Relationship Specialty Start Date End Date Tate Alfonso MD [address] [place] [address] PCP - General Internal Medicine 07/17/16 Kraig Sifuentes, JET WORKER.GAS 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 [address] [place] [address] Virtual Classroom Manager Internal Medicine 08/23/24 Vineyardist Relationship Specialty Start Date End Date Tate Alfonso MD [address] [place] [address] PCP - General Internal Medicine 07/17/16 Kraig Sifuentes, JET WORKER.GAS 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 [address] [place] [address] Virtual Classroom Manager Internal Medicine 08/23/24 Vineyardist Relationship Specialty Start Date End Date Tate Alfonso MD [address] [place] [address] PCP - General Internal Medicine 07/17/16 Kraig Sifuentes APRN.GAS 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 [address] [place] [phone] Virtual Classroom Manager Internal Medicine 08/23/24 Vineyardist Relationship Specialty Start Date End Date Tate Alfonso MD [address] [place] [address] PCP - General Internal Medicine 07/17/16 Kraig Sifuentes APRN.GAS 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 [address] [place] [phone] Virtual Classroom Manager Internal Medicine 08/23/24 Vineyardist Relationship Specialty Start Date End Date Tate Alfonso MD [address] [place] [address] PCP - General Internal Medicine 07/17/16 Kraig Sifuentes APRN.GAS 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 [address] [place] [phone] Virtual Classroom Manager Internal Medicine 08/23/24 Vineyardist Relationship Specialty Start Date End Date Tate Alfonso MD [address] [place] [address] PCP - General Internal Medicine 07/17/16 Kraig Sifuentes APRN.GAS 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 [address] [place] [phone] Virtual Classroom Manager Internal Medicine 08/23/24 Vineyardist Relationship Specialty Start Date End Date Tate Alfonso MD [address] [place] [address] PCP - General Internal Medicine 07/17/16 Kraig Sifuentes, DEANNE.GAS 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 [address] [place] [address] Virtual Classroom Manager Internal Medicine 08/23/24 Vineyardist Relationship Specialty Start Date End Date Tate Alfonso MD [address] [place] [address] PCP - General Internal Medicine 07/17/16 Kraig Sifuentes, JET WORKER.GAS 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 [address] [place] [address] Virtual Classroom Manager Internal Medicine 08/23/24 Team Status: Active Member Role Status Dates Dr. Tate Alfonso MD Primary Care Provider Active Team Status: Inactive Member Role Status Dates Dr. Tate Alfonso MD Primary Care Provider Active Start: November 17, 2024 End: November 17, 2024 Dr. Tate Alfonso MD Referring Provider Active Start: November 17, 2024 End: November 17, 2024 Theo Fink UTILIZATION REVIEW RN, UTILIZATION REVIEW RN-C Attending Provider Active S tart: November 17, 2024 End: November 17, 2024 Team Status: Active Member Role Status Dates Dr. Tate Alfonso MD Primary Care Provider Active Start: February 23, 2025 Dr. Garry Paz MD Emergency Provider Active S tart: February 23, 2025 Dr. Elizabeth Sultana MD Admit Provider Active St art: February 23, 2025 Dr. Elizabeth Sultana MD Attending Provider Active Start: February 23, 2025 Reason for Visit (unrecogniz ed section and content) Reason Comments Coumadin/INR Reason Comments F/U 3 Month Reason Comments Prescription Refills Reason Comments INR lab order issue Reason Comments Results Coumadin/INR Reason Onset Date Comments Refill Request 03/20/2022 Reason Comments Established Patient Knee Pain Injections Reason Onset Date Comments Refill Request 04/20/2022 Reason Comments Follow Up Reason Comments Appointment Patient Question Reason Comments Received Outside Medical Records [facility] re:Imaging (05/01/22) Reason Comments Refill Request Reason Comments Patient Update Reason Onset Date Comments Refill Request 06/21/2022 Reason Comments Results Reason Onset Date Comments Refill Request 09/21/2022 Reason Onset Date Comments Refill Request 11/20/2022 Reason Onset Date Comments Refill Request 12/21/2022 Reason Onset Date Comments Refill Request 01/21/2023 Reason Comments Lab Orders Reason Onset Date Comments Refill Request 03/25/2023 Reason Comments Anticoagulation INR 2.0 Reason Onset Date Comments Refill Request 04/24/2023 Reason Onset Date Comments Refill Request 05/27/2023 Reason Onset Date Comments Refill Request 08/26/2023 Reason Onset Date Comments Refill Request 10/31/2023 Reason Onset Date Comments Refill Request 11/29/2023 Reason Comments F/U 3 months Reason Onset Date Comments Refill Request 01/29/2024 Reason Onset Date Comments Refill Request 03/02/2024 Reason Onset Date Comments Refill Request 04/10/2024 Must use mail or inocencio - previously sent to wrong pharmacy Reason Comments Follow Up Knee Pain Injections Reason Comments Medicare Wellness Exam Reason Onset Date Comments Refill Request 07/28/2024 Medication Problem 07/28/2024 Patient is ou t of medication Reason Comments Follow Up Injections Knee Pain Reason Onset Date Comments Refill Request 08/27/2024 Reason Comments F/U 3 months Reason Comments Follow Up Injections Reason Onset Date Comments Refill Request 11/27/2024 Reason Onset Date Comments Refill Request 12/28/2024 Reason Onset Date Comments Refill Request 01/25/2025 Inactive Administered Medications - up to 3 most recent administrations Administered Medications (un recognized section and content) Medication Order MAR Action Action Date Dose Rate Site betamethasone acetate-betamethasone sodium phosphate 6 mg injection (CELESTONE) 6 mg, Injection - FOR ORTHO USE ONLY, ONCE, 1 dose, Starting on Dyana 10/31/23 at 1141, Until Dyana 10/31/23 at 1141 Given 10/31/2023 11:41 AM EST 6 mg Knee , Left betamethasone acetate-betamethasone sodium phosphate 6 mg injection (CELESTONE) 6 mg, Injection - FOR ORTHO USE ONLY, ONCE, 1 dose, Starting on Dyana 10/31/23 at 1141, Until Dyana 10/31/23 at 1141 Given 10/31/2023 11:41 AM EST 6 mg Knee , Right lidocaine (PF) 10 mg/mL (1 %) 5 mL injection (XYLOCAINE) 5 mL, Injection - FOR ORTHO USE ONLY, ONCE, 1 dose, Starting on Dyana 10/31/23 at 1141, Until Dyana 10/31/23 at 1141 Given 10/31/2023 11:41 AM EST 5 mL Knee , Left lidocaine (PF) 10 mg/mL (1 %) 5 mL injection (XYLOCAINE) 5 mL, Injection - FOR ORTHO USE ONLY, ONCE, 1 dose, Starting on Dyana 10/31/23 at 1141, Until Dyana 10/31/23 at 1141 Given 10/31/2023 11:41 AM EST 5 mL Knee , Right (unrecognized sect ion and content) No Status Records FoundNo Status Records FoundNo Status Records FoundNo Status Records Found INFORMATION SOURCE (unrecogn ized section and content) DATE CREATED AUTHOR 10/29/2024 [facility] DATE CREATED AUTHOR AUTHOR'S ORGANIZ ATION 11/18/2024 [facility] DATE CREATED AUTHOR AUTHOR'S ORGANIZ ATION 01/23/2025 [facility] DATE CREATED AUTHOR AUTHOR'S ORGANIZ ATION 02/17/2025 [facility] Goals (unrecognized section and content) Goals may be documented in a n alternate section FOR RECORDS PERTAINING TO PATIENTS WHO ARE OR HAVE BEEN ENROLLED IN A CHEMICAL DEPENDENCY/SUBSTANCEABUSE PROGRAM, SOME INFORMATION MAY BE OMITTED. This clinical summary was aggregated from multiple sources. Caution should be exercised in using it in the provision of clinical care. This summary normalizes information from multiple sources, and as a consequence, information in this document may materially change the coding, format and clinical context of patient data. In addition, data may be omitted in some cases. CLINICAL DECISIONS SHOULD BE BASED ON THE PRIMARY CLINICAL RECORDS. [facility], [facility]. provides no warranty or guarantee of the accuracy or completeness of information in this document.
[2025-02-24 04:00] VITALS: BP 139/65; PULSE 58; RESP 16; TEMP 36.6; O2SAT 96
--- NOTE | 2025-02-24 04:05 | EKG12_ITS ---
Test Reason : CP Blood Pressure : */* mmHG Vent. Rate : 48 BPM Atrial Rate : 48 BPM P-R Int : 168 ms QRS Dur : 138 ms QT Int : 490 ms P-R-T Axes : 29 -68 23 degrees QTcB Int : 437 ms Sinus bradycardia Right bundle branch block Left anterior fascicular block Bifascicular block Minimal voltage criteria for LVH, may be normal variant ( R in aVL ) Cannot rule out Septal infarct , age undetermined Abnormal ECG When compared with ECG of 23-Feb-2025 09:29, MANUAL COMPARISON REQUIRED DATA IS UNCONFIRMED Confirmed by Davey Nelson ([id number]), brands editor RADHA VILLEDA ([id number]) on 02/24/2025 10:39:34 AM Referred By: KELLY Confirmed By: Davey Nelson
[2025-02-24 05:03] LABS: Absolute Lymphocyte Count 1.93 X10^3/uL (0.83-4.51); Absolute Neutrophil Count 5.4 X10^3/uL (2.0-7.7); Basophil# 0.01 X10^3/uL; Basophil% 0.1 % (0-1); Eosinophil# 0.16 X10^3/uL; Eosinophils% 1.8 % (0-5); Hematocrit 40.8 % (40-54); Hemoglobin 14.1 g/dL (13.0-16.5); Lymphocyte # 1.93 X10^3/ul (0.83-4.51); Lymphocyte % 22.2 % (19-41); Mean Corp Hgb Conc 34.6 g/dL (32-36); Mean Corpuscular Hgb 31.8 pg (27.0-32.0); Mean Corpuscular Volume 91.9 fL (80-94); Mean Platelet Vol. 9.9 fl (6.2-12.0); Monocyte# 1.14 X10^3/uL; Monocyte% 13.1 % (0-10); NRBC Flagged by Analyzer 0 % (0-5); Neutrophil # 5.39 X10^3/uL (2.7-7.7); Neutrophil % 62.2 % (47-70); Platelet Count 180 K/mm3 (150-450); RBC Distribution Width CV 12.7 % (11.6-14.6); RBC Distribution Width SD 42.8 fl (35.1-43.9); Red Blood Count 4.44 M/mm3 (4.6-6.2); White Blood Count 8.7 K/mm3 (4.4-11.0)
[2025-02-24 05:28] VITALS: BP 135/65
[2025-02-24] MEDS: Lisinopril 20 MG Tablet PO (05:30)
[2025-02-24 05:44] LABS: Anion Gap 11 (5-15); BUN 19 mg/dL (4-19); BUN/Creat Ratio 19.5 RATIO (10-20); Calcium,Total 8.7 mg/dL (7.6-11.0); Carbon Dioxide 21.5 mmol/L (21.0-32.0); Chloride 101 mmol/L (98-108); EST Glomerular Filtration Rate 79 (>60); Estimated Creatinine Clearance 72.86 ml/min (50-250); Glucose 127 mg/dL (70-99); Potassium 4.6 mmol/L (3.3-5.1); Sodium Level 134 mmol/L (133-145)
[2025-02-24] MEDS: Morphine 2 MG/ML Syringe 1 MG IV (10:15)
[2025-02-24] MEDS: Ondansetron 4 MG/2 ML Vial IV (10:19)
[2025-02-24 10:21] VITALS: BP 123/62; PULSE 61; RESP 14; TEMP 36.8; O2SAT 94
[2025-02-24 10:33] LABS: International Normalized Ratio 2.9; Prothrombin Time (Protime)PT. 30.7 SECONDS (11.7-14.9)
[2025-02-24] MEDS: 0.9% Saline Lock 10 ML Syringe IV (10:39)
--- NOTE | 2025-02-24 11:36 | CASEMGMT ---
Met with patient to complete SON form. SON form and its content were verbally explained and patient's questions were answered to the best of my ability.? Patient voiced understanding and signed SON form.? Patient provided a copy of signed SON form and original placed in patient's chart.? Patient had no further questions. Paola Irizarry, Discharge Planning Asst
[2025-02-24 12:40] VITALS: BP 111/62; PULSE 55; RESP 17; TEMP 37.1; O2SAT 94
--- NOTE | 2025-02-24 14:26 | STRESSREP ---
Stress Test Report Date: 02/24/2025 Procedure: Pharmacologic stress nuclear imaging study Indications: Chest pain Consent: Per the patient Procedure: The patient underwent pharmacologic (Regadenoson 0.4mg ) evaluation with a peak heart rate of 80 beats per minute (54%predicted maximal heart rate) and a peak blood pressure of 118/58 mmHg. The baseline ECG demonstrated sinus rhythm with right bundle branch block. The peak pharmacologic ECG was nondiagnostic secondary to baseline abnormalities. There were no cardiac dysrhythmias pretest, during pharmacologic infusion, or recovery. There was no complaint of chest discomfort during pharmacologic infusion or recovery. The patient was injected with 12.0 millicuries of technetium 99m Cardiolite and subsequently rest SPECT Cardiolite nuclear imaging was obtained in the horizontal long, vertical long, and short axis views. The patient underwent pharmacologic (Regadenoson) evaluation. The patient was injected with 35.5 millicuries of technetium 99m Cardiolite and subsequently stress SPECT Cardiolite nuclear imaging was obtained in the horizontal long, vertical long, and short axis views. A gated Cardiolite study at peak stress was obtained. The examination was stopped secondary to completion of protocol. Rest and stress SPECT Cardiolite nuclear imaging status post realignment and normalization shows small reversible perfusion defect of the basal septum suggestive of small area of mild ischemia. There is end systolic thickening and brightening. The gated Cardiolite study demonstrates myocardial thickening and inward wall motion. The reported LVEF is 67%. Impression: 1. Pharmacologic (Regadenoson) evaluation 2. Peak pharmacologic ECG with no diagnostic changes secondary to baseline abnormalities. 3. There were no cardiac dysrhythmias pretest, during pharmacologic infusion, or recovery. 5. Small reversible perfusion defect of the basal septum which may suggest mild ischemia. Less than 5% of myocardium involved. 6. The gated Cardiolite study reports an LVEF of 67%. This note was generated with [employer] software. It may contain incorrect words, spelling, and punctuation that were not noted in checking the note before signing.
--- NOTE | 2025-02-24 16:53 | PN_ITS ---
Subjective Subjective Patient seen and examined. He complained of some back pain. This started about a week prior to admission when he said he stressed his back whilst carrying some things. His shortness of breath and chest pain have not recurred. Review of systems is otherwise negative. He had a stress test today which was abnormal. Cardiology therefore consulted. Objective Data Objective Data Vital Signs: Vital Signs Temp Pulse Resp BP Pulse Ox O2 Del Method 98.7 F 55 L 17 111/62 94 Room Air 02/24/25 12:40 02/24/25 12:40 02/24/25 12:40 02/24/25 12:40 02/24/25 12:40 02/24/25 14:00 Oxygen Delivery Method Room Air Weight: 196 lb 10.437 oz Body Mass Index (BMI) 28.2 Intake & Output: Intake and Output for Last 24 Hours 02/22/25 02/23/25 02/24/25 23:59 23:59 23:59 Intake Total 240 / 240 Balance 240 / 240 Lab / Micro Data 02/24/25 04:32 02/24/25 04:32 Labs: Laboratory Results - last 24 hr 02/23/25 16:56: Troponin T Hi Sens 2 Hr 27 H 02/23/25 18:55: Troponin T Hi Sens 4Hr 28 H 02/24/25 04:32: WBC 8.7, RBC 4.44 L, Hgb 14.1, Hct 40.8, MCV 91.9, MCH 31.8, MCHC 34.6, RDW Std Deviation 42.8, RDW Coeff of Trish 12.7, Plt Count 180, MPV 9.9, Immature Gran % (Auto) 0.600, Neut % (Auto) 62.2, Lymph % (Auto) 22.2, Kern % (Auto) 13.1 H, Eos % (Auto) 1.8, Baso % (Auto) 0.1, Absolute Neuts (auto) 5.4, Absolute Lymphs (auto) 1.93, Nucleated RBC % 0, Sodium 134, Potassium 4.6, Chloride 101, Carbon Dioxide 21.5, Anion Gap 11, BUN 19, Creatinine 1.00, Estim Creat Clear Calc 72.86, Est GFR (MDRD) Non-Af 79, BUN/Creatinine Ratio 19.5, G lucose 127 H, Calcium 8.7 02/24/25 10:09: PT 30.7 H, INR 2.9 Rhythm Strip Rhythm Strip: Sinus bradycardia Rate: 55 Ectopy: None Physical Exam Const alert, oriented x3 and no apparent distress General Appearance: cooperative HEENT normocephalic, head/scalp atraumatic, hearing grossly normal bilaterally, moist oral mucous membranes and oropharynx normal Eyes PERRL, EOMs intact bilaterally and conjunctivae normal Neck no lymphadenopathy Resp normal respiratory effort, no retractions, no use of accessory muscles and clear to auscultation bilaterally Cardio regular rate, regular rhythm, S1 normal heart sound, S2 normal heart sound and no murmurs GI normal to inspection, nondistended, normoactive bowel sounds, soft to palpation and non-tender Extremity normal to inspection, full ROM and no clubbing, cyanosis or edema General Extremity: no tenderness to palpation of joints or extremities Skin General Skin Exam: no breakdown Neuro oriented x3, CN's II-XII intact bilaterally and moves all extremities Motor Exam: strength 5/5 throughout and general weakness Psych thought process normal, cooperative and affect normal Appearance: appropriate Assessment & Plan Assessment/Plan (1) Exertional chest pain: PLAN: Plan #Chest pain to rule out ACS * Admit to PCU under observation * initial troponin is 29. Will cycle troponins * EKG showed no acute ST changes * PO aspirin 81mg daily. SL nitroglycerin prn * stress test done today showed EF of 67% with small reversible perfusion defect of hte basal septum which may suggest mild ischemia and less than 5% * Cardiology consulted. * #History of CAD s/p stents: Stable. #History of DVT with hypercoagulability: on coumadin. INR is 2.9 today #Hyperlipidemia: on statin #Hypertension: On hydrochlorothiazide and lisinopril as well as propranolol DVT prophylaxis: Already on Coumadin. INR is therapeutic at 2.9 today CODE STATUS: DNR CCA with intubation * Charges/Coding Visit Charges Inpatient E&M: 78002 Subs Hosp L2
[2025-02-24 17:21] VITALS: BP 127/75; PULSE 65; RESP 18; TEMP 37.1; O2SAT 97
--- NOTE | 2025-02-24 17:35 | CON.PCM.CA_ITS ---
Assessment & Plan Assessment/Plan (1) Exertional chest pain: PLAN: Patient's chest symptoms are not like his previous angina. These started after he threw his back out loading garbage in the back of his truck. He is symptoms are definitely different than his prior angina. Troponins are minimally elevated EKG shows no acute ischemic changes. The stress test shows 5% possible ischemia at the base of the heart. The patient's previously stented segment with the proximal and then mid LAD in 2012 and then 2020 respectively. He does have very terminal LAD disease which does not match where the ischemia is noted. I do not feel that further invasive evaluation is indicated at this point in time. The patient will be continued on his current medical therapy and follow- up in the [facility] office in the next month or so. (2) History of coronary artery stent placement: PLAN: Patient's status post proximal LAD stent 2012 and mid LAD stent 2020. The original stent was patent at the 2020 cath. (3) Essential (primary) hypertension: PLAN: Patient's blood pressure is adequately controlled at this point in time. He will be monitored to the ambulatory setting. (4) Chronic anticoagulation: PLAN: Patient is on long-term oral Coumadin due to hypercoagulable state he also has a Derek filter in place. PLAN: Plan 1. From a cardiovascular standpoint the patient can be discharged to home. 2. The patient should follow-up with the [facility] with Dr. Nelson in 4 weeks and as needed. 3. Should the patient continue to have symptoms with healing of his back discomfort or if he requires surgical intervention on his back then we would reevaluate the need for left heart catheterization to clear him. HPI Consult Data Date of Consult: 02/24/25 HPI Narrative Reason for Consultation: Chest pain with abnormal stress test. HPI Narrative: KAYLA MORENO, is a 74 M who presents with a week and a half history of back discomfort and with activity some shortness of breath that felt like a tightness. This resolved with rest. He actually threw his back out loading garbage into the back of his truck. And the symptoms started immediately after that. The patient carries a history of known coronary disease status post drug-eluting stent to his LAD in 2012 that was performed by me at [facility] and again in 2020. He carries a history of a chronic right bundle branch block hypertension, hyperlipidemia, and a hypercoagulable state with multiple DVTs status post Derek filter placement. The patient's previous anginal symptoms that occurred in 2012 and again in 2020 when he had the mid LAD stented the proximal LAD was stented in 2012 or chest symptoms that were different than what he is experiencing now. He came in and had a pharmacologic nuclear stress test done today which showed a small area of 5% myocardium at the base being potentially ischemic. The patient's troponins were 30, 27, and 28. His ECG showed sinus bradycardia at 48 bpm with a right bundle branch block and left anterior fascicular block cannot rule out an old septal VT these were not new changes. There was no acute ischemic changes documented. His telemetry shows sinus bradycardia 51 bpm. The patient is resting comfortably in the bed he denies any chest symptoms at this point in time denies any dyspnea on exertion denies any PND orthopnea denies any lower extremity edema. Up until when he hurt his back he was very active in his home environment without symptoms. [facility] Medical History Essential tremor COVID-19 (~06/2023) Non-smoker Diabetes Obesity History of deep venous thrombosis Right bundle branch block (RBBB) Essential (primary) hypertension Hyperlipidemia Hypercoagulable state Atherosclerosis of [place] coronary artery of [place] heart without angina pectoris Home Medications ?Medication ?Instructions ?Recorded ?Last Taken ?Type primidone 50 mg tablet 150 mg (3 x 50 mg) PO BID #9 0 tabs 10/03/17 02/22/25 Rx nitroglycerin 0.4 mg sublingual 0.4 mg sublingual Q5-1 5M PRN chest 04/22/18 Unknown Rx tablet pain #25 tabs acetaminophen 650 mg 650 mg PO QHS 09/25/2302/22 History tablet,extended release (Tylenol Arthritis Pain) diclofenac sodium 1 % topical gel 2 g topical 4X/DAY P RN pain 09/25/23 Unknown History (Aleve (diclofenac)) warfarin 4 mg tablet 4 mg PO DAILY blood thinner 09/25/23 02/22/25 History propranolol 40 mg tablet 40 mg PO BID #180 tabs 12/1702/22/25 Rx hydrocodone 10 mg-acetaminophen 1 tab PO BID PRN Pain 11/17/24 Unknown History 325 mg tablet hydrochlorothiazide 12.5 mg tablet 12.5 mg PO DAILY 02/22/25 History lisinopril 20 mg tablet 20 mg PO DAILY 02/23/2506/10 History Allergy/AdvReac Type Severity Reaction Status Date / Time ticagrelor (From Brilinta) AdvReac Intermediate dyspnea Verified 11/17/24 13:12 atorvastatin (From Lipitor) AdvReac myalgia Verified 11/17/24 13:12 Family History Father Heart disease Sister Heart disease Sister Heart disease Diabetes Surgical History History of coronary artery stent placement (01/20/21) H/O knee surgery Phenix filter in place (2005) History of carpal tunnel surgery History of lumbar surgery Social History Smoking Status: Never smoker alcohol intake: never substance use type: does not use caffeine: Yes Type: carbonated beverages and coffee ROS Constitutional Constitutional: Reports as per HPI Eyes Eyes: Reports systems reviewed and no addt'l complaints, except as documented ENT HEENT: Reports systems reviewed and no addt'l complaints, except as documented Cardiovascular Cardiovascular: Reports as per HPI Respiratory/Chest Respiratory/Chest: Reports as per HPI Gastrointestinal Gastrointestinal: Reports systems reviewed and no addt'l complaints, except as documented Genitourinary Genitourinary: Reports systems reviewed and no addt'l complaints, except as documented Musculoskeletal Musculoskeletal: Reports as per HPI Integumentary Integumentary: Reports systems reviewed and no addt'l complaints, except as documented Neurologic Neurologic: Reports systems reviewed and no addt'l complaints, except as documented Psychiatric Psychiatric: Reports systems reviewed and no addt'l complaints, except as documented Endocrine Endocrinology: Reports systems reviewed and no addt'l complaints, except as documented Hematologic/Lymphatic Hematologic/Lymphatic: Reports as per HPI Allergic/Immunologic Allergic/Immunologic: Reports systems reviewed and no addt'l complaints, except as documented Physical Exam Const alert and oriented x3 HEENT normocephalic Eyes EOMs intact bilaterally Neck no JVD Carotids: Negative for bruit Chest inspection of chest normal Resp normal respiratory effort and clear to auscultation bilaterally Cardio Rate: bradycardia Rhythm: regular rhythm Heart Sounds: S1 normal and S2 normal; Negative for click, gallop or murmur Peripheral Pulses: radial pulses present bilateral 2+ and posterior tibial pulses present bilateral 2+ Extremity no pedal edema Neuro Neuro Narrative: Alert and oriented x 3 Psych mental status grossly normal Risk Stratification Risk Stratification Applicable: Yes Age >/= 65: Yes >/= 3 CAD Risk Factors (HTN, HLD, DM, family hx of CAD, or current smoker): Yes Aspirin Use in the Past 7 Days: No Severe Angina (>/= episodes in 24 hours): No EKG ST Changes >/= 0.5mm: No Positive Cardiac Marker: Yes DALILA Risk Stratification Score: 3 DALILA % Risk: 13% Risk Charges/Coding Visit Charges Inpatient E&M: 18740 Init Hosp L2 Objective Data Vital Signs: Vital Signs Temp Pulse Resp BP Pulse Ox O2 Del Method 98.7 F 65 18 127/75 H 97 Room Air 02/24/25 17:21 02/24/25 17:21 02/24/25 17:21 02/24/25 17:21 02/24/25 17:21 02/24/25 17:21 Oxygen Delivery Method Room Air Weight: 196 lb 10.437 oz Body Mass Index (BMI) 28.2 Intake & Output: Intake and Output for Last 24 Hours 02/22/25 02/23/25 02/24/25 23:59 23:59 23:59 Intake Total 240 / 240 Balance 240 / 240 Lab / Micro Data Attestation: I reviewed the patient's lab results. 02/24/25 04:32 02/24/25 04:32 Labs: Laboratory Results - last 24 hr 02/23/25 16:56: Troponin T Hi Sens 2 Hr 27 H 02/23/25 18:55: Troponin T Hi Sens 4Hr 28 H 02/24/25 04:32: WBC 8.7, RBC 4.44 L, Hgb 14.1, Hct 40.8, MCV 91.9, MCH 31.8, MCHC 34.6, RDW Std Deviation 42.8, RDW Coeff of Trish 12.7, Plt Count 180, MPV 9.9, Immature Gran % (Auto) 0.600, Neut % (Auto) 62.2, Lymph % (Auto) 22.2, [place] % (Auto) 13.1 H, Eos % (Auto) 1.8, Baso % (Auto) 0.1, Absolute Neuts (auto) 5.4, Absolute Lymphs (auto) 1.93, Nucleated RBC % 0, Sodium 134, Potassium 4.6, Chloride 101, Carbon Dioxide 21.5, Anion Gap 11, BUN 19, Creatinine 1.00, Estim Creat Clear Calc 72.86, Est GFR (MDRD) Non-Af 79, BUN/Creatinine Ratio 19.5, G lucose 127 H, Calcium 8.7 02/24/25 10:09: PT 30.7 H, INR 2.9 Rhythm Strip Rhythm Strip: Sinus bradycardia Rate: 55 Ectopy: None Cardiology Labs/Tests 02/24/25 04:32: WBC 8.7, RBC 4.44 L, Hgb 14.1, Hct 40.8, MCV 91.9, MCH 31.8, MCHC 34.6, Plt Count 180, MPV 9.9, Immature Gran % (Auto) 0.600, Neut % (Auto) 62.2, Lymph % (Auto) 22.2, [place] % (Auto) 13.1 H, Eos % (Auto) 1.8, Baso % (Auto) 0.1, Absolute Neuts (auto) 5.4, Nucleated RBC % 0, Sodium 134, Potassium 4.6, Chloride 101, Carbon Dioxide 21.5, Anion Gap 11, BUN 19, Creatinine 1.00, Est GFR (MDRD) Non-Af 79, BUN/Creatinine Ratio 19.5, Glucose 127 H, Calcium 8.7 02/24/25 10:09: PT 30.7 H, INR 2.9 Rhythm: EKG: ECHO: Stress Test: Cardiac Cath: PCI: CT Surgery: Holter monitor: EPS: PPM: CXR: Chest CT Scan:
--- NOTE | 2025-02-24 17:55 | DS.PCM_ITS ---
Providers Date of Admission: 02/23/25 Date of Discharge: 02/24/25 Primary Care Physician: Dr. Tate Saleem MD Consultations 02/24/25 16:52 Consult: Cardiology Routine Consulting Provider: Davey Nelson Reason for Consult: abnormal stress test EMERGENT Consult: No MD Notified: Yes Date Notified: 02/24/25 Time Notified: 16:52 Method of Notification: Text Reason For Visit: CHEST PAIN Diagnosis Discharge Diagnosis (1) Exertional chest pain: Status: Acute Code(s): R07.9 - Chest pain, unspecified (2) History of coronary artery stent placement: Status: Chronic Code(s): Z95.5 - Presence of coronary angioplasty implant and graft (3) Essential (primary) hypertension: Status: Chronic Code(s): I10 - Essential (primary) hypertension (4) Chronic anticoagulation: Status: Acute 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 Will cycle troponins * EKG showed no acute ST changes * PO aspirin 81mg daily. SL nitroglycerin prn * stress test done today showed EF of 67% with small reversible perfusion defect of hte basal septum which may suggest mild ischemia and less than 5% * Cardiology consulted. * #History of CAD s/p stents: Stable. #History of DVT with hypercoagulability: on coumadin. INR is 2.9 today #Hyperlipidemia: on statin #Hypertension: On hydrochlorothiazide and lisinopril as well as propranolol DVT prophylaxis: Already on Coumadin. INR is therapeutic at 2.9 today CODE STATUS: DNR CCA with intubation * Medications at Discharge Home Medications primidone 50 mg tablet 150 mg (3 x 50 mg) PO BID #90 tabs 10/03/17 nitroglycerin 0.4 mg sublingual tablet 0.4 mg sublingual Q5-15M PRN chest pain #25 tabs 04/22/18 acetaminophen 650 mg tablet,extended release (Tylenol Arthritis Pain) 650 mg PO QHS 09/25/23 diclofenac sodium 1 % topical gel (Aleve (diclofenac)) 2 g topical 4X/DAY PRN pain 09/25/23 warfarin 4 mg tablet 4 mg PO DAILY blood thinner 09/25/23 propranolol 40 mg tablet 40 mg PO BID #180 tabs 12/18/23 hydrocodone 10 mg-acetaminophen 325 mg tablet 1 tab PO BID PRN Pain 11/17/24 hydrochlorothiazide 12.5 mg tablet 12.5 mg PO DAILY 02/23/25 lisinopril 20 mg tablet 20 mg PO DAILY 02/23/25 Hospital Course Operations None Procedures Stress test Summary of Care Provided Minutes Spent on Discharge: 45 Hospital Course: KAYLA MORENO, is a 74 M with a PMH as outlined who presents via the ED on 02/23/2025 with a complaint of chest pain. Pain occured with exertion, with associated shortness of breath.He has a history of DVT and hypercoagulability, and is s/p keenan Filter. He is on coumadin. His symptoms started one week ago, and said any exertion resulted in servere chest pain. He denied any lightheadedness, dizziness, palpitations, nausea, vomiting or any other symptoms. Review of systems is otherwise negative. Vitals in the ED were temperature of 98.3 Fahrenheit, pulse rate of 55, blood pressure 179/83 and respirate rate of 13. Saturating at 99% on room air. CBC showed hemoglobin of 15.1 with WBC of 10 and platelets of 161. INR was 3.2. Chemistry showed sodium of 136 with potassium of 4.8 and bicarb of 19.3. Anion gap is 14. Creatinine is 1.05. Initial troponin is 29. EKG showed no acute ST changes. Chest x-ray showed no acute cardiopulmonary pathology. He was admitted to be managed for chest pain rule out ACS. He had stress test as the troponins did not trend upwards. The stress test done showed EF of 67% with small reversible perfusion defect of hte basal septum which may suggest mild ischemia and less than 5%. Cardiology was consulted. Dr. Nelson reviewed patient and said he had done the patient's original stent about 2 months several years ago. Patient's symptoms were not typical of angina and patient also felt that his exertional shortness of breath was due to his back pain that he had strained recently. Cardiology therefore commended the patient could be discharged home and to follow-up with cardiology within a month if his symptoms persisted. Patient was agreeable to this and so he was discharged home on 02/24/2025. Patient was seen and examined on day of discharge. He had no active complaints apart from still having the occasional back pain. Review of systems otherwise negative. Labs and vitals reviewed. Home medication with and reconciled. Physical Exam Const alert, oriented x3 and no apparent distress General Appearance: cooperative and comfortable Orientation / Consciousness: awake HEENT normocephalic, head/scalp atraumatic, hearing grossly normal bilaterally and moist oral mucous membranes Mouth: oral and palatal mucosa normal Eyes PERRL, EOMs intact bilaterally and conjunctivae normal Neck no lymphadenopathy Resp normal respiratory effort, no retractions, no use of accessory muscles and clear to auscultation bilaterally Cardio regular rate, regular rhythm, S1 normal heart sound, S2 normal heart sound and no murmurs GI normal to inspection, nondistended, normoactive bowel sounds, soft to palpation and non-tender Extremity normal to inspection, full ROM and no clubbing, cyanosis or edema General Extremity: no tenderness to palpation of joints or extremities Skin no rashes or lesions noted General Skin Exam: no breakdown Neuro oriented x3, CN's II-XII intact bilaterally and moves all extremities Sensorium / Orientation: awake and alert Motor Exam: strength 5/5 throughout and general weakness Psych thought process normal, cooperative and affect normal Appearance: appropriate Weight / BMI Weight Weight: 196 lb 10.437 oz Body Mass Index (BMI) 28.2 ABG / Lab / Microbiology Data 02/24/25 04:32 02/24/25 04:32 Laboratory: Laboratory Results - last 24 hr 02/23/25 18:55: Troponin T Hi Sens 4Hr 28 H 02/24/25 04:32: WBC 8.7, RBC 4.44 L, Hgb 14.1, Hct 40.8, MCV 91.9, MCH 31.8, MCHC 34.6, RDW Std Deviation 42.8, RDW Coeff of Trish 12.7, Plt Count 180, MPV 9.9, Immature Gran % (Auto) 0.600, Neut % (Auto) 62.2, Lymph % (Auto) 22.2, [place] % (Auto) 13.1 H, Eos % (Auto) 1.8, Baso % (Auto) 0.1, Absolute Neuts (auto) 5.4, Absolute Lymphs (auto) 1.93, Nucleated RBC % 0, Sodium 134, Potassium 4.6, Chloride 101, Carbon Dioxide 21.5, Anion Gap 11, BUN 19, Creatinine 1.00, Estim Creat Clear Calc 72.86, Est GFR (MDRD) Non-Af 79, BUN/Creatinine Ratio 19.5, G lucose 127 H, Calcium 8.7 02/24/25 10:09: PT 30.7 H, INR 2.9 D/C Instructions Discharge Diet: Low fat / Low cholesterol Discharge Activity: Return to Normal Activity Weight Bearing Status: Weight bearing as tolerated Call your doctor if you observe: Fever of 101 or Higher, Shortness of breath, Dizziness and Chest pain DC O2, CPAP, BIPAP Needs Home O2 Discharge instructions: No DC home with Oxygen: No Meaningful Use Info Meaningful Use Meaningful Use Diagnoses (Choose all that apply): None applicable Ischemic Stroke Statin Dosing Therapy Reference: STATIN DOSE THERAPY REFERENCE: * Patients > 75 years receive moderate or high dose statin therapy. * Patients 75 years or YOUNGER should receive HIGH intensity statin dose unless contraindicated. You will be required to document reason for non-treatment if statin daily dose does not meet guidelines. HIGH DOSE STATIN THERAPY DAILY Atorvastatin > than or = to 40 mg Rosuvastatin > than or = to 20 mg Amlodipine + Atorvastatin > than or = to 2.5/40 mg Ezetimibe + Simvastatin 10/80 mg Simvastatin 80mg Discharge Plan Admission Admit Date/Time: 02/23/25 11:28 Primary Reason for Your Visit: Chest pain Attending Provider: Elizabeth Sultana Primary Care Provider: Tate Saleem Consulting Providers: Davey Nelson Instructions Patient Instructions: Discharge Instructions for Angina, ED Chest Pain, Noncardiac Discharge Orders/Prescriptions Prescriptions: Continued nitroglycerin 0.4 mg tablet, sublingual 0.4 mg SUBLINGUAL Q5-15M PRN (Reason: chest pain) Qty: 25 3RF Rx Instructions: until response; do not exceed 3 doses per event diclofenac sodium [Aleve (diclofenac)] 1 % gel 2 g topical 4X/DAY PRN (Reason: pain) Rx Instructions: apply to single elbow, wrist or hand; for hand includes palm/fingers/back of hand acetaminophen [Tylenol Arthritis Pain] 650 mg tablet extended release 650 mg PO QHS warfarin 4 mg tablet 4 mg PO DAILY hydrocodone-acetaminophen 10-325 mg tablet 1 tab PO BID PRN (Reason: Pain) hydrochlorothiazide 12.5 mg tablet 12.5 mg PO DAILY lisinopril 20 mg tablet 20 mg PO DAILY primidone 50 mg tablet 150 mg PO BID Qty: 90 0RF Rx Instructions: tremors propranolol 40 mg tablet 40 mg PO BID Qty: 180 3RF Referrals / Follow Up: Davey Nelson MD [Med Staff - Active Staff] - Within 1 Month Tate Saleem MD [Primary Care Provider] - Within 1 Week Disposition Disposition (needs filled in before D/C Order can be placed): Home, Self Care Charges/Coding Visit Charges Inpatient E&M: 99454 Disch Hosp >30min
--- NOTE | 2025-02-24 17:55 | DCINST_ITS ---
Discharge Instructions Diet Discharge Diet: Low fat / Low cholesterol DC O2, CPAP, BIPAP needs Home O2 Discharge instructions: No Dressing / Incision Discharge Activity: Return to Normal Activity Weight Bearing Status: Weight bearing as tolerated Dressing / Incision Call your doctor if you observe: Fever of 101 or Higher, Shortness of breath, Dizziness and Chest pain Follow Up Care Test Results: Test results from this visit will be discussed in further detail at your follow- up appointment, if applicable. Discharge Plan Admission Admit Date/Time: 02/23/25 11:28 Primary Reason for Your Visit: Chest pain Attending Provider: Elizabeth Sultana Primary Care Provider: Tate Saleem Consulting Providers: Davey Nelson Instructions Patient Instructions: Discharge Instructions for Angina, ED Chest Pain, Noncardiac Discharge Orders/Prescriptions Prescriptions: Continued nitroglycerin 0.4 mg tablet, sublingual 0.4 mg SUBLINGUAL Q5-15M PRN (Reason: chest pain) Qty: 25 3RF Rx Instructions: until response; do not exceed 3 doses per event diclofenac sodium [Aleve (diclofenac)] 1 % gel 2 g topical 4X/DAY PRN (Reason: pain) Rx Instructions: apply to single elbow, wrist or hand; for hand includes palm/fingers/back of hand acetaminophen [Tylenol Arthritis Pain] 650 mg tablet extended release 650 mg PO QHS warfarin 4 mg tablet 4 mg PO DAILY hydrocodone-acetaminophen 10-325 mg tablet 1 tab PO BID PRN (Reason: Pain) hydrochlorothiazide 12.5 mg tablet 12.5 mg PO DAILY lisinopril 20 mg tablet 20 mg PO DAILY primidone 50 mg tablet 150 mg PO BID Qty: 90 0RF Rx Instructions: tremors propranolol 40 mg tablet 40 mg PO BID Qty: 180 3RF Referrals / Follow Up: Davey Nelson MD [Med Staff - Active Staff] - Within 1 Month Tate Saleem MD [Primary Care Provider] - Within 1 Week Disposition Disposition (needs filled in before D/C Order can be placed): Home, Self Care
== END 2025-02-24 20:00 | disposition home or self-care (01) ==
LOC: ED 10:19 → PCU 12:13
PROVIDERS: Admitting Provider Student in an Organized Health Care Education/Training Program; Emergency Provider Emergency Medicine; PCP Internal Medicine; Visit Provider Student in an Organized Health Care Education/Training Program
DX: R07.89 Other chest pain (principal); E11.9 Type 2 diabetes mellitus without complications; R94.39 Abnormal result of other cardiovascular function study; Z86.718 Personal history of other venous thrombosis and embolism; R00.1 Bradycardia, unspecified; I25.10 Atherosclerotic heart disease of native coronary artery without angina pectoris; I45.2 Bifascicular block; E78.5 Hyperlipidemia, unspecified; I10 Essential (primary) hypertension; Z79.01 Long term (current) use of anticoagulants; Z95.5 Presence of coronary angioplasty implant and graft; R06.02 Shortness of breath; M79.89 Other specified soft tissue disorders; D68.59 Other primary thrombophilia; Z79.899 Other long term (current) drug therapy; Z66 Do not resuscitate
CPT/HCPCS: 36415; 71046; 78452; 80048; 84484; 85025; 85610; 93005; 93017; 96374; 96375; 96376; 99221; 99284; A9500; A4216; G0378; J2405; J2785